=== PATIENT | male | born 1935 | race Caucasian/White ===

== ENCOUNTER → 2016-11-18 | Outpatient (CLI) | payer MEDICARE ==
--- NOTE | 2016-11-26 10:40 | P.ARTDOP ---
Arterial Doppler LOWER EXTREMITY ARTERIAL DOPPLER: DATE OF SERVICE: 11/18/2016 Reason for study: Left foot ulcer. Doppler waveforms: Multiphasic bilaterally throughout. Pulse volume recording: Normal configuration. Pressure gradients: Across the knee. Ankle-brachial indices: 0.8 on the right and 0.92 on the left. Toe pressures: 100 on the right, 75 on the left Impression: Mild bilateral fem-pop disease. Perfusion pressure should be adequate for healing. Clinical correlation recommended..
== END | disposition home or self-care (01) ==
LOC: RADUSWWP 08:46
PROVIDERS: ATTEND Family Medicine
DX: I87.2 Venous insufficiency (chronic) (peripheral) (principal); L97.509 Non-pressure chronic ulcer of other part of unspecified foot with unspecified severity
CPT/HCPCS: 93923

== ENCOUNTER 2018-05-07 19:58 | Inpatient (IN) | payer MEDICARE ==
[2018-05-07] MEDS ORDERED: IPRATROPIUM-ALBUTEROL 3 ML NEB INHALATION STA (20:05)
[2018-05-07 20:41] LABS: Basophils % (A) 0 %; Eosinophils # (A) 0.1 k/uL (0-0.7); Eosinophils % (A) 2 %; HCT 37.9 % (39.0-53.0); HGB 12.1 gm/dL (13.0-17.5); Lymphocytes # (A) 0.8 k/uL (1.0-4.8); Lymphocytes % (A) 13 %; MCH 28.5 pg (25.0-35.0); MCHC 31.9 g/dL (31.0-37.0); MCV 89.5 fL (80.0-100.0); Mean Platelet Volume 6.1; Monocytes # (A) 0.3 k/uL (0-1.0); Monocytes % (A) 5 %; Neutrophils # (A) 4.7 k/uL (1.3-7.7); Neutrophils % (A) 78 %; Platelet Count 128 k/uL (150-450); RBC 4.23 m/uL (4.30-5.90); RDW 15.5 % (11.5-15.5)
[2018-05-07 20:50] LABS: Albumin 3.9 g/dL (3.5-5.0); Calcium 8.9 mg/dL (8.4-10.2); Potassium 3.8 mmol/L (3.5-5.1); Total Bilirubin 0.4 mg/dL (0.2-1.3); Total Protein 6.4 g/dL (6.3-8.2)
--- NOTE | 2018-05-07 20:51 | ED ---
SOB HPI - General Chief Complaint: Shortness of Breath Stated Complaint: SOB Time Seen by Provider: 05/07/18 20:05 Source: patient, EMS, RN notes reviewed, old records reviewed Mode of arrival: EMS Limitations: no limitations - History of Present Illness Initial Comments: This is an 83-year-old male the ER for evaluation. Patient is having occasional is also shortness breath past few days. Significant shortness of breath were he can't catch his breath is in significant distress unable to talk. Breathing very rapidly. The symptoms to improve. No episodes of syncope. Mild chest pain mild diaphoresis. Patient was; hospital denies any appendectomy. Very scared and called EMS and is brought in by EMS. EMS states symptoms began to improve his ear trying to the ER MD Complaint: shortness of breath, anxiety -: hour(s) Severity: severe Severity scale (1-10): 7 Consistency: constant, now resolved Improves With: nothing Worsens With: nothing Known History Of: COPD, congestive heart failure Associated Symptoms: chest pain Treatments Prior to Arrival: oxygen - Related Data Home Medications Medication Instructions Recorded Confirmed DULoxetine HCL [Cymbalta] 60 mg PO HS 11/08/13 05/07/18 Aspirin EC [Ecotrin Low Dose] 81 mg PO HS 08/08/14 05/07/18 LORazepam [Lorazepam] 0.5 mg PO BID 08/08/14 05/07/18 Simvastatin [Zocor] 40 mg PO HS 08/08/14 05/07/18 Ferrous Sulfate [Feosol] 325 mg PO DAILY 03/05/16 05/07/18 Furosemide [Lasix] 80 mg PO QAM 03/05/16 05/07/18 Insulin Glargine [Lantus] 30 unit SQ QAM 03/05/16 05/07/18 Metoprolol Tartrate [Lopressor] 50 mg PO BID 03/05/16 05/07/18 Ascorbic Acid [Vitamin C] 500 mg PO DAILY 05/07/18 05/07/18 Furosemide [Lasix] 40 mg PO HS 05/07/18 05/07/18 Insulin Aspart [NovoLOG Flexpen] See Protocol SQ AC-TID 05/07/18 05/07/18 Insulin Glargine [Lantus] 90 unit SQ HS 05/07/18 05/07/18 Previous Rx's Medication Instructions Recorded Tamsulosin [Flomax] 0.4 mg PO DAILY #30 cap.er.24h 03/04/14 Allergies Allergy/AdvReac Type Severity Reaction Status Date / Time No Known Allergies Allergy Verified 05/07/18 20:29 Review of Systems ROS Statement: Those systems with pertinent positive or pertinent negative responses have been documented in the HPI. ROS Other: All systems not noted in ROS Statement are negative. Past Medical History Past Medical History: Coronary Artery Disease (CAD), Cancer, Chest Pain / Angina , COPD, Diabetes Mellitus, Eye Disorder, GI Bleed, Hyperlipidemia, Hypertension , Myocardial Infarction ([place]) Additional Past Medical History / Comment(s): DIABETIC RETINOPATHY-VISON POOR. CA OF RIGHT KIDNEY, RIGHT NECK, FACE. OLD HX OF ETOH, BPH, pleural effusions x2 since cabg, pulmonary edema, anemia Last Myocardial Infarction Date:: UNKNOWN History of Any Multi-Drug Resistant Organisms: None Reported Past Surgical History: Bladder Surgery, Cholecystectomy, Heart Catheterization With Stent, Orthopedic Surgery, Prostate Surgery, Tonsillectomy Additional Past Surgical History / Comment(s): CATARACTS. PARTIAL RIGHT NEPHRECTOMY (2010). RIGHT SHOULDER. TURP. Open heart surgery 02/23/14 Past Anesthesia/Blood Transfusion Reactions: No Reported Reaction Date of Last Stent Placement:: 2007 Past Psychological History: Anxiety, Depression Smoking Status: Former smoker Past Alcohol Use History: Rare Past Drug Use History: None Reported - Past Family History Father Additional Family Medical History / Comment(s): at age 77- cancer(colon) Mother Family Medical History: Cancer, Myocardial Infarction ([place]) Additional Family Medical History / Comment(s): mom at age 85 from old age , hx colon ca and open heart General Exam Limitations: no limitations General appearance: alert, in no apparent distress, anxious Head exam: Present: atraumatic, normocephalic, normal inspection Eye exam: Present: normal appearance, PERRL, EOMI. Absent: scleral icterus, conjunctival injection, periorbital swelling ENT exam: Present: normal exam, mucous membranes moist Neck exam: Present: normal inspection. Absent: tenderness, meningismus, lymphadenopathy Respiratory exam: Present: normal lung sounds bilaterally. Absent: respiratory distress, wheezes, rales, rhonchi, stridor Cardiovascular Exam: Present: regular rate, normal rhythm, normal heart sounds. Absent: systolic murmur, diastolic murmur, rubs, gallop, clicks GI/Abdominal exam: Present: soft, normal bowel sounds. Absent: distended, tenderness, guarding, rebound, rigid Extremities exam: Present: normal inspection, full ROM, normal capillary refill. Absent: tenderness, pedal edema, joint swelling, calf tenderness Back exam: Present: normal inspection Neurological exam: Present: alert, oriented X3, CN II-XII intact Psychiatric exam: Present: normal affect, normal mood Skin exam: Present: warm, dry, intact, normal color. Absent: rash Course Vital Signs 05/07/18 05/07/18 05/07/18 20:04 20:40 20:42 Temperature 98.3 F Pulse Rate 87 64 Respiratory 20 20 Rate Blood Pressure 117/62 O2 Sat by Pulse 93 L Oximetry 05/07/18 05/07/18 20:52 22:26 Temperature Pulse Rate 65 92 Respiratory 18 Rate Blood Pressure 128/58 O2 Sat by Pulse 97 Oximetry - Reevaluation(s) Reevaluation #1: 05/07/18 23:26 Patient's denies any acute recent shortness of breath Medical Decision Making - Medical Decision Making 80 female the ER for evaluation. Patient does say for evaluation of shortness of breath significant shortness of breath or relapses remit as well as chest pain. Patient will be admitted for monitoring of possible arrhythmia versus mild CHF exacerbation. - Lab Data Result diagrams: 05/07/18 20:17 05/07/18 20:17 Lab Results 05/07/18 05/07/18 05/07/18 Range/Units 20:17 20:17 20:17 WBC 6.0 (3.8-10.6) k/uL RBC 4.23 L (4.30-5.90) m/uL Hgb 12.1 L (13.0-17.5) gm/dL Hct 37.9 L (39.0-53.0) % MCV 89.5 (80.0-100.0) fL MCH 28.5 (25.0-35.0) pg MCHC 31.9 (31.0-37.0) g/dL RDW 15.5 (11.5-15.5) % Plt Count 128 L (150-450) k/uL Neutrophils % 78 % Lymphocytes % 13 % Monocytes % 5 % Eosinophils % 2 % Basophils % 0 % Neutrophils # 4.7 (1.3-7.7) k/uL Lymphocytes # 0.8 L (1.0-4.8) k/uL Monocytes # 0.3 (0-1.0) k/uL Eosinophils # 0.1 (0-0.7) k/uL Basophils # 0.0 (0-0.2) k/uL PT (9.0-12.0) sec INR (<1.2) APTT (22.0-30.0) sec Sodium 140 (137-145) mmol/L Potassium 3.8 (3.5-5.1) mmol/L Chloride 101 (98-107) mmol/L Carbon Dioxide 34 H (22-30) mmol/L Anion Gap 5 mmol/L BUN 27 H (9-20) mg/dL Creatinine 2.01 H (0.66-1.25) mg/dL Est GFR (CKD-EPI)AfAm 35 (>60 ml/min/1.73 sqM) Est GFR (CKD-EPI)NonAf 30 (>60 ml/min/1.73 sqM) Glucose 170 H (74-99) mg/dL Calcium 8.9 (8.4-10.2) mg/dL Magnesium 2.0 (1.6-2.3) mg/dL Total Bilirubin 0.4 (0.2-1.3) mg/dL AST 24 (17-59) U/L ALT 28 (21-72) U/L Alkaline Phosphatase 86 (38-126) U/L Total Creatine Kinase 225 H (55-170) U/L CK-MB (CK-2) 5.4 H (0.0-2.4) ng/mL CK-MB (CK-2) Rel Index 2.4 Troponin I 0.021 (0.000-0.034) ng/mL NT-Pro-B Natriuret Pep pg/mL Total Protein 6.4 (6.3-8.2) g/dL Albumin 3.9 (3.5-5.0) g/dL 05/07/18 05/07/18 Range/Units 20:17 20:17 WBC (3.8-10.6) k/uL RBC (4.30-5.90) m/uL Hgb (13.0-17.5) gm/dL Hct (39.0-53.0) % MCV (80.0-100.0) fL MCH (25.0-35.0) pg MCHC (31.0-37.0) g/dL RDW (11.5-15.5) % Plt Count (150-450) k/uL Neutrophils % % Lymphocytes % % Monocytes % % Eosinophils % % Basophils % % Neutrophils # (1.3-7.7) k/uL Lymphocytes # (1.0-4.8) k/uL Monocytes # (0-1.0) k/uL Eosinophils # (0-0.7) k/uL Basophils # (0-0.2) k/uL PT 9.5 (9.0-12.0) sec INR 0.9 (<1.2) APTT 24.6 (22.0-30.0) sec Sodium (137-145) mmol/L Potassium (3.5-5.1) mmol/L Chloride (98-107) mmol/L Carbon Dioxide (22-30) mmol/L Anion Gap mmol/L BUN (9-20) mg/dL Creatinine (0.66-1.25) mg/dL Est GFR (CKD-EPI)AfAm (>60 ml/min/1.73 sqM) Est GFR (CKD-EPI)NonAf (>60 ml/min/1.73 sqM) Glucose (74-99) mg/dL Calcium (8.4-10.2) mg/dL Magnesium (1.6-2.3) mg/dL Total Bilirubin (0.2-1.3) mg/dL AST (17-59) U/L ALT (21-72) U/L Alkaline Phosphatase (38-126) U/L Total Creatine Kinase (55-170) U/L CK-MB (CK-2) (0.0-2.4) ng/mL CK-MB (CK-2) Rel Index Troponin I (0.000-0.034) ng/mL NT-Pro-B Natriuret Pep 736 pg/mL Total Protein (6.3-8.2) g/dL Albumin (3.5-5.0) g/dL - EKG Data -: EKG Interpreted by Me (EKG shows A. fib rate of 65, QRS 166, QRS for 86) - Radiology Data Radiology results: report reviewed (Chest x-ray does not show any acute CHF exacerbation or acute disease), image reviewed Critical Care Time Critical Care Time: Yes Total Critical Care Time: 31 Disposition Clinical Impression: S/P CABG x 3, CHF exacerbation Disposition: ADMITTED IP TO THIS HOSP Condition: Fair Is patient prescribed a controlled substance at d/c from ED?: No Referrals: Yanet Lee MD [Primary Care Provider] - 1-2 days
[2018-05-07 20:56] LABS: INR 0.9 (<1.2); Partial Thromboplastin Time 24.6 sec (22.0-30.0); Prothrombin Time 9.5 sec (9.0-12.0)
[2018-05-07 21:05] LABS: Creatine Kinase MB 5.4 ng/mL (0.0-2.4); Troponin I 0.021 ng/mL (0.000-0.034)
--- NOTE | 2018-05-07 21:11 | XR ---
EXAMINATION TYPE: XR chest 1V portable DATE OF EXAM: 05/07/2018 COMPARISON: 08/11/2014 INDICATION: Short of breath TECHNIQUE: Frontal views of the chest are obtained. FINDINGS: The heart size is normal. The pulmonary vasculature is normal. The lungs are clear. Sternotomy wires are in the superior chest IMPRESSION: 1. No acute pulmonary process.
[2018-05-07] MEDS ORDERED: NITROGLYCERIN SL TABS 0.4 MG TAB SUBLINGUAL PRN (23:27)
[2018-05-07] MEDS ORDERED: HEPARIN SODIUM,PORCINE 5,000 UNIT/ML 1 ML VIAL IV PRN (23:27)
[2018-05-07] MEDS ORDERED: HEPARIN SODIUM,PORCINE 5,000 UNIT/ML 1 ML VIAL IV ONE (23:27)
[2018-05-08] MEDS: HEPARIN SOD,PORK IN 0.45% NACL 25,000 UNIT in 0.45% NACL 1 250ML.BAG IV SCH (00:14)
[2018-05-08 00:37] LABS: Glucose,Whole Blood 142 mg/dL (75-99)
[2018-05-08] MEDS: METOPROLOL TARTRATE 50 MG TAB PO SCH ×3 (01:58→20:49)
[2018-05-08] MEDS: ATORVASTATIN 20 MG TAB PO SCH ×2 (01:58→20:49)
[2018-05-08] MEDS: FUROSEMIDE 40 MG TAB PO SCH ×2 (01:59→20:49)
[2018-05-08 02:45] LABS: Creatine Kinase MB 6.3 ng/mL (0.0-2.4)
[2018-05-08 02:59] LABS: Troponin I 0.037 ng/mL (0.000-0.034)
[2018-05-08 05:48] LABS: Glucose,Whole Blood 168 mg/dL (75-99)
[2018-05-08 06:45] LABS: Glucose,Whole Blood 162 mg/dL (75-99)
[2018-05-08] MEDS: IPRATROPIUM-ALBUTEROL 3 ML NEB INHALATION SCH ×3 (07:13→19:35)
[2018-05-08 07:43] LABS: Mean Platelet Volume 6.9; Platelet Count 121 k/uL (150-450)
[2018-05-08 07:52] LABS: Cholesterol 134 mg/dL (<200); HDL Cholesterol 27 mg/dL (40-60); LDL Cholesterol,Calculated 34 mg/dL (0-99); Triglycerides 366 mg/dL (<150)
[2018-05-08 08:45] LABS: Calcium 8.7 mg/dL (8.4-10.2); Potassium 4.2 mmol/L (3.5-5.1)
[2018-05-08 08:47] LABS: Creatine Kinase MB 5.4 ng/mL (0.0-2.4)
[2018-05-08 08:52] LABS: Troponin I 0.042 ng/mL (0.000-0.034)
[2018-05-08] MEDS ORDERED: ASPIRIN 325 MG TAB PO SCH (09:00)
--- NOTE | 2018-05-08 09:52 | US ---
EXAMINATION TYPE: US kidneys/renal and bladder DATE OF EXAM: 05/08/2018 COMPARISON: NONE CLINICAL HISTORY: elev cr hx r renal ca. EXAM MEASUREMENTS: Right Kidney: 10.7 x 4.1 x 4.2 cm Left Kidney: 13.7 x 4.1 x 5.7 cm Post Void Residual Volume: mL Patient of large body habitus, technically difficult and limited views, unable to see kidneys in thei r entirety. Right Kidney: hypoechoic mass seen medial measuring 1.7 x 1.7 x 1.8cm, inferior pole shows echogeni c foci with shadowing measuring 0.7 x 0.4 x 0.5 Left Kidney: measures large, cyst note measuring 1.3 x 1.6 x 1.9cm, lobular surface contour Bladder: irregular borders, echogenic foci with shadowing measuring 0.4 x 0.4 x 0.5cm There is a 7 mm, nonobstructing cortical calcification in the mid polar region of the right kidney. A previously noted cyst in the lower pole of the right kidney has enlarged from 1.5 cm to 1.7 cm. There is a simple appearing exophytic cyst arising from the mid polar region of the left kidney measu ring 1.9 cm. There are trabeculations within the bladder. There is at least one calcification within the bladder w all measuring 4 mm. IMPRESSION: 1. BILATERAL RENAL CYSTS WHICH IS NOT SIMPLY CYSTIC. 2. NONOBSTRUCTING CORTICAL CALCIFICATION WITHIN THE MID POLAR REGION OF THE RIGHT KIDNEY. 3. TRABECULATION AND CALCIFICATION WITHIN THE BLADDER WALL.
--- NOTE | 2018-05-08 10:10 | P.NPCON ---
History of Present Illness - Reason for Consult acute renal failure, chronic renal failure - History of Present Illness Reason for consultation: Acute kidney injury on chronic kidney disease History of present illness: Patient is a 83-year-old male seen in renal consultation for acute kidney injury on chronic kidney disease. Patient has chronic kidney disease stage III with baseline creatinine in the range of 1.5-1.7 secondary to diabetic kidney disease. Creatinine was 2.01 on admission and is 1.98 today. Patient states he was having dinner last night and developed shortness of breath shortly after. Patient states is similar episode occurred about a week ago and resolved spontaneously. Currently sitting up in chair. He is maintained on IV heparin. Admits to good urine output. No hematuria or dysuria. Does admit to taking Motrin on a daily basis. Blood pressure controlled. Patient states he was diagnosed with diabetes over 40 years ago. Chest x-ray revealed no acute pulmonary process. No chest pain. Vital signs are stable. General: The patient appeared well nourished and normally developed. HEENT: Head exam is unremarkable. Neck is without jugular venous distension. LUNGS: Lungs are clear to auscultation and percussion. Breath sounds decreased. HEART: Rate and Rhythm are regular. First and second heart sounds normal. No murmurs, rubs or gallops. ABDOMEN: Abdominal exam reveals normal bowel sounds. Non-tender and non- distended. No evidence of peritonitis. EXTREMITITES: No clubbing, cyanosis, or edema. Past Medical History Past Medical History: Atrial Fibrillation, Coronary Artery Disease (CAD), Cancer , Chest Pain / Angina, COPD, Diabetes Mellitus, Eye Disorder, GI Bleed, Hyperlipidemia, Hypertension, Myocardial Infarction ([place]) Additional Past Medical History / Comment(s): DIABETIC RETINOPATHY-VISON POOR. CA OF RIGHT KIDNEY, RIGHT NECK, FACE. OLD HX OF ETOH, BPH, pleural effusions x2 since cabg with thoracentesis, pulmonary edema, anemia Last Myocardial Infarction Date:: UNKNOWN History of Any Multi-Drug Resistant Organisms: None Reported Past Surgical History: Bladder Surgery, Cholecystectomy, Heart Catheterization With Stent, Orthopedic Surgery, Prostate Surgery, Tonsillectomy Additional Past Surgical History / Comment(s): CATARACTS. PARTIAL RIGHT NEPHRECTOMY (2010). RIGHT SHOULDER. TURP. Open heart surgery 3 vessel 02/23/14 Past Anesthesia/Blood Transfusion Reactions: No Reported Reaction Date of Last Stent Placement:: 2007 Past Psychological History: Anxiety, Depression Additional Psychological History / Comment(s): PT LIVES WITH OF 60 YEARS, IS INDEPENDANT BUT VISON IS POOR. 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 Smoking Status: Former smoker Past Alcohol Use History: Rare Additional Past Alcohol Use History / Comment(s): Old hx of ETOH, started smoking at age 12 smoked 2 ppd quit in 2001 Past Drug Use History: None Reported - Past Family History Father Additional Family Medical History / Comment(s): at age 77- cancer(colon) Mother Family Medical History: Cancer, Myocardial Infarction ([place]) Additional Family Medical History / Comment(s): mom at age 85 from old age , hx colon ca and open heart Medications and Allergies Home Medications Medication Instructions Recorded Confirmed Type DULoxetine HCL [Cymbalta] 60 mg PO HS 11/08/13 05/07/18 History Tamsulosin [Flomax] 0.4 mg PO DAILY #30 cap.er.24h 03/04/14 05/07/18 Rx Aspirin EC [Ecotrin Low Dose] 81 mg PO HS 08/08/14 05/07/18 History LORazepam [Lorazepam] 0.5 mg PO BID 08/08/14 05/07/18 History Simvastatin [Zocor] 40 mg PO HS 08/08/14 05/07/18 History Ferrous Sulfate [Feosol] 325 mg PO DAILY 03/05/16 05/07/18 History Furosemide [Lasix] 80 mg PO QAM 03/05/16 05/07/18 History Insulin Glargine [Lantus] 30 unit SQ QAM 03/05/16 05/07/18 History Metoprolol Tartrate [Lopressor] 50 mg PO BID 03/05/16 05/07/18 History Ascorbic Acid [Vitamin C] 500 mg PO DAILY 05/07/18 05/07/18 History Furosemide [Lasix] 40 mg PO HS 05/07/18 05/07/18 History Insulin Aspart [NovoLOG Flexpen] See Protocol SQ AC-TID 05/07/18 05/07/18 History Insulin Glargine [Lantus] 90 unit SQ HS 05/07/18 05/07/18 History Allergies Allergy/AdvReac Type Severity Reaction Status Date / Time No Known Allergies Allergy Verified 05/07/18 20:29 Physical Exam Vitals: Vital Signs Temp Pulse Pulse Resp BP BP BP 05/08/18 07:30 97.7 F 57 L 18 130/62 05/08/18 07:29 60 05/08/18 07:14 58 L 05/08/18 05:17 98.1 F 66 15 121/57 05/08/18 04:00 18 05/08/18 00:22 98.7 F 81 18 144/68 05/08/18 00:00 98.2 F 89 18 143/56 05/07/18 22:26 92 18 128/58 05/07/18 20:52 65 05/07/18 20:42 20 05/07/18 20:40 64 05/07/18 20:04 98.3 F 87 20 117/62 Pulse Ox 05/08/18 07:30 93 L 05/08/18 07:29 05/08/18 07:14 92 L 05/08/18 05:17 96 05/08/18 04:00 05/08/18 00:22 98 05/08/18 00:00 96 05/07/18 22:26 97 05/07/18 20:52 05/07/18 20:42 05/07/18 20:40 05/07/18 20:04 93 L Intake and Output 05/07/18 05/08/18 05/08/18 22:59 06:59 14:59 Intake Total 80.667 Balance 80.667 Intake: Intake, IV Titration 80.667 Amount Heparin Sod,Pork in 0.45% 80.667 NaCl 25,000 unit In 0.45 % NaCl 1 250ml.bag @ 10 mls/hr IV .Q24H [facility] Rx#: [id number] Other: Voiding Method Toilet Toilet Urinal Urinal Weight 111.13 kg 112.6 kg Results - Lab Results Most recent lab results Calcium 8.7 mg/dL (8.4-10.2) 05/08/18 06:33 Magnesium 2.0 mg/dL (1.6-2.3) 05/07/18 20:17 05/08/18 06:33 05/08/18 06:33 Assessment and Plan Plan: Assessment: 1. Mild acute kidney injury secondary to nonsteroidals versus progression of underlying chronic kidney disease. Creatinine stable at 1.90 today. No evidence of hydronephrosis noted on renal ultrasound. 2. Chronic kidney disease stage III with baseline creatinine in the range of 1.5-1.7 from April 2015. 3. Chest pain. Concern for acute coronary syndrome. Cardiology following. Currently on IV heparin. 4. Insulin-dependent diabetes mellitus. 5. Hypertension with chronic kidney disease. Controlled. 6. BPH maintained on Flomax. Plan: Maintain Lasix 40 mg orally once daily. Potential cardiac catheterization on Thursday. I will hydrate the patient with normal saline at 75 mL an hour to be started 12 hours prior to catheterization and to be continued for 12 hours post cardiac catheterization. I discussed the risk of worsening renal failure post-IV contrast exposure. Patient understands. Avoid nephrotoxins. Continue to monitor renal function and urine output. Check UA. Thank you for the consultation. I will continue to follow the patient with you during his hospital stay.
[2018-05-08] MEDS: INSULIN ASPART 100 UNIT/ML 1 ML 10 ML VIAL SQ SCH ×4 (10:33→20:50)
[2018-05-08 11:48] LABS: Glucose,Whole Blood 251 mg/dL (75-99)
--- NOTE | 2018-05-08 12:13 | P.CRDCN ---
History of Present Illness History of present illness: This is a pleasant 83-year-old male past medical history significant for four-vessel bypass grafting performed 2014, ischemic cardiomyopathy, hypertension, dyslipidemia, diabetes mellitus and COPD. He follows in the office with Dr. Flower. We have been asked to see him in consultation secondary to shortness of breath. He states starting last night while eating dinner had a acute onset of shortness of breath, no chest pain. [place] very jittery and weak. By the time he got here symptoms had resolved. Same thing happened approximately 1 week ago similarly with acute onset and resolved on its own after about 20 minutes. He denies ever having had chest discomfort, dizziness or palpitations. EKG reveals right bundle branch block pattern heart rate 97 with a wide QRS. Chest x-ray negative for an acute cardiopulmonary process. Laboratory data reviewed, WBC 6, hemoglobin 12.1, platelets 121, d-dimer 0.49, sodium 140, potassium 4.2, creatinine 1.98, magnesium 2.0, troponin 0.021, 0.037 and 0.042, NT proBNP 736, LDL 34 and HDL 27. Current cardiac medications include aspirin 81 mg daily, Lasix 80 mg in the morning and 40 mg at bedtime, metoprolol 50 mg twice a day and simvastatin 40 mg daily. Most recent echocardiogram obtained in the office 2017 reveals diminished LV systolic function with ejection fraction approximately 35%. At the time of my exam: CONSTITUTIONAL: Denies fever. Denies chills. EYES: Denies blurred vision. Denies vision changes. Denies eye pain. EARS, NOSE, MOUTH & THROAT: Denies headache. Denies sore throat. Denies ear pain. CARDIOVASCULAR: Denies chest pain. Denies shortness of breath. Denies orthopnea. Denies PND. Denies palpitations. RESPIRATORY: Denies cough. GASTROINTESTINAL: Denies abdominal pain. Denies diarrhea. Denies constipation. Denies nausea. Denies vomiting. MUSCULOSKELETAL: Denies myalgias. INTEGUMENTARY: Denies pruitis. Denies rash. NEUROLOGIC: Denies numbness. Denies tingling. Denies weakness. PSYCHIATRIC: Denies anxiety. Denies depression. ENDOCRINE: Denies fatigue. Denies weight change. Denies polydipsia. Denies polyurina. GENITOURINARY: Denies burning, hematuria or urgency with micturation. HEMATOLOGIC: Denies history of anemia. Denies bleeding. Blood pressure 128/53 heart rate 58 afebrile maintaining oxygen saturation on room air GENERAL: This is a 83-year-old male in no apparent distress at the time of my examination. HEENT: Head is atraumatic, normocephalic. Pupils are equal, round. Sclerae anicteric. Conjunctivae are clear. Mucous membranes of the mouth are moist. Neck is supple. There is no jugular venous distention. No carotid bruit is heard. LUNGS: Clear to auscultation no wheezes, rales or rhonchi. No chest wall tenderness is noted on palpation or with deep breathing. Diminished bilaterally. HEART: Regular rate and rhythm with systolic ejection murmur at the base, no rubs or gallops. S1 and S2 heard. ABDOMEN: Soft, nontender. Bowel sounds are heard. No organomegaly noted. EXTREMITIES: Trace bilateral lower extremity edema and no calf tenderness noted. VASCULAR: Radial and dorsalis pedis pulses palpated, no evidence of clubbing. NEUROLOGIC: Patient is awake, alert and oriented x3. ASSESSMENT Unstable angina Non-ST elevated myocardial infarction, strong possibility with symptoms of unstable angina. However troponin may be related to acute kidney injury as well. History of coronary artery disease status post bypass grafting 2013 Ischemic cardiomyopathy Chronic systolic heart failure, currently euvolemic Hypertension Dyslipidemia Diabetes mellitus COPD Chronic kidney disease History of right renal cancer and chronic non-obstructing renal stone per the patient. PLAN Maintain on IV heparin infusion. Obtain 2-D echocardiogram and Doppler study to assess cardiac structure and function. He has also been seen in consultation by nephrology and they're recommending IV hydration. Repeat BMP in the morning. Probable cardiac catheterization on Thursday per his primary gasateria attendant. We will continue to follow and make recommendations accordingly. Thank you kindly for this consultation. The above impression and plan of care have been discussed and directed by the signing physician. Caro Hartley, nurse practitioner, acting as scribe for signing physician. Past Medical History Past Medical History: Atrial Fibrillation, Coronary Artery Disease (CAD), Cancer , Chest Pain / Angina, COPD, Diabetes Mellitus, Eye Disorder, GI Bleed, Hyperlipidemia, Hypertension, Myocardial Infarction ([place]) Additional Past Medical History / Comment(s): DIABETIC RETINOPATHY-VISON POOR. CA OF RIGHT KIDNEY, RIGHT NECK, FACE. OLD HX OF ETOH, BPH, pleural effusions x2 since cabg with thoracentesis, pulmonary edema, anemia Last Myocardial Infarction Date:: UNKNOWN History of Any Multi-Drug Resistant Organisms: None Reported Past Surgical History: Bladder Surgery, Cholecystectomy, Heart Catheterization With Stent, Orthopedic Surgery, Prostate Surgery, Tonsillectomy Additional Past Surgical History / Comment(s): CATARACTS. PARTIAL RIGHT NEPHRECTOMY (2010). RIGHT SHOULDER. TURP. Open heart surgery 3 vessel 02/23/14 Past Anesthesia/Blood Transfusion Reactions: No Reported Reaction Date of Last Stent Placement:: 2007 Past Psychological History: Anxiety, Depression Additional Psychological History / Comment(s): PT LIVES WITH OF 60 YEARS, IS INDEPENDANT BUT VISON IS POOR. 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 Smoking Status: Former smoker Past Alcohol Use History: Rare Additional Past Alcohol Use History / Comment(s): Old hx of ETOH, started smoking at age 12 smoked 2 ppd quit in 2001 Past Drug Use History: None Reported - Past Family History Father Additional Family Medical History / Comment(s): at age 77- cancer(colon) Mother Family Medical History: Cancer, Myocardial Infarction ([place]) Additional Family Medical History / Comment(s): mom at age 85 from old age , hx colon ca and open heart Medications and Allergies Home Medications Medication Instructions Recorded Confirmed Type DULoxetine HCL [Cymbalta] 60 mg PO HS 11/08/13 05/07/18 History Tamsulosin [Flomax] 0.4 mg PO DAILY #30 cap.er.24h 03/04/14 05/07/18 Rx Aspirin EC [Ecotrin Low Dose] 81 mg PO HS 08/08/14 05/07/18 History LORazepam [Lorazepam] 0.5 mg PO BID 08/08/14 05/07/18 History Simvastatin [Zocor] 40 mg PO HS 08/08/14 05/07/18 History Ferrous Sulfate [Feosol] 325 mg PO DAILY 03/05/16 05/07/18 History Furosemide [Lasix] 80 mg PO QAM 03/05/16 05/07/18 History Insulin Glargine [Lantus] 30 unit SQ QAM 03/05/16 05/07/18 History Metoprolol Tartrate [Lopressor] 50 mg PO BID 03/05/16 05/07/18 History Ascorbic Acid [Vitamin C] 500 mg PO DAILY 05/07/18 05/07/18 History Furosemide [Lasix] 40 mg PO HS 05/07/18 05/07/18 History Insulin Aspart [NovoLOG Flexpen] See Protocol SQ AC-TID 05/07/18 05/07/18 History Insulin Glargine [Lantus] 90 unit SQ HS 05/07/18 05/07/18 History Allergies Allergy/AdvReac Type Severity Reaction Status Date / Time No Known Allergies Allergy Verified 05/07/18 20:29 Physical Exam Vitals: Vital Signs Temp Pulse Pulse Resp BP BP BP 05/08/18 07:30 97.7 F 57 L 18 130/62 05/08/18 07:29 60 05/08/18 07:14 58 L 05/08/18 05:17 98.1 F 66 15 121/57 05/08/18 04:00 18 05/08/18 00:22 98.7 F 81 18 144/68 05/08/18 00:00 98.2 F 89 18 143/56 05/07/18 22:26 92 18 128/58 05/07/18 20:52 65 05/07/18 20:42 20 05/07/18 20:40 64 05/07/18 20:04 98.3 F 87 20 117/62 Pulse Ox 05/08/18 07:30 93 L 05/08/18 07:29 05/08/18 07:14 92 L 05/08/18 05:17 96 05/08/18 04:00 05/08/18 00:22 98 05/08/18 00:00 96 05/07/18 22:26 97 05/07/18 20:52 05/07/18 20:42 05/07/18 20:40 05/07/18 20:04 93 L Intake and Output 05/07/18 05/08/18 05/08/18 22:59 06:59 14:59 Intake Total 80.667 Balance 80.667 Intake: Intake, IV Titration 80.667 Amount Heparin Sod,Pork in 0.45% 80.667 NaCl 25,000 unit In 0.45 % NaCl 1 250ml.bag @ 10 mls/hr IV .Q24H [facility] Rx#: [id number] Other: Voiding Method Toilet Urinal Weight 111.13 kg 112.6 kg Results 05/08/18 06:33 05/08/18 06:33 Cardiac Enzymes 05/07/18 05/07/18 05/08/18 Range/Units 20:17 20:17 01:51 AST 24 (17-59) U/L CK-MB (CK-2) 5.4 H 6.3 H (0.0-2.4) ng/mL Troponin I 0.021 0.037 H* (0.000-0.034) ng/mL Coagulation 05/07/18 05/08/18 Range/Units 20:17 06:33 PT 9.5 (9.0-12.0) sec APTT 24.6 31.9 H (22.0-30.0) sec Lipids 05/08/18 Range/Units 06:33 Triglycerides 366 H (<150) mg/dL Cholesterol 134 (<200) mg/dL HDL Cholesterol 27 L (40-60) mg/dL CBC 05/07/18 05/08/18 Range/Units 20:17 06:33 WBC 6.0 (3.8-10.6) k/uL RBC 4.23 L (4.30-5.90) m/uL Hgb 12.1 L (13.0-17.5) gm/dL Hct 37.9 L (39.0-53.0) % Plt Count 128 L 121 L (150-450) k/uL Comprehensive Metabolic Panel 05/07/18 Range/Units 20:17 Sodium 140 (137-145) mmol/L Potassium 3.8 (3.5-5.1) mmol/L Chloride 101 (98-107) mmol/L Carbon Dioxide 34 H (22-30) mmol/L BUN 27 H (9-20) mg/dL Creatinine 2.01 H (0.66-1.25) mg/dL Glucose 170 H (74-99) mg/dL Calcium 8.9 (8.4-10.2) mg/dL AST 24 (17-59) U/L ALT 28 (21-72) U/L Alkaline Phosphatase 86 (38-126) U/L Total Protein 6.4 (6.3-8.2) g/dL Albumin 3.9 (3.5-5.0) g/dL Current Medications Generic Name Dose Route Start Last Admin Trade Name Freq PRN Reason Stop Dose Admin Acetaminophen 650 mg 05/08/18 00:56 Tylenol Tab PO Q4HR PRN Fever and/ or Pain Albuterol/Ipratropium 3 ml 05/08/18 08:00 05/08/18 07:13 Duoneb 0.5 Mg-3 Mg/3 Ml Soln INHALATION 3 ml RT-TID [facility] Administration Aspirin 325 mg 05/08/18 09:00 Aspirin PO DAILY [facility] Atorvastatin Calcium 20 mg 05/08/18 01:42 05/08/18 01:58 Lipitor PO 20 mg HS [facility] Administration Furosemide 40 mg 05/08/18 01:43 05/08/18 01:59 Lasix PO 40 mg HS [facility] Administration Heparin Sodium (Porcine) 0 unit 05/07/18 23:27 Heparin IV Q6HR PRN Low PTT Protocol Heparin Sodium/Sodium Chloride 250 mls @ 10 mls/hr 05/07/18 23:30 05/08/18 08 :18 25,000 unit/ Sodium Chloride IV 12 units/kg/hr .Q24H [facility] 13.33 mls/hr Titration Protocol Insulin Aspart 0 unit 05/08/18 07:30 Novolog SQ ACHS [facility] Protocol Metoprolol Tartrate 50 mg 05/08/18 01:45 05/08/18 01:58 Lopressor PO 50 mg BID [facility] Administration Nitroglycerin 0.4 mg 05/07/18 23:27 Nitrostat SUBLINGUAL Q5M PRN Chest Pain Ondansetron HCl 4 mg 05/08/18 00:56 Zofran IVP Q6HR PRN Nausea And Vomiting Intake and Output 05/07/18 05/08/18 05/08/18 22:59 06:59 14:59 Intake Total 80.667 Balance 80.667 Intake: Intake, IV Titration 80.667 Amount Heparin Sod,Pork in 0.45% 80.667 NaCl 25,000 unit In 0.45 % NaCl 1 250ml.bag @ 10 mls/hr IV .Q24H [facility] Rx#: [id number] Other: Voiding Method Toilet Urinal Weight 111.13 kg 112.6 kg 05/08/18 06:33 05/07/18 20:17
--- NOTE | 2018-05-08 13:00 | P.HPIM ---
History of Present Illness 83-year-old pleasant gentleman with known history of ischemic Cardiomyopathy ejection fraction of 30% and the history of coronary artery disease in the past came in with complaints of nausea vomiting epigastric abdominal discomfort and his chest pain is worse with eating patient started having this pain and he started eating today. Patient has mildly elevated troponins patient does have chronic kidney disease stage IV with a baseline creatinine around 1.7-1.9 patient's creatinine is 1.9 at this time patient denied the any orthopnea proximal nocturnal dyspnea although is complaining of some shortness of breath which is not clear chest x-ray did not show any ingested heart failure patient doesn't have any significant related edema or elevated JVD patient is morbidly obese. Patient denied any fever chills cough. Denied any dizziness or palpitations. Patient was evaluated by cardiology in the recommending cardiac catheterization on Thursday and the nephrology was consulted for clearance because of his chronic kidney disease. And nephrology is recommending to continue 40 mg of Lasix at this time. Patient's previous ejection fraction was 40%. EKG showed right bundle branch block with wide QRS complexes. Review of Systems REVIEW OF SYSTEMS: CONSTITUTIONAL: No fever, no malaise, no fatigue. HEENT: No recent visual problems or hearing problems. Denied any sore throat. CARDIOVASCULAR: No orthopnea, PND, no palpitations, no syncope. PULMONARY: No shortness of breath, no cough, no hemoptysis. GASTROINTESTINAL: No diarrhea, no nausea, no vomiting, no abdominal pain. NEUROLOGICAL: No headaches, no weakness, no numbness. HEMATOLOGICAL: Denies any bleeding or petechiae. GENITOURINARY: Denies any burning micturition, frequency, or urgency. MUSCULOSKELETAL/RHEUMATOLOGICAL: Denies any joint pain, swelling, or any muscle pain. ENDOCRINE: Denies any polyuria or polydipsia. The rest of the 14-point review of systems is negative. Past Medical History Past Medical History: Atrial Fibrillation, Coronary Artery Disease (CAD), Cancer , Chest Pain / Angina, COPD, Diabetes Mellitus, Eye Disorder, GI Bleed, Hyperlipidemia, Hypertension, Myocardial Infarction ([place]) Additional Past Medical History / Comment(s): DIABETIC RETINOPATHY-VISON POOR. CA OF RIGHT KIDNEY, RIGHT NECK, FACE. OLD HX OF ETOH, BPH, pleural effusions x2 since cabg with thoracentesis, pulmonary edema, anemia Last Myocardial Infarction Date:: UNKNOWN History of Any Multi-Drug Resistant Organisms: None Reported Past Surgical History: Bladder Surgery, Cholecystectomy, Heart Catheterization With Stent, Orthopedic Surgery, Prostate Surgery, Tonsillectomy Additional Past Surgical History / Comment(s): CATARACTS. PARTIAL RIGHT NEPHRECTOMY (2010). RIGHT SHOULDER. TURP. Open heart surgery 3 vessel 02/23/14 Past Anesthesia/Blood Transfusion Reactions: No Reported Reaction Date of Last Stent Placement:: 2007 Past Psychological History: Anxiety, Depression Additional Psychological History / Comment(s): PT LIVES WITH OF 60 YEARS, IS INDEPENDANT BUT VISON IS POOR. 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 Smoking Status: Former smoker Past Alcohol Use History: Rare Additional Past Alcohol Use History / Comment(s): Old hx of ETOH, started smoking at age 12 smoked 2 ppd quit in 2001 Past Drug Use History: None Reported - Past Family History Father Additional Family Medical History / Comment(s): at age 77- cancer(colon) Mother Family Medical History: Cancer, Myocardial Infarction ([place]) Additional Family Medical History / Comment(s): mom at age 85 from old age , hx colon ca and open heart Medications and Allergies Home Medications Medication Instructions Recorded Confirmed Type DULoxetine HCL [Cymbalta] 60 mg PO HS 11/08/13 05/07/18 History Tamsulosin [Flomax] 0.4 mg PO DAILY #30 cap.er.24h 03/04/14 05/07/18 Rx Aspirin EC [Ecotrin Low Dose] 81 mg PO HS 08/08/14 05/07/18 History LORazepam [Lorazepam] 0.5 mg PO BID 08/08/14 05/07/18 History Simvastatin [Zocor] 40 mg PO HS 08/08/14 05/07/18 History Ferrous Sulfate [Feosol] 325 mg PO DAILY 03/05/16 05/07/18 History Furosemide [Lasix] 80 mg PO QAM 03/05/16 05/07/18 History Insulin Glargine [Lantus] 30 unit SQ QAM 03/05/16 05/07/18 History Metoprolol Tartrate [Lopressor] 50 mg PO BID 03/05/16 05/07/18 History Ascorbic Acid [Vitamin C] 500 mg PO DAILY 05/07/18 05/07/18 History Furosemide [Lasix] 40 mg PO HS 05/07/18 05/07/18 History Insulin Aspart [NovoLOG Flexpen] See Protocol SQ AC-TID 05/07/18 05/07/18 History Insulin Glargine [Lantus] 90 unit SQ HS 05/07/18 05/07/18 History Allergies Allergy/AdvReac Type Severity Reaction Status Date / Time No Known Allergies Allergy Verified 05/07/18 20:29 Physical Exam Vitals: Vital Signs Temp Pulse Pulse Resp BP BP BP 05/08/18 11:35 98.3 F 58 L 18 128/53 05/08/18 07:30 97.7 F 57 L 18 130/62 05/08/18 07:29 60 05/08/18 07:14 58 L 05/08/18 05:17 98.1 F 66 15 121/57 05/08/18 04:00 18 05/08/18 00:22 98.7 F 81 18 144/68 05/08/18 00:00 98.2 F 89 18 143/56 05/07/18 22:26 92 18 128/58 05/07/18 20:52 65 05/07/18 20:42 20 05/07/18 20:40 64 05/07/18 20:04 98.3 F 87 20 117/62 Pulse Ox 05/08/18 11:35 96 05/08/18 07:30 93 L 05/08/18 07:29 05/08/18 07:14 92 L 05/08/18 05:17 96 05/08/18 04:00 05/08/18 00:22 98 05/08/18 00:00 96 05/07/18 22:26 97 05/07/18 20:52 05/07/18 20:42 05/07/18 20:40 05/07/18 20:04 93 L Intake and Output 05/07/18 05/08/18 05/08/18 22:59 06:59 14:59 Intake Total 80.667 Balance 80.667 Intake: Intake, IV Titration 80.667 Amount Heparin Sod,Pork in 0.45% 80.667 NaCl 25,000 unit In 0.45 % NaCl 1 250ml.bag @ 10 mls/hr IV .Q24H [facility] Rx#: [id number] Other: Voiding Method Toilet Toilet Urinal Urinal Weight 111.13 kg 112.6 kg PHYSICAL EXAMINATION: GENERAL: The patient is alert and oriented x3, not in any acute distress. Obese HEENT: Pupils are round and equally reacting to light. EOMI. No scleral icterus. No conjunctival pallor. Normocephalic, atraumatic. No pharyngeal erythema. No thyromegaly. CARDIOVASCULAR: S1 and S2 present. No murmurs, rubs, or gallops. PULMONARY: Chest is clear to auscultation, no wheezing or crackles. ABDOMEN: Soft, nontender, nondistended, normoactive bowel sounds. No palpable organomegaly. MUSCULOSKELETAL: No joint swelling or deformity. EXTREMITIES: No cyanosis, clubbing, or pedal edema. NEUROLOGICAL: Gross neurological examination did not reveal any focal deficits. SKIN: No rashes. Results CBC & Chem 7: 05/08/18 06:33 05/08/18 06:33 Labs: Abnormal Lab Results - Last 24 Hours (Table) 05/07/18 05/07/18 05/07/18 Range/Units 20:17 20:17 20:17 RBC 4.23 L (4.30-5.90) m/uL Hgb 12.1 L (13.0-17.5) gm/dL Hct 37.9 L (39.0-53.0) % Plt Count 128 L (150-450) k/uL Lymphocytes # 0.8 L (1.0-4.8) k/uL APTT (22.0-30.0) sec Carbon Dioxide 34 H (22-30) mmol/L BUN 27 H (9-20) mg/dL Creatinine 2.01 H (0.66-1.25) mg/dL Glucose 170 H (74-99) mg/dL POC Glucose (mg/dL) (75-99) mg/dL Total Creatine Kinase 225 H (55-170) U/L CK-MB (CK-2) 5.4 H (0.0-2.4) ng/mL Troponin I (0.000-0.034) ng/mL Triglycerides (<150) mg/dL HDL Cholesterol (40-60) mg/dL 05/08/18 05/08/18 05/08/18 Range/Units 00:35 01:51 05:46 RBC (4.30-5.90) m/uL Hgb (13.0-17.5) gm/dL Hct (39.0-53.0) % Plt Count (150-450) k/uL Lymphocytes # (1.0-4.8) k/uL APTT (22.0-30.0) sec Carbon Dioxide (22-30) mmol/L BUN (9-20) mg/dL Creatinine (0.66-1.25) mg/dL Glucose (74-99) mg/dL POC Glucose (mg/dL) 142 H 168 H (75-99) mg/dL Total Creatine Kinase 229 H (55-170) U/L CK-MB (CK-2) 6.3 H (0.0-2.4) ng/mL Troponin I 0.037 H* (0.000-0.034) ng/mL Triglycerides (<150) mg/dL HDL Cholesterol (40-60) mg/dL 05/08/18 05/08/18 05/08/18 Range/Units 06:33 06:33 06:33 RBC (4.30-5.90) m/uL Hgb (13.0-17.5) gm/dL Hct (39.0-53.0) % Plt Count 121 L (150-450) k/uL Lymphocytes # (1.0-4.8) k/uL APTT 31.9 H (22.0-30.0) sec Carbon Dioxide (22-30) mmol/L BUN (9-20) mg/dL Creatinine (0.66-1.25) mg/dL Glucose (74-99) mg/dL POC Glucose (mg/dL) (75-99) mg/dL Total Creatine Kinase (55-170) U/L CK-MB (CK-2) (0.0-2.4) ng/mL Troponin I (0.000-0.034) ng/mL Triglycerides 366 H (<150) mg/dL HDL Cholesterol 27 L (40-60) mg/dL 05/08/18 05/08/18 05/08/18 Range/Units 06:33 06:44 07:49 RBC (4.30-5.90) m/uL Hgb (13.0-17.5) gm/dL Hct (39.0-53.0) % Plt Count (150-450) k/uL Lymphocytes # (1.0-4.8) k/uL APTT (22.0-30.0) sec Carbon Dioxide (22-30) mmol/L BUN 28 H (9-20) mg/dL Creatinine 1.98 H (0.66-1.25) mg/dL Glucose 151 H (74-99) mg/dL POC Glucose (mg/dL) 162 H (75-99) mg/dL Total Creatine Kinase 239 H (55-170) U/L CK-MB (CK-2) 5.4 H (0.0-2.4) ng/mL Troponin I 0.042 H* (0.000-0.034) ng/mL Triglycerides (<150) mg/dL HDL Cholesterol (40-60) mg/dL 05/08/18 Range/Units 11:46 RBC (4.30-5.90) m/uL Hgb (13.0-17.5) gm/dL Hct (39.0-53.0) % Plt Count (150-450) k/uL Lymphocytes # (1.0-4.8) k/uL APTT (22.0-30.0) sec Carbon Dioxide (22-30) mmol/L BUN (9-20) mg/dL Creatinine (0.66-1.25) mg/dL Glucose (74-99) mg/dL POC Glucose (mg/dL) 251 H (75-99) mg/dL Total Creatine Kinase (55-170) U/L CK-MB (CK-2) (0.0-2.4) ng/mL Troponin I (0.000-0.034) ng/mL Triglycerides (<150) mg/dL HDL Cholesterol (40-60) mg/dL Thrombosis Risk Factor Assmnt - Choose All That Apply Each Factor Represents 1 point: Abnormal pulmonary function (COPD), Heart failure (<1month), Obesity (BMI >25) Each Risk Factor Represents 2 Points: Malignancy Each Risk Factor Represents 3 Points: Age 75 years or older Thrombosis Risk Factor Assessment Total Risk Factor Score: 8 Thrombosis Risk Factor Assessment Level: High Risk Assessment and Plan Plan: Chest pain: Mildly elevated troponins. And mild elevation of troponins and believed secondary to acute renal failure my suspicion is low for non-ST elevation microinfarction patient's symptomatology is consistent with gastritis considering his poor renal function I'll not start him on proton inhibitor instead he'll be started on Pepcid IV. was evaluated by cardiology they' re considering cardiac catheterization on Thursday -Chronic kidney disease stage IV creatinine at baseline continuing on 40 mg of the Lasix no IV fluids at this time Congestive heart failure chronic systolic dysfunction without any acute exacerbation shortness of breath is I believe is secondary to his obesity patient is not acutely short of breath his saturations are okay at this time. -Type 2 diabetes mellitus patient is on very high doses of insulin unsure about his compresses because of which I'll start him on a low-dose of 70 units of insulin that his Lantus at night with pre-meal insulin depending on his insulin requirements all all will titrate his regimen. -Hyperlipidemia -Hypertension -Coronary artery disease -COPD without any acute exacerbation -Obesity with possibly of sleep apnea -Atrial fibrillation presently rate controlled
[2018-05-08] MEDS: FAMOTIDINE 20 MG/2 ML VIAL IV SCH ×2 (14:04→22:37)
[2018-05-08] MEDS: ONDANSETRON 4 MG/2 ML VIAL IVP PRN ×2 (14:05→20:49)
--- NOTE | 2018-05-08 14:09 | ECHOF ---
Referral Reason:sob MEASUREMENTS -------- HEIGHT: 180.3 cm WEIGHT: 112.5 kg BP: 130/62 RVIDd: 3.9 cm (< 3.3) IVSd: 1.5 cm (0.6 - 1.1) LVIDd: 5.5 cm (3.9 - 5.3) LVPWd: 1.5 cm (0.6 - 1.1) IVSs: 1.7 cm LVIDs: 3.8 cm LVPWs: 2.1 cm LA Diam: 4.2 cm (2.7 - 3.8) Ao Diam: 4.0 cm (2.0 - 3.7) AV Cusp: 2.2 cm (1.5 - 2.6) MV EXCURSION: 16.312 mm (> 18.000) MV EF SLOPE: 46 mm/s (70 - 150) EPSS: 1.4 cm MV E Kameron: 0.98 m/s MV DecT: 306 ms MV A Kameron: 0.67 m/s MV E/A Ratio: 1.46 AV maxP.11 mmHg AV meanP.45 mmHg RAP: 5.00 mmHg RVSP: 40.44 mmHg FINDINGS -------- Sinus rhythm. This was a technically difficult study with suboptimal views. The left ventricular size is normal. There is moderate concentric left ventricular hypertrophy. O verall left ventricular systolic function is normal with, an EF between 55 - 60 %. The right ventricle is moderately enlarged. The left atrium is mildly dilated. The right atrium is normal in size. Lumason used There is mild aortic valve sclerosis. Trace to mild aortic regurgitation. The mitral valve leaflets are mildly thickened. Mild mitral annular calcification present. Mild-t o-moderate mitral regurgitation is present. Mild tricuspid regurgitation present. There is mild pulmonary hypertension. The right ventricular systolic pressure, as measured by Doppler, is 40.44mmHg. Trace/mild (physiologic) pulmonic regurgitation. The aortic root is dilated measuring 4.0cm. Normal inferior vena cava with normal inspiratory collapse consistent with estimated right atrial pre ssure of 5 mmHg. The inferior vena cava is mildly dilated. There is no pericardial effusion. CONCLUSIONS -------- 1. Sinus rhythm. 2. This was a technically difficult study with suboptimal views. 3. The left ventricular size is normal. 4. There is moderate concentric left ventricular hypertrophy. 5. Overall left ventricular systolic function is normal with, an EF between 55 - 60 %. 6. The right ventricle is moderately enlarged. 7. The left atrium is mildly dilated. 8. The right atrium is normal in size. 9. Lumason used 10. There is mild aortic valve sclerosis. 11. Trace to mild aortic regurgitation. 12. The mitral valve leaflets are mildly thickened. 13. Mild mitral annular calcification present. 14. [id number] mitral regurgitation is present. 15. Mild tricuspid regurgitation present. 16. There is mild pulmonary hypertension. 17. The right ventricular systolic pressure, as measured by Doppler, is 40.44mmHg. 18. Trace/mild (physiologic) pulmonic regurgitation. 19. The aortic root is dilated measuring 4.0cm. 20. Normal inferior vena cava with normal inspiratory collapse consistent with estimated right atrial pressure of 5 mmHg. 21. The inferior vena cava is mildly dilated. 22. There is no pericardial effusion. CHANNELER: Margaret Schilling RDCS
[2018-05-08 14:21] LABS: Appearance,Urine Clear (Clear); Bilirubin,Urine Negative (Negative); Blood,Urine Moderate (Negative); Color,Urine Yellow; Glucose,Urine (UA) 1+ (Negative); Hyaline Casts,Urine 7 /lpf (0-2); Ketones,Urine Negative (Negative); Leukocyte Esterase,Urine Negative (Negative); Mucus,Urine Rare /hpf; Nitrite,Urine Negative (Negative); Protein,Urine Trace (Negative); RBC,Urine 88 /hpf (0-5); Specific Gravity,Urine 1.011 (1.001-1.035); Urobilinogen,Urine <2.0 mg/dL (<2.0); WBC,Urine 1 /hpf (0-5)
[2018-05-08 16:38] LABS: Glucose,Whole Blood 236 mg/dL (75-99)
[2018-05-08 16:50] VITALS: BMI 34.6
[2018-05-08 20:27] LABS: Glucose,Whole Blood 243 mg/dL (75-99)
[2018-05-08] MEDS: DULoxetine HCL 60 MG CAPSULE.DR PO SCH (20:49)
[2018-05-08] MEDS: ACETAMINOPHEN TAB 325 MG TAB PO PRN (20:49)
[2018-05-08] MEDS: INSULIN DETEMIR 100 UNIT/ML 10 ML VIAL SQ SCH (20:50)
[2018-05-09] MEDS: MELATONIN 3 MG TABLET PO PRN ×2 (00:19→21:19)
[2018-05-09] MEDS: ONDANSETRON 4 MG/2 ML VIAL IVP PRN ×3 (04:29→21:57)
[2018-05-09] MEDS: HEPARIN SOD,PORK IN 0.45% NACL 25,000 UNIT in 0.45% NACL 1 250ML.BAG IV SCH (05:44)
[2018-05-09 06:31] LABS: Glucose,Whole Blood 147 mg/dL (75-99)
[2018-05-09] MEDS: INSULIN ASPART 100 UNIT/ML 1 ML 10 ML VIAL SQ SCH ×4 (06:36→21:10)
[2018-05-09 07:01] LABS: Mean Platelet Volume 6.9; Platelet Count 109 k/uL (150-450)
[2018-05-09 08:20] LABS: Potassium 4.6 mmol/L (3.5-5.1)
[2018-05-09] MEDS: FAMOTIDINE 20 MG/2 ML VIAL IV SCH ×2 (08:29→21:09)
[2018-05-09] MEDS: METOPROLOL TARTRATE 50 MG TAB PO SCH ×2 (08:29→21:10)
[2018-05-09] MEDS: ASPIRIN 81 MG PO SCH (08:29)
[2018-05-09] MEDS: TAMSULOSIN 0.4 MG CAP.ER.24H PO SCH (08:29)
[2018-05-09] MEDS: IPRATROPIUM-ALBUTEROL 3 ML NEB INHALATION SCH ×3 (08:49→20:03)
--- NOTE | 2018-05-09 11:17 | P.PN ---
Subjective Patient is seen in follow-up for acute kidney injury on chronic kidney disease. Patient has chronic kidney disease stage III with recent creatinine in the range of 1.5-1.7 secondary to diabetic kidney disease. Renal function is little worse with creatinine at 2.17 today. He is medial Lasix 40 mg once daily. Patient presented with dyspnea. He is maintained on IV heparin. Scheduled for cardiac catheterization tomorrow. Vital signs are stable. General: The patient appeared well nourished and normally developed. HEENT: Head exam is unremarkable. Neck is without jugular venous distension. LUNGS: Lungs are clear to auscultation and percussion. Breath sounds decreased. HEART: Rate and Rhythm are regular. First and second heart sounds normal. No murmurs, rubs or gallops. ABDOMEN: Abdominal exam reveals normal bowel sounds. Non-tender and non- distended. No evidence of peritonitis. EXTREMITITES: Trace edema. Objective - Vital Signs Vital signs: Vital Signs Temp 97.8 F 05/09/18 08:00 Pulse 62 05/09/18 09:00 Resp 16 05/09/18 08:00 BP 117/53 05/09/18 08:00 Pulse Ox 95 05/09/18 08:00 Intake & Output 05/08/18 05/09/18 05/09/18 18:59 06:59 18:59 Intake Total 184.419 Output Total 200 600 Balance -15.581 -600 Weight 112.6 kg 112.6 kg Intake: Intake, IV Titration 184.419 Amount Heparin Sod,Pork in 0.45% 184.419 NaCl 25,000 unit In 0.45 % NaCl 1 250ml.bag @ 10 mls/hr IV .Q24H [facility] Rx#: [id number] Output: Urine 200 600 Other: Voiding Method Toilet Toilet Urinal Urinal # Voids 2 1 - Labs CBC & Chem 7: 05/09/18 05:56 05/09/18 05:56 Labs: Abnormal Lab Results - Last 24 Hours (Table) 05/08/18 05/08/18 05/08/18 Range/Units 11:46 14:10 15:25 Plt Count (150-450) k/uL APTT 36.2 H (22.0-30.0) sec Carbon Dioxide (22-30) mmol/L BUN (9-20) mg/dL Creatinine (0.66-1.25) mg/dL Glucose (74-99) mg/dL POC Glucose (mg/dL) 251 H (75-99) mg/dL Urine Protein Trace H (Negative) Urine Glucose (UA) 1+ H (Negative) Urine Blood Moderate H (Negative) Urine RBC 88 H (0-5) /hpf Hyaline Casts 7 H (0-2) /lpf Urine Mucus Rare H (None) /hpf 05/08/18 05/08/18 05/08/18 Range/Units 16:36 20:25 21:30 Plt Count (150-450) k/uL APTT 47.5 H (22.0-30.0) sec Carbon Dioxide (22-30) mmol/L BUN (9-20) mg/dL Creatinine (0.66-1.25) mg/dL Glucose (74-99) mg/dL POC Glucose (mg/dL) 236 H 243 H (75-99) mg/dL Urine Protein (Negative) Urine Glucose (UA) (Negative) Urine Blood (Negative) Urine RBC (0-5) /hpf Hyaline Casts (0-2) /lpf Urine Mucus (None) /hpf 05/09/18 05/09/18 05/09/18 Range/Units 05:56 05:56 05:56 Plt Count 109 L (150-450) k/uL APTT 62.6 H (22.0-30.0) sec Carbon Dioxide 32 H (22-30) mmol/L BUN 28 H (9-20) mg/dL Creatinine 2.17 H (0.66-1.25) mg/dL Glucose 130 H (74-99) mg/dL POC Glucose (mg/dL) (75-99) mg/dL Urine Protein (Negative) Urine Glucose (UA) (Negative) Urine Blood (Negative) Urine RBC (0-5) /hpf Hyaline Casts (0-2) /lpf Urine Mucus (None) /hpf 05/09/18 Range/Units 06:29 Plt Count (150-450) k/uL APTT (22.0-30.0) sec Carbon Dioxide (22-30) mmol/L BUN (9-20) mg/dL Creatinine (0.66-1.25) mg/dL Glucose (74-99) mg/dL POC Glucose (mg/dL) 147 H (75-99) mg/dL Urine Protein (Negative) Urine Glucose (UA) (Negative) Urine Blood (Negative) Urine RBC (0-5) /hpf Hyaline Casts (0-2) /lpf Urine Mucus (None) /hpf Assessment and Plan Plan: Assessment: 1. Acute kidney injury mostly prerenal secondary to nonsteroidals which she was taking prior to admission as well as diuresis. Creatinine worsened to 0.17 today. No evidence of hydronephrosis noted on renal ultrasound. Trace proteinuria noted on UA. 2. Chronic kidney disease stage III with baseline creatinine in the range of 1.5-1.7 from April 2015. 3. Chest pain. Concern for acute coronary syndrome. Cardiology following. Currently on IV heparin. 4. Insulin-dependent diabetes mellitus. 5. Hypertension with chronic kidney disease. Controlled. 6. BPH maintained on Flomax. Plan: Hold Lasix tonight. Cardiac catheterization on Thursday. I will hydrate the patient with normal saline at 75 mL an hour to be started 12 hours prior to catheterization and to be continued for 12 hours post cardiac catheterization. I discussed the risk of worsening renal failure post-IV contrast exposure. Patient understands. Avoid nephrotoxins. Continue to monitor renal function and urine output.
[2018-05-09 12:03] LABS: Glucose,Whole Blood 203 mg/dL (75-99)
--- NOTE | 2018-05-09 12:33 | P.PN ---
Subjective This is a pleasant 83-year-old male past medical history significant for four-vessel bypass grafting performed 2013, ischemic cardiomyopathy, hypertension, dyslipidemia, diabetes mellitus and COPD. He follows in the office with Dr. Flower. He is seen and examined resting comfortable sitting up in the chair in no acute distress. He denies any further symptoms of shortness of breath since admission. Also denies any chest pain, dizziness or palpitations. He continues to be maintained on IV heparin infusion. Echocardiogram obtained reveals improved LV systolic function with ejection fraction 55-60%, mild to moderate MR, mild TR and mild pulmonary hypertension with an RVSP of 40 mmHg. He has been seen in consultation by nephrology and they're recommending holding his Lasix today continue with IV hydration. Blood pressure 142/66 heart rate 56 afebrile maintaining oxygen saturation on room air. Laboratory data reviewed, sodium 143, potassium 4.6, creatinine 2.17. GENERAL: This is a 83-year-old male in no apparent distress at the time of my examination. HEENT: Head is atraumatic, normocephalic. Pupils are equal, round. Sclerae anicteric. Conjunctivae are clear. Mucous membranes of the mouth are moist. Neck is supple. There is no jugular venous distention. No carotid bruit is heard. LUNGS: Clear to auscultation no wheezes, rales or rhonchi. No chest wall tenderness is noted on palpation or with deep breathing. Diminished bilaterally. HEART: Regular rate and rhythm with systolic ejection murmur at the base, no rubs or gallops. S1 and S2 heard. EXTREMITIES: Trace bilateral lower extremity edema and no calf tenderness noted. ASSESSMENT Unstable angina Non-ST elevated myocardial infarction, strong possibility with symptoms of unstable angina. However troponin may be related to acute kidney injury as well. History of coronary artery disease status post bypass grafting 2013 Ischemic cardiomyopathy Chronic systolic heart failure, currently euvolemic Hypertension Dyslipidemia Diabetes mellitus COPD Chronic kidney disease History of right renal cancer and chronic non-obstructing renal stone per the patient. PLAN Continue IV heparin infusion. He will be placed nothing by mouth after midnight tonight we'll discuss with his primary roller hand Dr. Flower regarding the possibility of cardiac catheterization tomorrow. Repeat BMP in the morning. Further recommendations to follow. The above impression and plan of care have been discussed and directed by the signing physician. Caro Hartley, nurse practitioner, acting as scribe for signing physician. Objective - Vital Signs Vital signs: Vital Signs Temp 97.8 F 05/09/18 08:00 Pulse 56 L 05/09/18 11:35 Resp 14 05/09/18 11:35 BP 142/66 05/09/18 11:34 Pulse Ox 94 L 05/09/18 11:34 Intake & Output 05/08/18 05/09/18 05/09/18 18:59 06:59 18:59 Intake Total 184.419 Output Total 200 600 Balance -15.581 -600 Weight 112.6 kg 112.6 kg Intake: Intake, IV Titration 184.419 Amount Heparin Sod,Pork in 0.45% 184.419 NaCl 25,000 unit In 0.45 % NaCl 1 250ml.bag @ 10 mls/hr IV .Q24H [facility] Rx#: [id number] Output: Urine 200 600 Other: Voiding Method Toilet Toilet Urinal Urinal # Voids 2 1 - Labs CBC & Chem 7: 05/09/18 05:56 05/09/18 05:56 Labs: Abnormal Lab Results - Last 24 Hours (Table) 05/08/18 05/08/18 05/08/18 Range/Units 14:10 15:25 16:36 Plt Count (150-450) k/uL APTT 36.2 H (22.0-30.0) sec Carbon Dioxide (22-30) mmol/L BUN (9-20) mg/dL Creatinine (0.66-1.25) mg/dL Glucose (74-99) mg/dL POC Glucose (mg/dL) 236 H (75-99) mg/dL Urine Protein Trace H (Negative) Urine Glucose (UA) 1+ H (Negative) Urine Blood Moderate H (Negative) Urine RBC 88 H (0-5) /hpf Hyaline Casts 7 H (0-2) /lpf Urine Mucus Rare H (None) /hpf 05/08/18 05/08/18 05/09/18 Range/Units 20:25 21:30 05:56 Plt Count 109 L (150-450) k/uL APTT 47.5 H (22.0-30.0) sec Carbon Dioxide (22-30) mmol/L BUN (9-20) mg/dL Creatinine (0.66-1.25) mg/dL Glucose (74-99) mg/dL POC Glucose (mg/dL) 243 H (75-99) mg/dL Urine Protein (Negative) Urine Glucose (UA) (Negative) Urine Blood (Negative) Urine RBC (0-5) /hpf Hyaline Casts (0-2) /lpf Urine Mucus (None) /hpf 05/09/18 05/09/18 05/09/18 Range/Units 05:56 05:56 06:29 Plt Count (150-450) k/uL APTT 62.6 H (22.0-30.0) sec Carbon Dioxide 32 H (22-30) mmol/L BUN 28 H (9-20) mg/dL Creatinine 2.17 H (0.66-1.25) mg/dL Glucose 130 H (74-99) mg/dL POC Glucose (mg/dL) 147 H (75-99) mg/dL Urine Protein (Negative) Urine Glucose (UA) (Negative) Urine Blood (Negative) Urine RBC (0-5) /hpf Hyaline Casts (0-2) /lpf Urine Mucus (None) /hpf 05/09/18 Range/Units 11:39 Plt Count (150-450) k/uL APTT (22.0-30.0) sec Carbon Dioxide (22-30) mmol/L BUN (9-20) mg/dL Creatinine (0.66-1.25) mg/dL Glucose (74-99) mg/dL POC Glucose (mg/dL) 203 H (75-99) mg/dL Urine Protein (Negative) Urine Glucose (UA) (Negative) Urine Blood (Negative) Urine RBC (0-5) /hpf Hyaline Casts (0-2) /lpf Urine Mucus (None) /hpf
--- NOTE | 2018-05-09 13:26 | P.PN ---
Subjective 83-year-old with significant history of coronary artery disease came in with chest pressure like sensation with mildly elevated troponins because of which patient will undergo cardiac catheterization patient had minimal worsening in serum creatinine nephrology is following the patient fluids versus Lasix as per nephrology. Patient had an episode of nausea beyond that no other significant overnight events. Constitutional: Denied any fatigue denied any fever. Cardio vascular: denied any chest pain, palpitations Gastrointestinal as mentioned above Pulmonary: Denied any shortness of breath cough Neurologic denied any new focal deficits All inpatient medications were reviewed and appropriate changes in these medications as dictated in the interval history and assessment and plan. Objective - Vital Signs Vital signs: Vital Signs Temp 97.8 F 05/09/18 08:00 Pulse 60 05/09/18 13:20 Resp 14 05/09/18 11:35 BP 142/66 05/09/18 11:34 Pulse Ox 94 L 05/09/18 11:34 Intake & Output 05/08/18 05/09/18 05/09/18 18:59 06:59 18:59 Intake Total 184.419 Output Total 200 600 Balance -15.581 -600 Weight 112.6 kg 112.6 kg Intake: Intake, IV Titration 184.419 Amount Heparin Sod,Pork in 0.45% 184.419 NaCl 25,000 unit In 0.45 % NaCl 1 250ml.bag @ 10 mls/hr IV .Q24H [facility] Rx#: [id number] Output: Urine 200 600 Other: Voiding Method Toilet Toilet Urinal Urinal # Voids 2 1 - Exam PHYSICAL EXAMINATION: GENERAL: The patient is alert and oriented x3, not in any acute distress. Obese HEENT: Pupils are round and equally reacting to light. EOMI. No scleral icterus. No conjunctival pallor. Normocephalic, atraumatic. No pharyngeal erythema. No thyromegaly. CARDIOVASCULAR: S1 and S2 present. No murmurs, rubs, or gallops. PULMONARY: Chest is clear to auscultation, no wheezing or crackles. ABDOMEN: Soft, nontender, nondistended, normoactive bowel sounds. No palpable organomegaly. MUSCULOSKELETAL: No joint swelling or deformity. EXTREMITIES: No cyanosis, clubbing, or pedal edema. NEUROLOGICAL: Gross neurological examination did not reveal any focal deficits. SKIN: No rashes. - Labs CBC & Chem 7: 05/09/18 05:56 05/09/18 05:56 Labs: Abnormal Lab Results - Last 24 Hours (Table) 05/08/18 05/08/18 05/08/18 Range/Units 14:10 15:25 16:36 Plt Count (150-450) k/uL APTT 36.2 H (22.0-30.0) sec Carbon Dioxide (22-30) mmol/L BUN (9-20) mg/dL Creatinine (0.66-1.25) mg/dL Glucose (74-99) mg/dL POC Glucose (mg/dL) 236 H (75-99) mg/dL Urine Protein Trace H (Negative) Urine Glucose (UA) 1+ H (Negative) Urine Blood Moderate H (Negative) Urine RBC 88 H (0-5) /hpf Hyaline Casts 7 H (0-2) /lpf Urine Mucus Rare H (None) /hpf 05/08/18 05/08/18 05/09/18 Range/Units 20:25 21:30 05:56 Plt Count 109 L (150-450) k/uL APTT 47.5 H (22.0-30.0) sec Carbon Dioxide (22-30) mmol/L BUN (9-20) mg/dL Creatinine (0.66-1.25) mg/dL Glucose (74-99) mg/dL POC Glucose (mg/dL) 243 H (75-99) mg/dL Urine Protein (Negative) Urine Glucose (UA) (Negative) Urine Blood (Negative) Urine RBC (0-5) /hpf Hyaline Casts (0-2) /lpf Urine Mucus (None) /hpf 05/09/18 05/09/18 05/09/18 Range/Units 05:56 05:56 06:29 Plt Count (150-450) k/uL APTT 62.6 H (22.0-30.0) sec Carbon Dioxide 32 H (22-30) mmol/L BUN 28 H (9-20) mg/dL Creatinine 2.17 H (0.66-1.25) mg/dL Glucose 130 H (74-99) mg/dL POC Glucose (mg/dL) 147 H (75-99) mg/dL Urine Protein (Negative) Urine Glucose (UA) (Negative) Urine Blood (Negative) Urine RBC (0-5) /hpf Hyaline Casts (0-2) /lpf Urine Mucus (None) /hpf 05/09/18 Range/Units 11:39 Plt Count (150-450) k/uL APTT (22.0-30.0) sec Carbon Dioxide (22-30) mmol/L BUN (9-20) mg/dL Creatinine (0.66-1.25) mg/dL Glucose (74-99) mg/dL POC Glucose (mg/dL) 203 H (75-99) mg/dL Urine Protein (Negative) Urine Glucose (UA) (Negative) Urine Blood (Negative) Urine RBC (0-5) /hpf Hyaline Casts (0-2) /lpf Urine Mucus (None) /hpf Assessment and Plan Plan: Chest pain: Mildly elevated troponins. And mild elevation of troponins and believed secondary to acute renal failure my suspicion is low for non-ST elevation myocardial infarction patient's symptomatology is consistent with gastritis considering his poor renal function I'll not start him on proton inhibitor instead he'll be started on Pepcid IV. She will undergo cardiac catheterization on Thursday -Chronic kidney disease stage IV creatinine at baseline worsening as mentioned above and nephrology is following the patient Congestive heart failure chronic systolic dysfunction without any acute exacerbation shortness of breath is I believe is secondary to his obesity patient is not acutely short of breath his saturations are okay at this time. -Type 2 diabetes mellitus patient is on very high doses of insulin unsure about his compresses because of which I'll start him on a low-dose of 70 units of insulin patient will be continued on present regimen for blood sugars are fairly controlled -Hyperlipidemia -Hypertension -Coronary artery disease -COPD without any acute exacerbation -Obesity with possibly of sleep apnea -Atrial fibrillation presently rate controlled
[2018-05-09 16:59] LABS: Glucose,Whole Blood 237 mg/dL (75-99)
[2018-05-09 20:53] LABS: Glucose,Whole Blood 194 mg/dL (75-99)
[2018-05-09] MEDS: ATORVASTATIN 20 MG TAB PO SCH (21:09)
[2018-05-09] MEDS: DULoxetine HCL 60 MG CAPSULE.DR PO SCH (21:09)
[2018-05-09] MEDS: SODIUM CHLORIDE 0.9% 1,000 ML IV SCH (21:09)
[2018-05-09] MEDS: INSULIN DETEMIR 100 UNIT/ML 10 ML VIAL SQ SCH (21:10)
[2018-05-10] MEDS: HEPARIN SOD,PORK IN 0.45% NACL 25,000 UNIT in 0.45% NACL 1 250ML.BAG IV SCH
[2018-05-10] MEDS: ACETAMINOPHEN TAB 325 MG TAB PO PRN ×3 (00:15→21:15)
[2018-05-10 05:41] LABS: Mean Platelet Volume 7.3
[2018-05-10 06:22] LABS: Glucose,Whole Blood 97 mg/dL (75-99)
[2018-05-10] MEDS: INSULIN ASPART 100 UNIT/ML 1 ML 10 ML VIAL SQ SCH ×4 (06:24→21:08)
[2018-05-10 06:41] LABS: Calcium 8.9 mg/dL (8.4-10.2); Magnesium 2.2 mg/dL (1.6-2.3); Potassium 4.4 mmol/L (3.5-5.1)
[2018-05-10 06:54] LABS: Platelet Count 94 k/uL (150-450)
[2018-05-10] MEDS: IPRATROPIUM-ALBUTEROL 3 ML NEB INHALATION SCH ×3 (07:40→20:46)
[2018-05-10] MEDS: FAMOTIDINE 20 MG/2 ML VIAL IV SCH (08:41)
[2018-05-10] MEDS: TAMSULOSIN 0.4 MG CAP.ER.24H PO SCH (08:42)
[2018-05-10] MEDS: METOPROLOL TARTRATE 50 MG TAB PO SCH ×2 (08:42→21:08)
[2018-05-10] MEDS: ASPIRIN 81 MG PO SCH (08:42)
[2018-05-10] MEDS: SODIUM CHLORIDE 0.9% 1,000 ML IV SCH ×2 (08:45→20:50)
[2018-05-10] MEDS ORDERED: NITROGLYCERIN SL TABS 0.4 MG TAB SUBLINGUAL PRN (08:51)
[2018-05-10] MEDS ORDERED: ALPRAZolam 0.25 MG TAB PO PRN (08:51)
[2018-05-10] MEDS ORDERED: SODIUM CHLORIDE 0.9% 1,000 ML in EMPTY BAG 1 BAG IV ONE (08:51)
[2018-05-10] MEDS ORDERED: ALPRAZolam 0.5 MG TAB PO PRN (08:51)
[2018-05-10] MEDS ORDERED: ASPIRIN 325 MG TAB PO STA (08:54)
[2018-05-10] MEDS ORDERED: ATORVASTATIN 80 MG TAB PO STA (08:55)
[2018-05-10] MEDS ORDERED: IV FLUID CONTINUATION 200 ML IV ONE (12:04)
[2018-05-10] MEDS ORDERED: MIDAZOLAM 2 MG/2 ML VIAL IVP ONE (12:04)
[2018-05-10] MEDS ORDERED: fentaNYL (PF) 50 MCG/ML 2 ML AMP IV ONE (12:04)
[2018-05-10] MEDS ORDERED: LIDOCAINE 1% INJ 10MG/ML (20 ML MDV) SQ ONE (12:07)
[2018-05-10] MEDS ORDERED: IOPAMIDOL-370 125ML BTL INJ ONE (12:30)
[2018-05-10] MEDS ORDERED: RX INFO: IV CONTRAST WAS GIVEN 1 EACH MISC MISCELLANE PRN (12:48)
[2018-05-10] MEDS ORDERED: SODIUM CHLORIDE 0.9% 1,000 ML IV SCH (13:00)
--- NOTE | 2018-05-10 13:11 | CC ---
CARDIAC CATHETERIZATION REPORT Mr. Grove is an 83-year-old male with known history of coronary artery disease, status post bypass grafting in 2014, history of hypertension, hyperlipidemia, diabetes mellitus, who presented with symptoms of chest discomfort and had mild elevation of troponin. He also has a history of chronic kidney disease. He was evaluated by Dr. Chen and because of his symptoms and presentation, after evaluation by the Nephrology Service, recommendations were made regarding cardiac catheterization. The procedures, risks and complication were discussed with the patient who is in full understanding and agreement. PROCEDURE: Patient was brought to electroplating laborer in a fasting semi-sedated state after receiving fentanyl and Benadryl and achieving moderate conscious sedated-state using Xylocaine anesthesia and the Seldinger, a 6-Malaysian sheath was introduced in the right femoral artery. Selective right and left angiography was performed using 6-Malaysian 4 bend right and left Brittanie catheter. Multiple views of the coronary artery including barbara-axial views were obtained. Following that, a 6-Malaysian right Brittanie catheter was used to cannulate the saphenous vein graft to the obtuse marginal branch, diagonal branch and to the right coronary artery as well as NOLAN to the LAD. Images of the grafts were obtained. Following that, a 6-Malaysian tight pigtail catheter was introduced into left ventricle and pressures were calculated. Following that, catheter and sheath were removed. Hemostasis was obtained with compression of the right groin. There was no immediate complication. Patient was returned to his room in stable condition. FINDINGS: LEFT MAIN: This is a large-sized vessel, bifurcating into left circumflex, left anterior descending artery. Left main coronary artery has no evidence of high-grade stenosis. LEFT ANTERIOR DESCENDING ARTERY: This vessel gives rise to 2 small diagonal branch, at the takeoff of the second diagonal branch it is totally occluded with no significant antegrade flow. LEFT CIRCUMFLEX: This is a large nondominant vessel giving rise to 4 obtuse marginal branch. The left circumflex, AV groove has diffuse disease with area of stenosis in the 90%. There was significant stenosis in the obtuse marginal branch as well. There was the appearance of competitive flow in the third obtuse marginal branch. RIGHT CORONARY ARTERY: This vessel is totally occluded in the distal segment with diffuse disease in the proximal and mid segment with area of stenosis up to 80%-90%. SAPHENOUS VEIN GRAFT TO THE RIGHT CORONARY ARTERY: The proximal and distal anastomotic sites are patent. The flow into the PDA is brisk. The PDA and PLV are small in caliber but have no evidence of high-grade stenosis. SAPHENOUS VEIN GRAFT TO THE DIAGONAL BRANCH: This graft is totally occluded proximally with no antegrade flow. SAPHENOUS VEIN GRAFT TO THE OBTUSE MARGINAL BRANCH: The proximal distal anastomotic site is patent. The flow into the obtuse marginal branch is brisk. There is no evidence of high-grade stenosis. NOLAN TO LAD: The distal anastomotic site is patent. There is retrograde flow into the diagonal branch. There is no evidence of high-grade stenosis. The vessel are diffusely diseased. LEFT VENTRICULOGRAM: Left ventriculogram was not performed. HEMODYNAMICS: There was no gradient across the aortic valve. The left ventricular end-diastolic pressure was 16-20 mmHg. CONCLUSION: 1. Severe triple-vessel disease. 2. Patent NOLAN to LAD. 3. Patent saphenous vein graft to the obtuse marginal branch and to the PDA. 4. Chronically occluded saphenous vein graft to the diagonal branch. RECOMMENDATION: In view of the finding anatomy, I recommend continue medical therapy with maximizing medical therapy. Those findings and recommendation were discussed with the patient who is in full understanding and agreement. Duration of procedure is 27 minutes. MMODL / IJN: [id number] /
--- NOTE | 2018-05-10 14:16 | PN ---
PROGRESS NOTE Patient is seen for followup for acute kidney injury. Renal function is fairly stable. Serum creatinine staying at about 1.9 to 2.0 mg/dL. Patient also has chronic kidney disease with previous creatinine at 1.5 to 2.0 in 2015. He is currently sitting up in a bedside chair. Patient denies any significant complaints. He is maintained on IV fluids. However, he states he has been eating well. Patient has been voiding. PHYSICAL EXAMINATION: Blood pressure was 132/60, heart rate 65 per minute. He is afebrile. Examination of the heart S1, S2. Examination of the lungs, bilateral breath sounds are heard. Abdomen is soft, nontender. Examination of the lower extremities shows edema, 2+ bilaterally. PARLIAMENTARY COUNSEL exam is grossly intact. LABS: Show sodium 140, potassium 4.4, BUN 28, serum creatinine 1.9. ASSESSMENT: 1. Chronic kidney disease with an element of acute kidney injury, the patient is going for cardiac catheterization. He is maintained on IV fluids. However, I will decrease the IV fluids post cath to adjust for 4 hours given his hyperkalemia. There are no nephrotoxic agents on board at this time. Patient is advised that he will need followup for CKD. 2. Hypertension, currently controlled. 3. 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 4. Type 2 diabetes, maintained on insulin. 5. Chest pain with concern for acute coronary syndrome. Going for cardiac catheterization today. 6. Benign prostatic hypertrophy, maintained on Flomax. PLAN: Decrease IV fluids to KVO about 4 hours post cardiac catheterization. Repeat labs in a.m. Avoid hypotension. Avoid any other nephrotoxic agents. MMODL / IJN: [id number] /
--- NOTE | 2018-05-10 14:28 | P.PN ---
Subjective 83-year-old with significant history of coronary artery disease came in with chest pressure like sensation with mildly elevated troponins because of which patient will undergo cardiac catheterization patient had minimal worsening in serum creatinine nephrology is following the patient fluids versus Lasix as per nephrology. Patient had an episode of nausea beyond that no other significant overnight events. 05/10/2018 Patient underwent the cardiac catheterization which showed triple vessel disease in the one of the block and a CABG vessels. No stenting was done medical therapy is being recommended. Constitutional: Denied any fatigue denied any fever. Cardio vascular: denied any chest pain, palpitations Gastrointestinal as mentioned above Pulmonary: Denied any shortness of breath cough Neurologic denied any new focal deficits All inpatient medications were reviewed and appropriate changes in these medications as dictated in the interval history and assessment and plan. Objective - Vital Signs Vital signs: Vital Signs Temp 98.1 F 05/10/18 08:46 Pulse 65 05/10/18 13:29 Resp 16 05/10/18 13:29 BP 132/60 05/10/18 13:29 Pulse Ox 93 L 05/10/18 13:29 Intake & Output 05/09/18 05/10/18 05/10/18 18:59 06:59 18:59 Intake Total 280 150 100 Output Total 1550 Balance -1270 150 100 Weight 113.2 kg Intake: IV 100 Intake, IV Titration 150 Amount Sodium Chloride 0.9% 1, 150 000 ml @ 75 mls/hr IV . [id number] [facility] Rx#:[id number] Oral 280 Output: Urine 1550 Other: Voiding Method Toilet Toilet # Voids 3 1 - Exam PHYSICAL EXAMINATION: GENERAL: The patient is alert and oriented x3, not in any acute distress. Obese HEENT: Pupils are round and equally reacting to light. EOMI. No scleral icterus. No conjunctival pallor. Normocephalic, atraumatic. No pharyngeal erythema. No thyromegaly. CARDIOVASCULAR: S1 and S2 present. No murmurs, rubs, or gallops. PULMONARY: Chest is clear to auscultation, no wheezing or crackles. ABDOMEN: Soft, nontender, nondistended, normoactive bowel sounds. No palpable organomegaly. MUSCULOSKELETAL: No joint swelling or deformity. EXTREMITIES: No cyanosis, clubbing, or pedal edema. NEUROLOGICAL: Gross neurological examination did not reveal any focal deficits. SKIN: No rashes. - Labs CBC & Chem 7: 05/10/18 05:23 05/10/18 05:23 Labs: Abnormal Lab Results - Last 24 Hours (Table) 05/09/18 05/09/18 05/10/18 Range/Units 16:57 20:51 05:23 Plt Count 94 L (150-450) k/uL BUN (9-20) mg/dL Creatinine (0.66-1.25) mg/dL Glucose (74-99) mg/dL POC Glucose (mg/dL) 237 H 194 H (75-99) mg/dL 05/10/18 Range/Units 05:23 Plt Count (150-450) k/uL BUN 28 H (9-20) mg/dL Creatinine 1.92 H (0.66-1.25) mg/dL Glucose 102 H (74-99) mg/dL POC Glucose (mg/dL) (75-99) mg/dL Assessment and Plan Plan: Chest pain: Mildly elevated troponins. Possible non-ST elevation microinfarction, for which patient underwent cardiac catheterization which showed triple vessel disease and chronically occluded saphenous venous graft to diagonal branch. No stenting was recommended done and the patient will be on medical therapy. Patient will be monitored daily possibility of discharge tomorrow -Chronic kidney disease stage IV creatinine at baseline nephrology is following the patient Lasix versus IV fluids as per nephrology Congestive heart failure chronic systolic dysfunction without any acute exacerbation -Type 2 diabetes mellitus well controlled blood sugars and present regimen -Hyperlipidemia -Hypertension -Coronary artery disease -COPD without any acute exacerbation -Obesity with possibly of sleep apnea -Atrial fibrillation presently rate controlled
[2018-05-10] MEDS: ISOSORBIDE MONONITRATE ER 30 MG TAB.ER.24H PO SCH (15:24)
[2018-05-10 16:57] LABS: Glucose,Whole Blood 239 mg/dL (75-99)
[2018-05-10 20:50] LABS: Glucose,Whole Blood 173 mg/dL (75-99)
[2018-05-10] MEDS ORDERED: ATORVASTATIN 40 MG TAB PO SCH (21:00)
[2018-05-10] MEDS: DULoxetine HCL 60 MG CAPSULE.DR PO SCH (21:08)
[2018-05-10] MEDS: ONDANSETRON 4 MG/2 ML VIAL IVP PRN (21:19)
[2018-05-10] MEDS: INSULIN DETEMIR 100 UNIT/ML 10 ML VIAL SQ SCH (21:49)
[2018-05-11] MEDS: MELATONIN 3 MG TABLET PO PRN (00:30)
[2018-05-11 06:04] LABS: Glucose,Whole Blood 217 mg/dL (75-99)
[2018-05-11] MEDS: ONDANSETRON 4 MG/2 ML VIAL IVP PRN (06:05)
[2018-05-11] MEDS: SODIUM CHLORIDE 0.9% 1,000 ML IV SCH (06:27)
[2018-05-11] MEDS: INSULIN ASPART 100 UNIT/ML 1 ML 10 ML VIAL SQ SCH ×2 (06:30→11:58)
[2018-05-11 07:05] LABS: Calcium 8.9 mg/dL (8.4-10.2); Potassium 4.7 mmol/L (3.5-5.1)
[2018-05-11] MEDS: ISOSORBIDE MONONITRATE ER 30 MG TAB.ER.24H PO SCH (08:07)
[2018-05-11] MEDS: METOPROLOL TARTRATE 50 MG TAB PO SCH (08:07)
[2018-05-11] MEDS: ASPIRIN 81 MG PO SCH (08:07)
[2018-05-11] MEDS: TAMSULOSIN 0.4 MG CAP.ER.24H PO SCH (08:07)
[2018-05-11] MEDS: IPRATROPIUM-ALBUTEROL 3 ML NEB INHALATION SCH ×2 (08:21→12:48)
[2018-05-11 08:23] VITALS: RESP 16
[2018-05-11] MEDS ORDERED: FAMOTIDINE 20 MG/2 ML VIAL IV SCH (09:00)
--- NOTE | 2018-05-11 11:13 | P.PN ---
Subjective Progress Note Date: 05/11/18 This is a pleasant 83-year-old male past medical history significant for four-vessel bypass grafting performed 2014, ischemic cardiomyopathy, hypertension, dyslipidemia, renal insufficiency, diabetes mellitus and COPD. he was primarily admitted to the hospital with symptoms of shortness of breath. Because of these symptoms and associated abnormality in troponin he was recommended to undergo cardiac catheterization which was performed yesterday by Dr. Flower and revealed severe triple-vessel coronary artery disease with a patent NOLAN to the LAD, patent saphenous vein graft to the obtuse marginal branch into the PDA, chronically occluded saphenous vein graft to the diagonal branch and medical therapy was advised. Patient was seen and examined this morning, denied any chest discomfort and is breathing is stable. We will add a small dose of Norvasc to his medication regime. Objective - Vital Signs Vital signs: Vital Signs Temp 99.8 F H 05/11/18 08:00 Pulse 84 05/11/18 08:35 Resp 16 05/11/18 08:00 BP 164/71 05/11/18 08:00 Pulse Ox 93 L 05/11/18 08:00 Intake & Output 05/10/18 05/11/18 05/11/18 18:59 06:59 18:59 Intake Total 100 1000 0 Output Total 150 Balance 100 850 0 Weight 114.3 kg Intake: IV 100 Intake, IV Titration 1000 Amount Sodium Chloride 0.9% 1, 1000 000 ml @ 20 mls/hr IV . Q24H [facility] Rx#:[id number] Oral 0 Output: Urine 150 Other: Voiding Method Toilet Toilet Toilet Urinal Urinal # Voids 1 # Bowel Movements 0 - Exam GENERAL: This is a 83-year-old male in no apparent distress at the time of my examination. HEENT: Head is atraumatic, normocephalic. Pupils are equal, round. Sclerae anicteric. Conjunctivae are clear. Mucous membranes of the mouth are moist. Neck is supple. There is no jugular venous distention. No carotid bruit is heard. LUNGS: Clear to auscultation no wheezes, rales or rhonchi. No chest wall tenderness is noted on palpation or with deep breathing. Diminished bilaterally. HEART: Regular rate and rhythm with systolic ejection murmur at the base, no rubs or gallops. S1 and S2 heard. ABDOMEN: Soft, obese, nontender. Bowel sounds are heard. No organomegaly noted. EXTREMITIES: Trace bilateral lower extremity edema and no calf tenderness noted. VASCULAR: Radial and dorsalis pedis pulses palpated, no evidence of clubbing. Right groin soft, no evidence of any hematoma. NEUROLOGIC: Patient is awake, alert and oriented x3. - Labs CBC & Chem 7: 05/10/18 05:23 05/11/18 06:09 Labs: Abnormal Lab Results - Last 24 Hours (Table) 05/10/18 05/10/18 05/11/18 Range/Units 16:47 20:49 06:02 BUN (9-20) mg/dL Creatinine (0.66-1.25) mg/dL Glucose (74-99) mg/dL POC Glucose (mg/dL) 239 H 173 H 217 H (75-99) mg/dL 05/11/18 Range/Units 06:09 BUN 24 H (9-20) mg/dL Creatinine 1.73 H (0.66-1.25) mg/dL Glucose 196 H (74-99) mg/dL POC Glucose (mg/dL) (75-99) mg/dL Assessment and Plan Plan: Assessment and plan #1 Non-ST elevated myocardial infarction, status post cardiac catheterization, medical therapy advised #2 History of coronary artery disease status post bypass grafting 2013 #3 Chronic systolic heart failure, currently euvolemic #4 Hypertension #5 Dyslipidemia #6 Diabetes mellitus #7 COPD #8 Chronic kidney disease #9 History of right renal cancer and chronic non-obstructing renal stone per the patient. Plan We will add a small dose of Norvasc to the patient's medication regime for more optimal blood pressure control. His echo revealed a normal left ventricular systolic function. He may be able to be discharged home today from cardiology' s perspective, we'll make him a follow-up appointment to see Dr. Flower in the office post discharge. DNP note has been reviewed, I agree with a documented findings and plan of care. Patient was seen and examined.
[2018-05-11] MEDS ORDERED: amLODIPine 5 MG TAB PO SCH (11:15)
[2018-05-11 11:28] LABS: Glucose,Whole Blood 217 mg/dL (75-99)
--- NOTE | 2018-05-11 12:20 | P.PN ---
Subjective Patient is seen in follow-up for acute kidney injury on chronic kidney disease. Patient has chronic kidney disease stage III with recent creatinine in the range of 1.5-1.7 secondary to diabetic kidney disease. Renal function is better today with creatinine at 1.73. Patient presented with dyspnea. He underwent cardiac catheterization this admission which showed triple-vessel disease. He is being managed medically. Currently denies any active chest pain or shortness of breath. Vital signs are stable. General: The patient appeared well nourished and normally developed. HEENT: Head exam is unremarkable. Neck is without jugular venous distension. LUNGS: Lungs are clear to auscultation and percussion. Breath sounds decreased. HEART: Rate and Rhythm are regular. First and second heart sounds normal. No murmurs, rubs or gallops. ABDOMEN: Abdominal exam reveals normal bowel sounds. Non-tender and non- distended. No evidence of peritonitis. EXTREMITITES: Trace edema. Objective - Vital Signs Vital signs: Vital Signs Temp 99.8 F H 05/11/18 08:00 Pulse 84 05/11/18 08:35 Resp 16 05/11/18 08:00 BP 164/71 05/11/18 08:00 Pulse Ox 93 L 05/11/18 08:00 Intake & Output 05/10/18 05/11/18 05/11/18 18:59 06:59 18:59 Intake Total 100 1000 0 Output Total 150 Balance 100 850 0 Weight 114.3 kg Intake: IV 100 Intake, IV Titration 1000 Amount Sodium Chloride 0.9% 1, 1000 000 ml @ 20 mls/hr IV . Q24H [facility] Rx#:[id number] Oral 0 Output: Urine 150 Other: Voiding Method Toilet Toilet Toilet Urinal Urinal # Voids 1 # Bowel Movements 0 - Labs CBC & Chem 7: 05/10/18 05:23 05/11/18 06:09 Labs: Abnormal Lab Results - Last 24 Hours (Table) 05/10/18 05/10/18 05/11/18 Range/Units 16:47 20:49 06:02 BUN (9-20) mg/dL Creatinine (0.66-1.25) mg/dL Glucose (74-99) mg/dL POC Glucose (mg/dL) 239 H 173 H 217 H (75-99) mg/dL 05/11/18 05/11/18 Range/Units 06:09 11:26 BUN 24 H (9-20) mg/dL Creatinine 1.73 H (0.66-1.25) mg/dL Glucose 196 H (74-99) mg/dL POC Glucose (mg/dL) 217 H (75-99) mg/dL Assessment and Plan Plan: Assessment: 1. Acute kidney injury mostly prerenal secondary to nonsteroidals which he was taking prior to admission as well as diuresis. Renal function better today. No evidence of hydronephrosis noted on renal ultrasound. Trace proteinuria noted on UA. 2. Chronic kidney disease stage III with baseline creatinine in the range of 1.5-1.7 from April 2015. 3. Chest pain. Concern for acute coronary syndrome. Cardiology following. Cardiac catheterization this admission revealed triple-vessel disease. 4. Insulin-dependent diabetes mellitus. 5. Hypertension with chronic kidney disease. Controlled. 6. BPH maintained on Flomax. Plan: Resume Lasix 40 mg daily. Stable to be discharged home from nephrology standpoint. Follow up outpatient in the next 1-2 weeks.
[2018-05-11 12:26] VITALS: BP 146/74; TEMP 98.6
[2018-05-11] MEDS ORDERED: FUROSEMIDE 40 MG TAB PO SCH (12:30)
[2018-05-11 13:01] VITALS: PULSE 84
[2018-05-11] MEDS: ACETAMINOPHEN TAB 325 MG TAB PO PRN (14:45)
--- NOTE | 2018-05-12 00:42 | DS ---
DISCHARGE SUMMARY FINAL DIAGNOSES: 1. Chest pain, possible acute [id number] elevation myocardial infarction status post cardiac catheterization, triple vessel disease, on medical treatment. 2. Chronic kidney stage IV. 3. Congestive heart failure with chronic systolic dysfunction without any acute exacerbation. 4. Diabetes mellitus type 2. 5. Hyperlipidemia. 6. Hypertension. 7. History of coronary artery disease. 8. History of chronic obstructive pulmonary disease. 9. Obesity. 10.Atrial fibrillation, chronic rate controlled. DISCHARGE CONDITION: The patient is being discharged in stable condition with guarded prognosis. TIME TAKEN: 35 minutes. HISTORY OF PRESENT ILLNESS: This 83-year-old gentleman with a past medical history as mentioned above, followed by Dr. Lee in the outpatient setting, was admitted with chest pain. Patient had features of acute [id number] myocardial infarction. Cardiology performed a cardiac cath, showed three-vessel disease. The patient was on medical treatment. Cardiology and Nephrology saw the patient. Patient is discharged in stable condition with extremely guarded prognosis because of the above-mentioned multiple complex medical issues. On examination, vital signs are stable. Cardiovascular, S1 and S2 present. Abdomen soft. Nervous system, no focal deficits. DISCHARGE INSTRUCTIONS: 1. Diet is cardiac. 2. Activity is limited. FOLLOWUP: 1. Follow up with Dr. Lee in 2 to 3 days. 2. Follow up with Cardiology as recommended. 3. Follow up with Dr. Vasques as recommended. MEDICATIONS ARE: 1. Vitamin C 500 mg p.o. daily. 2. Ecotrin 81 mg p.o. daily. 3. Cymbalta 60 mg p.o. at bedtime. 4. Iron 320 mg p.o. daily. 5. NovoLog with meals t.i.d. as before. 6. Ativan 0.5 mg p.o. b.i.d. 7. Lopressor 50 mg p.o. b.i.d. 8. Zocor 40 mg at bedtime. 9. Norvasc 5 mg p.o. daily. 10.Pepcid 20 mg p.o. daily. 11.Lasix 40 mg p.o. daily. 12.Lantus 70 units subcutaneously at bedtime. 13.Imdur 30 mg p.o. daily. 14.Nitrostat 0.4 sublingual p.r.n. 15.Flomax 0.4 daily. Once again, the patient is being discharged in stable condition with guarded prognosis. MMODL / IJN: [id number] /
[2018-05-12] MEDS ORDERED: FAMOTIDINE 20 MG TAB PO SCH (09:00)
== END 2018-05-11 15:52 | disposition home health service (06) | DRG 281 ==
LOC: EC 19:58 → 1SOBS 23:28 → OBSVTOIN 05-08 15:08 → 3SCARD 05-08 17:00
PROVIDERS: ADMIT Hospitalist; ATTEND Hospitalist
PROC: B2111ZZ Fluoroscopy of Multiple Coronary Arteries using Low Osmolar Contrast (ICD-10-PCS; 2018-05-10)
PROC: B2131ZZ Fluoroscopy of Multiple Coronary Artery Bypass Grafts using Low Osmolar Contrast (ICD-10-PCS; 2018-05-10)
PROC: 4A023N7 Measurement of Cardiac Sampling and Pressure, Left Heart, Percutaneous Approach (ICD-10-PCS; principal; 2018-05-10 11:14)
DX: I21.4 Non-ST elevation (NSTEMI) myocardial infarction (principal); I13.0 Hypertensive heart and chronic kidney disease with heart failure and stage 1 through stage 4 chronic kidney disease, or unspecified chronic kidney disease; I25.810 Atherosclerosis of coronary artery bypass graft(s) without angina pectoris; I50.22 Chronic systolic (congestive) heart failure; N17.9 Acute kidney failure, unspecified; N18.4 Chronic kidney disease, stage 4 (severe); I25.5 Ischemic cardiomyopathy; E11.22 Type 2 diabetes mellitus with diabetic chronic kidney disease; J44.9 Chronic obstructive pulmonary disease, unspecified; I27.20 Pulmonary hypertension, unspecified; E11.319 Type 2 diabetes mellitus with unspecified diabetic retinopathy without macular edema; I45.10 Unspecified right bundle-branch block; I48.2 Chronic atrial fibrillation; E66.9 Obesity, unspecified; E78.5 Hyperlipidemia, unspecified; F32.9 Major depressive disorder, single episode, unspecified; F41.9 Anxiety disorder, unspecified; I25.2 Old myocardial infarction; N40.0 Benign prostatic hyperplasia without lower urinary tract symptoms; R01.1 Cardiac murmur, unspecified; T39.395A Adverse effect of other nonsteroidal anti-inflammatory drugs [NSAID], initial encounter; T50.2X5A Adverse effect of carbonic-anhydrase inhibitors, benzothiadiazides and other diuretics, initial encounter; G47.30 Sleep apnea, unspecified; Z79.4 Long term (current) use of insulin; Z79.82 Long term (current) use of aspirin; Z79.899 Other long term (current) drug therapy; Z90.5 Acquired absence of kidney; Z87.891 Personal history of nicotine dependence; Z87.442 Personal history of urinary calculi; Z85.528 Personal history of other malignant neoplasm of kidney; Z85.828 Personal history of other malignant neoplasm of skin; Z68.35 Body mass index [BMI] 35.0-35.9, adult; Z90.49 Acquired absence of other specified parts of digestive tract; Z80.0 Family history of malignant neoplasm of digestive organs; Z82.49 Family history of ischemic heart disease and other diseases of the circulatory system
CPT/HCPCS: 36415; 71045; 76770; 80048; 80053; 80061; 81001; 82550; 82553; 83036; 83735; 83880; 84484; 85025; 85049; 85379; 85610; 85730; 87502; 93005; 93306; 93458; 94640; 94760; 96374; 99291

== ENCOUNTER 2019-06-03 10:25 | Inpatient (IN) | payer MEDICARE ==
[2019-06-03 10:36] LABS: Glucose,Whole Blood 278 mg/dL (75-99)
--- NOTE | 2019-06-03 10:38 | ED ---
General Adult HPI - General Stated complaint: poss stroke Time Seen by Provider: 06/03/19 10:27 Source: patient, family, RN notes reviewed Mode of arrival: wheelchair Limitations: no limitations - History of Present Illness Initial comments: Patient is a pleasant 84-year-old male presenting to the emergency department with family with concerns for speech problems and weakness. Onset of symptoms was when he awoke yesterday morning. Patient had difficulty with his strength of his left hand and was dropping step. Patient also had difficulty with left leg weakness and difficulty walking. Patient has had slurred speech. Patient feels his speech is normal at this time. Family states speech is improved however is not quite normal at this time. Patient denies any confusion. No history of similar symptoms previously. - Related Data Home Medications Medication Instructions Recorded Confirmed DULoxetine HCL [Cymbalta] 60 mg PO HS 11/08/13 05/07/18 Aspirin EC [Ecotrin Low Dose] 81 mg PO HS 08/08/14 05/07/18 LORazepam [Lorazepam] 0.5 mg PO BID 08/08/14 05/07/18 Simvastatin [Zocor] 40 mg PO HS 08/08/14 05/07/18 Ferrous Sulfate [Iron (65 MG 325 mg PO DAILY 03/05/16 05/07/18 Elemental)] Metoprolol Tartrate [Lopressor] 50 mg PO BID 03/05/16 05/07/18 Ascorbic Acid [Vitamin C] 500 mg PO DAILY 05/07/18 05/07/18 Insulin Aspart [NovoLOG Flexpen] See Protocol SQ AC-TID 05/07/18 05/07/18 Previous Rx's Medication Instructions Recorded Tamsulosin [Flomax] 0.4 mg PO DAILY #30 cap.er.24h 03/04/14 Famotidine [Pepcid] 20 mg PO DAILY tab 05/11/18 Furosemide [Lasix] 40 mg PO DAILY tab 05/11/18 Insulin Glargine [Lantus] 70 unit SQ HS #0 05/11/18 Isosorbide Mononitrate ER [Imdur] 30 mg PO DAILY #30 tab.er.24h 05/11/18 Nitroglycerin Sl Tabs [Nitrostat] 0.4 mg SUBLINGUAL Q5M PRN #100 tab 05/11/18 amLODIPine [Norvasc] 5 mg PO DAILY #30 tab 05/11/18 Allergies Allergy/AdvReac Type Severity Reaction Status Date / Time No Known Allergies Allergy Verified 05/07/18 20:29 Review of Systems ROS Statement: Those systems with pertinent positive or pertinent negative responses have been documented in the HPI. ROS Other: All systems not noted in ROS Statement are negative. Constitutional: Denies: fever Eyes: Denies: eye pain ENT: Denies: ear pain Respiratory: Denies: cough Cardiovascular: Denies: chest pain Endocrine: Denies: fatigue Gastrointestinal: Denies: abdominal pain Genitourinary: Denies: dysuria Musculoskeletal: Denies: back pain Skin: Denies: rash Neurological: Reports: weakness, abnormal gait. Denies: headache, paresthesias, confusion Past Medical History Past Medical History: Atrial Fibrillation, Coronary Artery Disease (CAD), Cancer, Chest Pain / Angina, COPD, Diabetes Mellitus, Eye Disorder, GI Bleed, Hyperlipidemia, Hypertension, Myocardial Infarction ([place]) Additional Past Medical History / Comment(s): DIABETIC RETINOPATHY-VISON POOR. CA OF RIGHT KIDNEY, RIGHT NECK, FACE. OLD HX OF ETOH, BPH, pleural effusions x2 since cabg with thoracentesis, pulmonary edema, anemia Last Myocardial Infarction Date:: UNKNOWN History of Any Multi-Drug Resistant Organisms: None Reported Past Surgical History: Bladder Surgery, Cholecystectomy, Heart Catheterization With Stent, Orthopedic Surgery, Prostate Surgery, Tonsillectomy Additional Past Surgical History / Comment(s): CATARACTS. PARTIAL RIGHT NEPHRECTOMY (2010). RIGHT SHOULDER. TURP. Open heart surgery 3 vessel 02/23/14 Past Anesthesia/Blood Transfusion Reactions: No Reported Reaction Date of Last Stent Placement:: 2007 Past Psychological History: Anxiety, Depression Additional Psychological History / Comment(s): PT LIVES WITH OF 60 YEARS,IS INDEPENDANT BUT VISON IS POOR. 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 Smoking Status: Former smoker Past Alcohol Use History: Rare Additional Past Alcohol Use History / Comment(s): Old hx of ETOH, started smoking at age 12 smoked 2 ppd quit in 2001 Past Drug Use History: None Reported - Past Family History Father Additional Family Medical History / Comment(s): at age 77- cancer(colon) Mother Family Medical History: Cancer, Myocardial Infarction ([place]) Additional Family Medical History / Comment(s): mom at age 85 from old age, hx colon ca and open heart General Exam Limitations: no limitations General appearance: alert, in no apparent distress Head exam: Present: normocephalic Eye exam: Present: normal appearance, PERRL, EOMI. Absent: nystagmus ENT exam: Present: normal oropharynx Neck exam: Present: normal inspection Respiratory exam: Present: normal lung sounds bilaterally Cardiovascular Exam: Present: regular rate, normal rhythm GI/Abdominal exam: Present: soft. Absent: tenderness Extremities exam: Present: normal inspection Neurological exam: Present: alert, oriented X3, CN II-XII intact. Absent: motor sensory deficit Expanded Neurological exam: Present: protecting the airway Patient oriented to: Present: person, place, time Speech: Present: anomia (Patient does have mild slurred speech) Cranial nerves: EOM's Intact: Normal, Facial Sensation: Normal Sensory exam: Upper Extremity Light Touch: Normal, Lower Extremity Light Touch: Normal Motor strength exam: RUE: 5, LUE: 5, RLE: 5, LLE: 5 Eye Response: (4) open spontaneously Motor Response: (6) obeys commands Verbal Response: (5) oriented Psychiatric exam: Present: normal affect, normal mood Skin exam: Present: normal color Course Vital Signs 06/03/19 06/03/19 10:36 11:20 Temperature 98.0 F Pulse Rate 63 58 L Respiratory 18 16 Rate Blood Pressure 169/74 141/63 O2 Sat by Pulse 97 97 Oximetry - Reevaluation(s) Reevaluation #1: 06/03/19 11:51 Patient is not a TPA candidate secondary to onset of symptoms greater than 24 hours. In addition patient does have improvement of symptoms. EKG Findings - EKG Comments: EKG Findings:: Regular rhythm with a rate of 65. QRS 174, white count QRS complex. QT 470. QTc 48. Left axis. Right bundle branch block. LVH. Rep olarization change. Medical Decision Making - Medical Decision Making Patient reevaluated and unchanged. Patient and family updated on results and plan. Dr. Mitchell has been paged for admission covering for Dr. Maldonado. - Lab Data Result diagrams: 06/03/19 10:36 06/03/19 10:36 Lab Results 06/03/19 06/03/19 06/03/19 Range/Units 10:35 10:36 10:36 WBC 8.0 (3.8-10.6) k/uL RBC 4.39 (4.30-5.90) m/uL Hgb 12.6 L (13.0-17.5) gm/dL Hct 39.7 (39.0-53.0) % MCV 90.5 (80.0-100.0) fL MCH 28.7 (25.0-35.0) pg MCHC 31.7 (31.0-37.0) g/dL RDW 14.3 (11.5-15.5) % Plt Count 128 L (150-450) k/uL Neutrophils % 75 % Lymphocytes % 17 % Monocytes % 5 % Eosinophils % 1 % Basophils % 0 % Neutrophils # 6.0 (1.3-7.7) k/uL Lymphocytes # 1.3 (1.0-4.8) k/uL Monocytes # 0.4 (0-1.0) k/uL Eosinophils # 0.1 (0-0.7) k/uL Basophils # 0.0 (0-0.2) k/uL PT (9.0-12.0) sec INR (<1.2) APTT (22.0-30.0) sec Sodium 137 (137-145) mmol/L Potassium 4.5 (3.5-5.1) mmol/L Chloride 102 (98-107) mmol/L Carbon Dioxide 27 (22-30) mmol/L Anion Gap 8 mmol/L BUN 31 H (9-20) mg/dL Creatinine 1.53 H (0.66-1.25) mg/dL Est GFR (CKD-EPI)AfAm 48 (>60 ml/min/1.73 sqM) Est GFR (CKD-EPI)NonAf 41 (>60 ml/min/1.73 sqM) Glucose 270 H (74-99) mg/dL POC Glucose (mg/dL) 278 H (75-99) mg/dL POC Glu Tong Carrier ID Roberto Medina Calcium 9.4 (8.4-10.2) mg/dL Total Bilirubin 0.4 (0.2-1.3) mg/dL AST 26 (17-59) U/L ALT 16 (4-49) U/L Alkaline Phosphatase 92 (38-126) U/L Troponin I (0.000-0.034) ng/mL Total Protein 6.6 (6.3-8.2) g/dL Albumin 4.2 (3.5-5.0) g/dL 06/03/19 06/03/19 Range/Units 10:36 10:36 WBC (3.8-10.6) k/uL RBC (4.30-5.90) m/uL Hgb (13.0-17.5) gm/dL Hct (39.0-53.0) % MCV (80.0-100.0) fL MCH (25.0-35.0) pg MCHC (31.0-37.0) g/dL RDW (11.5-15.5) % Plt Count (150-450) k/uL Neutrophils % % Lymphocytes % % Monocytes % % Eosinophils % % Basophils % % Neutrophils # (1.3-7.7) k/uL Lymphocytes # (1.0-4.8) k/uL Monocytes # (0-1.0) k/uL Eosinophils # (0-0.7) k/uL Basophils # (0-0.2) k/uL PT 9.5 (9.0-12.0) sec INR 0.9 (<1.2) APTT 25.1 (22.0-30.0) sec Sodium (137-145) mmol/L Potassium (3.5-5.1) mmol/L Chloride (98-107) mmol/L Carbon Dioxide (22-30) mmol/L Anion Gap mmol/L BUN (9-20) mg/dL Creatinine (0.66-1.25) mg/dL Est GFR (CKD-EPI)AfAm (>60 ml/min/1.73 sqM) Est GFR (CKD-EPI)NonAf (>60 ml/min/1.73 sqM) Glucose (74-99) mg/dL POC Glucose (mg/dL) (75-99) mg/dL POC Glu Tong Carrier ID Calcium (8.4-10.2) mg/dL Total Bilirubin (0.2-1.3) mg/dL AST (17-59) U/L ALT (4-49) U/L Alkaline Phosphatase (38-126) U/L Troponin I <0.012 (0.000-0.034) ng/mL Total Protein (6.3-8.2) g/dL Albumin (3.5-5.0) g/dL - Radiology Data Radiology results: report reviewed (Computed tomography scan of the brain reveals no acute intercranial hemorrhage, mass effect or shift. Degenerative and nonspecific white matter changes are present.), image reviewed (Chest x-ray shows no acute process) Disposition Clinical Impression: Cerebrovascular accident (CVA) Disposition: ADMITTED IP TO THIS HOSP Is patient prescribed a controlled substance at d/c from ED?: No Referrals: Yanet Lee MD [Primary Care Provider] - 1-2 days Decision Time: 11:51
[2019-06-03 11:15] LABS: Basophils % (A) 0 %; Eosinophils # (A) 0.1 k/uL (0-0.7); Eosinophils % (A) 1 %; HCT 39.7 % (39.0-53.0); HGB 12.6 gm/dL (13.0-17.5); Lymphocytes # (A) 1.3 k/uL (1.0-4.8); Lymphocytes % (A) 17 %; MCH 28.7 pg (25.0-35.0); MCHC 31.7 g/dL (31.0-37.0); MCV 90.5 fL (80.0-100.0); Mean Platelet Volume 7.2; Monocytes # (A) 0.4 k/uL (0-1.0); Monocytes % (A) 5 %; Neutrophils % (A) 75 %; Platelet Count 128 k/uL (150-450); RBC 4.39 m/uL (4.30-5.90); RDW 14.3 % (11.5-15.5)
--- NOTE | 2019-06-03 11:15 | CT ---
EXAMINATION TYPE: CT brain wo con for TPA DATE OF EXAM: 06/03/2019 COMPARISON: 06/26/2012 HISTORY: Neuro deficit, acute, stroke suspected CT DLP: 1099.4 mGycm Automated exposure control for dose reduction was used. FINDINGS: There is moderate generalized degenerative changes. Slightly greater frontal lobe component. No acute hemorrhage or mass effect. Low-attenuation white matter is nonspecific but most typical remote vascu lar ischemia. Calvarium intact. Changes of chronic sinusitis noted. There is abnormal appearance to the calvarium m ultiple lytic lesions seen which are stable from prior exam may be related to pacchionian granulation rather than aggressive process given their stability since 2013. Tiny focal area of abnormal density within the basal ganglia bilaterally most typical remote infarction IMPRESSION: No acute intracranial hemorrhage, mass effect, or midline shift is seen. Degenerative and nonspecific white matter changes most typical remote ischemia. Correlate with MRI as clinically warranted.
[2019-06-03 11:24] LABS: Albumin 4.2 g/dL (3.5-5.0); Calcium 9.4 mg/dL (8.4-10.2); Potassium 4.5 mmol/L (3.5-5.1); Total Bilirubin 0.4 mg/dL (0.2-1.3); Total Protein 6.6 g/dL (6.3-8.2)
[2019-06-03 11:26] LABS: INR 0.9 (<1.2); Prothrombin Time 9.5 sec (9.0-12.0)
[2019-06-03 11:27] LABS: Partial Thromboplastin Time 25.1 sec (22.0-30.0)
--- NOTE | 2019-06-03 11:28 | XR ---
EXAMINATION TYPE: XR chest 2V DATE OF EXAM: 06/03/2019 COMPARISON: Prior chest x-ray 05/07/2018 HISTORY: Altered mental status TECHNIQUE: Frontal and lateral views of the chest are obtained. FINDINGS: There are prominent lung volumes with flattening the hemidiaphragms. There is no focal air space opacity, pleural effusion, or pneumothorax seen. The cardiac silhouette size is stable. The osseous structures are intact anterior osteophytes flow over the thoracic vertebral bodies with relat nimco preservation of the disc spaces, consider diffuse idiopathic skeletal hyperostosis. Patient is po st median sternotomy and right shoulder arthroplasty. Aorta is dense. IMPRESSION: No acute cardiopulmonary process.
[2019-06-03] MEDS ORDERED: ASPIRIN 325 MG TAB PO STA (11:52)
[2019-06-03] MEDS: SODIUM CHLORIDE 0.9% 1,000 ML IV SCH ×2 (12:11→21:22)
--- NOTE | 2019-06-03 13:02 | US ---
EXAMINATION TYPE: US carotid duplex BILAT DATE OF EXAM: 06/03/2019 COMPARISON: NONE CLINICAL HISTORY: Stenosis. Possible stroke EXAM MEASUREMENTS: RIGHT: Peak Systolic Velocity (PSV) cm/sec ----- Right CCA: 28.5 ----- Right ICA: 35.9 ----- Right ECA: 122.1 ICA/CCA ratio: 1.3 RIGHT: End Diastole cm/sec ----- Right CCA: 0.0 ----- Right ICA: 7.5 ----- Right ECA: 0.0 LEFT: Peak Systolic Velocity (PSV) cm/sec ----- Left CCA: 47.1 ----- Left ICA: 161.2 ----- Left ECA: 135.1 ICA/CCA ratio: 3.4 LEFT: End Diastole cm/sec ----- Left CCA: 11.5 ----- Left ICA: 37.7 ----- Left ECA: 0.0 VERTEBRALS (direction of flow): Right Vertebral: Antegrade Left Vertebral: Antegrade Rhythm: Normal Difficult and limited study due to thick neck Bilateral intimal thickening, plaque bilateral bulb, elevated velocities: distal left ICA and proxima l left ECA, left ICA/CCA 3.4 Grayscale, color Doppler, spectral Doppler imaging performed of the carotid arteries. Waveform analys is shows elevated velocities within the internal carotid artery on the left, there is spectral broade kenenth and loss of the systolic window, elevated internal carotid to common carotid artery ratio IMPRESSION: Hemodynamic significant stenosis of the proximal internal carotid artery, left correspon ding to approximately 50-69% diameter reduction by Doppler criteria Criteria for Assigning % of Stenosis / Diameter reduction (Estimation based on the indirect measurements of the internal carotid artery velocities (ICA PSV). 1. Normal (no stenosis)=ICA PSV < 125 cm/s: ratio < 2.0: ICA EDV<40 cm/s. 2. Less than 50% stenosis=ICA PSV < 125 cm/s: ratio < 2.0: ICA EDV<40 cm/s. 3. 50 to 69% stenosis=ICA PSV of 125 to 230 cm/s: ration 2.0 ? 4.0: ICA EDV 40-100 cm/s. 4. Greater than 70% stenosis to near occlusion= ICA PSV > 230 cm/s: ratio > 4.0: ICA EDV > 100 cm/s. 5. Near occlusion= ICA PSV velocities may be low or undetectable: variable ratio and ICA EDV. 6. Total occlusion=unable to detect flow.
--- NOTE | 2019-06-03 13:56 | P.CNNES ---
History of Present Illness Consult date: 06/03/19 Reason for Consult: concern for stroke Chief complaint: slurred speech, L-sided weakness History of Present Illness: HISTORY OF PRESENT ILLNESS: Thank you for allowing me to evaluate Mr. Marcus Grove. Mr. Grove is an 84 year-old R-handed man with PMhx of a.fib, CAD, chest pain, DM, diabetic retinopathy (very poor vision), HLD, HTN, NH, hearing deficit, R kidney cancer, hx of EtOH abuse, presenting to [facility] for slurred speech and L-sided weakness. Patient states that he couldn't really use his L arm as well and also walking was a bit difficulty since yesterday afternoon. Musa baker lives alone, but his son lives right next door and stays with patient often. When son returned, patient was still having slurred speech and some L- sided weakness, but decided to bring patient to the hospital this morning. Patient denies any recent sickness, fever, headache, nausea, vomiting, numbness or tingling. He feels that his weakness has improved significantly. Denies any previous episodes of weakness, numbness or tingling. Patient recently had a stress test, and was told that it was abnormal but has not followed up with the bar turner since. Pt's daughter is at bedside. PAST MEDICAL HISTORY: a.fib, CAD, chest pain, DM, diabetic retinopathy (very poor vision), HLD, HTN, NH, hearing deficit, R kidney cancer, hx of EtOH abuse PAST SURGICAL HISTORY: Cholecystectomy, heart cath with stent, CABG (2013), tonsillectomy, cataract surgery, partial R nephrectomy, R shoulder surgery HOME MEDICATIONS: Simvastatin, MVT, ativan q24h, ASA q48 hrs, lisinopril, tamsulosin, Imdur, insulin, lasix, ferous sulfate, amlodipine, vitamin C ALLERGIES: Morphine SOCIAL HISTORY: Former smoker, 52 years, 2+ packs per day (quit in 2001 because it was getting too expensive). FAMILY HISTORY: Father had colon cancer, Mother had colon cancer and open heart surgery REVIEW OF SYSTEMS: The 14 systems are reviewed and no additional points are identified compared to the review of systems documented history and physical PHYSICAL EXAMINATION: VITAL SIGNS: T 98.0 HR 63 RR 18 BP 169/72 O2 sat 97% on RA GEN.: NAD, pleasant and cooperative HEENT: NCAT, sclera without icterus NECK: Supple SKIN AND EXTREMITIES: Warm to touch, no edema NEURO: MENTAL STATUS: Patient alert and oriented to self, place, time. Able to name the current president. Speech fluent but with moderately slurred speech, able to name and repeat, following all commands readily. No right and left disorientation, neglect. CRANIAL NERVES II THROUGH XII: II: Pupils are equal and reactive to light symmetrically. Visual boo are intact. III, IV, : No ptosis. Extraocular movements full. No nystagmus. V: Facial sensation intact from V1-3. VII. No clear facial asymmetry. VIII: Hearing intact to finger rub bilaterally. IX, X: Symmetric palate elevation. XI: Shoulder shrug intact. XII: Tongue midline without fasciculation or atrophy. MOTOR: Normal bulk/tone. No pronator drift or tremor. Strength is 5/5 througho ut all 4 extremities with exception of his R shoulder, which has been slightly weak and difficult to lift up higher than his shoulder due to shoulder pain/surgery. SENSORY: Intact to light touch pinprick in all 4 extremities. REFLEXES: brisk throughout. Toes are downgoing. Hoffmans' negative COORDINATION: Finger to nose and heel to olivier intact. No dysmetria. Rapid alternating movements with good speed and accuracy. GAIT: Narrow-based and stable. Able to toe/heel/tandem walk DIAGNOSTIC TESTING: LABORATORY: WBC 8.0 Hgb 12.6 Platelet 128 Na 137 K 4.5 Cl 102 CO2 27 BUN 31 Cr 1.53 glucose 270 AST 26 ALT 16 AlkPhos 92 Troponin <0.012 IMAGING: CT Head w/o contrast 06/03/2019: No acute intracranial hemorrhage, mass effect, or midline shift. Degenerative and nonspecific white matter changes most typical remote ischemia in R BG region. EKG 06/03/2019: Wide QRS. L axis deviation. RBBB ASSESSMENT: 84 year-old R-handed man with PMhx of a.fib, CAD, chest pain, DM, diabetic retinopathy (very poor vision), HLD, HTN, NH, hearing deficit, R kidney cancer, hx of EtOH abuse, presenting to [facility] for slurred speech and L- sided weakness. Patient at this time with slurred speech but significantly improved strength. Patient with multiple risk factors for stroke, including a.fib. CT Head showing old stroke in R BG region. If patient indeed has history of a.fib, patient needs to be started on anticoagulation. Will pursue stroke work-up and management. RECOMMENDATIONS: 1. MRI brain without contrast 2. Carotid Doppler 3. Transthoracic echocardiogram 4. Cardiac monitoring 5. Permissive HTN for 24-48 hours SBP >220. Give labetalol 10mg IV q1h PRN for SBP >220 DBP >110 6. ASA 81mg qday 7. Atorvastatin 80mg qhs 8. Labs: A1C, TSH, FLP 9. PT/OT/ST per protocol 10. Discussed with patient about stroke prevention guidelines. Medication compliance, hypertension/diabetes control, lifestyle changes including no smoking, drinking in moderation, losing weight, exercising, eating healthier 11. Neurology is not available over the weekend in-house. However, feel free to [employer] message me over the weekend if you have any questions or co ncerns 12. Patient needs to follow up with neurologist as outpatient with her 1-2 weeks of discharge 13. Discussed ED precautions: return to ED if having severe headache, nausea, vomiting, vision deficits, speech difficulty, facial asymmetry, weakness, numbness or tingling. Past Medical History Past Medical History: Atrial Fibrillation, Coronary Artery Disease (CAD), Cancer, Chest Pain / Angina, COPD, Diabetes Mellitus, Eye Disorder, GI Bleed, Hyperlipidemia, Hypertension, Myocardial Infarction (NH) Additional Past Medical History / Comment(s): DIABETIC RETINOPATHY-VISON POOR. CA OF RIGHT KIDNEY, RIGHT NECK, FACE. OLD HX OF ETOH, BPH, pleural effusions x2 since cabg with thoracentesis, pulmonary edema, anemia Last Myocardial Infarction Date:: UNKNOWN History of Any Multi-Drug Resistant Organisms: None Reported Past Surgical History: Bladder Surgery, Cholecystectomy, Heart Catheterization With Stent, Orthopedic Surgery, Prostate Surgery, Tonsillectomy Additional Past Surgical History / Comment(s): CATARACTS. PARTIAL RIGHT NEPHRECTOMY (2010). RIGHT SHOULDER. TURP. Open heart surgery 3 vessel 02/23/14 Past Anesthesia/Blood Transfusion Reactions: No Reported Reaction Date of Last Stent Placement:: 2007 Past Psychological History: Anxiety, Depression Additional Psychological History / Comment(s): PT LIVES WITH OF 60 YEARS,IS INDEPENDANT BUT VISON IS POOR. 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 Smoking Status: Former smoker Past Alcohol Use History: Rare Additional Past Alcohol Use History / Comment(s): Old hx of ETOH, started smoking at age 12 smoked 2 ppd quit in 2001 Past Drug Use History: None Reported - Past Family History Father Additional Family Medical History / Comment(s): at age 77- cancer(colon) Mother Family Medical History: Cancer, Myocardial Infarction (NH) Additional Family Medical History / Comment(s): mom at age 85 from old age, hx colon ca and open heart Medications and Allergies Home Medications Medication Instructions Recorded Confirmed Type DULoxetine HCL [Cymbalta] 60 mg PO HS 11/08/13 06/03/19 History Tamsulosin [Flomax] 0.4 mg PO DAILY #30 cap.er.24h 03/04/14 06/03/19 Rx Aspirin EC [Ecotrin Low Dose] 81 mg PO Q48H 08/08/14 06/03/19 History LORazepam [Lorazepam] 0.5 mg PO Q48H 08/08/14 06/03/19 History Ferrous Sulfate [Iron (65 MG 325 mg PO DAILY 03/05/16 06/03/19 History Elemental)] Ascorbic Acid [Vitamin C] 500 mg PO DAILY 05/07/18 06/03/19 History Furosemide [Lasix] 40 mg PO DAILY tab 05/11/18 06/03/19 Rx Insulin Glargine [Lantus] 70 unit SQ HS #0 05/11/18 06/03/19 Rx Isosorbide Mononitrate ER [Imdur] 30 mg PO DAILY #30 tab.er.24h 05/11/18 06/03/19 Rx Nitroglycerin Sl Tabs [Nitrostat] 0.4 mg SUBLINGUAL Q5M PRN #100 tab 05/11/18 06/03/19 Rx amLODIPine [Norvasc] 5 mg PO DAILY #30 tab 05/11/18 06/03/19 Rx INSULIN ASPART (NovoLOG) [NovoLOG 15 unit SQ AC-BID 06/03/19 06/03/19 History (formulary)] INSULIN ASPART (NovoLOG) [NovoLOG 30 unit SQ AC-BRKFST 06/03/19 06/03/19 History (formulary)] Lisinopril [Zestril] 2.5 mg PO DAILY 06/03/19 06/03/19 History Multivitamin with Iron 1 tab PO HS 06/03/19 06/03/19 History [Multivitamins with Iron] Simvastatin [Zocor] 40 mg PO HS 06/03/19 06/03/19 History Allergies Allergy/AdvReac Type Severity Reaction Status Date / Time morphine AdvReac Hallucinati Verified 06/03/19 12:35 ons Physical Examination - Vital Signs Vital Signs: Vital Signs Temp Pulse Resp BP Pulse Ox 06/03/19 13:04 66 16 133/67 99 06/03/19 12:14 60 16 126/61 98 06/03/19 11:20 58 L 16 141/63 97 06/03/19 10:36 98.0 F 63 18 169/74 97 Intake and Output 06/02/19 06/03/19 06/03/19 22:59 06:59 14:59 Other: Weight 98.566 kg Results - Laboratory Findings CBC and BMP: 06/03/19 10:36 06/03/19 10:36 Abnormal Lab Findings: Abnormal Labs 06/03/19 06/03/19 06/03/19 10:35 10:36 10:36 Hgb 12.6 L Plt Count 128 L BUN 31 H Creatinine 1.53 H Glucose 270 H POC Glucose (mg/dL) 278 H
[2019-06-03] MEDS: INSULIN ASPART (NovoLOG) 100 UNIT/ML VIAL SQ SCH ×4 (15:10→21:17)
--- NOTE | 2019-06-03 16:47 | MR ---
EXAMINATION TYPE: MR brain wo con DATE OF EXAM: 06/03/2019 COMPARISON: None HISTORY: Neuro deficit, concern for stroke Multiplanar multiecho imaging of the brain was performed without contrast There is diffuse cerebral cortical atrophy. There is no mass effect nor midline shift. There is no si gn of intracranial hemorrhage. There is 9 mm focus of increased signal in the mely on the right side on the diffusion images suggestive of an acute infarct. On the FLAIR images there are scattered white matter high signal foci at the pearson-white matter junction of both cerebral hemispheres that measure up to 6 mm. Total number is less than 10. Consistent with multiple lacunar infarcts. There is thinning of the corpus callosum. Sella turcica appears normal. There is mucus retention cyst in the right maxillary sinus that measures 2.5 cm. IMPRESSION: Moderate diffuse atrophy. Acute infarct of the mely on the right side. Multiple lacunar infarcts in t he periventricular white matter.
[2019-06-03] MEDS ORDERED: NITROGLYCERIN SL TABS 0.4 MG TAB SUBLINGUAL PRN (16:52)
[2019-06-03 16:57] LABS: Glucose,Whole Blood 185 mg/dL (75-99)
[2019-06-03] MEDS ORDERED: LORazepam 0.5 MG TAB PO SCH (17:00)
[2019-06-03] MEDS ORDERED: INSULIN ASPART (NovoLOG) 100 UNIT/ML VIAL SQ SCH (17:30)
[2019-06-03] MEDS: ACETAMINOPHEN TAB 500 MG TAB PO PRN (17:34)
[2019-06-03] MEDS: ONDANSETRON 4 MG/2 ML VIAL IVP PRN (19:10)
[2019-06-03 20:15] LABS: Glucose,Whole Blood 243 mg/dL (75-99)
[2019-06-03] MEDS ORDERED: INSULIN DETEMIR (LEVEMIR) 100 UNIT/ML SYR SQ SCH (21:00)
[2019-06-03] MEDS: ATORVASTATIN 80 MG TAB PO SCH (21:15)
[2019-06-03] MEDS: MULTIVITAMINS, THERA 1 EACH TAB PO SCH (21:15)
[2019-06-03] MEDS: DULoxetine HCL 60 MG CAPSULE.DR PO SCH (21:15)
--- NOTE | 2019-06-03 22:39 | P.HPIM ---
History of Present Illness H&P Date: 06/03/19 Chief Complaint: Slurred speech Patient is a 84-year-old male with a known history of coronary artery disease status post coronary artery bypass graft, history of cardiac catheterization April 2018 showing triple-vessel disease severe-medical therapy was recommended by cardiology, hypertension, diabetes type 2 insulin-dependent, diabetic retinopathy with poor vision, hyperlipidemia, hearing deficit and right renal cancer status post partial right nephrectomy and also history of alcohol abuse presented to ER with the complaints of slurred speech and left-sided weakness. 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 Patient's daughter did not notice until in the evening yesterday. Patient was seen by his son this morning and the patient is still having slurred speech and left-sided weakness. Patient was brought to ER for further evaluation. Left-sided weakness did improve compared to yesterday but patient still having slurred speech, dysarthria. Denied any complaints of headache. No chest pain no shortness of breath. No palpitations. No numbness or tingling sensation. Endocrine to his daughter patient had stress test recently and is supposed to follow with his global marketing specialist due to abnormal stress test. Patient was previously admitted to the hospital due to non-ST elevated MT status post cardiac cath patient showed severe triple-vessel disease, medical therapy was recommended in April 2018. According to cardiology note in April 2018, patient did not have any atrial fibrillation. She was not on any blood thinners except aspirin previously as per his daughter at bedside. Echocardiogram showed normal ejection fraction in April 2018. BUN 31, creatinine 1.53, hyperglycemia with blood sugar 278 on admission Other laboratory data reviewed. CT head showed degenerative and nonspecific white matter changes most typical remote ischemia. EKG showed wide QRS and left axis deviation. Review of Systems Constitutional: Patient denies any fever or chills . No generalized weakness or weight loss. Abdomen: Patient denied nausea vomiting and diarrhea and abdominal pain. Cardiovascular: Patient denies any chest pain or short of breath no palpitations. Respiratory: patient denied any cough is from production. No shortness of breath Neurologic: Patient denied any numbness or tingling headache. Slurred speech and left-sided weakness Musculoskeletal: Patient denies any complaints of joint swelling or deformity. Skin: Negative Psychiatric: Negative Endocrine: No heat or cold intolerance. No recent weight gain. Genitourinary: No dysuria or hematuria. All other 14 point ROS negative except the above Past Medical History Past Medical History: Atrial Fibrillation, Coronary Artery Disease (CAD), Canc er, Chest Pain / Angina, COPD, Diabetes Mellitus, Eye Disorder, GI Bleed, Hyperlipidemia, Hypertension, Myocardial Infarction (MT) Additional Past Medical History / Comment(s): DIABETIC RETINOPATHY-VISON POOR. CA OF RIGHT KIDNEY, RIGHT NECK, FACE. OLD HX OF ETOH, BPH, pleural effusions x2 since cabg with thoracentesis, pulmonary edema, anemia Last Myocardial Infarction Date:: UNKNOWN History of Any Multi-Drug Resistant Organisms: None Reported Past Surgical History: Bladder Surgery, Cholecystectomy, Heart Catheterization With Stent, Orthopedic Surgery, Prostate Surgery, Tonsillectomy Additional Past Surgical History / Comment(s): CATARACTS. PARTIAL RIGHT NEPHRECTOMY (2010). RIGHT SHOULDER. TURP. Open heart surgery 3 vessel 02/23/14 Past Anesthesia/Blood Transfusion Reactions: No Reported Reaction Date of Last Stent Placement:: 2007 Smoking Status: Former smoker - Past Family History Father Additional Family Medical History / Comment(s): at age 77- cancer(colon) Mother Family Medical History: Cancer, Myocardial Infarction (MT) Additional Family Medical History / Comment(s): mom at age 85 from old age, hx colon ca and open heart Medications and Allergies Home Medications Medication Instructions Recorded Confirmed Type DULoxetine HCL [Cymbalta] 60 mg PO HS 11/08/13 06/03/19 History Tamsulosin [Flomax] 0.4 mg PO DAILY #30 cap.er.24h 03/04/14 06/03/19 Rx Aspirin EC [Ecotrin Low Dose] 81 mg PO Q48H 08/08/14 06/03/19 History LORazepam [Lorazepam] 0.5 mg PO Q48H 08/08/14 06/03/19 History Ferrous Sulfate [Iron (65 MG 325 mg PO DAILY 03/05/16 06/03/19 History Elemental)] Ascorbic Acid [Vitamin C] 500 mg PO DAILY 05/07/18 06/03/19 History Furosemide [Lasix] 40 mg PO DAILY tab 05/11/18 06/03/19 Rx Insulin Glargine [Lantus] 70 unit SQ HS #0 05/11/18 06/03/19 Rx Isosorbide Mononitrate ER [Imdur] 30 mg PO DAILY #30 tab.er.24h 05/11/18 06/03/19 Rx Nitroglycerin Sl Tabs [Nitrostat] 0.4 mg SUBLINGUAL Q5M PRN #100 tab 05/11/18 06/03/19 Rx amLODIPine [Norvasc] 5 mg PO DAILY #30 tab 05/11/18 06/03/19 Rx INSULIN ASPART (NovoLOG) [NovoLOG 15 unit SQ AC-BID 06/03/19 06/03/19 History (formulary)] INSULIN ASPART (NovoLOG) [NovoLOG 30 unit SQ AC-BRKFST 06/03/19 06/03/19 History (formulary)] Lisinopril [Zestril] 2.5 mg PO DAILY 06/03/19 06/03/19 History Multivitamin with Iron 1 tab PO HS 06/03/19 06/03/19 History [Multivitamins with Iron] Simvastatin [Zocor] 40 mg PO HS 06/03/19 06/03/19 History Allergies Allergy/AdvReac Type Severity Reaction Status Date / Time morphine AdvReac Hallucinati Verified 06/03/19 12:35 ons Physical Exam Vitals: Vital Signs Temp Pulse Resp BP Pulse Ox 06/03/19 13:04 66 16 133/67 99 06/03/19 12:14 60 16 126/61 98 06/03/19 11:20 58 L 16 141/63 97 06/03/19 10:36 98.0 F 63 18 169/74 97 Intake and Output 06/03/19 06/03/19 06/03/19 06:59 14:59 22:59 Other: Weight 98.566 kg PHYSICAL EXAMINATION: Patient is lying in the bed comfortably, no acute distress, awake alert and oriented.. HEENT: Normocephalic. Neck is supple. Pupils reactive. Nostrils clear. Oral cavity is moist. Ears reveal no drainage. Neck reveals no JVD, carotid bruits, or thyromegaly. CHEST EXAMINATION: Trachea is central. Bibasilar diminished air entry. Symmetrical expansion. Lung boo clear to auscultation and percussion. CARDIAC: Normal S1, S2 with no gallops. No murmurs ABDOMEN: Soft. Bowel sounds normal. No organomegaly. No abdominal bruits. Extremities: reveal no edema. No clubbing or cyanosis Neurologically awake, alert, oriented x2-3 , does have dysarthria and left-sided weakness with muscle strength 4/ 5. Skin: No rash or skin lesions. Psychiatric: Coperative. Nonsuicidal Musculoskeletal: No joint swelling or deformity. Normal range of motion. Results CBC & Chem 7: 06/03/19 10:36 06/03/19 10:36 Labs: Abnormal Lab Results - Last 24 Hours (Table) 06/03/19 06/03/19 06/03/19 Range/Units 10:35 10:36 10:36 Hgb 12.6 L (13.0-17.5) gm/dL Plt Count 128 L (150-450) k/uL BUN 31 H (9-20) mg/dL Creatinine 1.53 H (0.66-1.25) mg/dL Glucose 270 H (74-99) mg/dL POC Glucose (mg/dL) 278 H (75-99) mg/dL Thrombosis Risk Factor Assmnt - DVT/VTE Prophylaxis DVT/VTE Prophylaxis: Pharmacologic Prophylaxis ordered - Choose All That Apply Any of the Below Risk Factors Present?: Yes Each Factor Represents 1 point: Abnormal pulmonary function (COPD), Obesity (BMI >25) Other Risk Factors: Yes Each Risk Factor Represents 2 Points: Malignancy Each Risk Factor Represents 3 Points: Age 75 years or older Other congenital or acquired thrombophilia - If yes, enter type in comment: No Each Risk Factor Represents 5 Points: Stroke (< 1 month) Thrombosis Risk Factor Assessment Total Risk Factor Score: 12 Thrombosis Risk Factor Assessment Level: High Risk Assessment and Plan Assessment: Left-sided weakness with slurred speech due to acute CVA. MRI brain and carotid duplex. Coronary artery disease history of CABG and recent non-ST elevated MT status post cardiac catheterization showing triple-vessel disease in April 2018. Chronic CHF with systolic dysfunction. Questionable history of atrial fibrillation. Current EKG showed sinus rhythm with wide QRS unchanged from previous study. No history of A. fib as per previous cardiology notes. Diabetes type 2 insulin-dependent with hyperglycemia uncontrolled Hypertension Hyperlipidemia COPD stable DS history of smoking Chronic kidney disease with baseline creatinine around 1.5, stage III Diabetic retinopathy History of right renal cancer status post partial nephrectomy History of alcohol abuse BPH DVT prophylaxis with heparin subcu Plan: Patient will be converted on telemetry monitoring. Continue with aspirin and statins. Completed stroke workup including MRI of the brain and carotid duplex and EEG was ordered. TSH, B12, lipid profile and A1c levels were ordered. Monitor renal function. Neurology has seen the patient. Continue with home blood pressure medications and insulin sliding scale. PTOT and swallow evaluation. Further recommendations based on the clinical course. Prognosis is guarded with multiple complex medical problems and comorbid conditions. Discussed with his daughter at bedside in detail. Time with Patient: Greater than 30
[2019-06-04] MEDS: HEPARIN SODIUM,PORCINE 5,000 UNIT/ML 1 ML VIAL SQ SCH ×3 (00:31→17:24)
[2019-06-04 06:13] LABS: Glucose,Whole Blood 173 mg/dL (75-99)
[2019-06-04] MEDS: INSULIN ASPART (NovoLOG) 100 UNIT/ML VIAL SQ SCH ×7 (06:45→21:02)
[2019-06-04 07:03] LABS: Calcium 9.1 mg/dL (8.4-10.2); Potassium 4.3 mmol/L (3.5-5.1)
[2019-06-04] MEDS: amLODIPine 5 MG TAB PO SCH (08:55)
[2019-06-04] MEDS: LISINOPRIL 2.5 MG TAB PO SCH (08:55)
[2019-06-04] MEDS: ASCORBIC ACID 500 MG TAB PO SCH (08:55)
[2019-06-04] MEDS: LORazepam 0.5 MG TAB PO SCH (08:55)
[2019-06-04] MEDS: ASPIRIN 81 MG PO SCH (08:55)
[2019-06-04] MEDS: ISOSORBIDE MONONITRATE ER 30 MG TAB.ER.24H PO SCH (08:55)
[2019-06-04] MEDS: TAMSULOSIN 0.4 MG CAP.ER.24H PO SCH (08:55)
[2019-06-04] MEDS: FUROSEMIDE 40 MG TAB PO SCH (08:56)
--- NOTE | 2019-06-04 09:44 | CONS ---
CONSULTATION This is 84-year-old gentleman who has been admitted to [facility] with history of slurred speech and left-sided weakness with complete recovery. This happened on . The patient was brought into the hospital, got admitted and had a stroke workup. The patient had a CT scan showed no infarct seen. The patient had an MRI which shows acute infarct of the mely on the right side and lacunar infarct involving the periventricular white matter. The patient had an ultrasound of both the carotids which showed left side of the internal carotid artery is 50% to 69% stenosis and on the right side no hemodynamic stenosis seen. The patient was seen by a neurologist and the patient on antiplatelet therapy. MEDICAL HISTORY: The patient has a history of atrial fibrillation, coronary artery disease, post bypass and history of hypertension, history of right kidney cancer. The patient was seen by surgical endoscopist and had a stress test scheduled. SURGICAL HISTORY: Patient had a cholecystectomy, CABG in 2013, partial right nephrectomy. PHYSICAL EXAMINATION: On examination, patient was seen in his room, lying comfortably in bed. NECK: Supple. Trachea central. CHEST: Clear. ABDOMEN: Soft. Femoral pulses present. 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 IMPRESSION: Left side 50 to 69, and patient has a lacunar infarct and acute infarct involving the right side of the mely. We will discuss with the family and the neurologist for further management. Will follow with you. MMBOBO / MAGGIEN: [id number] /
[2019-06-04] MEDS ORDERED: ASPIRIN 325 MG TAB PO SCH (11:52)
[2019-06-04 12:06] LABS: Glucose,Whole Blood 260 mg/dL (75-99)
--- NOTE | 2019-06-04 15:28 | P.PN ---
Subjective Progress Note Date: 06/04/19 Principal diagnosis: 1. Right pontine infarct 2. Multiple lacunar infarcts Subjective: The patient reports feeling better today. He says he was up walking. He did use a walker. He continues to notice left-sided weakness. He denies difficulty swallowing. Objective - Vital Signs Vital signs: Vital Signs Temp 98.2 F 06/04/19 08:00 Pulse 82 06/04/19 12:00 Resp 20 06/04/19 12:00 BP 127/65 06/04/19 12:00 Pulse Ox 95 06/04/19 12:00 Intake & Output 06/03/19 06/04/19 06/04/19 18:59 06:59 18:59 Intake Total 180 700 420 Output Total 500 Balance 180 200 420 Weight 98.566 kg 105.6 kg Intake: Intake, IV Titration 700 Amount Sodium Chloride 0.9% 1, 700 000 ml @ 100 mls/hr IV . Q10H [facility] Rx#:[id number] Oral 180 420 Output: Urine 500 Other: # Voids 1 - Exam Gen.: Patient is seated in the bedside chair. He is in no acute distress. Neurological examination Mental status: Patient is awake, alert and oriented 3. His speech is slightly slurred. He is extremely hard of hearing. Cranial nerves: Pupils are equal, round and reactive to light. Extraocular Muscles are intact. There is no obvious facial asymmetry. Smile is symmetric. Motor: Upper extremity strength is 5/5. Right lower extremity strength is 5/5. Left lower extremity strength 4/5. - Labs CBC & Chem 7: 06/03/19 10:36 06/04/19 05:55 Labs: Abnormal Lab Results - Last 24 Hours (Table) 06/03/19 06/03/19 06/04/19 Range/Units 16:56 20:13 05:55 BUN 29 H (9-20) mg/dL Creatinine 1.53 H (0.66-1.25) mg/dL Glucose 162 H (74-99) mg/dL POC Glucose (mg/dL) 185 H 243 H (75-99) mg/dL Triglycerides 362 H (<150) mg/dL HDL Cholesterol 23 L (40-60) mg/dL 06/04/19 06/04/19 Range/Units 06:02 12:04 BUN (9-20) mg/dL Creatinine (0.66-1.25) mg/dL Glucose (74-99) mg/dL POC Glucose (mg/dL) 173 H 260 H (75-99) mg/dL Triglycerides (<150) mg/dL HDL Cholesterol (40-60) mg/dL Assessment and Plan Assessment: Impressions: 1. right pontine infarct 2. Multiple lacunar infarcts 3. Hyperlipidemia Plan: Plan: 1. Increase statin dosing for continued hyperlipidemia 2. Plavix should be added to ASA 81mg 3.. Physical therapy as outpt 4. MRI findings and lab findings were discussed with the patient. Time with Patient: Less than 30 (spent 25 minutes with patient via teleneurology)
--- NOTE | 2019-06-04 17:00 | ECHOF ---
Referral Reason:Thrombus MEASUREMENTS -------- HEIGHT: 182.9 cm WEIGHT: 98.4 kg BP: RVIDd: 4.6 cm (< 3.3) IVSd: 1.8 cm (0.6 - 1.1) LVIDd: 5.0 cm (3.9 - 5.3) LVPWd: 1.5 cm (0.6 - 1.1) IVSs: 2.0 cm LVIDs: 3.7 cm LVPWs: 2.1 cm LAESV Index (A-L): 33.38 ml/m Ao Diam: 4.6 cm (2.0 - 3.7) AV Cusp: 1.8 cm (1.5 - 2.6) LA Diam: 4.1 cm (2.7 - 3.8) MV E Kameron: 0.57 m/s MV DecT: 178 ms MV A Kameron: 0.92 m/s MV E/A Ratio: 0.63 RAP: 5.00 mmHg RVSP: 16.53 mmHg FINDINGS -------- Sinus rhythm. This was a technically difficult study with suboptimal views. The left ventricular size is normal. There is moderate concentric left ventricular hypertrophy. O verall left ventricular systolic function is mildly impaired with, an EF between 45 - 50 %. Mitral Doppler inflow pattern suggests diastolic filling abnormality 13.44. Septal wall motion is delayed and consistent with prior cardiac surgery. The right ventricle is moderately enlarged. LA is midly dilated 29-33ml/m2. The right atrium is mildly enlarged. 5.0mg of Lumason was utilized for enhancement of images Interatrial and interventricular septum intact. There is moderate aortic valve sclerosis. There is no evidence of aortic regurgitation. There is no evidence of aortic stenosis. The mitral valve was not well visualized. Mild mitral regurgitation is present. Mild tricuspid regurgitation present. There is no evidence of pulmonary hypertension. The right v entricular systolic pressure, as measured by Doppler, is 16.53mmHg. Trace/mild (physiologic) pulmonic regurgitation. The aortic root is mildy dilated. IVC Not well visulized. There is no pericardial effusion. CONCLUSIONS -------- 1. Sinus rhythm. 2. This was a technically difficult study with suboptimal views. 3. The left ventricular size is normal. 4. There is moderate concentric left ventricular hypertrophy. 5. Overall left ventricular systolic function is mildly impaired with, an EF between 45 - 50 %. 6. Mitral Doppler inflow pattern suggest diastolic filling abnormality 13.44. 7. Septal wall motion is delayed and consistent with prior cardiac surgery. 8. The right ventricle is moderately enlarged. 9. LA is midly dilated 29-33ml/m2. 10. The right atrium is mildly enlarged. 11. 5.0mg of Lumason was utilized for enhancement of images 12. Interatrial and interventricular septum intact. 13. There is moderate aortic valve sclerosis. 14. There is no evidence of aortic regurgitation. 15. There is no evidence of aortic stenosis. 16. The mitral valve was not well visualized. 17. Mild mitral regurgitation is present. 18. Mild tricuspid regurgitation present. 19. There is no evidence of pulmonary hypertension. 20. The right ventricular systolic pressure, as measured by Doppler, is 16.53mmHg. 21. Trace/mild (physiologic) pulmonic regurgitation. 22. The aortic root is mildy dilated. 23. IVC Not well visulized. 24. There is no pericardial effusion. [employer]ODUCTION MACHINE OPERATOR: Mary Cervantes RDCS
[2019-06-04 17:03] LABS: Glucose,Whole Blood 227 mg/dL (75-99)
[2019-06-04] MEDS: SODIUM CHLORIDE 0.9% 1,000 ML IV SCH ×4 (18:25→22:28)
[2019-06-04 20:48] LABS: Glucose,Whole Blood 275 mg/dL (75-99)
[2019-06-04] MEDS: MULTIVITAMINS, THERA 1 EACH TAB PO SCH (20:58)
[2019-06-04] MEDS: ATORVASTATIN 80 MG TAB PO SCH (20:58)
[2019-06-04] MEDS: DULoxetine HCL 60 MG CAPSULE.DR PO SCH (20:58)
[2019-06-04] MEDS: INSULIN DETEMIR (LEVEMIR) 100 UNIT/ML SYR SQ SCH (21:01)
[2019-06-04] MEDS: ACETAMINOPHEN TAB 500 MG TAB PO PRN (22:26)
--- NOTE | 2019-06-04 23:30 | P.PN ---
Subjective Progress Note Date: 06/04/19 Principal diagnosis: Stroke Mr. Grove is an 84-year-old male with a past medical history of coronary artery bypass grafting, cardiac cath done in April 2018 showing triple-vessel disease, recommended medical therapy by cardiology, hypertension, type 2 diabetes mellitus, diabetic nephropathy, hyperlipidemia, hearing deficit, right renal cancer status post partial right nephrectomy coming in with slurred speech and left-sided weakness. Patient had CAT scan and an MRI of the brain showing acute infarct of the mely on the right side and multiple lacunar infarcts in the periventricular white matter. Neurology on board, vascular surgery on board. On 06/04/2019 patient is comfortably sitting up in a chair by the bedside and eating his dinner. His son is at the bedside. Patient denies having any active complaints and asked me when he can go home. He still has some weakness in the left upper and lower extremities. Patient denied having any chest pain or difficulty breathing. No abdominal pain nausea vomiting or diarrhea. He denies having any lower extremity swelling. He denies having dysuria or hematuria. Objective - Vital Signs Vital signs: Vital Signs Temp 98.2 F 06/04/19 08:00 Pulse 90 06/04/19 16:00 Resp 19 06/04/19 16:00 BP 129/58 06/04/19 16:00 Pulse Ox 95 06/04/19 16:00 Intake & Output 06/03/19 06/04/19 06/04/19 18:59 06:59 18:59 Intake Total 180 700 840 Output Total 500 Balance 180 200 840 Weight 98.566 kg 105.6 kg Intake: Intake, IV Titration 700 Amount Sodium Chloride 0.9% 1, 700 000 ml @ 100 mls/hr IV . Q10H [facility] Rx#:[id number] Oral 180 840 Output: Urine 500 Other: # Voids 1 - Exam PHYSICAL EXAMINATION: Patient is lying in the bed comfortably, no acute distress, awake alert and oriented.. HEENT: Normocephalic. Neck is supple. Pupils reactive. Nostrils clear. Oral cavity is moist. Ears reveal no drainage. Neck reveals no JVD, carotid bruits, or thyromegaly. CHEST EXAMINATION: Trachea is central. Bibasilar diminished air entry. No wheezes or crackles CARDIAC: Normal S1, S2 with no gallops. No murmurs ABDOMEN: Soft. Bowel sounds normal. No organomegaly. No abdominal bruits. Extremities: reveal no edema. No clubbing or cyanosis Neurologically awake, alert, oriented x2-3 , does have dysarthria and left-sided weakness with muscle strength 4/ 5. . - Labs CBC & Chem 7: 06/03/19 10:36 06/04/19 05:55 Labs: Abnormal Lab Results - Last 24 Hours (Table) 06/03/19 06/04/19 06/04/19 Range/Units 20:13 05:55 06:02 BUN 29 H (9-20) mg/dL Creatinine 1.53 H (0.66-1.25) mg/dL Glucose 162 H (74-99) mg/dL POC Glucose (mg/dL) 243 H 173 H (75-99) mg/dL Triglycerides 362 H (<150) mg/dL HDL Cholesterol 23 L (40-60) mg/dL 06/04/19 06/04/19 Range/Units 12:04 16:59 BUN (9-20) mg/dL Creatinine (0.66-1.25) mg/dL Glucose (74-99) mg/dL POC Glucose (mg/dL) 260 H 227 H (75-99) mg/dL Triglycerides (<150) mg/dL HDL Cholesterol (40-60) mg/dL Assessment and Plan Assessment: Assessment: Acute Pontine stroke Coronary artery disease history of CABG and recent non-ST elevated [place] status post cardiac catheterization showing triple-vessel disease in April 2018. Chronic CHF with systolic dysfunction. Questionable history of atrial fibrillation. Current EKG showed sinus rhythm with wide QRS unchanged from previous study. No history of A. fib as per previous cardiology notes. Diabetes type 2 insulin-dependent with hyperglycemia uncontrolled Hypertension Hyperlipidemia COPD stable DS history of smoking Chronic kidney disease with baseline creatinine around 1.5, stage III Diabetic retinopathy History of right renal cancer status post partial nephrectomy History of alcohol abuse BPH DVT prophylaxis with heparin subcu Plan: Continue with aspirin, Plavix and high dose statin. MRI of the brain showing moderate diffuse atrophy and acute infarction of the mely on the right side with multiple lacunar infarcts in the periventricular white matter. Carotid artery Doppler showing significant stenosis of the proximal internal carotid artery, left corresponding to approximately 50 to 70% in diameter reduction by Doppler criteria. Dr. Gallardo evaluated the patient and suggested medical management. PT/OT consulted. Prognosis is guarded with multiple complex medical problems and comorbid conditions. Discussed with his son at bedside in detail.
[2019-06-05] MEDS: HEPARIN SODIUM,PORCINE 5,000 UNIT/ML 1 ML VIAL SQ SCH ×4 (00:02→22:37)
[2019-06-05 05:36] LABS: Glucose,Whole Blood 159 mg/dL (75-99)
[2019-06-05] MEDS: INSULIN ASPART (NovoLOG) 100 UNIT/ML VIAL SQ SCH ×7 (06:19→22:37)
[2019-06-05] MEDS: amLODIPine 5 MG TAB PO SCH (09:59)
[2019-06-05] MEDS: LISINOPRIL 2.5 MG TAB PO SCH (09:59)
[2019-06-05] MEDS: ASCORBIC ACID 500 MG TAB PO SCH (09:59)
[2019-06-05] MEDS: ISOSORBIDE MONONITRATE ER 30 MG TAB.ER.24H PO SCH (09:59)
[2019-06-05] MEDS: FUROSEMIDE 40 MG TAB PO SCH (09:59)
[2019-06-05] MEDS: TAMSULOSIN 0.4 MG CAP.ER.24H PO SCH (09:59)
[2019-06-05] MEDS: ASPIRIN 81 MG PO SCH (10:00)
[2019-06-05] MEDS: CLOPIDOGREL 75 MG TAB PO SCH (10:00)
[2019-06-05 12:05] LABS: Glucose,Whole Blood 152 mg/dL (75-99)
[2019-06-05] MEDS: ACETAMINOPHEN TAB 500 MG TAB PO PRN (12:35)
[2019-06-05] MEDS: ONDANSETRON 4 MG/2 ML VIAL IVP PRN (15:16)
[2019-06-05 16:50] LABS: Glucose,Whole Blood 201 mg/dL (75-99)
--- NOTE | 2019-06-05 19:28 | PN ---
PROGRESS NOTE This gentleman is an 84 -year-old gentleman who came in with history of left arm numbness and weakness with compared to recovery. The patient has history of coronary artery disease with triple bypass. The patient also has a history of hypertension and type 2 diabetes. The patient had a CT scan and MRI of the brain which showed infarct in the mely and right side of the carotid is found to be patent, left side 50 to 69. Patient is stable and motor function normal and tolerating activities well. Patient on antiplatelet therapy which should be continued. The patient was seen by Cardiology for cardiac issues. At this point, patient is stable from a vascular point of view and has the right-sided carotid is normal and the patient has an infarct of the mely which will be treated medically. Discussed with the family and Internal Medicine. Follow up in my office in 2 weeks. MMODL / MAGGIEN: [id number] /
[2019-06-05 20:30] LABS: Glucose,Whole Blood 131 mg/dL (75-99)
[2019-06-05] MEDS: DULoxetine HCL 60 MG CAPSULE.DR PO SCH (22:36)
[2019-06-05] MEDS: MULTIVITAMINS, THERA 1 EACH TAB PO SCH (22:36)
[2019-06-05] MEDS: ATORVASTATIN 80 MG TAB PO SCH (22:36)
[2019-06-05] MEDS: INSULIN DETEMIR (LEVEMIR) 100 UNIT/ML SYR SQ SCH (22:37)
--- NOTE | 2019-06-05 22:46 | CONS ---
CONSULTATION CHIEF COMPLAINT: TIA. HISTORY OF PRESENT ILLNESS: Marcus Grove is an 83-year-old gentleman with history of coronary artery disease status post CABG, ischemic cardiomyopathy, hypertension, diabetes, dyslipidemia, who presented to the hospital with numbness and weakness involving left upper and lower extremities and Cardiology had been consulted for the same. The patient had an echocardiogram yesterday that showed a mild LV dysfunction with an ejection fraction of 45-50 percent. He had a carotid duplex study that showed proximal left internal carotid artery stenosis of about 50-69 percent. He was evaluated by Dr. Gallardo, the vascular surgeon and advised medical therapy to patient. Patient had a cardiac catheterization 3 weeks ago and was advised medical therapy at that time. PAST MEDICAL HISTORY: Significant for CAD, status post CABG, hypertension, dyslipidemia, diabetes. MEDICATIONS: Medications at home include: Norvasc, iron, insulin, Imdur, Flomax, aspirin, Zestril, Cymbalta, lorazepam, Zocor. ALLERGIES: TO MORPHINE. FAMILY HISTORY: Is negative for premature coronary artery disease. SOCIAL HISTORY: Is negative for smoking, EtOH abuse, or drug abuse. REVIEW OF SYSTEMS: HEENT is unremarkable. CARDIAC as described above. RESPIRATORY as described above. GI negative. GENITOURINARY: Negative. ENDOCRINE negative. ALLERGY/IMMUNOLOGY: Negative. SKIN negative. MUSCULOSKELETAL significant for arthritis. PSYCHOSOCIAL negative. ENDOCRINE: Negative. CONSTITUTIONAL: Negative. ONCOLOGICAL negative. CENTRAL NERVOUS SYSTEM: Significant for focal weakness involving left upper and lower extremities which have now resolved. Rest of the system review is not relevant. PHYSICAL EXAMINATION: On exam comfortable at rest. Vital signs are stable. Blood pressure is elevated at times. There is no jugular venous distention. There is a left-sided carotid bruit. There is no jugular venous distention. Chest is clear to auscultation and percussion. Heart exam reveals first and second heart sounds. Systolic murmur at the left lower sternal border. Abdomen is soft. Exam of extremities did not reveal any edema. Peripheral pulses are felt. LABORATORY DATA: Labs have been reviewed. LDL cholesterol is 48, creatinine is 1.5. ASSESSMENT: 1. 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 2. Coronary artery disease, status post coronary artery bypass grafting. 3. Hypertension. 4. Dyslipidemia. 5. Diabetes. PLAN: We will treat the patient with aspirin, Plavix, Lipitor. From my standpoint, he is stable for discharge. No other cardiac workup at this time. MMODL / IJN: [id number] /
[2019-06-06 06:00] LABS: Glucose,Whole Blood 152 mg/dL (75-99)
[2019-06-06] MEDS: INSULIN ASPART (NovoLOG) 100 UNIT/ML VIAL SQ SCH ×7 (07:47→20:50)
[2019-06-06] MEDS: HEPARIN SODIUM,PORCINE 5,000 UNIT/ML 1 ML VIAL SQ SCH ×3 (09:38→23:47)
[2019-06-06] MEDS: FUROSEMIDE 40 MG TAB PO SCH (09:39)
[2019-06-06] MEDS: CLOPIDOGREL 75 MG TAB PO SCH (09:39)
[2019-06-06] MEDS: amLODIPine 5 MG TAB PO SCH (09:39)
[2019-06-06] MEDS: ASPIRIN 81 MG PO SCH (09:39)
[2019-06-06] MEDS: TAMSULOSIN 0.4 MG CAP.ER.24H PO SCH (09:39)
[2019-06-06] MEDS: ISOSORBIDE MONONITRATE ER 30 MG TAB.ER.24H PO SCH (09:39)
[2019-06-06] MEDS: LISINOPRIL 2.5 MG TAB PO SCH (09:39)
[2019-06-06] MEDS: LORazepam 0.5 MG TAB PO SCH (09:39)
[2019-06-06] MEDS: ASCORBIC ACID 500 MG TAB PO SCH (09:39)
[2019-06-06 11:56] LABS: Glucose,Whole Blood 202 mg/dL (75-99)
[2019-06-06] MEDS: SODIUM CHLORIDE 0.9% 1,000 ML IV SCH ×3 (12:31→21:44)
[2019-06-06 16:48] LABS: Glucose,Whole Blood 201 mg/dL (75-99)
[2019-06-06 20:44] LABS: Glucose,Whole Blood 195 mg/dL (75-99)
[2019-06-06] MEDS: ATORVASTATIN 80 MG TAB PO SCH (20:50)
[2019-06-06] MEDS: MULTIVITAMINS, THERA 1 EACH TAB PO SCH (20:50)
[2019-06-06] MEDS: DULoxetine HCL 60 MG CAPSULE.DR PO SCH (20:50)
[2019-06-06] MEDS: INSULIN DETEMIR (LEVEMIR) 100 UNIT/ML SYR SQ SCH (22:19)
--- NOTE | 2019-06-06 22:45 | P.PN ---
Subjective Progress Note Date: 06/05/19 Principal diagnosis: Stroke Mr. Grove is an 84-year-old male with a past medical history of coronary artery bypass grafting, cardiac cath done in April 2018 showing triple-vessel disease, recommended medical therapy by cardiology, hypertension, type 2 diabetes mellitus, diabetic nephropathy, hyperlipidemia, hearing deficit, right renal cancer status post partial right nephrectomy coming in with slurred speech and left-sided weakness. Patient had CAT scan and an MRI of the brain showing acute infarct of the mely on the right side and multiple lacunar infarcts in the periventricular white matter. Neurology on board, vascular surgery on board. On 06/05 patient is comfortably sitting up in a chair by the bedside and asking me when he can go home. He still complains of weakness in the left upper and lower extremities. I made him take couple of steps and his gait was very properly. Patient denied having any chest pain or difficulty in breathing. Patient's labs and medications have been reviewed. His daughter is at the bedside. Objective - Vital Signs Vital signs: Vital Signs Temp 97.7 F 06/05/19 08:00 Pulse 91 06/05/19 15:22 Resp 19 06/05/19 15:22 BP 132/63 06/05/19 15:22 Pulse Ox 95 06/05/19 15:22 Intake & Output 06/04/19 06/05/19 06/05/19 18:59 06:59 18:59 Intake Total 1077 2100 360 Output Total 900 Balance 1077 1200 360 Weight 107.7 kg Intake: Intake, IV Titration 2100 Amount Sodium Chloride 0.9% 1, 2100 000 ml @ 100 mls/hr IV . Q10H [facility] Rx#:[id number] Oral 1077 360 Output: Urine 900 - Exam PHYSICAL EXAMINATION: Patient is lying in the bed comfortably, no acute distress, awake alert and oriented.. HEENT: Normocephalic. Neck is supple. Pupils reactive. Nostrils clear. Oral cavity is moist. Ears reveal no drainage. Neck reveals no JVD, carotid bruits, or thyromegaly. CHEST EXAMINATION: Trachea is central. Bibasilar diminished air entry. No wheezes or crackles CARDIAC: Normal S1, S2 with no gallops. No murmurs ABDOMEN: Soft. Bowel sounds normal. No organomegaly. No abdominal bruits. Extremities: reveal no edema. No clubbing or cyanosis Neurologically awake, alert, oriented x2-3 , does have dysarthria and left-sided weakness with muscle strength 4/ 5. Gait is unstaedy. - Labs CBC & Chem 7: 06/03/19 10:36 06/04/19 05:55 Labs: Abnormal Lab Results - Last 24 Hours (Table) 06/04/19 06/04/19 06/05/19 Range/Units 16:59 20:46 05:34 POC Glucose (mg/dL) 227 H 275 H 159 H (75-99) mg/dL 06/05/19 Range/Units 12:01 POC Glucose (mg/dL) 152 H (75-99) mg/dL Assessment and Plan Assessment: Assessment: Acute Pontine stroke Coronary artery disease history of CABG and recent non-ST elevated [place] status post cardiac catheterization showing triple-vessel disease in April 2018. Chronic CHF with systolic dysfunction. Questionable history of atrial fibrillation. Current EKG showed sinus rhythm with wide QRS unchanged from previous study. No history of A. fib as per previous cardiology notes. Diabetes type 2 insulin-dependent with hyperglycemia uncontrolled Hypertension Hyperlipidemia COPD stable DS history of smoking Chronic kidney disease with baseline creatinine around 1.5, stage III Diabetic retinopathy History of right renal cancer status post partial nephrectomy History of alcohol abuse BPH DVT prophylaxis with heparin subcu Plan: Continue with aspirin, Plavix and high dose statin. MRI of the brain showing moderate diffuse atrophy and acute infarction of the mely on the right side with multiple lacunar infarcts in the periventricular white matter. Carotid artery Doppler showing significant stenosis of the proximal internal carotid artery, left corresponding to approximately 50 to 70% in diameter reduction by Doppler criteria. Dr. Gallardo evaluated the patient and suggested medical management. Prognosis is guarded with multiple complex medical problems and comorbid conditi ons. Patient has been refusing rehab, had detailed discussion with his daughter to assistant counsel him for possible rehab placement. PT/OT consulted. Also discussed CODE STATUS and he wishes to be DNR.
--- NOTE | 2019-06-06 23:36 | P.PN ---
Subjective Progress Note Date: 06/06/19 Principal diagnosis: Stroke Mr. Grove is an 84-year-old male with a past medical history of coronary artery bypass grafting, cardiac cath done in April 2018 showing triple-vessel disease, recommended medical therapy by cardiology, hypertension, type 2 diabetes mellitus, diabetic nephropathy, hyperlipidemia, hearing deficit, right renal cancer status post partial right nephrectomy coming in with slurred speech and left-sided weakness. Patient had CAT scan and an MRI of the brain showing acute infarct of the mely on the right side and multiple lacunar infarcts in the periventricular white matter. Neurology on board, vascular surgery on board. On 06/05 patient is comfortably sitting up in a chair by the bedside and asking me when he can go home. He still complains of weakness in the left upper and lower extremities. I made him take couple of steps and his gait was very properly. Patient denied having any chest pain or difficulty in breathing. Patient's labs and medications have been reviewed. His daughter is at the bedside. On 06/06/2019 -patient is comfortably sitting up in a chair by the bedside. His daughter is also beside same. The patient has agreed for rehab placement, social worker psychiatric on board and looking for a place. Currently waiting on paralyzation from the insurance company. Patient does not have any new complaints. He still has weakness of his left upper and lower extremity. Objective - Vital Signs Vital signs: Vital Signs Temp 98.5 F 06/06/19 20:00 Pulse 96 06/06/19 20:00 Resp 18 06/06/19 20:00 BP 178/77 06/06/19 20:00 Pulse Ox 95 06/06/19 20:00 Intake & Output 06/06/19 06/06/19 06/07/19 06:59 18:59 06:59 Intake Total 720 360 Output Total 450 250 Balance -450 720 110 Weight 108.6 kg Intake: Oral 720 360 Output: Urine 450 250 Other: Voiding Method Toilet Urinal # Voids 1 # Bowel Movements 0 - Exam PHYSICAL EXAMINATION: Patient is lying in the bed comfortably, no acute distress HEENT: Normocephalic. Neck is supple, no JVD, carotid bruits, or thyromegaly. CHEST EXAMINATION: Trachea is central. Bibasilar diminished air entry. No wheezes or crackles CARDIAC: Normal S1, S2 with no gallops. No murmurs ABDOMEN: Soft. Bowel sounds normal. No organomegaly. No abdominal bruits. Extremities: reveal no edema. No clubbing or cyanosis Neurologically awake, alert, oriented x2-3 , does have dysarthria and left-sided weakness with muscle strength 4/ 5. Gait is unstaedy. - Labs CBC & Chem 7: 06/03/19 10:36 06/04/19 05:55 Labs: Abnormal Lab Results - Last 24 Hours (Table) 06/06/19 06/06/19 06/06/19 Range/Units 05:52 11:39 16:39 POC Glucose (mg/dL) 152 H 202 H 201 H (75-99) mg/dL 06/06/19 Range/Units 20:43 POC Glucose (mg/dL) 195 H (75-99) mg/dL Assessment and Plan Assessment: Assessment: Acute Pontine stroke Coronary artery disease history of CABG and recent non-ST elevated [place] status post cardiac catheterization showing triple-vessel disease in April 2018. Chronic CHF with systolic dysfunction. Questionable history of atrial fibrillation. Current EKG showed sinus rhythm with wide QRS unchanged from previous study. No history of A. fib as per previous cardiology notes. Diabetes type 2 insulin-dependent with hyperglycemia uncontrolled Hypertension Hyperlipidemia COPD stable DS history of smoking Chronic kidney disease with baseline creatinine around 1.5, stage III Diabetic retinopathy History of right renal cancer status post partial nephrectomy History of alcohol abuse BPH DVT prophylaxis with heparin subcu Plan: Continue with aspirin, Plavix and high dose statin. . Prognosis is guarded with multiple complex medical problems and comorbid conditions. PT/OT consulted - Rehab recommended and he is waiting for insurance to approve. CODE STATUS and he wishes to be DNR. 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
[2019-06-07] MEDS: ONDANSETRON 4 MG/2 ML VIAL IVP PRN (00:56)
[2019-06-07] MEDS: ACETAMINOPHEN TAB 500 MG TAB PO PRN (02:47)
[2019-06-07 07:18] LABS: Glucose,Whole Blood 103 mg/dL (75-99)
[2019-06-07 08:03] VITALS: BP 156/69; PULSE 88; RESP 18; TEMP 97.6
[2019-06-07] MEDS ORDERED: BISACODYL 10 MG SUPP RECTAL PRN (08:21)
[2019-06-07] MEDS ORDERED: BISACODYL 5 MG TABLET.DR PO PRN (08:21)
[2019-06-07] MEDS: INSULIN ASPART (NovoLOG) 100 UNIT/ML VIAL SQ SCH ×2 (09:22→09:23)
--- NOTE | 2019-06-07 09:29 | P.DS ---
Providers Date of admission: 06/03/19 11:52 Expected date of discharge: 06/07/19 Attending physician: Cynthia Mitchell Consults: 06/03/19 11:52 Consult Physician Urgent Consulting Provider: Chanelle Lopes Consult Reason/Comments: cva Do you want consulting provider notified?: Yes 06/03/19 22:39 Consult Physician Routine Consulting Provider: Isaiah Gallardo Consult Reason/Comments: Carotid stenosis Do you want consulting provider notified?: Yes, Notify in am 06/04/19 17:29 Consult Physician Routine Consulting Provider: Dakota Flower Consult Reason/Comments: acute stroke Do you want consulting provider notified?: Yes Primary care physician: [facility] Course: Final diagnosis Acute [place] stroke Coronary artery disease history of CABG and recent non-ST elevated [place] status post cardiac catheterization showing triple-vessel disease in April 2018. Chronic CHF with systolic dysfunction. Questionable history of atrial fibrillation. Current EKG showed sinus rhythm with wide QRS unchanged from previous study. No history of A. fib as per previous cardiology notes. Diabetes type 2 insulin-dependent with hyperglycemia uncontrolled Hypertension Hyperlipidemia COPD stable history of smoking Chronic kidney disease with baseline creatinine around 1.5, stage III Diabetic retinopathy History of right renal cancer status post partial nephrectomy History of alcohol abuse BPH DVT prophylaxis Discharge disposition Patient is being discharged in a stable condition with guarded prognosis to [facility] for continued PT/OT therapy. Patient will follow- up with Dr. Gallardo neurology in 2 weeks as discussed and scheduled. Patient will also continue on statin, baby aspirin, and Plavix. Total time taken is 35 minutes. History of present illness Mr. Grove is an 84-year-old male with a past medical history of coronary artery bypass grafting, cardiac cath done in April 2018 showing triple-vessel disease, recommended medical therapy by cardiology, hypertension, type 2 diabetes mellitus, diabetic nephropathy, hyperlipidemia, hearing deficit, right renal cancer status post partial right nephrectomy coming in with slurred speech and left-sided weakness. Patient had CAT scan and an MRI of the brain showing acute infarct of the mely on the right side and multiple lacunar infarcts in the periventricular white matter. Neurology on board, vascular surgery on board. On 06/05 patient is comfortably sitting up in a chair by the bedside and asking me when he can go home. He still complains of weakness in the left upper and lower extremities. I made him take couple of steps and his gait was very properly. Patient denied having any chest pain or difficulty in breathing. Patient's labs and medications have been reviewed. His daughter is at the bedside. On 06/06/2019 -patient is comfortably sitting up in a chair by the bedside. His daughter is also beside same. The patient has agreed for rehab placement, social services specialist on board and looking for a place. Currently waiting on prior authorization from the insurance company. Patient does not have any new complaints. He still has weakness of his left upper and lower extremity. 06/07/2019 Authorization from the insurance company has been obtained for patient to go to [facility] and will be going there today. Family present to transport the patient. Patient will follow up with neurology in the outpatient setting in 2 weeks as scheduled. Patient will continue on high-dose statin, 81 mg of aspirin, and 75 mg of Plavix. Patient will need continued blood glucose monitoring before meals at bedtime and treat accordingly with sliding scale along with long-acting insulin. Recommend repeat labs in 2-3 days to monitor creatinine. Patient will continue working with PT/OT therapy for strength and mobility. No reports of chest pain, shortness of breath, or palpitations. Patient is afebrile. No reports of nausea or vomiting and patient is tolerating diet. On exam vital signs are stable. Temp is 97.6F, pulse is 88, respirations are 18, blood pressure is 156/69, oxygen saturation is 99% on room air. Cardio s1, s2, present. Respiratory system shows clear to auscultation. Abdomen is soft and nontender. Nervous system shows left-sided weakness with some dysarthria and mild diffuse weakness. Please refer to medication reconciliation sheet for a list of medications. Patient Condition at Discharge: Stable Plan - Discharge Summary Discharge Rx Participant: No New Discharge Prescriptions: New Aspirin 81 mg PO DAILY chew LORazepam [Ativan] 0.5 mg PO Q48H #1 tab Bisacodyl [Dulcolax] 10 mg PO DAILY PRN tablet.dr [email or web address] Reason: Constipation Bisacodyl [Dulcolax] 10 mg RECTAL ONCE PRN supp PRN Reason: Constipation Atorvastatin [Lipitor] 80 mg PO HS tab INSULIN ASPART (NovoLOG) [NovoLOG (formulary)] 0 unit SQ ACHS vial Clopidogrel [Plavix] 75 mg PO DAILY tab Acetaminophen Tab [Tylenol] 1,000 mg PO Q6HR PRN tab PRN Reason: Fever and/ or MILD Pain Continue DULoxetine HCL [Cymbalta] 60 mg PO HS Tamsulosin [Flomax] 0.4 mg PO DAILY #30 cap.er.24h Ascorbic Acid [Vitamin C] 500 mg PO DAILY amLODIPine [Norvasc] 5 mg PO DAILY #30 tab Furosemide [Lasix] 40 mg PO DAILY tab Isosorbide Mononitrate ER [Imdur] 30 mg PO DAILY #30 tab.er.24h Nitroglycerin Sl Tabs [Nitrostat] 0.4 mg SUBLINGUAL Q5M PRN #100 tab PRN Reason: Chest Pain Insulin Glargine [Lantus] 70 unit SQ HS #0 Lisinopril [Zestril] 2.5 mg PO DAILY Multivitamin with Iron [Multivitamins with Iron] 1 tab PO HS INSULIN ASPART (NovoLOG) [NovoLOG (formulary)] 15 unit SQ AC-BID INSULIN ASPART (NovoLOG) [NovoLOG (formulary)] 30 unit SQ AC-BRKFST Discontinued LORazepam [Lorazepam] 0.5 mg PO Q48H Aspirin EC [Ecotrin Low Dose] 81 mg PO Q48H Ferrous Sulfate [Iron (65 MG Elemental)] 325 mg PO DAILY Simvastatin [Zocor] 40 mg PO HS Discharge Medication List DULoxetine HCL [Cymbalta] 60 mg PO HS 11/08/13 [History] Tamsulosin [Flomax] 0.4 mg PO DAILY #30 cap.er.24h 03/04/14 [Rx] Ascorbic Acid [Vitamin C] 500 mg PO DAILY 05/07/18 [History] Furosemide [Lasix] 40 mg PO DAILY tab 05/11/18 [Rx] Insulin Glargine [Lantus] 70 unit SQ HS #0 05/11/18 [Rx] Isosorbide Mononitrate ER [Imdur] 30 mg PO DAILY #30 tab.er.24h 05/11/18 [Rx] Nitroglycerin Sl Tabs [Nitrostat] 0.4 mg SUBLINGUAL Q5M PRN #100 tab 05/11/18 [Rx] amLODIPine [Norvasc] 5 mg PO DAILY #30 tab 05/11/18 [Rx] INSULIN ASPART (NovoLOG) [NovoLOG (formulary)] 15 unit SQ AC-BID 06/03/19 [History] INSULIN ASPART (NovoLOG) [NovoLOG (formulary)] 30 unit SQ AC-BRKFST 06/03/19 [History] Lisinopril [Zestril] 2.5 mg PO DAILY 06/03/19 [History] Multivitamin with Iron [Multivitamins with Iron] 1 tab PO HS 06/03/19 [History] Acetaminophen Tab [Tylenol] 1,000 mg PO Q6HR PRN tab 06/07/19 [Rx] Aspirin 81 mg PO DAILY chew 06/07/19 [Rx] Atorvastatin [Lipitor] 80 mg PO HS tab 06/07/19 [Rx] Bisacodyl [Dulcolax] 10 mg PO DAILY PRN tablet. 06/07/19 [Rx] Bisacodyl [Dulcolax] 10 mg RECTAL ONCE PRN supp 06/07/19 [Rx] Clopidogrel [Plavix] 75 mg PO DAILY tab 06/07/19 [Rx] INSULIN ASPART (NovoLOG) [NovoLOG (formulary)] 0 unit SQ ACHS vial 06/07/19 [Rx] LORazepam [Ativan] 0.5 mg PO Q48H #1 tab 06/07/19 [Rx] Follow up Appointment(s)/Referral(s): Dakota Flower MD [STAFF PHYSICIAN] - 06/14/19 9:00 am (Thursday -previously scheduled appointment) Yanet Lee MD [Primary Care Provider] - 06/08/19 3:15 pm (Thursday) Isaiah Gallardo MD [STAFF PHYSICIAN] - 06/22/19 11:30 am (Thursday) Ambulatory/Diagnostic Orders: Basic Metabolic Panel [LAB.AMB] Time Frame: 2 Days, Location: None Selected Patient Instructions/Handouts: Carotid Artery Disease (GEN), Stroke (DC) Activity/Diet/Wound Care/Special Instructions: Patient is going to [facility] Follow-up with primary care provider upon discharge Follow-up with Dr. Gallardo neurology Continue monitoring blood sugars before meals at bedtime and treat accordingly with sliding scale Continue current diet Continue working with PT/OT Discharge Disposition: TRANSFER TO SNF/ECF
[2019-06-07] MEDS: HEPARIN SODIUM,PORCINE 5,000 UNIT/ML 1 ML VIAL SQ SCH (09:54)
[2019-06-07] MEDS: CLOPIDOGREL 75 MG TAB PO SCH (10:01)
[2019-06-07] MEDS: ASCORBIC ACID 500 MG TAB PO SCH (10:01)
[2019-06-07] MEDS: ISOSORBIDE MONONITRATE ER 30 MG TAB.ER.24H PO SCH ×2 (10:01→10:03)
[2019-06-07] MEDS: ASPIRIN 81 MG PO SCH (10:02)
[2019-06-07] MEDS: LISINOPRIL 2.5 MG TAB PO SCH (10:03)
[2019-06-07] MEDS: TAMSULOSIN 0.4 MG CAP.ER.24H PO SCH (10:03)
[2019-06-07] MEDS: FUROSEMIDE 40 MG TAB PO SCH (10:03)
[2019-06-07] MEDS: amLODIPine 5 MG TAB PO SCH (10:03)
[2019-06-07 11:38] LABS: Glucose,Whole Blood 225 mg/dL (75-99)
== END 2019-06-07 11:50 | DRG 65 ==
LOC: EC 10:25 → 3SCARD 11:52 → 5NMEDONC 06-06 19:06
PROVIDERS: ADMIT Hospitalist; ATTEND Hospitalist
DX: I63.89 Other cerebral infarction (principal); G81.94 Hemiplegia, unspecified affecting left nondominant side; I13.0 Hypertensive heart and chronic kidney disease with heart failure and stage 1 through stage 4 chronic kidney disease, or unspecified chronic kidney disease; I50.22 Chronic systolic (congestive) heart failure; I63.81 Other cerebral infarction due to occlusion or stenosis of small artery; E11.319 Type 2 diabetes mellitus with unspecified diabetic retinopathy without macular edema; E11.22 Type 2 diabetes mellitus with diabetic chronic kidney disease; N18.3 Chronic kidney disease, stage 3 (moderate); R47.1 Dysarthria and anarthria; R47.81 Slurred speech; E11.65 Type 2 diabetes mellitus with hyperglycemia; E78.5 Hyperlipidemia, unspecified; H54.7 Unspecified visual loss; H91.90 Unspecified hearing loss, unspecified ear; I25.10 Atherosclerotic heart disease of native coronary artery without angina pectoris; I25.2 Old myocardial infarction; I25.5 Ischemic cardiomyopathy; F10.21 Alcohol dependence, in remission; I48.91 Unspecified atrial fibrillation; I65.22 Occlusion and stenosis of left carotid artery; J44.9 Chronic obstructive pulmonary disease, unspecified; N40.0 Benign prostatic hyperplasia without lower urinary tract symptoms; F32.9 Major depressive disorder, single episode, unspecified; F41.9 Anxiety disorder, unspecified; Z79.4 Long term (current) use of insulin; Z79.899 Other long term (current) drug therapy; Z79.82 Long term (current) use of aspirin; Z95.1 Presence of aortocoronary bypass graft; Z90.5 Acquired absence of kidney; Z87.891 Personal history of nicotine dependence; Z86.73 Personal history of transient ischemic attack (TIA), and cerebral infarction without residual deficits; Z85.528 Personal history of other malignant neoplasm of kidney; Z90.49 Acquired absence of other specified parts of digestive tract; Z98.42 Cataract extraction status, left eye; Z98.41 Cataract extraction status, right eye; Z96.1 Presence of intraocular lens; Z90.79 Acquired absence of other genital organ(s); Z80.0 Family history of malignant neoplasm of digestive organs; Z82.49 Family history of ischemic heart disease and other diseases of the circulatory system
CPT/HCPCS: 36415; 70450; 70551; 71046; 80048; 80053; 80061; 82607; 83036; 84443; 84484; 85025; 85610; 85730; 93005; 93306; 93880; 99285

== ENCOUNTER 2019-07-01 05:02 | Emergency (ER) | payer MEDICARE ==
--- NOTE | 2019-07-01 05:10 | ED ---
General Adult HPI - General Stated complaint: Blood in Urine, kidney stone Time Seen by Provider: 07/01/19 05:07 - History of Present Illness Initial comments: Marcus is an 84-year-old gentleman with a very extensive past medical history who presents the emergency department today for evaluation of gross hematuria, urinary frequency, urgency and right-sided flank pain with concern for kidney stone. Patient reports he has a history of kidney stones in the past he follows with Dr. Patricio. He also has a history of BPPV and has some urinary difficulty baseline. Patient reports that he's been up all night feeling the urge to urinate. Patient states he has very poor vision but that his urine looked dark and asked us - Related Data Home Medications Medication Instructions Recorded Confirmed DULoxetine HCL [Cymbalta] 60 mg PO HS 11/08/13 06/03/19 Ascorbic Acid [Vitamin C] 500 mg PO DAILY 05/07/18 06/03/19 INSULIN ASPART (NovoLOG) [NovoLOG 15 unit SQ AC-BID 06/03/19 06/03/19 (formulary)] INSULIN ASPART (NovoLOG) [NovoLOG 30 unit SQ AC-BRKFST 06/03/19 06/03/19 (formulary)] Lisinopril [Zestril] 2.5 mg PO DAILY 06/03/19 06/03/19 Multivitamin with Iron 1 tab PO HS 06/03/19 06/03/19 [Multivitamins with Iron] Previous Rx's Medication Instructions Recorded Tamsulosin [Flomax] 0.4 mg PO DAILY #30 cap.er.24h 03/04/14 Furosemide [Lasix] 40 mg PO DAILY tab 05/11/18 Insulin Glargine [Lantus] 70 unit SQ HS #0 05/11/18 Isosorbide Mononitrate ER [Imdur] 30 mg PO DAILY #30 tab.er.24h 05/11/18 Nitroglycerin Sl Tabs [Nitrostat] 0.4 mg SUBLINGUAL Q5M PRN #100 tab 05/11/18 amLODIPine [Norvasc] 5 mg PO DAILY #30 tab 05/11/18 Acetaminophen Tab [Tylenol] 1,000 mg PO Q6HR PRN tab 06/07/19 Aspirin 81 mg PO DAILY chew 06/07/19 Atorvastatin [Lipitor] 80 mg PO HS tab 06/07/19 Bisacodyl [Dulcolax] 10 mg PO DAILY PRN tablet. 06/07/19 Bisacodyl [Dulcolax] 10 mg RECTAL ONCE PRN supp 06/07/19 Clopidogrel [Plavix] 75 mg PO DAILY tab 06/07/19 INSULIN ASPART (NovoLOG) [NovoLOG 0 unit SQ ACHS vial 06/07/19 (formulary)] LORazepam [Ativan] 0.5 mg PO Q48H #1 tab 06/07/19 Cephalexin [Keflex] 500 mg PO Q6HR 3 Days #12 cap 07/01/19 Phenazopyridine [Pyridium] 100 mg PO TID #21 tablet 07/01/19 Allergies Allergy/AdvReac Type Severity Reaction Status Date / Time morphine AdvReac Hallucinati Verified 07/01/19 05:11 ons Review of Systems ROS Statement: Those systems with pertinent positive or pertinent negative responses have been documented in the HPI. ROS Other: All systems not noted in ROS Statement are negative. Past Medical History Past Medical History: Atrial Fibrillation, Coronary Artery Disease (CAD), Cancer, Chest Pain / Angina, COPD, Diabetes Mellitus, Eye Disorder, GI Bleed, Hyperlipidemia, Hypertension, Myocardial Infarction ([place]) Additional Past Medical History / Comment(s): DIABETIC RETINOPATHY-VISON POOR. CA OF RIGHT KIDNEY, RIGHT NECK, FACE. OLD HX OF ETOH, BPH, pleural effusions x2 since cabg with thoracentesis, pulmonary edema, anemia Last Myocardial Infarction Date:: UNKNOWN History of Any Multi-Drug Resistant Organisms: None Reported Past Surgical History: Bladder Surgery, Cholecystectomy, Heart Catheterization With Stent, Orthopedic Surgery, Prostate Surgery, Tonsillectomy Additional Past Surgical History / Comment(s): CATARACTS. PARTIAL RIGHT NEPHRECTOMY (2010). RIGHT SHOULDER. TURP. Open heart surgery 3 vessel 02/23/14 Past Anesthesia/Blood Transfusion Reactions: No Reported Reaction Date of Last Stent Placement:: 2007 Smoking Status: Former smoker - Past Family History Father Additional Family Medical History / Comment(s): at age 77- cancer(colon) Mother Family Medical History: Cancer, Myocardial Infarction ([place]) Additional Family Medical History / Comment(s): mom at age 85 from old age, hx colon ca and open heart General Exam - General Exam Comments Initial Comments: Physical Exam GENERAL: Patient is well-developed and well-nourished. Patient is nontoxic and well-hydrated and is in no distress. HENT: Normocephalic, Atraumatic. EYES: PERRL, EOMI PULMONARY: Unlabored respirations. CARDIOVASCULAR: RRR Warm and well perfused extremities ABDOMEN: Obese Mild suprapubic tenderness, tenderness to percussion of right flank No RLQ tenderness No pulsatile masses SKIN: No rashes or bruising : Deferred NEUROLOGIC: Alert and oriented Normal speech Normal gait Very hard of hearing MUSCULOSKELETAL: Moving all extremities with no apparent injury PSYCHIATRIC: No SI/HI Course Vital Signs 07/01/19 07/01/19 05:09 06:39 Temperature 98.7 F 97.5 F L Pulse Rate 65 70 Respiratory 20 20 Rate Blood Pressure 167/63 166/74 O2 Sat by Pulse 98 99 Oximetry Medical Decision Making - Medical Decision Making Patient seen and evalauted, history obtained from patient and review of medical record Elderly gentleman on Plavix with hematuria and flank pain, hx of known kidney stones Patient reports resolution of pain upon arrival, continues to have urinary frequency Labs and imaging consistent with hematuria secondary to kidney stone Patient care discussed with Dr Javed who recommends discharge home, Oral antibi otics, pain management and follow up in Urology office next week Patient and daughter agreeable to plan - Lab Data Result diagrams: 07/01/19 05:15 07/01/19 05:15 Lab Results 07/01/19 07/01/19 07/01/19 Range/Units 05:15 05:15 05:15 WBC 5.3 (3.8-10.6) k/uL RBC 4.07 L (4.30-5.90) m/uL Hgb 11.9 L (13.0-17.5) gm/dL Hct 36.2 L (39.0-53.0) % MCV 88.9 (80.0-100.0) fL MCH 29.2 (25.0-35.0) pg MCHC 32.8 (31.0-37.0) g/dL RDW 15.1 (11.5-15.5) % Plt Count 117 L (150-450) k/uL Neutrophils % 71 % Lymphocytes % 19 % Monocytes % 6 % Eosinophils % 1 % Basophils % 0 % Neutrophils # 3.7 (1.3-7.7) k/uL Lymphocytes # 1.0 (1.0-4.8) k/uL Monocytes # 0.3 (0-1.0) k/uL Eosinophils # 0.1 (0-0.7) k/uL Basophils # 0.0 (0-0.2) k/uL PT 9.5 (9.0-12.0) sec INR 0.9 (<1.2) APTT 24.2 (22.0-30.0) sec Sodium 136 L (137-145) mmol/L Potassium 4.3 (3.5-5.1) mmol/L Chloride 101 (98-107) mmol/L Carbon Dioxide 27 (22-30) mmol/L Anion Gap 8 mmol/L BUN 32 H (9-20) mg/dL Creatinine 1.71 H (0.66-1.25) mg/dL Est GFR (CKD-EPI)AfAm 42 (>60 ml/min/1.73 sqM) Est GFR (CKD-EPI)NonAf 36 (>60 ml/min/1.73 sqM) Glucose 200 H (74-99) mg/dL Calcium 9.3 (8.4-10.2) mg/dL Total Bilirubin 0.4 (0.2-1.3) mg/dL AST 24 (17-59) U/L ALT 16 (4-49) U/L Alkaline Phosphatase 102 (38-126) U/L Total Protein 6.4 (6.3-8.2) g/dL Albumin 3.9 (3.5-5.0) g/dL Urine Color Urine Appearance (Clear) Urine pH (5.0-8.0) Ur Specific [place] (1.001-1.035) Urine Protein (Negative) Urine Glucose (UA) (Negative) Urine Ketones (Negative) Urine Blood (Negative) Urine Nitrite (Negative) Urine Bilirubin (Negative) Urine Urobilinogen (<2.0) mg/dL Ur Leukocyte Esterase (Negative) Urine RBC (0-5) /hpf Urine WBC (0-5) /hpf Urine Mucus (None) /hpf 07/01/19 Range/Units 05:15 WBC (3.8-10.6) k/uL RBC (4.30-5.90) m/uL Hgb (13.0-17.5) gm/dL Hct (39.0-53.0) % MCV (80.0-100.0) fL MCH (25.0-35.0) pg MCHC (31.0-37.0) g/dL RDW (11.5-15.5) % Plt Count (150-450) k/uL Neutrophils % % Lymphocytes % % Monocytes % % Eosinophils % % Basophils % % Neutrophils # (1.3-7.7) k/uL Lymphocytes # (1.0-4.8) k/uL Monocytes # (0-1.0) k/uL Eosinophils # (0-0.7) k/uL Basophils # (0-0.2) k/uL PT (9.0-12.0) sec INR (<1.2) APTT (22.0-30.0) sec Sodium (137-145) mmol/L Potassium (3.5-5.1) mmol/L Chloride (98-107) mmol/L Carbon Dioxide (22-30) mmol/L Anion Gap mmol/L BUN (9-20) mg/dL Creatinine (0.66-1.25) mg/dL Est GFR (CKD-EPI)AfAm (>60 ml/min/1.73 sqM) Est GFR (CKD-EPI)NonAf (>60 ml/min/1.73 sqM) Glucose (74-99) mg/dL Calcium (8.4-10.2) mg/dL Total Bilirubin (0.2-1.3) mg/dL AST (17-59) U/L ALT (4-49) U/L Alkaline Phosphatase (38-126) U/L Total Protein (6.3-8.2) g/dL Albumin (3.5-5.0) g/dL Urine Color Light Red Urine Appearance Clear (Clear) Urine pH 5.5 (5.0-8.0) Ur Specific [place] 1.014 (1.001-1.035) Urine Protein 1+ H (Negative) Urine Glucose (UA) 4+ H (Negative) Urine Ketones Negative (Negative) Urine Blood Large H (Negative) Urine Nitrite Negative (Negative) Urine Bilirubin Negative (Negative) Urine Urobilinogen <2.0 (<2.0) mg/dL Ur Leukocyte Esterase Small H (Negative) Urine RBC >182 H (0-5) /hpf Urine WBC 32 H (0-5) /hpf Urine Mucus Rare H (None) /hpf Disposition Clinical Impression: Hematuria, Kidney stone, CKD (chronic kidney disease) Disposition: HOME SELF-CARE Condition: Stable Additional Instructions: Call Dr España' office today for follow up next week Drink plenty of fluids Return to the ER for any worsening pain or new or symptoms Prescriptions: Cephalexin [Keflex] 500 mg PO Q6HR 3 Days #12 cap Phenazopyridine [Pyridium] 100 mg PO TID #21 tablet Is patient prescribed a controlled substance at d/c from ED?: No Referrals: Yanet Lee MD [Primary Care Provider] - 1-2 days
[2019-07-01 05:11] VITALS: RESP 20
[2019-07-01 05:47] LABS: Basophils % (A) 0 %; Eosinophils # (A) 0.1 k/uL (0-0.7); Eosinophils % (A) 1 %; HCT 36.2 % (39.0-53.0); HGB 11.9 gm/dL (13.0-17.5); Lymphocytes % (A) 19 %; MCH 29.2 pg (25.0-35.0); MCHC 32.8 g/dL (31.0-37.0); MCV 88.9 fL (80.0-100.0); Mean Platelet Volume 7.6; Monocytes # (A) 0.3 k/uL (0-1.0); Monocytes % (A) 6 %; Neutrophils # (A) 3.7 k/uL (1.3-7.7); Neutrophils % (A) 71 %; Platelet Count 117 k/uL (150-450); RBC 4.07 m/uL (4.30-5.90); RDW 15.1 % (11.5-15.5); WBC 5.3 k/uL (3.8-10.6)
[2019-07-01 05:56] LABS: Albumin 3.9 g/dL (3.5-5.0); Calcium 9.3 mg/dL (8.4-10.2); Potassium 4.3 mmol/L (3.5-5.1); Total Bilirubin 0.4 mg/dL (0.2-1.3); Total Protein 6.4 g/dL (6.3-8.2)
[2019-07-01 05:57] LABS: INR 0.9 (<1.2); Partial Thromboplastin Time 24.2 sec (22.0-30.0); Prothrombin Time 9.5 sec (9.0-12.0)
[2019-07-01 06:03] LABS: Appearance,Urine Clear (Clear); Bilirubin,Urine Negative (Negative); Blood,Urine Large (Negative); Color,Urine Light Red; Glucose,Urine (UA) 4+ (Negative); Ketones,Urine Negative (Negative); Leukocyte Esterase,Urine Small (Negative); Mucus,Urine Rare /hpf; Nitrite,Urine Negative (Negative); PH, Urine 5.5 (5.0-8.0); Protein,Urine 1+ (Negative); RBC,Urine >182 /hpf (0-5); Specific Gravity,Urine 1.014 (1.001-1.035); Urobilinogen,Urine <2.0 mg/dL (<2.0); WBC,Urine 32 /hpf (0-5)
--- NOTE | 2019-07-01 07:01 | CT ---
EXAMINATION TYPE: CT renal stones wo con DATE OF EXAM: 07/01/2019 COMPARISON: 05/18/2015 HISTORY: Hematuria, Renal stone CT DLP: 1162.4 mGycm Automated exposure control for dose reduction was used. Multiple axial sections were obtained from the diaphragm to the floor the pelvis without contrast. FINDINGS: Lung bases are clear. There is no pleural effusion. There is no pericardial effusion. Liver shows no focal defect. There are clips from cholecystectomy. Bile ducts are not dilated. Spleen is intact. There is no pancreatic mass. Stomach appears intact. There is no adrenal mass. There is mild right-sided hydronephrosis. There is 2 x 1.4 cm calculus at t he right renal pelvis. There is 2.5 cm cyst posterior right kidney with calcification in the wall. Th e right ureter however is not dilated. Large calculus in the right renal pelvis does not appear to be obstructing the ureter. There is no retroperitoneal adenopathy. There is 2.2 cm cortical cyst medial left kidney. There is 1 cm hypodensity cortical cyst lower pole left kidney. There is evidence of a complex calcified cyst lower pole right kidney unchanged. This measures 1.5 cm. No sign of acute abdomen and pelvis. Bladder distends smoothly. There is enlarged prostate with calcification. Prostate measures 6.2 cm. T here is no inguinal hernia. There is no free fluid in the pelvis. There is no mesenteric edema. There is no ascites or free air. There is no evidence of a bowel obstruction. Lumbar vertebra have normal alignment. There is no compression fracture. Abdominal aorta is atheromatous. The bony pelvis appears intact. IMPRESSION: Large calculus in the right renal pelvis without evidence of obstruction. Unchanged. Complex calcifie d right renal cysts unchanged.
[2019-07-01 07:53] VITALS: BP 164/84; PULSE 69; TEMP 98
== END 2019-07-01 07:53 | disposition home or self-care (01) ==
LOC: EC 05:02
DX: N20.0 Calculus of kidney (principal); E11.319 Type 2 diabetes mellitus with unspecified diabetic retinopathy without macular edema; E11.22 Type 2 diabetes mellitus with diabetic chronic kidney disease; I12.9 Hypertensive chronic kidney disease with stage 1 through stage 4 chronic kidney disease, or unspecified chronic kidney disease; N18.9 Chronic kidney disease, unspecified; I25.119 Atherosclerotic heart disease of native coronary artery with unspecified angina pectoris; I25.2 Old myocardial infarction; F41.9 Anxiety disorder, unspecified; F32.9 Major depressive disorder, single episode, unspecified; N40.1 Benign prostatic hyperplasia with lower urinary tract symptoms; Z79.4 Long term (current) use of insulin; Z79.899 Other long term (current) drug therapy; Z88.5 Allergy status to narcotic agent; Z85.528 Personal history of other malignant neoplasm of kidney; Z87.891 Personal history of nicotine dependence; Z90.5 Acquired absence of kidney; Z95.1 Presence of aortocoronary bypass graft; Z90.49 Acquired absence of other specified parts of digestive tract; Z98.890 Other specified postprocedural states
CPT/HCPCS: 36415; 74150; 80053; 81001; 85025; 85610; 85730; 87086; 99284

== ENCOUNTER 2019-10-28 16:45 | Emergency (ER) | payer MEDICARE ==
[2019-10-28] MEDS ORDERED: IBUPROFEN 600 MG TAB PO STA (17:16)
[2019-10-28] MEDS ORDERED: ACETAMINOPHEN TAB 500 MG TAB PO STA (17:16)
[2019-10-28] MEDS ORDERED: ONDANSETRON 4 MG/2 ML VIAL IVP STA (17:18)
[2019-10-28] MEDS ORDERED: SODIUM CHLORIDE 0.9% 1,000 ML IV SCH (17:30)
--- NOTE | 2019-10-28 17:43 | ED ---
Fever HPI - General Source: patient, RN notes reviewed, old records reviewed Mode of arrival: ambulatory Limitations: no limitations <Concepcion Garcia - Last Filed: 10/28/19 19:12> <Adiel Graff - Last Filed: 10/28/19 19:29> - General Chief Complaint: Fever Stated Complaint: abdominal pain Time Seen by Provider: 10/28/19 16:58 - History of Present Illness Initial Comments: 84-year-old male presents emergency department today for evaluation for worsening abdominal pain nausea and discomfort for the past 2 days. He is seen yesterday at [facility]. A computed tomography scan with contrast and showed "some type of infection". Patient was not placed on antibiotics. Patient reports that he has had no fevers up until this time. He denies any chest pain but does report chronic shortness of breath and CAD. Patient reports that he has surgical history incl uding cholecystectomy and previous open heart surgery. He reports that he has had a history of constipation. (Concepcion Garcia) - Related Data Home Medications Medication Instructions Recorded Confirmed DULoxetine HCL [Cymbalta] 60 mg PO HS 11/08/13 10/28/19 Ascorbic Acid [Vitamin C] 500 mg PO DAILY 05/07/18 10/28/19 INSULIN ASPART (NovoLOG) [NovoLOG 15 unit SQ AC-BID@1200,1800 06/03/19 10/28/19 (formulary)] INSULIN ASPART (NovoLOG) [NovoLOG 30 unit SQ AC-BRKFST 06/03/19 10/28/19 (formulary)] Lisinopril [Zestril] 2.5 mg PO DAILY 06/03/19 10/28/19 Multivitamin with Iron 1 tab PO HS 06/03/19 10/28/19 [Multivitamins with Iron] Aspirin 81 mg PO Q48H 10/28/19 10/28/19 Ferrous Sulfate [Feosol] 325 mg PO DAILY 10/28/19 10/28/19 Metoprolol Tartrate [Lopressor] 50 mg PO BID 10/28/19 10/28/19 Previous Rx's Medication Instructions Recorded Tamsulosin [Flomax] 0.4 mg PO DAILY #30 cap.er.24h 03/04/14 Furosemide [Lasix] 40 mg PO DAILY tab 05/11/18 Insulin Glargine [Lantus] 70 unit SQ HS #0 05/11/18 Isosorbide Mononitrate ER [Imdur] 30 mg PO DAILY #30 tab.er.24h 05/11/18 Nitroglycerin Sl Tabs [Nitrostat] 0.4 mg SUBLINGUAL Q5M PRN #100 tab 05/11/18 amLODIPine [Norvasc] 5 mg PO DAILY #30 tab 05/11/18 Atorvastatin [Lipitor] 80 mg PO HS tab 06/07/19 Clopidogrel [Plavix] 75 mg PO DAILY tab 06/07/19 LORazepam [Ativan] 0.5 mg PO Q48H #1 tab 06/07/19 Allergies Allergy/AdvReac Type Severity Reaction Status Date / Time morphine AdvReac Hallucinati Verified 10/28/19 18:20 ons Review of Systems ROS Other: All systems not noted in ROS Statement are negative. <Concepcion Garcia - Last Filed: 10/28/19 19:12> ROS Other: All systems not noted in ROS Statement are negative. <Adiel Graff - Last Filed: 10/28/19 19:29> ROS Statement: Those systems with pertinent positive or pertinent negative responses have been documented in the HPI. Past Medical History Past Medical History: Atrial Fibrillation, Coronary Artery Disease (CAD), Cancer, Chest Pain / Angina, COPD, Diabetes Mellitus, Eye Disorder, GI Bleed, Hyperlipidemia, Hypertension, Myocardial Infarction ([place]) Additional Past Medical History / Comment(s): DIABETIC RETINOPATHY-VISON POOR. CA OF RIGHT KIDNEY, RIGHT NECK, FACE. OLD HX OF ETOH, BPH, pleural effusions x2 since cabg with thoracentesis, pulmonary edema, anemia Last Myocardial Infarction Date:: UNKNOWN History of Any Multi-Drug Resistant Organisms: None Reported Past Surgical History: Bladder Surgery, Cholecystectomy, Coronary Bypass/CABG, Heart Catheterization With Stent, Orthopedic Surgery, Prostate Surgery, Tonsillectomy Additional Past Surgical History / Comment(s): CATARACTS. PARTIAL RIGHT NEPHRECTOMY (2010). RIGHT SHOULDER. TURP. Open heart surgery 3 vessel 02/23/14 Past Anesthesia/Blood Transfusion Reactions: No Reported Reaction Date of Last Stent Placement:: 2007 Past Psychological History: Anxiety, Depression Smoking Status: Former smoker Past Alcohol Use History: None Reported Past Drug Use History: None Reported - Past Family History Father Additional Family Medical History / Comment(s): at age 77- cancer(colon) Mother Family Medical History: Cancer, Myocardial Infarction ([place]) Additional Family Medical History / Comment(s): mom at age 85 from old age, hx colon ca and open heart <Concepcion Garcia - Last Filed: 10/28/19 19:12> General Exam Limitations: no limitations General appearance: alert, in no apparent distress Head exam: Present: atraumatic, normocephalic, normal inspection Eye exam: Present: normal appearance, PERRL, EOMI. Absent: scleral icterus, conjunctival injection, periorbital swelling ENT exam: Present: normal exam, mucous membranes moist Neck exam: Present: normal inspection. Absent: tenderness, meningismus, lymphadenopathy Respiratory exam: Present: normal lung sounds bilaterally. Absent: respiratory distress, wheezes, rales, rhonchi, stridor Cardiovascular Exam: Present: regular rate, normal rhythm, normal heart sounds. Absent: systolic murmur, diastolic murmur, rubs, gallop, clicks GI/Abdominal exam: Present: soft, tenderness (Left lower quadrant right lower quadrant tenderness to palpation.), normal bowel sounds. Absent: distended, guarding, rebound, rigid Extremities exam: Present: normal inspection, full ROM, normal capillary refill. Absent: tenderness, pedal edema, joint swelling, calf tenderness Back exam: Present: normal inspection Neurological exam: Present: alert, oriented X3, CN II-XII intact Psychiatric exam: Present: normal affect, normal mood Skin exam: Present: warm, dry, intact, normal color. Absent: rash <Concepcion Garcia - Last Filed: 10/28/19 19:12> General appearance: alert, in no apparent distress Head exam: Present: atraumatic, normocephalic, normal inspection Eye exam: Present: normal appearance, PERRL, EOMI. Absent: scleral icterus, conjunctival injection, periorbital swelling ENT exam: Present: normal exam, mucous membranes moist Neck exam: Present: normal inspection. Absent: tenderness, meningismus, ly mphadenopathy Respiratory exam: Present: normal lung sounds bilaterally. Absent: respiratory distress, wheezes, rales, rhonchi, stridor Cardiovascular Exam: Present: regular rate, normal rhythm, normal heart sounds. Absent: systolic murmur, diastolic murmur, rubs, gallop, clicks GI/Abdominal exam: Present: soft, normal bowel sounds. Absent: distended, tenderness, guarding, rebound, rigid Extremities exam: Present: normal inspection, full ROM, normal capillary refill. Absent: tenderness, pedal edema, joint swelling, calf tenderness Back exam: Present: normal inspection Neurological exam: Present: alert, oriented X3, CN II-XII intact Psychiatric exam: Present: normal affect, normal mood Skin exam: Present: warm, dry, intact, normal color. Absent: rash <Adiel Graff - Last Filed: 10/28/19 19:29> - General Exam Comments Initial Comments: 84-year-old male. Alert and oriented 3. (Concepcion Garcia) Course <Concepcion Garcia - Last Filed: 10/28/19 19:12> <Adiel Graff - Last Filed: 10/28/19 19:29> Vital Signs 10/28/19 10/28/19 10/28/19 16:51 17:55 18:43 Temperature 101.2 F H 98.3 F Pulse Rate 76 77 75 Respiratory 18 16 20 Rate Blood Pressure 143/57 165/78 134/58 O2 Sat by Pulse 95 95 98 Oximetry - Reevaluation(s) Reevaluation #1: 10/28/19 18:58 Patient was reevaluated this time states is feeling better after Tylenol fluids and Zofran. (Concepcion Garcia) Reevaluation #2: 10/28/19 19:29 patient reevaluated with family at bedside, patient can be discharged home feels improved (Adiel Graff) Medical Decision Making - Lab Data Result diagrams: 10/28/19 17:58 10/28/19 17:58 - Radiology Data Radiology results: report reviewed <Concepcion Garcia - Last Filed: 10/28/19 19:12> - Lab Data Result diagrams: 10/28/19 17:58 10/28/19 17:58 <Adiel Graff - Last Filed: 10/28/19 19:29> - Medical Decision Making 84-year-old male presents emergency department history of complaint of nausea and abdominal pain and was found have a fever upon arrival. Patient was seen and straight significant hospital was discharged home and advised follow-up. Computed tomography scan yesterday shows evidence of some thickening of the cecum and fat stranding with lymph nodes could relate to inflammatory process. Follow-up was recommended. Nose is a large calculus of the right renal pelvis with no evidence of obstruction. Patient was given IV fluids labwork obtained. He does report he feels better after Zofran Motrin Tylenol. CBC shows no significant change from yesterday labs was stable at blood cell count of 10.7 compared to 10.3 yesterday. He will then yesterday was 10.4. At this time patient's case transferred to Dr. Escobar At 7:15 PM. (Concepcion Garcia) 84 male presenting today with fever abdominal pain and aches, some nausea no significant findings here, patient can continue to be discharged home (Keven rosario,Adiel Jovel) - Lab Data Lab Results 10/28/19 10/28/19 10/28/19 Range/Units 17:58 17:58 17:58 WBC 10.7 H (3.8-10.6) k/uL RBC 3.31 L (4.30-5.90) m/uL Hgb 9.3 L (13.0-17.5) gm/dL Hct 29.6 L (39.0-53.0) % MCV 89.4 (80.0-100.0) fL MCH 28.0 (25.0-35.0) pg MCHC 31.3 (31.0-37.0) g/dL RDW 15.1 (11.5-15.5) % Plt Count 137 L (150-450) k/uL Neutrophils % 83 % Lymphocytes % 8 % Monocytes % 8 % Eosinophils % 0 % Basophils % 0 % Neutrophils # 8.9 H (1.3-7.7) k/uL Lymphocytes # 0.8 L (1.0-4.8) k/uL Monocytes # 0.8 (0-1.0) k/uL Eosinophils # 0.0 (0-0.7) k/uL Basophils # 0.0 (0-0.2) k/uL Hypochromasia Slight PT 9.5 (9.0-12.0) sec INR 0.9 (<1.2) APTT 26.2 (22.0-30.0) sec Sodium 131 L (137-145) mmol/L Potassium 5.0 (3.5-5.1) mmol/L Chloride 95 L (98-107) mmol/L Carbon Dioxide 26 (22-30) mmol/L Anion Gap 10 mmol/L BUN 39 H (9-20) mg/dL Creatinine 1.77 H (0.66-1.25) mg/dL Est GFR (CKD-EPI)AfAm 40 (>60 ml/min/1.73 sqM) Est GFR (CKD-EPI)NonAf 35 (>60 ml/min/1.73 sqM) Glucose 271 H (74-99) mg/dL Plasma Lactic Acid Epifanio (0.7-2.0) mmol/L Calcium 8.7 (8.4-10.2) mg/dL Total Bilirubin 0.5 (0.2-1.3) mg/dL AST 16 L (17-59) U/L ALT 14 (4-49) U/L Alkaline Phosphatase 94 (38-126) U/L Troponin I (0.000-0.034) ng/mL Total Protein 5.8 L (6.3-8.2) g/dL Albumin 3.5 (3.5-5.0) g/dL Urine Color Urine Appearance (Clear) Urine pH (5.0-8.0) Ur Specific [place] (1.001-1.035) Urine Protein (Negative) Urine Glucose (UA) (Negative) Urine Ketones (Negative) Urine Blood (Negative) Urine Nitrite (Negative) Urine Bilirubin (Negative) Urine Urobilinogen (<2.0) mg/dL Ur Leukocyte Esterase (Negative) Urine RBC (0-5) /hpf Urine WBC (0-5) /hpf Ur Squamous Epith Cells (0-4) /hpf Amorphous Sediment (None) /hpf Hyaline Casts (0-2) /lpf Urine Mucus (None) /hpf 10/28/19 10/28/19 10/28/19 Range/Units 17:58 17:58 18:51 WBC (3.8-10.6) k/uL RBC (4.30-5.90) m/uL Hgb (13.0-17.5) gm/dL Hct (39.0-53.0) % MCV (80.0-100.0) fL MCH (25.0-35.0) pg MCHC (31.0-37.0) g/dL RDW (11.5-15.5) % Plt Count (150-450) k/uL Neutrophils % % Lymphocytes % % Monocytes % % Eosinophils % % Basophils % % Neutrophils # (1.3-7.7) k/uL Lymphocytes # (1.0-4.8) k/uL Monocytes # (0-1.0) k/uL Eosinophils # (0-0.7) k/uL Basophils # (0-0.2) k/uL Hypochromasia PT (9.0-12.0) sec INR (<1.2) APTT (22.0-30.0) sec Sodium (137-145) mmol/L Potassium (3.5-5.1) mmol/L Chloride (98-107) mmol/L Carbon Dioxide (22-30) mmol/L Anion Gap mmol/L BUN (9-20) mg/dL Creatinine (0.66-1.25) mg/dL Est GFR (CKD-EPI)AfAm (>60 ml/min/1.73 sqM) Est GFR (CKD-EPI)NonAf (>60 ml/min/1.73 sqM) Glucose (74-99) mg/dL Plasma Lactic Acid Epifanio 1.2 (0.7-2.0) mmol/L Calcium (8.4-10.2) mg/dL Total Bilirubin (0.2-1.3) mg/dL AST (17-59) U/L ALT (4-49) U/L Alkaline Phosphatase (38-126) U/L Troponin I 0.012 (0.000-0.034) ng/mL Total Protein (6.3-8.2) g/dL Albumin (3.5-5.0) g/dL Urine Color Yellow Urine Appearance Clear (Clear) Urine pH 5.0 (5.0-8.0) Ur Specific [place] 1.013 (1.001-1.035) Urine Protein Trace H (Negative) Urine Glucose (UA) 3+ H (Negative) Urine Ketones Negative (Negative) Urine Blood Small H (Negative) Urine Nitrite Negative (Negative) Urine Bilirubin Negative (Negative) Urine Urobilinogen <2.0 (<2.0) mg/dL Ur Leukocyte Esterase Negative (Negative) Urine RBC 12 H (0-5) /hpf Urine WBC 1 (0-5) /hpf Ur Squamous Epith Cells <1 (0-4) /hpf Amorphous Sediment Rare H (None) /hpf Hyaline Casts 16 H (0-2) /lpf Urine Mucus Rare H (None) /hpf 10/28/19 18:26 EKG shows sinus rhythm with premature ventricular complexes. Left axis deviati on. Right bundle branch block. Abnormal EKG. Ventricular rate of 81 bpm. Intervals 194 ms. She congregation is 160 ms. QT QTc is 46/471 ms. (Concepcion Garcia) - Radiology Data Review the computed tomography scan from yesterday showing extensive art hrosclerotic disease and large calculus of the right renal pelvis without evidence of obstruction. There is possible wall thickening of the cecum and mild fat stranding in lymph nodes which could relate to inflammatory process. Tumor not excluded. Follow-up recommended. Repeat exam in bowel prep and oral contrast is recommended. There is possible thickening of the terminal ileum also. Chest x-rays negative for any acute cardio pulmonary process. Atheromatous aorta. (Concepcion Garcia) Disposition <Concepcion Garcia - Last Filed: 10/28/19 19:12> Is patient prescribed a controlled substance at d/c from ED?: No <Adiel Graff - Last Filed: 10/28/19 19:29> Clinical Impression: Fever, Abdominal pain Disposition: HOME SELF-CARE Condition: Good Instructions (If sedation given, give patient instructions): Fever in Adults (ED) Referrals: Yanet Lee MD [Primary Care Provider] - 1-2 days
[2019-10-28] MEDS ORDERED: PIPERACILLIN-TAZOBACTAM 3.375 GM in SODIUM CHLORIDE 0.9% 100 ML IVPB STA (18:16)
[2019-10-28 18:18] LABS: Basophils % (A) 0 %; Eosinophils % (A) 0 %; HCT 29.6 % (39.0-53.0); HGB 9.3 gm/dL (13.0-17.5); Hypochromasia Slight; Lymphocytes # (A) 0.8 k/uL (1.0-4.8); Lymphocytes % (A) 8 %; MCHC 31.3 g/dL (31.0-37.0); MCV 89.4 fL (80.0-100.0); Mean Platelet Volume 7.3; Monocytes # (A) 0.8 k/uL (0-1.0); Monocytes % (A) 8 %; Neutrophils # (A) 8.9 k/uL (1.3-7.7); Neutrophils % (A) 83 %; Platelet Count 137 k/uL (150-450); RBC 3.31 m/uL (4.30-5.90); RDW 15.1 % (11.5-15.5); WBC 10.7 k/uL (3.8-10.6)
[2019-10-28 18:22] LABS: Albumin 3.5 g/dL (3.5-5.0); Calcium 8.7 mg/dL (8.4-10.2); Total Bilirubin 0.5 mg/dL (0.2-1.3); Total Protein 5.8 g/dL (6.3-8.2)
[2019-10-28] MEDS ORDERED: SODIUM CHLORIDE 0.9% 1,000 ML IV ONE (18:34)
[2019-10-28] MEDS: SODIUM CHLORIDE 0.9% 500 ML 500 ML IV SCH ×2 (18:35→18:37)
--- NOTE | 2019-10-28 18:35 | XR ---
EXAMINATION TYPE: XR chest 2V DATE OF EXAM: 10/28/2019 COMPARISON: June 03, 2019 HISTORY: Fever TECHNIQUE: FINDINGS: Heart size is normal. There is no heart failure. There is no definite pulmonary consolidati on. Costophrenic angles are clear. There is right shoulder surgery. There are sternal wires. IMPRESSION: No active cardiopulmonary disease. Atheromatous aorta. No change.
--- NOTE | 2019-10-28 18:37 | XR ---
EXAMINATION TYPE: XR KUB DATE OF EXAM: 10/28/2019 COMPARISON: NONE HISTORY: Fever abdominal pain TECHNIQUE: 3 views FINDINGS: There is no sign of intestinal obstruction or pneumoperitoneum. Fecal pattern is normal. Th ere is a 2 cm rounded calcification over the right upper quadrant that is calcified renal cyst. There are clips apparently from cholecystectomy. Lung bases are clear. There is no evidence of a mass. IMPRESSION: Nonacute abdomen.
[2019-10-28 18:39] LABS: INR 0.9 (<1.2); Partial Thromboplastin Time 26.2 sec (22.0-30.0); Prothrombin Time 9.5 sec (9.0-12.0)
[2019-10-28 19:19] LABS: Amorphous Sediment,Urine Rare /hpf; Appearance,Urine Clear (Clear); Bilirubin,Urine Negative (Negative); Blood,Urine Small (Negative); Color,Urine Yellow; Glucose,Urine (UA) 3+ (Negative); Hyaline Casts,Urine 16 /lpf (0-2); Ketones,Urine Negative (Negative); Leukocyte Esterase,Urine Negative (Negative); Mucus,Urine Rare /hpf; Nitrite,Urine Negative (Negative); Protein,Urine Trace (Negative); RBC,Urine 12 /hpf (0-5); Specific Gravity,Urine 1.013 (1.001-1.035); Squamous Epithelial Cell,Urine <1 /hpf (0-4); Urobilinogen,Urine <2.0 mg/dL (<2.0); WBC,Urine 1 /hpf (0-5)
[2019-10-28 20:10] VITALS: BP 131/61; PULSE 78; RESP 18; TEMP 98.2
== END 2019-10-28 19:58 | disposition home or self-care (01) ==
LOC: EC 16:45
DX: N20.0 Calculus of kidney (principal); R93.3 Abnormal findings on diagnostic imaging of other parts of digestive tract; F41.9 Anxiety disorder, unspecified; F32.9 Major depressive disorder, single episode, unspecified; I48.91 Unspecified atrial fibrillation; I25.119 Atherosclerotic heart disease of native coronary artery with unspecified angina pectoris; I10 Essential (primary) hypertension; I25.2 Old myocardial infarction; E11.319 Type 2 diabetes mellitus with unspecified diabetic retinopathy without macular edema; N40.0 Benign prostatic hyperplasia without lower urinary tract symptoms; Z79.4 Long term (current) use of insulin; Z79.82 Long term (current) use of aspirin; Z79.899 Other long term (current) drug therapy; Z85.528 Personal history of other malignant neoplasm of kidney; Z90.49 Acquired absence of other specified parts of digestive tract; Z87.891 Personal history of nicotine dependence; Z87.19 Personal history of other diseases of the digestive system; Z88.5 Allergy status to narcotic agent; Z98.890 Other specified postprocedural states; Z90.5 Acquired absence of kidney; Z95.1 Presence of aortocoronary bypass graft
CPT/HCPCS: 99284; 96374; 96361; 36415; 93005; 80053; 83605; 84484; 85025; 85610; 85730; 81001; 87040; 71046; 74018; J2405

== ENCOUNTER 2019-10-30 21:02 | Inpatient (IN) | payer MEDICARE ==
[2019-10-30 21:13] LABS: Glucose,Whole Blood 322 mg/dL (75-99)
--- NOTE | 2019-10-30 21:29 | ED ---
SOB HPI - General Chief Complaint: Shortness of Breath Stated Complaint: SOB,Kidney Stone,Fever Time Seen by Provider: 10/30/19 21:05 Source: patient, family Mode of arrival: wheelchair Limitations: no limitations - History of Present Illness Initial Comments: Patient is an 84-year-old male with past medical history of A. fib, coronary artery disease, COPD who presents emergency room with reported shortness of breath. Daughter is at bedside and helps provide history. The patient has had multiple hospital visits for hematuria which is secondary to a renal stone. Patient was most recently seen here 2 days ago and sent home. He states he continues to have blood in his urine. Also reports that he began having shortness of breath yesterday which has got progressive. Patient does not smoke. Has a history of COPD however does not use any inhalers at home. Denies history of congestive heart failure. Has mild lower extremity edema however st ates it hasn't been worse for him. Does take Lasix daily and hasn't missed any doses. He denies any chest pain. Mild cough with white sputum production. Denies any sick contacts or recent travel. Admits fevers and chills. No history of DVT or PE. Takes Plavix but no other anticoagulation. There are no other alleviating, precipitating or modifying factors - Related Data Home Medications Medication Instructions Recorded Confirmed DULoxetine HCL [Cymbalta] 60 mg PO HS 11/08/13 10/30/19 Ascorbic Acid [Vitamin C] 500 mg PO DAILY 05/07/18 10/30/19 INSULIN ASPART (NovoLOG) [NovoLOG 15 unit SQ AC-BID@1200,1800 06/03/19 10/30/19 (formulary)] INSULIN ASPART (NovoLOG) [NovoLOG 30 unit SQ AC-BRKFST 06/03/19 10/30/19 (formulary)] Lisinopril [Zestril] 2.5 mg PO DAILY 06/03/19 10/30/19 Multivitamin with Iron 1 tab PO HS 06/03/19 10/30/19 [Multivitamins with Iron] Ferrous Sulfate [Iron (65 MG 325 mg PO DAILY 10/28/19 10/30/19 Elemental)] Metoprolol Tartrate [Lopressor] 50 mg PO BID 10/28/19 10/30/19 Previous Rx's Medication Instructions Recorded Tamsulosin [Flomax] 0.4 mg PO DAILY #30 cap.er.24h 03/04/14 Isosorbide Mononitrate ER [Imdur] 30 mg PO DAILY #30 tab.er.24h 05/11/18 Nitroglycerin Sl Tabs [Nitrostat] 0.4 mg SUBLINGUAL Q5M PRN #100 tab 05/11/18 amLODIPine [Norvasc] 5 mg PO DAILY #30 tab 05/11/18 Atorvastatin [Lipitor] 80 mg PO HS tab 06/07/19 LORazepam [Ativan] 0.5 mg PO Q48H #1 tab 06/07/19 Albuterol Inhaler [Ventolin Hfa 2 puff INHALATION RT-QID 30 Days 11/04/19 Inhaler] #1 puff Amoxic-Pot Clav 875-125Mg 1 each PO Q12HR 5 Days #5 tab 11/04/19 [Augmentin 875-125] Aspirin 81 mg PO DAILY chew 11/04/19 Budesonide-Formot 160-4.5 Mcg 2 puff INHALATION BID 30 Days #1 11/04/19 [Symbicort 160-4.5 Mcg Inhaler] inhaler Insulin Glargine [Lantus] 50 unit SQ HS #0 11/04/19 predniSONE 10 mg PO DIRECTED 4 Days #6 tab 11/04/19 Allergies Allergy/AdvReac Type Severity Reaction Status Date / Time morphine AdvReac Hallucinati Verified 10/28/19 18:20 ons Review of Systems ROS Statement: Those systems with pertinent positive or pertinent negative responses have been documented in the HPI. ROS Other: All systems not noted in ROS Statement are negative. Past Medical History Past Medical History: Atrial Fibrillation, Coronary Artery Disease (CAD), Cancer, Chest Pain / Angina, COPD, Diabetes Mellitus, Eye Disorder, GI Bleed, Hyperlipidemia, Hypertension, Myocardial Infarction (DC) Additional Past Medical History / Comment(s): DIABETIC RETINOPATHY-VISON POOR. CA OF RIGHT KIDNEY, RIGHT NECK, FACE. OLD HX OF ETOH, BPH, pleural effusions x2 since cabg with thoracentesis, pulmonary edema, anemia Last Myocardial Infarction Date:: UNKNOWN History of Any Multi-Drug Resistant Organisms: None Reported Past Surgical History: Bladder Surgery, Cholecystectomy, Coronary Bypass/CABG, Heart Catheterization With Stent, Orthopedic Surgery, Prostate Surgery, Tonsillectomy Additional Past Surgical History / Comment(s): CATARACTS. PARTIAL RIGHT NEPHRECTOMY (2010). RIGHT SHOULDER. TURP. Open heart surgery 3 vessel 02/23/14 Past Anesthesia/Blood Transfusion Reactions: No Reported Reaction Date of Last Stent Placement:: 2007 Past Psychological History: Anxiety, Depression Smoking Status: Former smoker Past Alcohol Use History: None Reported Past Drug Use History: None Reported - Past Family History Father Additional Family Medical History / Comment(s): at age 77- cancer(colon) Mother Family Medical History: Cancer, Myocardial Infarction (DC) Additional Family Medical History / Comment(s): mom at age 85 from old age, hx colon ca and open heart General Exam Limitations: no limitations General appearance: alert, in distress Head exam: Present: atraumatic, normocephalic, normal inspection Eye exam: Present: normal appearance, PERRL, EOMI. Absent: scleral icterus, conjunctival injection, periorbital swelling ENT exam: Present: normal exam, mucous membranes moist Neck exam: Present: normal inspection. Absent: tenderness, meningismus, lymphadenopathy Respiratory exam: Present: respiratory distress, wheezes, accessory muscle use, decreased breath sounds, other (tachypnea). Absent: rales, rhonchi, stridor Cardiovascular Exam: Present: tachycardia, irregular rhythm, normal heart sounds. Absent: systolic murmur, diastolic murmur, rubs, gallop, clicks GI/Abdominal exam: Present: soft, normal bowel sounds. Absent: distended, tenderness, guarding, rebound, rigid Extremities exam: Present: full ROM, normal capillary refill, pedal edema. Absent: tenderness, joint swelling, calf tenderness Back exam: Present: normal inspection Neurological exam: Present: alert, oriented X3, CN II-XII intact Psychiatric exam: Present: normal affect, normal mood Skin exam: Present: warm, dry, intact, normal color. Absent: rash Course Vital Signs 10/30/19 10/30/19 10/30/19 21:04 21:22 21:48 Temperature 99.5 F Pulse Rate 101 H 112 H Pulse Rate [ Pulse Oximetery ] Respiratory 30 H 34 H Rate Blood Pressure 165/64 Blood Pressure [Left Arm Sitting] O2 Sat by Pulse 93 L Oximetry 10/30/19 10/30/19 10/30/19 22:03 22:25 23:14 Temperature 98.9 F Pulse Rate 109 H 104 H Pulse Rate [ 100 Pulse Oximetery ] Respiratory 33 H 32 H 24 Rate Blood Pressure 152/70 Blood Pressure 131/78 [Left Arm Sitting] O2 Sat by Pulse 100 95 Oximetry 10/30/19 10/30/19 10/30/19 23:25 23:27 23:47 Temperature Pulse Rate 98 93 Pulse Rate [ Pulse Oximetery ] Respiratory 30 H 28 H Rate Blood Pressure 137/61 137/53 Blood Pressure [Left Arm Sitting] O2 Sat by Pulse 99 98 96 Oximetry 10/31/19 00:00 Temperature Pulse Rate Pulse Rate [ 100 Pulse Oximetery ] Respiratory 28 H Rate Blood Pressure Blood Pressure [Left Arm Sitting] O2 Sat by Pulse Oximetry Medical Decision Making - Medical Decision Making Upon arrival the patient was placed into room 1. A thorough history of physical exam was performed. Patient does have tachypnea with accessory muscle use therefore he is placed on BiPAP. Patient has significantly decreased lung sounds bilaterally. He was given 2 DuoNeb breathing treatment followed by 1 g of magnesium and 60 of prednisone. Laboratory studies were conducted. Lactic acid 2.3. Troponin 0.046 BNP is 8840. Chest x-ray demonstrates a left lower lobe infiltrate. Blood culture was obtained. Patient is initiated on Rocephin and azithromycin. He is trialed off BiPAP as well. I did recommend hospital admission for which the patient did agree to. Patient was admitted to [facility]. I discussed the case with Sarah. I will consult pulmonology. Patient remained in stable condition and was transported to the floor - Lab Data Result diagrams: 11/04/19 06:53 11/04/19 06:53 Lab Results 10/30/19 10/30/19 10/30/19 Range/Units 21:11 21:42 21:42 WBC 14.5 H (3.8-10.6) k/uL RBC 3.27 L (4.30-5.90) m/uL Hgb 9.5 L (13.0-17.5) gm/dL Hct 29.6 L (39.0-53.0) % MCV 90.4 (80.0-100.0) fL MCH 29.1 (25.0-35.0) pg MCHC 32.2 (31.0-37.0) g/dL RDW 14.8 (11.5-15.5) % Plt Count 186 (150-450) k/uL Neutrophils % 87 % Lymphocytes % 4 % Monocytes % 8 % Eosinophils % 0 % Basophils % 0 % Neutrophils # 12.7 H (1.3-7.7) k/uL Lymphocytes # 0.5 L (1.0-4.8) k/uL Monocytes # 1.1 H (0-1.0) k/uL Eosinophils # 0.0 (0-0.7) k/uL Basophils # 0.0 (0-0.2) k/uL Hypochromasia Moderate PT 10.0 (9.0-12.0) sec INR 1.0 (<1.2) APTT 25.6 (22.0-30.0) sec VBG pH (7.31-7.41) VBG pCO2 (37-51) mmHg VBG HCO3 (24-28) mmol/L Sodium (137-145) mmol/L Potassium (3.5-5.1) mmol/L Chloride (98-107) mmol/L Carbon Dioxide (22-30) mmol/L Anion Gap mmol/L BUN (9-20) mg/dL Creatinine (0.66-1.25) mg/dL Est GFR (CKD-EPI)AfAm (>60 ml/min/1.73 sqM) Est GFR (CKD-EPI)NonAf (>60 ml/min/1.73 sqM) Glucose (74-99) mg/dL POC Glucose (mg/dL) 322 H (75-99) mg/dL POC Glu Ophthalmologist ID Marylin Ortiz Lactic Ac Sepsis Rflx Plasma Lactic Acid Epifanio (0.7-2.0) mmol/L Calcium (8.4-10.2) mg/dL Magnesium (1.6-2.3) mg/dL Total Bilirubin (0.2-1.3) mg/dL AST (17-59) U/L ALT (4-49) U/L Alkaline Phosphatase (38-126) U/L Troponin I (0.000-0.034) ng/mL NT-Pro-B Natriuret Pep pg/mL Total Protein (6.3-8.2) g/dL Albumin (3.5-5.0) g/dL 10/30/19 10/30/19 10/30/19 Range/Units 21:42 21:42 21:42 WBC (3.8-10.6) k/uL RBC (4.30-5.90) m/uL Hgb (13.0-17.5) gm/dL Hct (39.0-53.0) % MCV (80.0-100.0) fL MCH (25.0-35.0) pg MCHC (31.0-37.0) g/dL RDW (11.5-15.5) % Plt Count (150-450) k/uL Neutrophils % % Lymphocytes % % Monocytes % % Eosinophils % % Basophils % % Neutrophils # (1.3-7.7) k/uL Lymphocytes # (1.0-4.8) k/uL Monocytes # (0-1.0) k/uL Eosinophils # (0-0.7) k/uL Basophils # (0-0.2) k/uL Hypochromasia PT (9.0-12.0) sec INR (<1.2) APTT (22.0-30.0) sec VBG pH (7.31-7.41) VBG pCO2 (37-51) mmHg VBG HCO3 (24-28) mmol/L Sodium 129 L (137-145) mmol/L Potassium 4.7 (3.5-5.1) mmol/L Chloride 94 L (98-107) mmol/L Carbon Dioxide 23 (22-30) mmol/L Anion Gap 12 mmol/L BUN 44 H (9-20) mg/dL Creatinine 1.88 H (0.66-1.25) mg/dL Est GFR (CKD-EPI)AfAm 37 (>60 ml/min/1.73 sqM) Est GFR (CKD-EPI)NonAf 32 (>60 ml/min/1.73 sqM) Glucose 309 H (74-99) mg/dL POC Glucose (mg/dL) (75-99) mg/dL POC Glu Ophthalmologist ID Lactic Ac Sepsis Rflx Plasma Lactic Acid Epifanio 2.3 H* (0.7-2.0) mmol/L Calcium 9.3 (8.4-10.2) mg/dL Magnesium 2.2 (1.6-2.3) mg/dL Total Bilirubin 0.5 (0.2-1.3) mg/dL AST 19 (17-59) U/L ALT 16 (4-49) U/L Alkaline Phosphatase 108 (38-126) U/L Troponin I 0.046 H* (0.000-0.034) ng/mL NT-Pro-B Natriuret Pep pg/mL Total Protein 5.5 L (6.3-8.2) g/dL Albumin 3.1 L (3.5-5.0) g/dL 10/30/19 10/30/19 10/30/19 Range/Units 21:42 22:02 22:14 WBC (3.8-10.6) k/uL RBC (4.30-5.90) m/uL Hgb (13.0-17.5) gm/dL Hct (39.0-53.0) % MCV (80.0-100.0) fL MCH (25.0-35.0) pg MCHC (31.0-37.0) g/dL RDW (11.5-15.5) % Plt Count (150-450) k/uL Neutrophils % % Lymphocytes % % Monocytes % % Eosinophils % % Basophils % % Neutrophils # (1.3-7.7) k/uL Lymphocytes # (1.0-4.8) k/uL Monocytes # (0-1.0) k/uL Eosinophils # (0-0.7) k/uL Basophils # (0-0.2) k/uL Hypochromasia PT (9.0-12.0) sec INR (<1.2) APTT (22.0-30.0) sec VBG pH 7.41 (7.31-7.41) VBG pCO2 37 (37-51) mmHg VBG HCO3 23 L (24-28) mmol/L Sodium (137-145) mmol/L Potassium (3.5-5.1) mmol/L Chloride (98-107) mmol/L Carbon Dioxide (22-30) mmol/L Anion Gap mmol/L BUN (9-20) mg/dL Creatinine (0.66-1.25) mg/dL Est GFR (CKD-EPI)AfAm (>60 ml/min/1.73 sqM) Est GFR (CKD-EPI)NonAf (>60 ml/min/1.73 sqM) Glucose (74-99) mg/dL POC Glucose (mg/dL) (75-99) mg/dL POC Glu Ophthalmologist ID Lactic Ac Sepsis Rflx Y Plasma Lactic Acid Epifanio (0.7-2.0) mmol/L Calcium (8.4-10.2) mg/dL Magnesium (1.6-2.3) mg/dL Total Bilirubin (0.2-1.3) mg/dL AST (17-59) U/L ALT (4-49) U/L Alkaline Phosphatase (38-126) U/L Troponin I (0.000-0.034) ng/mL NT-Pro-B Natriuret Pep 8840 pg/mL Total Protein (6.3-8.2) g/dL Albumin (3.5-5.0) g/dL - EKG Data EKG Comments: EKG demonstrates A. fib with a rate of 108. QRS 156. QTC of 493. There is a right bundle-branch block present. No acute ST segment elevations Critical Care Time Critical Care Time: Yes Critical Care Time: 32 minute Disposition Clinical Impression: BiPAP (biphasic positive airway pressure) dependence, COPD (chronic obstructive pulmonary disease), CAP (community acquired pneumonia), Hematuria Disposition: ADMITTED IP TO THIS HOSP Condition: Stable Is patient prescribed a controlled substance at d/c from ED?: No Decision to Admit Reason: Admit from EC Decision Date: 10/30/19 Decision Time: 22:54
[2019-10-30] MEDS ORDERED: IPRATROPIUM-ALBUTEROL 3 ML NEB INHALATION STA (21:32)
[2019-10-30] MEDS ORDERED: predniSONE 20 MG TAB PO STA (21:32)
[2019-10-30] MEDS ORDERED: MAGNESIUM SULFATE-D5W PMX 1 GM in DEXTROSE/WATER 1 100ML.BAG IVPB STA (21:32)
[2019-10-30 21:49] LABS: Basophils % (A) 0 %; Eosinophils % (A) 0 %; HCT 29.6 % (39.0-53.0); HGB 9.5 gm/dL (13.0-17.5); Hypochromasia Moderate; Lymphocytes # (A) 0.5 k/uL (1.0-4.8); Lymphocytes % (A) 4 %; MCH 29.1 pg (25.0-35.0); MCHC 32.2 g/dL (31.0-37.0); MCV 90.4 fL (80.0-100.0); Mean Platelet Volume 7.3; Monocytes # (A) 1.1 k/uL (0-1.0); Monocytes % (A) 8 %; Neutrophils # (A) 12.7 k/uL (1.3-7.7); Neutrophils % (A) 87 %; Platelet Count 186 k/uL (150-450); RBC 3.27 m/uL (4.30-5.90); RDW 14.8 % (11.5-15.5); WBC 14.5 k/uL (3.8-10.6)
[2019-10-30 21:59] LABS: Partial Thromboplastin Time 25.6 sec (22.0-30.0)
[2019-10-30 22:01] LABS: Albumin 3.1 g/dL (3.5-5.0); Calcium 9.3 mg/dL (8.4-10.2); Magnesium 2.2 mg/dL (1.6-2.3); Potassium 4.7 mmol/L (3.5-5.1); Total Bilirubin 0.5 mg/dL (0.2-1.3); Total Protein 5.5 g/dL (6.3-8.2)
[2019-10-30 22:12] LABS: VBG PH 7.41 (7.31-7.41)
--- NOTE | 2019-10-30 22:38 | XR ---
EXAMINATION TYPE: XR chest 1V portable DATE OF EXAM: 10/30/2019 COMPARISON: 10/28/2019 HISTORY: Short of breath TECHNIQUE: FINDINGS: There is some patchy infiltrate and atelectasis left lower lobe. Right lung is clear. There is no heart failure. There are sternal wires. There is right shoulder prosthesis. IMPRESSION: Mild infiltrate and atelectasis left lower lobe increased slightly compared to last exam. Normal heart.
[2019-10-30] MEDS ORDERED: cefTRIAXone IN SWFI 1,000 MG/10 ML SYRINGE IVP STA (22:50)
[2019-10-30] MEDS ORDERED: AZITHROMYCIN 500 MG in SODIUM CHLORIDE 0.9% 250 ML IVPB STA (22:51)
[2019-10-30] MEDS ORDERED: NALOXONE 0.4 MG/ML 1 ML VIAL IV PRN (22:54)
[2019-10-31] MEDS: IPRATROPIUM-ALBUTEROL 3 ML NEB INHALATION SCH ×3 (03:39→11:29)
[2019-10-31 04:23] LABS: Basophils % (A) 0 %; Eosinophils % (A) 0 %; HCT 27.6 % (39.0-53.0); HGB 8.8 gm/dL (13.0-17.5); Hypochromasia Moderate; Lymphocytes # (A) 0.6 k/uL (1.0-4.8); Lymphocytes % (A) 5 %; MCH 29.2 pg (25.0-35.0); MCHC 31.8 g/dL (31.0-37.0); MCV 91.8 fL (80.0-100.0); Mean Platelet Volume 7.3; Monocytes # (A) 0.5 k/uL (0-1.0); Monocytes % (A) 4 %; Neutrophils # (A) 10.6 k/uL (1.3-7.7); Neutrophils % (A) 89 %; Platelet Count 159 k/uL (150-450); RDW 14.8 % (11.5-15.5); WBC 11.9 k/uL (3.8-10.6)
[2019-10-31 04:32] LABS: Calcium 8.7 mg/dL (8.4-10.2)
[2019-10-31 05:58] LABS: Glucose,Whole Blood 467 mg/dL (75-99)
[2019-10-31] MEDS: INSULIN ASPART (NovoLOG) 100 UNIT/ML VIAL SQ SCH ×6 (06:38→21:27)
[2019-10-31] MEDS ORDERED: INSULIN ASPART (NovoLOG) 100 UNIT/ML VIAL SQ SCH (07:30)
[2019-10-31] MEDS ORDERED: methylPREDNISolone SOD SUCCI 40 MG/ML 1 ML VIAL IV SCH (08:00)
--- NOTE | 2019-10-31 08:34 | P.GSCN ---
History of Present Illness Consult date: 10/31/19 History of present illness: The patient is an 84-year-old gentleman who was admitted to the hospital for a probable community acquired pneumonia. The patient has multiple medical illnesses including COPD and atrial fibrillation. was asked to see the patient because of flank pain and hematuria. The patient has a known history of a kidney stone on the right. It is 2 cm in the right renal pelvis.The patient is interviewed at the bedside. He is still short of breath. He has a Ventimask on. He can give minimal history. He is barely audible. Best I can tell from the patient that he ended Dr. España spoke about the stone.The plan was since he was asymptomatic for no treatment. Apparently he had some gross hematuria and back pain however he declines this this morning. In speaking with his nurse he was having some flank pain. I reviewed his CAT scan from June identifying a 2 cm right renal pelvic stone. Patient apparently had a partial nephrectomy years past. There is no evidence recurrent tumor. He also has had a TURP. He has a left renal cyst.His urine shows 12 red cells without evidence of infection Review of Systems ROS unobtainable: due to mental status Past Medical History Past Medical History: Atrial Fibrillation, Coronary Artery Disease (CAD), Cancer, Chest Pain / Angina, COPD, Diabetes Mellitus, Eye Disorder, GI Bleed, Hyperlipidemia, Hypertension, Myocardial Infarction (MS) Additional Past Medical History / Comment(s): DIABETIC RETINOPATHY-VISON POOR. CA OF RIGHT KIDNEY, RIGHT NECK, FACE. OLD HX OF ETOH, BPH, pleural effusions x2 since cabg with thoracentesis, pulmonary edema, anemia Last Myocardial Infarction Date:: UNKNOWN History of Any Multi-Drug Resistant Organisms: None Reported Past Surgical History: Bladder Surgery, Cholecystectomy, Coronary Bypass/CABG, Heart Catheterization With Stent, Orthopedic Surgery, Prostate Surgery, Tonsillectomy Additional Past Surgical History / Comment(s): CATARACTS. PARTIAL RIGHT NEPHRECTOMY (2010). RIGHT SHOULDER. TURP. Open heart surgery 3 vessel 02/23/14 Past Anesthesia/Blood Transfusion Reactions: No Reported Reaction Date of Last Stent Placement:: 2007 Past Psychological History: Anxiety, Depression Smoking Status: Former smoker Past Alcohol Use History: None Reported Past Drug Use History: None Reported - Past Family History Father Additional Family Medical History / Comment(s): at age 77- cancer(colon) Mother Family Medical History: Cancer, Myocardial Infarction (MS) Additional Family Medical History / Comment(s): mom at age 85 from old age, hx colon ca and open heart Medications and Allergies Home Medications Medication Instructions Recorded Confirmed Type DULoxetine HCL [Cymbalta] 60 mg PO HS 11/08/13 10/30/19 History Tamsulosin [Flomax] 0.4 mg PO DAILY #30 cap.er.24h 03/04/14 10/30/19 Rx Ascorbic Acid [Vitamin C] 500 mg PO DAILY 05/07/18 10/30/19 History Furosemide [Lasix] 40 mg PO DAILY tab 05/11/18 10/30/19 Rx Insulin Glargine [Lantus] 70 unit SQ HS #0 05/11/18 10/30/19 Rx Isosorbide Mononitrate ER [Imdur] 30 mg PO DAILY #30 tab.er.24h 05/11/18 10/30/19 Rx Nitroglycerin Sl Tabs [Nitrostat] 0.4 mg SUBLINGUAL Q5M PRN #100 tab 05/11/18 10/30/19 Rx amLODIPine [Norvasc] 5 mg PO DAILY #30 tab 05/11/18 10/30/19 Rx INSULIN ASPART (NovoLOG) [NovoLOG 15 unit SQ AC-BID@1200,1800 06/03/19 10/30/19 History (formulary)] INSULIN ASPART (NovoLOG) [NovoLOG 30 unit SQ AC-BRKFST 06/03/19 10/30/19 History (formulary)] Lisinopril [Zestril] 2.5 mg PO DAILY 06/03/19 10/30/19 History Multivitamin with Iron 1 tab PO HS 06/03/19 10/30/19 History [Multivitamins with Iron] Atorvastatin [Lipitor] 80 mg PO HS tab 06/07/19 10/30/19 Rx Clopidogrel [Plavix] 75 mg PO DAILY tab 06/07/19 10/30/19 Rx LORazepam [Ativan] 0.5 mg PO Q48H #1 tab 06/07/19 10/30/19 Rx Aspirin 81 mg PO Q48H /07/1410/30/19 History Ferrous Sulfate [Feosol] 325 mg PO DAILY 10/28/19 10/30/19 History Metoprolol Tartrate [Lopressor] 50 mg PO BID 10/28/19 10/30/19 History Allergies Allergy/AdvReac Type Severity Reaction Status Date / Time morphine AdvReac Hallucinati Verified 10/28/19 18:20 ons Surgical - Exam Vital Signs Temp Pulse Resp BP Pulse Ox 99.5 F 101 H 30 H 165/64 93 L 10/30/19 21:04 10/30/19 21:04 10/30/19 21:04 10/30/19 21:04 10/30/19 21:04 - General well developed, obese - Eyes PERRL - ENT Ventimask decreased hearing - Neck trachea midline - Respiratory Labored respirations - Cardiovascular Rhythm: irregularly irregular - Abdomen Abdomen: soft, non tender Results - Labs 10/31/19 04:05 10/31/19 04:05 Abnormal Lab Results - Last 24 Hours (Table) 10/30/19 10/30/19 10/30/19 Range/Units 21:11 21:42 21:42 WBC 14.5 H (3.8-10.6) k/uL RBC 3.27 L (4.30-5.90) m/uL Hgb 9.5 L (13.0-17.5) gm/dL Hct 29.6 L (39.0-53.0) % Neutrophils # 12.7 H (1.3-7.7) k/uL Lymphocytes # 0.5 L (1.0-4.8) k/uL Monocytes # 1.1 H (0-1.0) k/uL VBG HCO3 (24-28) mmol/L Sodium 129 L (137-145) mmol/L Chloride 94 L (98-107) mmol/L Carbon Dioxide (22-30) mmol/L BUN 44 H (9-20) mg/dL Creatinine 1.88 H (0.66-1.25) mg/dL Glucose 309 H (74-99) mg/dL POC Glucose (mg/dL) 322 H (75-99) mg/dL Plasma Lactic Acid Epifanio (0.7-2.0) mmol/L Troponin I (0.000-0.034) ng/mL Total Protein 5.5 L (6.3-8.2) g/dL Albumin 3.1 L (3.5-5.0) g/dL 10/30/19 10/30/19 10/30/19 Range/Units 21:42 21:42 22:02 WBC (3.8-10.6) k/uL RBC (4.30-5.90) m/uL Hgb (13.0-17.5) gm/dL Hct (39.0-53.0) % Neutrophils # (1.3-7.7) k/uL Lymphocytes # (1.0-4.8) k/uL Monocytes # (0-1.0) k/uL VBG HCO3 23 L (24-28) mmol/L Sodium (137-145) mmol/L Chloride (98-107) mmol/L Carbon Dioxide (22-30) mmol/L BUN (9-20) mg/dL Creatinine (0.66-1.25) mg/dL Glucose (74-99) mg/dL POC Glucose (mg/dL) (75-99) mg/dL Plasma Lactic Acid Epifanio 2.3 H* (0.7-2.0) mmol/L Troponin I 0.046 H* (0.000-0.034) ng/mL Total Protein (6.3-8.2) g/dL Albumin (3.5-5.0) g/dL 10/30/19 10/31/19 10/31/19 Range/Units 23:50 04:05 04:05 WBC 11.9 H (3.8-10.6) k/uL RBC 3.00 L (4.30-5.90) m/uL Hgb 8.8 L (13.0-17.5) gm/dL Hct 27.6 L (39.0-53.0) % Neutrophils # 10.6 H (1.3-7.7) k/uL Lymphocytes # 0.6 L (1.0-4.8) k/uL Monocytes # (0-1.0) k/uL VBG HCO3 (24-28) mmol/L Sodium (137-145) mmol/L Chloride (98-107) mmol/L Carbon Dioxide (22-30) mmol/L BUN (9-20) mg/dL Creatinine (0.66-1.25) mg/dL Glucose (74-99) mg/dL POC Glucose (mg/dL) (75-99) mg/dL Plasma Lactic Acid Epifanio (0.7-2.0) mmol/L Troponin I 0.111 H* 0.250 H* (0.000-0.034) ng/mL Total Protein (6.3-8.2) g/dL Albumin (3.5-5.0) g/dL 10/31/19 10/31/19 Range/Units 04:05 05:56 WBC (3.8-10.6) k/uL RBC (4.30-5.90) m/uL Hgb (13.0-17.5) gm/dL Hct (39.0-53.0) % Neutrophils # (1.3-7.7) k/uL Lymphocytes # (1.0-4.8) k/uL Monocytes # (0-1.0) k/uL VBG HCO3 (24-28) mmol/L Sodium 127 L (137-145) mmol/L Chloride 95 L (98-107) mmol/L Carbon Dioxide 18 L (22-30) mmol/L BUN 47 H (9-20) mg/dL Creatinine 1.76 H (0.66-1.25) mg/dL Glucose 379 H (74-99) mg/dL POC Glucose (mg/dL) 467 H (75-99) mg/dL Plasma Lactic Acid Epifanio (0.7-2.0) mmol/L Troponin I (0.000-0.034) ng/mL Total Protein (6.3-8.2) g/dL Albumin (3.5-5.0) g/dL Diabetes panel 10/30/19 10/31/19 Range/Units 21:42 04:05 Sodium 129 L 127 L (137-145) mmol/L Potassium 4.7 5.0 (3.5-5.1) mmol/L Chloride 94 L 95 L (98-107) mmol/L Carbon Dioxide 23 18 L (22-30) mmol/L BUN 44 H 47 H (9-20) mg/dL Creatinine 1.88 H 1.76 H (0.66-1.25) mg/dL Glucose 309 H 379 H (74-99) mg/dL Calcium 9.3 8.7 (8.4-10.2) mg/dL AST 19 (17-59) U/L ALT 16 (4-49) U/L Alkaline Phosphatase 108 (38-126) U/L Total Protein 5.5 L (6.3-8.2) g/dL Albumin 3.1 L (3.5-5.0) g/dL Calcium panel 10/30/19 10/31/19 Range/Units 21:42 04:05 Calcium 9.3 8.7 (8.4-10.2) mg/dL Albumin 3.1 L (3.5-5.0) g/dL Pituitary panel 10/30/19 10/31/19 Range/Units 21:42 04:05 Sodium 129 L 127 L (137-145) mmol/L Potassium 4.7 5.0 (3.5-5.1) mmol/L Chloride 94 L 95 L (98-107) mmol/L Carbon Dioxide 23 18 L (22-30) mmol/L BUN 44 H 47 H (9-20) mg/dL Creatinine 1.88 H 1.76 H (0.66-1.25) mg/dL Glucose 309 H 379 H (74-99) mg/dL Calcium 9.3 8.7 (8.4-10.2) mg/dL Adrenal panel 10/30/19 10/31/19 Range/Units 21:42 04:05 Sodium 129 L 127 L (137-145) mmol/L Potassium 4.7 5.0 (3.5-5.1) mmol/L Chloride 94 L 95 L (98-107) mmol/L Carbon Dioxide 23 18 L (22-30) mmol/L BUN 44 H 47 H (9-20) mg/dL Creatinine 1.88 H 1.76 H (0.66-1.25) mg/dL Glucose 309 H 379 H (74-99) mg/dL Calcium 9.3 8.7 (8.4-10.2) mg/dL Total Bilirubin 0.5 (0.2-1.3) mg/dL AST 19 (17-59) U/L ALT 16 (4-49) U/L Alkaline Phosphatase 108 (38-126) U/L Total Protein 5.5 L (6.3-8.2) g/dL Albumin 3.1 L (3.5-5.0) g/dL - Imaging CT scan - abdomen: report reviewed, image reviewed CT scan - chest: image reviewed CT scan - pelvis: report reviewed, image reviewed Assessment and Plan Assessment: Impression: Hematuria and flank pain due to large right renal calculus. Multiple severe medical morbidities. Recently identified community acquired pneumonia. Recommendations: I will review his chart in the office. At this point in time the patient claims he is asymptomatic so there is no emergency to doing anything urologically.
[2019-10-31] MEDS: CLOPIDOGREL 75 MG TAB PO SCH ×2 (08:36→10:27)
[2019-10-31] MEDS: TAMSULOSIN 0.4 MG CAP.ER.24H PO SCH (08:36)
[2019-10-31] MEDS: LISINOPRIL 2.5 MG TAB PO SCH (08:36)
[2019-10-31] MEDS: METOPROLOL TARTRATE 50 MG TAB PO SCH ×2 (08:36→21:40)
[2019-10-31] MEDS: ISOSORBIDE MONONITRATE ER 30 MG TAB.ER.24H PO SCH (08:36)
[2019-10-31] MEDS ORDERED: FUROSEMIDE 40 MG TAB PO SCH (09:00)
--- NOTE | 2019-10-31 11:13 | P.HPIM ---
History of Present Illness 84-year-old pleasant gentleman came to ER with compensative hematuria patient is on both aspirin and Plavix. Patient was seen in ER subsequently discharged home does have a right-sided large renal calculi which is radiated leading to hematuria. Patient had history of CABG in 2019. Patient denied any fever chills patient was complaining of shortness of breath unsure whether patient was wheezing on admission patient was given systemic steroids and was subsequently admitted and the neurology was consulted patient was complaining of cough with clear sputum production patient is extremely poor historian because of his hearing problems and age. Patient doesn't have any fever does have leukocytosis no clinical evidence of pneumonia chest x-ray was read as possible atelectasis on the right side because of which patient was given antibiotics for pneumonia although my suspicion is low. Patient is not wheezing doesn't have any JVD because of which I'm holding off on systemic steroids. Patient does have history of COPD as per the patient he doesn't use any oxygen at home presently on 4 L of Cardizem saturating at 95% unsure patient has sleep apnea history, patient is obese. Patient does have mildly elevated troponin denied any chest pain, cardiology is consulted being consulted for this reason his initial troponin was 0.046 the second one is 0.111 , 0.250 patient does have chronic kidney disease with creatinine of 1.76. Patient does have history of heart failure with EF of around 45-50% of aspirin dysfunction and mitral regurgitation patient was on Lasix but I'm holding this as well as patient doesn't have JVD in spite of elevated BNP his sodium is low and is going down from 129-127 because of this reason I'm holding off on Lasix although cardiology will be consulted. Review of Systems Rest of the review of systems are negative or unable to obtain due to his clinical condition. Past Medical History Past Medical History: Atrial Fibrillation, Coronary Artery Disease (CAD), Cancer, Chest Pain / Angina, COPD, Diabetes Mellitus, Eye Disorder, GI Bleed, Hyperlipidemia, Hypertension, Myocardial Infarction ([place]) Additional Past Medical History / Comment(s): DIABETIC RETINOPATHY-VISON POOR. CA OF RIGHT KIDNEY, RIGHT NECK, FACE. OLD HX OF ETOH, BPH, pleural effusions x2 since cabg with thoracentesis, pulmonary edema, anemia Last Myocardial Infarction Date:: UNKNOWN History of Any Multi-Drug Resistant Organisms: None Reported Past Surgical History: Bladder Surgery, Cholecystectomy, Coronary Bypass/CABG, Heart Catheterization With Stent, Orthopedic Surgery, Prostate Surgery, Tonsillectomy Additional Past Surgical History / Comment(s): CATARACTS. PARTIAL RIGHT NEPHRECTOMY (2010). RIGHT SHOULDER. TURP. Open heart surgery 3 vessel 02/23/14 Past Anesthesia/Blood Transfusion Reactions: No Reported Reaction Date of Last Stent Placement:: 2007 Past Psychological History: Anxiety, Depression Smoking Status: Former smoker Past Alcohol Use History: None Reported Past Drug Use History: None Reported - Past Family History Father Additional Family Medical History / Comment(s): at age 77- cancer(colon) Mother Family Medical History: Cancer, Myocardial Infarction ([place]) Additional Family Medical History / Comment(s): mom at age 85 from old age, hx colon ca and open heart Medications and Allergies Home Medications Medication Instructions Recorded Confirmed Type DULoxetine HCL [Cymbalta] 60 mg PO HS 11/08/13 10/30/19 History Tamsulosin [Flomax] 0.4 mg PO DAILY #30 cap.er.24h 03/04/14 10/30/19 Rx Ascorbic Acid [Vitamin C] 500 mg PO DAILY 05/07/18 10/30/19 History Furosemide [Lasix] 40 mg PO DAILY tab 05/11/18 10/30/19 Rx Insulin Glargine [Lantus] 70 unit SQ HS #0 05/11/18 10/30/19 Rx Isosorbide Mononitrate ER [Imdur] 30 mg PO DAILY #30 tab.er.24h 05/11/18 10/30/19 Rx Nitroglycerin Sl Tabs [Nitrostat] 0.4 mg SUBLINGUAL Q5M PRN #100 tab 05/11/18 10/30/19 Rx amLODIPine [Norvasc] 5 mg PO DAILY #30 tab 05/11/18 10/30/19 Rx INSULIN ASPART (NovoLOG) [NovoLOG 15 unit SQ AC-BID@1200,1800 06/03/19 10/30/19 History (formulary)] INSULIN ASPART (NovoLOG) [NovoLOG 30 unit SQ AC-BRKFST 06/03/19 10/30/19 History (formulary)] Lisinopril [Zestril] 2.5 mg PO DAILY 06/03/19 10/30/19 History Multivitamin with Iron 1 tab PO HS 06/03/19 10/30/19 History [Multivitamins with Iron] Atorvastatin [Lipitor] 80 mg PO HS tab 06/07/19 10/30/19 Rx Clopidogrel [Plavix] 75 mg PO DAILY tab 06/07/19 10/30/19 Rx LORazepam [Ativan] 0.5 mg PO Q48H #1 tab 06/07/19 10/30/19 Rx Aspirin 81 mg PO Q48H 10/28/19 10/30/19 History Ferrous Sulfate [Feosol] 325 mg PO DAILY 10/28/19 10/30/19 History Metoprolol Tartrate [Lopressor] 50 mg PO BID 10/28/19 10/30/19 History Allergies Allergy/AdvReac Type Severity Reaction Status Date / Time morphine AdvReac Hallucinati Verified 10/28/19 18:20 ons Physical Exam Vitals: Vital Signs Temp Pulse Pulse Resp BP BP Pulse Ox 10/31/19 07:38 100 20 10/31/19 07:23 100 19 10/31/19 04:00 98.5 F 101 H 22 124/71 95 10/31/19 03:52 108 H 10/31/19 03:39 108 H 10/31/19 00:00 100 28 H 10/30/19 23:47 93 28 H 137/53 96 10/30/19 23:27 98 10/30/19 23:25 98 30 H 137/61 99 10/30/19 23:14 98.9 F 100 24 131/78 95 10/30/19 22:25 104 H 32 H 152/70 100 10/30/19 22:03 109 H 33 H 10/30/19 21:48 112 H 10/30/19 21:22 34 H 10/30/19 21:04 99.5 F 101 H 30 H 165/64 93 L Intake and Output 10/30/19 10/31/19 10/31/19 22:59 06:59 14:59 Intake Total 120 Balance 120 Intake: Oral 120 Other: Weight 108.862 kg 109.5 kg PHYSICAL EXAMINATION: GENERAL: The patient is alert and oriented x3, not in any acute distress. Obese HEENT: Pupils are round and equally reacting to light. EOMI. No scleral icterus. No conjunctival pallor. Normocephalic, atraumatic. No pharyngeal erythema. No thyromegaly. CARDIOVASCULAR: S1 and S2 present. No murmurs, rubs, or gallops. PULMONARY: Chest is clear to auscultation, no wheezing or crackles. ABDOMEN: Soft, nontender, nondistended, normoactive bowel sounds. No palpable organomegaly. MUSCULOSKELETAL: No joint swelling or deformity. EXTREMITIES: No cyanosis, clubbing, or pedal edema. NEUROLOGICAL: Gross neurological examination did not reveal any focal deficits. SKIN: No rashes. Results CBC & Chem 7: 10/31/19 04:05 10/31/19 04:05 Labs: Abnormal Lab Results - Last 24 Hours (Table) 10/30/19 10/30/19 10/30/19 Range/Units 21:11 21:42 21:42 WBC 14.5 H (3.8-10.6) k/uL RBC 3.27 L (4.30-5.90) m/uL Hgb 9.5 L (13.0-17.5) gm/dL Hct 29.6 L (39.0-53.0) % Neutrophils # 12.7 H (1.3-7.7) k/uL Lymphocytes # 0.5 L (1.0-4.8) k/uL Monocytes # 1.1 H (0-1.0) k/uL VBG HCO3 (24-28) mmol/L Sodium 129 L (137-145) mmol/L Chloride 94 L (98-107) mmol/L Carbon Dioxide (22-30) mmol/L BUN 44 H (9-20) mg/dL Creatinine 1.88 H (0.66-1.25) mg/dL Glucose 309 H (74-99) mg/dL POC Glucose (mg/dL) 322 H (75-99) mg/dL Plasma Lactic Acid Epifanio (0.7-2.0) mmol/L Troponin I (0.000-0.034) ng/mL Total Protein 5.5 L (6.3-8.2) g/dL Albumin 3.1 L (3.5-5.0) g/dL 10/30/19 10/30/19 10/30/19 Range/Units 21:42 21:42 22:02 WBC (3.8-10.6) k/uL RBC (4.30-5.90) m/uL Hgb (13.0-17.5) gm/dL Hct (39.0-53.0) % Neutrophils # (1.3-7.7) k/uL Lymphocytes # (1.0-4.8) k/uL Monocytes # (0-1.0) k/uL VBG HCO3 23 L (24-28) mmol/L Sodium (137-145) mmol/L Chloride (98-107) mmol/L Carbon Dioxide (22-30) mmol/L BUN (9-20) mg/dL Creatinine (0.66-1.25) mg/dL Glucose (74-99) mg/dL POC Glucose (mg/dL) (75-99) mg/dL Plasma Lactic Acid Epifanio 2.3 H* (0.7-2.0) mmol/L Troponin I 0.046 H* (0.000-0.034) ng/mL Total Protein (6.3-8.2) g/dL Albumin (3.5-5.0) g/dL 10/30/19 10/31/19 10/31/19 Range/Units 23:50 04:05 04:05 WBC 11.9 H (3.8-10.6) k/uL RBC 3.00 L (4.30-5.90) m/uL Hgb 8.8 L (13.0-17.5) gm/dL Hct 27.6 L (39.0-53.0) % Neutrophils # 10.6 H (1.3-7.7) k/uL Lymphocytes # 0.6 L (1.0-4.8) k/uL Monocytes # (0-1.0) k/uL VBG HCO3 (24-28) mmol/L Sodium (137-145) mmol/L Chloride (98-107) mmol/L Carbon Dioxide (22-30) mmol/L BUN (9-20) mg/dL Creatinine (0.66-1.25) mg/dL Glucose (74-99) mg/dL POC Glucose (mg/dL) (75-99) mg/dL Plasma Lactic Acid Epifanio (0.7-2.0) mmol/L Troponin I 0.111 H* 0.250 H* (0.000-0.034) ng/mL Total Protein (6.3-8.2) g/dL Albumin (3.5-5.0) g/dL 10/31/19 10/31/19 Range/Units 04:05 05:56 WBC (3.8-10.6) k/uL RBC (4.30-5.90) m/uL Hgb (13.0-17.5) gm/dL Hct (39.0-53.0) % Neutrophils # (1.3-7.7) k/uL Lymphocytes # (1.0-4.8) k/uL Monocytes # (0-1.0) k/uL VBG HCO3 (24-28) mmol/L Sodium 127 L (137-145) mmol/L Chloride 95 L (98-107) mmol/L Carbon Dioxide 18 L (22-30) mmol/L BUN 47 H (9-20) mg/dL Creatinine 1.76 H (0.66-1.25) mg/dL Glucose 379 H (74-99) mg/dL POC Glucose (mg/dL) 467 H (75-99) mg/dL Plasma Lactic Acid Epifanio (0.7-2.0) mmol/L Troponin I (0.000-0.034) ng/mL Total Protein (6.3-8.2) g/dL Albumin (3.5-5.0) g/dL Thrombosis Risk Factor Assmnt - Choose All That Apply Any of the Below Risk Factors Present?: Yes Each Factor Represents 1 point: Abnormal pulmonary function (COPD) Other Risk Factors: Yes Each Risk Factor Represents 3 Points: Age 75 years or older Other congenital or acquired thrombophilia - If yes, enter type in comment: No Thrombosis Risk Factor Assessment Total Risk Factor Score: 4 Thrombosis Risk Factor Assessment Level: Moderate Risk Assessment and Plan Plan: -Hematuria: Secondary to renal calculi since he is still having mild hematuria which is actually getting better we'll hold off on antiplatelet therapy for today probably this can be resumed tomorrow. I'll also obtain a UA with urine cultures which is not available at this time patient doesn't have any fevers chills depending on the UA will decide on antibiotics. -Shortness of breath and acute hypoxic respiratory failure: Etiology is not clear probably multifactorial may have had COPD exacerbation which is better patient is not wheezing because of his diabetes mellitus elevated uncontrolled blood pressures and no much benefit from systemic steroids because of this reason I'll discontinue the systemic steroids. Suspicion is low for pneumonia and would not continue antibiotics either. Obesity and possibility of sleep apnea may be contributing to his shortness of breath as well. Possibility of heart failure exacerbation is low -Congestive heart failure chronic systolic as well as diastolic dysfunction without any acute exacerbation because of hyponatremia holding of Lasix today. Less of will be continued unless kidney function -Acute renal failure: Probably secondary to excessive diuresis and prerenal azotemia. Holding of Lasix as mentioned above if her creatinine continued to worse. His lisinopril to be held as well at the time -Chronic kidney disease stage III secondary to diabetic nephropathy -Type 2 diabetes mellitus uncontrolled elevated blood sugars his blood sugars are expected to go up again because of the steroids he received. We'll continue with his home regimen along with sliding scale insulin titration of insulin depending on his blood sugars and insulin requirements -Hyponatremia hypovolemic hyponatremia holding of Lasix as mentioned above -Atrial fibrillation presently not on any anticoagulation history of recent CVA is antiplatelet therapy will be resumed as soon as possible once his hematuria improves -Elevated troponin I cannot completely rule out non-ST elevation myocardial infarction cardio gel be consulted patient will not be on heparin because of hematuria. -Leukocytosis most probably reactive secondary to nephrolithiasis rather than UTI or pneumonia -Coronary disease and CABG in the past -COPD with possibly of exacerbation of admission presently fairly good air entry into bilateral lung boo will not require any stroke stars -Hyperlipidemia -Hypertension
[2019-10-31 11:25] LABS: Glucose,Whole Blood 467 mg/dL (75-99)
[2019-10-31] MEDS: amLODIPine 5 MG TAB PO SCH (11:27)
[2019-10-31 16:39] LABS: Glucose,Whole Blood 576 mg/dL (75-99)
[2019-10-31 16:39] LABS: Glucose,Whole Blood 544 mg/dL (75-99)
[2019-10-31] MEDS: methylPREDNISolone SOD SUCCI 125 MG/2 ML VIAL IV SCH ×2 (19:34→23:49)
[2019-10-31] MEDS ORDERED: BUDESONIDE 0.5 MG/2 ML NEBU INHALATION SCH ×2 (20:00)
[2019-10-31] MEDS: FORMOTEROL FUMARATE 20 MCG/2 ML NEBU INHALATION SCH (20:06)
[2019-10-31] MEDS: BUDESONIDE 1 MG/2 ML NEBU INHALATION SCH (20:06)
[2019-10-31 20:42] LABS: Glucose,Whole Blood 577 mg/dL (75-99)
[2019-10-31] MEDS ORDERED: INSULIN DETEMIR (LEVEMIR) 100 UNIT/ML SYR SQ SCH (21:00)
[2019-10-31] MEDS: ATORVASTATIN 80 MG TAB PO SCH (21:40)
[2019-10-31] MEDS: DULoxetine HCL 60 MG CAPSULE.DR PO SCH (21:40)
[2019-10-31] MEDS: AMOXIC-POT CLAV 875-125MG 1 EACH TAB PO SCH (21:40)
[2019-10-31 21:44] LABS: Glucose,Whole Blood 550 mg/dL (75-99)
[2019-10-31] MEDS: INSULIN REGULAR 100 UNIT in SODIUM CHLORIDE 0.9% 100 ML IV SCH (22:01)
--- NOTE | 2019-10-31 22:32 | CONS ---
CONSULTATION PULMONARY/CRITICAL CARE CONSULTATION: DATE OF SERVICE: 10/31/2019 REASON FOR CONSULTATION: Shortness of breath. This is a very pleasant 84-year-old male who has a history of atrial fibrillation, CAD and COPD. The patient presented to the emergency room on October 29 with complaints of shortness of breath. His daughter was apparently at the bedside and helps provide the history. He apparently has had multiple hospital visits recently for hematuria and a kidney stone. He was seen 2 days ago at an outside hospital, discharged home and then seen apparently a day ago at this hospital and was also discharged home. He apparently continues to have blood in his urine. In addition, he complains of shortness of breath. The shortness of breath was progressive in nature. The patient denies smoking at this time. The patient does have a history of underlying COPD. He denies any CHF. He does have some lower extremity edema. He apparently has been taking his medications as prescribed. He denies any chest pain or pressure. Denies any palpitations. Denies any fever or chills. Denies any nausea, vomiting, diarrhea or abdominal pain. MEDICATIONS: Current home medications are reviewed. They include Cymbalta, vitamin C, NovoLog insulin, lisinopril, multiple vitamins, aspirin, iron, metoprolol, Flomax, Lasix, insulin, Imdur, nitroglycerin, amlodipine, atorvastatin, Plavix and Ativan. ALLERGIES: MORPHINE. MEDICAL HISTORY: Reviewed. He apparently has a history of atrial fibrillation, CAD, chest pain/angina, COPD, diabetes, GI bleed, hyperlipidemia, hypertension, myocardial infarction, diabetic retinopathy, right kidney cancer, status post nephrectomy, BPH, pleural effusion and pulmonary edema. The patient has undergone thoracentesis in the past for his pleural effusions. SURGICAL HISTORY: Surgical history includes bladder surgery, cholecystectomy, bypass grafting, heart catheterization with stent, orthopedic procedures, prostate surgery and tonsillectomy. The patient has also had partial right nephrectomy as well as a three-vessel bypass grafting. SOCIAL HISTORY: Positive for previous tobacco use. Denies any alcohol or illicit drug use. FAMILY HISTORY: Positive for father with history of colon cancer and mother with history of myocardial infarction and colon cancer. REVIEW OF SYSTEMS: CONSTITUTIONAL: Negative. NEUROLOGIC: Negative. HEENT: Negative. CARDIOVASCULAR: Negative. PULMONARY: Shortness of breath, cough. GI: Negative. : Negative. RHEUMATOLOGIC: Negative. IMMUNOLOGIC: Negative. ENDOCRINOLOGIC: Negative. DERMATOLOGIC: Negative. PHYSICAL EXAMINATION: VITAL SIGNS: Current vital signs are reviewed. Temperature is 97.3, heart rate 97, respiratory rate 18, blood pressure 149/77, mean 101. Four-liter saturation 99%. GENERAL APPEARANCE: Appears in no acute distress. HEENT: Examination is grossly unremarkable. NECK: Supple. Full range of motion. No adenopathy. Neck veins are flat. CARDIOVASCULAR: Examination reveals regular rhythm and rate. Heart rate 82 beats per minute. S1, S2 normal. Heart sounds are distant. LUNGS: Lungs reveal a few scattered rhonchi. No wheezes. A few scattered crackles noted. Breath sounds equal. ABDOMEN: Obese. Bowel sounds are heard. EXTREMITIES: Intact. There is some slight edema. SKIN: Without rash. NEUROLOGIC: Neurologic examination is brief but nonfocal. LABS: Reviewed. White count 11.9, hemoglobin 8.8, hematocrit 27.6, platelet count 159,000. Sodium 127, potassium 5, chloride 95, CO2 18. Anion gap is 14. BUN and creatinine were 47 and 1.76. Glucose is 379. Troponins were 0.111 and 0.250. Microbiologic studies are negative. Chest x-ray shows some infiltrate or atelectasis in the left lower lobe. Heart size is normal. Current medications are reviewed. He is on amlodipine, Lipitor, Pulmicort, Cymbalta, insulin, DuoNeb, Imdur, lisinopril, magnesium sulfate, metoprolol and Narcan. The patient was also on prednisone, but that has been discontinued. ASSESSMENT: 1. Chronic obstructive pulmonary disease exacerbation complicated by purulent tracheobronchitis and possible bronchopneumonia, left lower lobe. 2. History of diabetes mellitus. 3. History of hypertension. 4. Benign prostatic hypertrophy. 5. Hyperlipidemia. 6. History of atrial fibrillation. 7. Previous history of coronary artery disease with bypass grafting. 8. History of gastrointestinal bleed. 9. Previous history of myocardial infarction. 10.Diabetic retinopathy with poor vision. 11.Right kidney cancer, status post partial right nephrectomy. 12.Pleural effusion, status post thoracentesis x2. PLAN: The patient's medications were reviewed. Please see my recommendations. We will get him on proper COPD medications. He was a heavy smoker in the past. Additional recommendations and suggestions are forthcoming. He will also need some antibiotics. Overall prognosis is guarded. MMODL / IJN: [id number] /
[2019-10-31 22:35] LABS: Glucose,Whole Blood 528 mg/dL (75-99)
[2019-10-31 23:06] LABS: Glucose,Whole Blood 551 mg/dL (75-99)
[2019-10-31 23:33] LABS: Glucose,Whole Blood 490 mg/dL (75-99)
[2019-11-01 00:08] LABS: Glucose,Whole Blood 359 mg/dL (75-99)
[2019-11-01] MEDS: INSULIN REGULAR 100 UNIT in SODIUM CHLORIDE 0.9% 100 ML IV SCH ×3 (00:14→23:07)
[2019-11-01 00:35] LABS: Glucose,Whole Blood 355 mg/dL (75-99)
[2019-11-01 01:04] LABS: Glucose,Whole Blood 232 mg/dL (75-99)
[2019-11-01 03:03] LABS: Glucose,Whole Blood 136 mg/dL (75-99)
[2019-11-01 05:03] LABS: Glucose,Whole Blood 153 mg/dL (75-99)
[2019-11-01] MEDS: methylPREDNISolone SOD SUCCI 125 MG/2 ML VIAL IV SCH (06:16)
[2019-11-01 06:59] LABS: Glucose,Whole Blood 216 mg/dL (75-99)
[2019-11-01 08:39] LABS: HCT 30.2 % (39.0-53.0); HGB 9.4 gm/dL (13.0-17.5); Hypochromasia Slight; MCV 90.4 fL (80.0-100.0); Mean Platelet Volume 7.6; Platelet Count 208 k/uL (150-450); RBC 3.34 m/uL (4.30-5.90); RDW 15.2 % (11.5-15.5); WBC 12.4 k/uL (3.8-10.6)
[2019-11-01] MEDS: BUDESONIDE 1 MG/2 ML NEBU INHALATION SCH ×2 (08:40→19:28)
[2019-11-01] MEDS: FORMOTEROL FUMARATE 20 MCG/2 ML NEBU INHALATION SCH ×2 (08:40→19:28)
[2019-11-01] MEDS: ISOSORBIDE MONONITRATE ER 30 MG TAB.ER.24H PO SCH (08:45)
[2019-11-01] MEDS: METOPROLOL TARTRATE 50 MG TAB PO SCH ×2 (08:45→20:27)
[2019-11-01] MEDS: amLODIPine 5 MG TAB PO SCH (08:45)
[2019-11-01] MEDS: AMOXIC-POT CLAV 875-125MG 1 EACH TAB PO SCH ×2 (08:45→20:27)
[2019-11-01] MEDS: TAMSULOSIN 0.4 MG CAP.ER.24H PO SCH (08:45)
[2019-11-01] MEDS: LISINOPRIL 2.5 MG TAB PO SCH (08:45)
[2019-11-01 08:49] LABS: Calcium 8.7 mg/dL (8.4-10.2); Potassium 4.7 mmol/L (3.5-5.1)
[2019-11-01 08:54] LABS: Glucose,Whole Blood 286 mg/dL (75-99)
[2019-11-01] MEDS ORDERED: IPRATROPIUM-ALBUTEROL 3 ML NEB INHALATION PRN (09:02)
[2019-11-01 11:02] LABS: Glucose,Whole Blood 231 mg/dL (75-99)
--- NOTE | 2019-11-01 11:05 | P.PN ---
Progress Note - Text Progress Note Date: 11/01/19 Reviewed office chart. He last saw Dr España in 2017 THe patient had a 20mm upj stone then on the right. The patient didnt want treatment at that time. The stone appears to be the same. There is no significant hydro. Given his other health issues I dont recommend any treatment right now.. He can be reassessed as an outpatient.
--- NOTE | 2019-11-01 11:09 | P.PN ---
Subjective 84-year-old is being treated for hematuria which resolved at this time. Patient is off antiplatelet therapy all start him back on aspirin 81 mg patient had a CABG in 2019. Patient also has acute hypoxic respiratory failure although close association of pneumonia pneumonia cannot be completely ruled out because of which are patient was started on Augmentin by pulmonary. Patient is a not wheezing significantly because of which I'll cut down the systemic steroids to 40 twice a day patient is on IV insulin because of uncontrolled blood sugars most probably can switch him back to oral steroids with a quick taper. His hyponatremia improved at all the renal function did not improve much. Patient had anemia for 45-50% along with diastolic dysfunction. Constitutional: Denied any fatigue denied any fever. Cardio vascular: denied any chest pain, palpitations Gastrointestinal denied any nausea vomiting Pulmonary: Denied any shortness of breath cough Neurologic denied any new focal deficits All inpatient medications were reviewed and appropriate changes in these medications as dictated in the interval history and assessment and plan. Objective - Vital Signs Vital signs: Vital Signs Temp 97.8 F 11/01/19 04:00 Pulse 84 11/01/19 09:05 Resp 18 11/01/19 08:10 BP 134/61 11/01/19 08:10 Pulse Ox 96 11/01/19 08:10 Intake & Output 10/31/19 11/01/19 11/01/19 18:59 06:59 18:59 Intake Total 120 100.327 134.308 Output Total 525 450 375 Balance -405 -349.673 -240.692 Weight 108 kg Intake: Intake, IV Titration 100.327 14.308 Amount Insulin Regular 100 unit 100.327 14.308 In Sodium Chloride 0.9% 100 ml @ Titrate IV .Q0M [facility] Rx#:[id number] Oral 120 120 Output: Urine 525 450 375 Other: Voiding Method Urinal Urinal # Voids 1 1 - Exam PHYSICAL EXAMINATION: GENERAL: The patient is alert and oriented x3, not in any acute distress. Obese HEENT: Pupils are round and equally reacting to light. EOMI. No scleral icterus. No conjunctival pallor. Normocephalic, atraumatic. No pharyngeal erythema. No thyromegaly. CARDIOVASCULAR: S1 and S2 present. No murmurs, rubs, or gallops. PULMONARY: Chest is clear to auscultation, no wheezing or crackles. ABDOMEN: Soft, nontender, nondistended, normoactive bowel sounds. No palpable organomegaly. MUSCULOSKELETAL: No joint swelling or deformity. EXTREMITIES: No cyanosis, clubbing, or pedal edema. NEUROLOGICAL: Gross neurological examination did not reveal any focal deficits. SKIN: No rashes. - Labs CBC & Chem 7: 11/01/19 05:41 11/01/19 05:41 Labs: Abnormal Lab Results - Last 24 Hours (Table) 10/31/19 10/31/19 10/31/19 Range/Units 11:23 16:36 16:37 WBC (3.8-10.6) k/uL RBC (4.30-5.90) m/uL Hgb (13.0-17.5) gm/dL Hct (39.0-53.0) % Sodium (137-145) mmol/L Chloride (98-107) mmol/L BUN (9-20) mg/dL Creatinine (0.66-1.25) mg/dL Glucose (74-99) mg/dL POC Glucose (mg/dL) 467 H 544 H 576 H (75-99) mg/dL 10/31/19 10/31/19 10/31/19 Range/Units 20:41 21:42 22:33 WBC (3.8-10.6) k/uL RBC (4.30-5.90) m/uL Hgb (13.0-17.5) gm/dL Hct (39.0-53.0) % Sodium (137-145) mmol/L Chloride (98-107) mmol/L BUN (9-20) mg/dL Creatinine (0.66-1.25) mg/dL Glucose (74-99) mg/dL POC Glucose (mg/dL) 577 H 550 H 528 H (75-99) mg/dL 10/31/19 10/31/19 11/01/19 Range/Units 23:04 23:32 00:07 WBC (3.8-10.6) k/uL RBC (4.30-5.90) m/uL Hgb (13.0-17.5) gm/dL Hct (39.0-53.0) % Sodium (137-145) mmol/L Chloride (98-107) mmol/L BUN (9-20) mg/dL Creatinine (0.66-1.25) mg/dL Glucose (74-99) mg/dL POC Glucose (mg/dL) 551 H 490 H 359 H (75-99) mg/dL 11/01/19 11/01/19 11/01/19 Range/Units 00:33 01:02 03:01 WBC (3.8-10.6) k/uL RBC (4.30-5.90) m/uL Hgb (13.0-17.5) gm/dL Hct (39.0-53.0) % Sodium (137-145) mmol/L Chloride (98-107) mmol/L BUN (9-20) mg/dL Creatinine (0.66-1.25) mg/dL Glucose (74-99) mg/dL POC Glucose (mg/dL) 355 H 232 H 136 H (75-99) mg/dL 11/01/19 11/01/19 11/01/19 Range/Units 05:00 05:41 05:41 WBC 12.4 H (3.8-10.6) k/uL RBC 3.34 L (4.30-5.90) m/uL Hgb 9.4 L (13.0-17.5) gm/dL Hct 30.2 L (39.0-53.0) % Sodium 132 L (137-145) mmol/L Chloride 96 L (98-107) mmol/L BUN 66 H (9-20) mg/dL Creatinine 2.00 H (0.66-1.25) mg/dL Glucose 145 H (74-99) mg/dL POC Glucose (mg/dL) 153 H (75-99) mg/dL 11/01/19 11/01/19 11/01/19 Range/Units 06:57 08:52 11:00 WBC (3.8-10.6) k/uL RBC (4.30-5.90) m/uL Hgb (13.0-17.5) gm/dL Hct (39.0-53.0) % Sodium (137-145) mmol/L Chloride (98-107) mmol/L BUN (9-20) mg/dL Creatinine (0.66-1.25) mg/dL Glucose (74-99) mg/dL POC Glucose (mg/dL) 216 H 286 H 231 H (75-99) mg/dL Microbiology - Last 24 Hours (Table) 10/30/19 21:24 Blood Culture - Final Blood Assessment and Plan Plan: -Hematuria: Secondary to renal calculi since he is still having mild hematuria which are improved patient will be started on statin. Unfortunately do not have any CVA available -Shortness of breath and acute hypoxic respiratory failure: Seconded to possible pneumonia and mild COPD exacerbation, we'll cut down the steroids patient blood sugars are uncontrolled and patient is on insulin drip at this time -Congestive heart failure chronic systolic as well as diastolic dysfunction without any acute exacerbation because of hyponatremia holding of Lasix today. Less of will be continued unless kidney function -Acute renal failure: Probably secondary to excessive diuresis and prerenal azotemia. Holding of Lasix as mentioned above if her creatinine continued to worse. -Chronic kidney disease stage III secondary to diabetic nephropathy -Type 2 diabetes mellitus uncontrolled elevated blood sugars continue with IV insulin drip cut down the systemic steroids -Hyponatremia hypovolemic hyponatremia holding of Lasix as mentioned above, improved serum sodium after holding off on Lasix -Atrial fibrillation presently not on any anticoagulation history of recent CVA, patient will be started on aspirin as mentioned above -Elevated troponin I cannot completely rule out non-ST elevation myocardial infarction, cardiology will evaluate the patient -Leukocytosis most probably reactive secondary to nephrolithiasis rather than UTI or pneumonia -Coronary disease and CABG in the past -COPD with possibly of exacerbation of admission presently fairly good air entry into bilateral lung boo will not require any stroke stars -Hyperlipidemia -Hypertension
--- NOTE | 2019-11-01 11:13 | PN ---
PROGRESS NOTE PULMONARY/CRITICAL CARE PROGRESS NOTE: DATE OF SERVICE: 11/01/2019 This is a patient who we saw yesterday in consultation for shortness of breath. The patient is doing much better today. He feels much better. He states his breathing is much improved. We thought his breathing issues related primarily to COPD exacerbation complicated by purulent tracheobronchitis, possible bronchopneumonia left lower lobe and possible mild fluid overload. Anyway, as mentioned, the patient feels much improved. Denies any coughing or wheezing. He is not producing any phlegm. There is no fever or chills. Currently, his vital signs are reviewed. His temperature is 97.8, heart rate 72, respiratory rate 18, blood pressure 134/61 mean 85 and 4 L saturation is 96%. Appears in no acute distress. No respiratory distress. There is no conversational dyspnea or use of accessory muscles. HEENT: Examination is grossly unremarkable. NECK: Supple, full range of motion. No adenopathy. Neck veins are flat. CARDIOVASCULAR: Examination reveals regular rhythm and rate. Heart rate in the mid 70s. S1, S2 normal. No S3, S4, or murmur. Heart sounds are distant. LUNGS: Reveal a few scattered rhonchi. There are a few scattered bibasilar crackles. No wheezes. Breath sounds equal bilaterally. ABDOMEN: Obese, bowel sounds are heard. EXTREMITIES: Intact. No cyanosis, clubbing, or significant edema. SKIN: Without rash. NEUROLOGIC: Examination is brief but nonfocal. LABS: Reviewed. White count 12.4, hemoglobin 9.4, hematocrit 30.2, platelet count 208,000. Sodium 132, potassium 4.7, chloride 96, CO2 is 25, anion gap is 11. BUN and creatinine were 66 and 2.0. Microbiology is negative. Chest x-ray from 10/29 is evaluated again. It shows some atelectasis or infiltrate in the left lower lobe. Medications are reviewed. He is currently on Augmentin, Pulmicort, formoterol, and DuoNeb. He is also receiving Solu-Medrol. ASSESSMENT: 1. Chronic obstructive pulmonary disease exacerbation complicated by purulent tracheobronchitis and/or bronchopneumonia left lower lobe. 2. History of diabetes mellitus. 3. Hypertension. 4. Benign prostatic hypertrophy. 5. Hyperlipidemia. 6. History of atrial fibrillation. 7. History of previous bypass grafting for coronary artery disease. 8. History of gastrointestinal bleed. 9. Prior history of myocardial infarction. 10.Diabetic retinopathy. 11.Hypernephroma, right kidney, status post partial right nephrectomy. 12.History of pleural effusion, status post thoracentesis x2. PLAN: Currently, the patient is doing well. Will continue to follow. He is on oral antibiotics. He is on formoterol and Pulmicort as well as DuoNeb. He is on Solu- Medrol. Prognosis is good. He is much improved today from the pulmonary standpoint. MMODL / IJN: [id number] /
[2019-11-01] MEDS: IPRATROPIUM-ALBUTEROL 3 ML NEB INHALATION SCH ×3 (11:50→19:28)
[2019-11-01] MEDS: ASPIRIN 81 MG PO SCH (11:57)
[2019-11-01] MEDS: POLYETHYLENE GLYCOL 3350 17 GM POWD.PACK PO PRN (12:33)
[2019-11-01 13:05] LABS: Glucose,Whole Blood 188 mg/dL (75-99)
[2019-11-01 15:03] LABS: Glucose,Whole Blood 290 mg/dL (75-99)
[2019-11-01 17:03] LABS: Glucose,Whole Blood 335 mg/dL (75-99)
[2019-11-01 19:06] LABS: Glucose,Whole Blood 323 mg/dL (75-99)
[2019-11-01] MEDS: DULoxetine HCL 60 MG CAPSULE.DR PO SCH (20:27)
[2019-11-01] MEDS: methylPREDNISolone SOD SUCCI 40 MG/ML 1 ML VIAL IV SCH (20:27)
[2019-11-01] MEDS: ATORVASTATIN 80 MG TAB PO SCH (20:27)
[2019-11-01 20:52] LABS: Glucose,Whole Blood 328 mg/dL (75-99)
[2019-11-01 22:56] LABS: Glucose,Whole Blood 280 mg/dL (75-99)
[2019-11-02 00:56] LABS: Glucose,Whole Blood 268 mg/dL (75-99)
[2019-11-02 03:31] LABS: Glucose,Whole Blood 196 mg/dL (75-99)
[2019-11-02 04:59] LABS: Glucose,Whole Blood 222 mg/dL (75-99)
[2019-11-02 06:51] LABS: HCT 29.7 % (39.0-53.0); HGB 9.1 gm/dL (13.0-17.5); Hypochromasia Slight; MCH 27.6 pg (25.0-35.0); MCHC 30.6 g/dL (31.0-37.0); MCV 90.2 fL (80.0-100.0); Mean Platelet Volume 7.2; Platelet Count 235 k/uL (150-450); RDW 15.2 % (11.5-15.5)
[2019-11-02 06:59] LABS: Calcium 8.4 mg/dL (8.4-10.2); Potassium 4.9 mmol/L (3.5-5.1)
[2019-11-02 07:05] LABS: Glucose,Whole Blood 251 mg/dL (75-99)
[2019-11-02] MEDS: FORMOTEROL FUMARATE 20 MCG/2 ML NEBU INHALATION SCH ×2 (07:55→20:41)
[2019-11-02] MEDS: IPRATROPIUM-ALBUTEROL 3 ML NEB INHALATION SCH ×4 (07:55→20:41)
[2019-11-02] MEDS: BUDESONIDE 1 MG/2 ML NEBU INHALATION SCH ×2 (07:55→20:40)
[2019-11-02] MEDS: LISINOPRIL 2.5 MG TAB PO SCH (09:32)
[2019-11-02] MEDS: METOPROLOL TARTRATE 50 MG TAB PO SCH ×2 (09:32→21:26)
[2019-11-02] MEDS: TAMSULOSIN 0.4 MG CAP.ER.24H PO SCH (09:32)
[2019-11-02] MEDS: ASPIRIN 81 MG PO SCH (09:32)
[2019-11-02] MEDS: amLODIPine 5 MG TAB PO SCH (09:32)
[2019-11-02] MEDS: AMOXIC-POT CLAV 875-125MG 1 EACH TAB PO SCH ×2 (09:32→21:26)
[2019-11-02] MEDS: ISOSORBIDE MONONITRATE ER 30 MG TAB.ER.24H PO SCH (09:32)
[2019-11-02] MEDS: methylPREDNISolone SOD SUCCI 40 MG/ML 1 ML VIAL IV SCH (09:33)
[2019-11-02 09:37] LABS: Glucose,Whole Blood 356 mg/dL (75-99)
[2019-11-02 11:19] LABS: Glucose,Whole Blood 377 mg/dL (75-99)
--- NOTE | 2019-11-02 11:36 | PN ---
PROGRESS NOTE Mr. Grove was seen 2 days ago for a kidney stone in his right renal pelvis. He saw Dr. España in 2016. He came in the hospital with respiratory issues. Apparently, he had been having some flank pain. A CAT scan done in June identified a 2 cm renal pelvic stone. This is unchanged from 3 years ago. When I saw the patient 2 days ago, he was quite obtunded and therefore could not give me much history. He is much more awake and alert today. He has been having intermittent pain in his right flank for the last couple of months. He denies gross hematuria. He has had microscopic hematuria. Upon reviewing the x-ray, he does have a 2 cm right renal pelvic stone. The patient is having pain and would something done. This can be done electively in the future. The patient should have an office appointment to see Dr. España or myself to discuss ureteroscopy or percutaneous nephrostolithotomy for this stone at a later date. MMODL / IJN: [id number] /
[2019-11-02 13:12] LABS: Glucose,Whole Blood 446 mg/dL (75-99)
--- NOTE | 2019-11-02 13:50 | P.PN ---
Subjective 84-year-old is being treated for hematuria which resolved at this time. Patient is off antiplatelet therapy all start him back on aspirin 81 mg patient had a CABG in 2019. Patient also has acute hypoxic respiratory failure although close association of pneumonia pneumonia cannot be completely ruled out because of which are patient was started on Augmentin by pulmonary. Patient is a not wheezing significantly because of which I'll cut down the systemic steroids to 40 twice a day patient is on IV insulin because of uncontrolled blood sugars most probably can switch him back to oral steroids with a quick taper. His hyponatremia improved at all the renal function did not improve much. Patient had anemia for 45-50% along with diastolic dysfunction. 11/02/2019 Patient was started back on aspirin as today no more hematuria. Patient was pretty status improved patient is on 2 L of oxygen at this time. Patient is quite weak will benefit from subacute rehabilitation will discuss that with the patient. Patient still has a renal stone for which patient will need lithotripsy down the line. Patient is feeling better no wheezing today. Discussed with the cardiothoracic surgery since patient is having hematuria, the regular with with just using aspirin Constitutional: Denied any fatigue denied any fever. Cardio vascular: denied any chest pain, palpitations Gastrointestinal denied any nausea vomiting Pulmonary: Denied any shortness of breath cough Neurologic denied any new focal deficits All inpatient medications were reviewed and appropriate changes in these medications as dictated in the interval history and assessment and plan. Objective - Vital Signs Vital signs: Vital Signs Temp 98 F 11/02/19 08:00 Pulse 64 11/02/19 11:35 Resp 17 11/02/19 08:00 BP 131/60 11/02/19 08:00 Pulse Ox 100 11/02/19 08:00 Intake & Output 11/01/19 11/02/19 11/02/19 18:59 06:59 18:59 Intake Total 975.262 116.892 10.184 Output Total 375 900 Balance 600.262 -783.108 10.184 Weight 108 kg 104.5 kg Intake: IV 290 0.9ns 240 insulin regular 50 Intake, IV Titration 85.262 116.892 10.184 Amount Insulin Regular 100 unit 85.262 116.892 10.184 In Sodium Chloride 0.9% 100 ml @ Titrate IV .Q0M [facility] Rx#:[id number] Oral 600 Output: Urine 375 900 Other: Voiding Method Urinal Toilet Toilet Urinal Urinal # Voids 2 - Exam PHYSICAL EXAMINATION: GENERAL: The patient is alert and oriented x3, not in any acute distress. Obese HEENT: Pupils are round and equally reacting to light. EOMI. No scleral icterus. No conjunctival pallor. Normocephalic, atraumatic. No pharyngeal erythema. No thyromegaly. CARDIOVASCULAR: S1 and S2 present. No murmurs, rubs, or gallops. PULMONARY: Chest is clear to auscultation, no wheezing or crackles. ABDOMEN: Soft, nontender, nondistended, normoactive bowel sounds. No palpable organomegaly. MUSCULOSKELETAL: No joint swelling or deformity. EXTREMITIES: No cyanosis, clubbing, or pedal edema. NEUROLOGICAL: Gross neurological examination did not reveal any focal deficits. SKIN: No rashes. - Labs CBC & Chem 7: 11/02/19 06:10 11/02/19 06:10 Labs: Abnormal Lab Results - Last 24 Hours (Table) 11/01/19 11/01/19 11/01/19 Range/Units 15:01 17:02 19:05 WBC (3.8-10.6) k/uL RBC (4.30-5.90) m/uL Hgb (13.0-17.5) gm/dL Hct (39.0-53.0) % MCHC (31.0-37.0) g/dL Sodium (137-145) mmol/L Chloride (98-107) mmol/L BUN (9-20) mg/dL Creatinine (0.66-1.25) mg/dL Glucose (74-99) mg/dL POC Glucose (mg/dL) 290 H 335 H 323 H (75-99) mg/dL 11/01/19 11/01/19 11/02/19 Range/Units 20:51 22:54 00:55 WBC (3.8-10.6) k/uL RBC (4.30-5.90) m/uL Hgb (13.0-17.5) gm/dL Hct (39.0-53.0) % MCHC (31.0-37.0) g/dL Sodium (137-145) mmol/L Chloride (98-107) mmol/L BUN (9-20) mg/dL Creatinine (0.66-1.25) mg/dL Glucose (74-99) mg/dL POC Glucose (mg/dL) 328 H 280 H 268 H (75-99) mg/dL 11/02/19 11/02/19 11/02/19 Range/Units 03:29 04:57 06:10 WBC 13.0 H (3.8-10.6) k/uL RBC 3.30 L (4.30-5.90) m/uL Hgb 9.1 L (13.0-17.5) gm/dL Hct 29.7 L (39.0-53.0) % MCHC 30.6 L (31.0-37.0) g/dL Sodium (137-145) mmol/L Chloride (98-107) mmol/L BUN (9-20) mg/dL Creatinine (0.66-1.25) mg/dL Glucose (74-99) mg/dL POC Glucose (mg/dL) 196 H 222 H (75-99) mg/dL 11/02/19 11/02/19 11/02/19 Range/Units 06:10 07:04 09:36 WBC (3.8-10.6) k/uL RBC (4.30-5.90) m/uL Hgb (13.0-17.5) gm/dL Hct (39.0-53.0) % MCHC (31.0-37.0) g/dL Sodium 131 L (137-145) mmol/L Chloride 97 L (98-107) mmol/L BUN 76 H (9-20) mg/dL Creatinine 1.77 H (0.66-1.25) mg/dL Glucose 207 H (74-99) mg/dL POC Glucose (mg/dL) 251 H 356 H (75-99) mg/dL 11/02/19 11/02/19 Range/Units 11:18 13:11 WBC (3.8-10.6) k/uL RBC (4.30-5.90) m/uL Hgb (13.0-17.5) gm/dL Hct (39.0-53.0) % MCHC (31.0-37.0) g/dL Sodium (137-145) mmol/L Chloride (98-107) mmol/L BUN (9-20) mg/dL Creatinine (0.66-1.25) mg/dL Glucose (74-99) mg/dL POC Glucose (mg/dL) 377 H 446 H (75-99) mg/dL Microbiology - Last 24 Hours (Table) 10/30/19 21:24 Blood Culture Gram Stain - Preliminary Blood Blood Culture - Preliminary Anaerobic Gm Positive Bacill Assessment and Plan Plan: -Hematuria: Secondary to renal calculi, patient was started back on aspirin, which really resolved -Shortness of breath and acute hypoxic respiratory failure: Seconded to possible pneumonia and mild COPD exacerbation, we'll cut down the steroids patient blood sugars are uncontrolled and patient is on insulin drip at this time -Congestive heart failure chronic systolic as well as diastolic dysfunction without any acute exacerbation because of hyponatremia holding of Lasix today. Less of will be continued unless kidney function -Acute renal failure: Probably secondary to excessive diuresis and prerenal azotemia. Improved with Lasix is getting worse again will obtain a chest x-ray -Chronic kidney disease stage III secondary to diabetic nephropathy -Type 2 diabetes mellitus uncontrolled elevated blood sugars continue with IV insulin drip cut down the systemic steroids -Hyponatremia hypovolemic hyponatremia holding of Lasix as mentioned above, improved serum sodium after holding off on Lasix -Atrial fibrillation presently not on any anticoagulation history of recent CVA, patient will be started on aspirin as mentioned above -Elevated troponin I cannot completely rule out non-ST elevation myocardial infarction, cardiology will evaluate the patient -Leukocytosis most probably reactive secondary to nephrolithiasis rather than UTI or pneumonia -Coronary disease and CABG in the past -COPD with possibly of exacerbation of admission presently fairly good air entry into bilateral lung boo will not require any stroke stars -Hyperlipidemia -Hypertension
[2019-11-02 15:00] LABS: Glucose,Whole Blood 528 mg/dL (75-99)
[2019-11-02 15:00] LABS: Glucose,Whole Blood 510 mg/dL (75-99)
[2019-11-02] MEDS ORDERED: NA PHOS,M-B/NA PHOS,DI-BA 133 ML ENEMA RECTAL ONE ×2 (15:01→15:45)
--- NOTE | 2019-11-02 15:21 | PN ---
PROGRESS NOTE PULMONARY/CRITICAL CARE PROGRESS NOTE: DATE OF SERVICE: 11/02/2019 This is a very pleasant 84-year-old gentleman who was admitted with a diagnosis of acute exacerbation of COPD and possible bronchopneumonia involving the left lower lobe. He remains on oxygen at 2 L. He was treated in standard fashion with DuoNeb, Pulmicort, formoterol and corticosteroids. I am happy to report that he is feeling much better. Currently he denies any shortness of breath, cough, wheezing, chest congestion or phlegm production. PHYSICAL EXAMINATION: VITAL SIGNS: Vital signs are stable. This includes heart rate, respiratory rate, temperature, saturation and blood pressure. GENERAL APPEARANCE: He appears in no acute distress. He is oriented x3. There is no conversational dyspnea, use of accessory muscles or audible wheezing. HEENT: Examination is grossly unremarkable. NECK: Supple. Full range of motion. No adenopathy. Neck veins are flat. CARDIOVASCULAR: Examination reveals regular rhythm and rate. Heart sounds are distant. No murmur. LUNGS: Lungs reveal mostly clear breath sounds. A few scattered mild rhonchi. No wheezes. Breath sounds are equal bilaterally. ABDOMEN: Obese. Bowel sounds are heard. EXTREMITIES: Extremities reveal some mild edema. SKIN: Without rash. NEUROLOGIC: Neurologic examination is brief but nonfocal. ASSESSMENT: 1. Chronic obstructive pulmonary disease exacerbation complicated by purulent tracheobronchitis and possible bronchopneumonia, left lower lobe. 2. Obesity. 3. History of multiple medical problems and comorbidities. PLAN: Currently the patient is doing well. The patient is on appropriate medications. Will start de-escalating steroids and so forth. Additional recommendations and suggestions are forthcoming. Discharge planning underway. MMODL / IJN: [id number] /
[2019-11-02 16:54] LABS: Glucose,Whole Blood 403 mg/dL (75-99)
[2019-11-02] MEDS: POLYETHYLENE GLYCOL 3350 17 GM POWD.PACK PO PRN (16:56)
--- NOTE | 2019-11-02 17:31 | XR ---
EXAMINATION TYPE: XR chest 1V DATE OF EXAM: 11/02/2019 COMPARISON: 10/28/2019 HISTORY: Short of breath TECHNIQUE: FINDINGS: There is slight coarsening of interstitial markings. There is no gross heart failure. There is slight blunting of the costophrenic angles. Thoracic aorta is atheromatous. There are sternal wir es. There is right shoulder prosthesis. IMPRESSION: There is probably new small pleural effusions compared to old exam. No obvious heart fail ure seen.
[2019-11-02 18:19] LABS: Basophils % (A) 0 %; Eosinophils % (A) 0 %; HCT 30.8 % (39.0-53.0); HGB 9.5 gm/dL (13.0-17.5); Hypochromasia Moderate; Lymphocytes # (A) 0.8 k/uL (1.0-4.8); Lymphocytes % (A) 6 %; MCH 27.9 pg (25.0-35.0); MCHC 30.9 g/dL (31.0-37.0); MCV 90.3 fL (80.0-100.0); Mean Platelet Volume 7.2; Monocytes # (A) 0.6 k/uL (0-1.0); Monocytes % (A) 4 %; Neutrophils # (A) 11.9 k/uL (1.3-7.7); Neutrophils % (A) 89 %; Platelet Count 280 k/uL (150-450); RBC 3.41 m/uL (4.30-5.90); RDW 15.3 % (11.5-15.5); WBC 13.4 k/uL (3.8-10.6)
[2019-11-02 18:37] LABS: Calcium 8.5 mg/dL (8.4-10.2); Potassium 4.3 mmol/L (3.5-5.1)
[2019-11-02 19:06] LABS: Glucose,Whole Blood 302 mg/dL (75-99)
[2019-11-02 20:55] LABS: Glucose,Whole Blood 375 mg/dL (75-99)
[2019-11-02] MEDS: INSULIN REGULAR 100 UNIT in SODIUM CHLORIDE 0.9% 100 ML IV SCH (21:23)
[2019-11-02] MEDS: DULoxetine HCL 60 MG CAPSULE.DR PO SCH (21:26)
[2019-11-02] MEDS: ATORVASTATIN 80 MG TAB PO SCH (21:26)
[2019-11-02 23:02] LABS: Glucose,Whole Blood 343 mg/dL (75-99)
[2019-11-03 01:37] LABS: Glucose,Whole Blood 215 mg/dL (75-99)
[2019-11-03 03:31] LABS: Glucose,Whole Blood 179 mg/dL (75-99)
[2019-11-03 05:04] LABS: Glucose,Whole Blood 194 mg/dL (75-99)
[2019-11-03 07:09] LABS: Glucose,Whole Blood 208 mg/dL (75-99)
[2019-11-03 07:13] LABS: HGB 9.9 gm/dL (13.0-17.5); Hypochromasia Moderate; MCH 28.8 pg (25.0-35.0); Mean Platelet Volume 6.6; Platelet Count 308 k/uL (150-450); RBC 3.44 m/uL (4.30-5.90); RDW 14.8 % (11.5-15.5); WBC 15.2 k/uL (3.8-10.6)
[2019-11-03] MEDS: FORMOTEROL FUMARATE 20 MCG/2 ML NEBU INHALATION SCH ×2 (07:37→18:56)
[2019-11-03] MEDS: IPRATROPIUM-ALBUTEROL 3 ML NEB INHALATION SCH ×4 (07:37→18:56)
[2019-11-03] MEDS: BUDESONIDE 1 MG/2 ML NEBU INHALATION SCH ×2 (07:38→18:56)
[2019-11-03 07:50] LABS: Calcium 8.3 mg/dL (8.4-10.2); Potassium 4.8 mmol/L (3.5-5.1)
[2019-11-03] MEDS: AMOXIC-POT CLAV 875-125MG 1 EACH TAB PO SCH ×2 (08:31→19:47)
[2019-11-03] MEDS: METOPROLOL TARTRATE 50 MG TAB PO SCH ×2 (08:32→19:47)
[2019-11-03] MEDS: ISOSORBIDE MONONITRATE ER 30 MG TAB.ER.24H PO SCH (08:32)
[2019-11-03] MEDS: TAMSULOSIN 0.4 MG CAP.ER.24H PO SCH (08:32)
[2019-11-03] MEDS: amLODIPine 5 MG TAB PO SCH (08:32)
[2019-11-03] MEDS: LISINOPRIL 2.5 MG TAB PO SCH (08:32)
[2019-11-03] MEDS: ASPIRIN 81 MG PO SCH (08:32)
[2019-11-03] MEDS ORDERED: predniSONE 20 MG TAB PO SCH ×2 (09:00)
[2019-11-03 09:07] LABS: Glucose,Whole Blood 273 mg/dL (75-99)
[2019-11-03] MEDS: INSULIN REGULAR 100 UNIT in SODIUM CHLORIDE 0.9% 100 ML IV SCH (10:04)
[2019-11-03] MEDS ORDERED: LACTULOSE 20 GM/30 ML CUP PO SCH (10:45)
--- NOTE | 2019-11-03 10:51 | P.PN ---
Subjective Progress Note Date: 11/03/19 Principal diagnosis: Acute exacerbation of chronic obstructive pulmonary disease The patient is seen today 11/03/2019 in follow-up on the selective care unit. He is currently sitting up in a chair at the bedside. Awake and alert in no acute distress. He is doing quite a bit better from the pulmonary standpoint. No worsening shortness of breath cough congestion. No chest tightness or wheezing. Chest x-ray reveals slight blunting of the costophrenic angles with small pleural effusions consolidation is for infiltrates. He is maintaining good O2 saturations in the mid 90s on 2 L/m per nasal cannula. He is afebrile. Hemodynamically stable. White count 15.2. Hemoglobin 9.9. Sodium 133. Potassium 4.8. Creatinine 1.67. He remains on DuoNeb inhalations, Pulmicort and Perforomist inhalations, prednisone and antibiotics in the form of Augmentin. Objective - Vital Signs Vital signs: Vital Signs Temp 98 F 11/03/19 08:00 Pulse 76 11/03/19 08:00 Resp 16 11/03/19 08:00 BP 143/74 11/03/19 08:00 Pulse Ox 96 11/03/19 08:00 Intake & Output 11/02/19 11/03/19 11/03/19 18:59 06:59 18:59 Intake Total 516.826 522.868 263.819 Output Total 650 Balance 516.826 -127.132 263.819 Weight 104 kg Intake: Intake, IV Titration 54.826 72.868 23.819 Amount Insulin Regular 100 unit 54.826 72.868 23.819 In Sodium Chloride 0.9% 100 ml @ Titrate IV .Q0M [facility] Rx#:[id number] Oral 462 450 240 Output: Urine 650 Other: Voiding Method Toilet Toilet Toilet Urinal Urinal Urinal # Voids 2 1 - Exam GENERAL EXAM: Alert, pleasant 84-year-old gentleman, on 2 L nasal cannula, comfortable in no apparent distress. HEAD: Normocephalic. EYES: Normal reaction of pupils, equal size. NOSE: Clear with pink turbinates. THROAT: No erythema or exudates. NECK: No masses, no JVD. CHEST: No chest wall deformity. LUNGS: Equal air entry with end expiratory wheeze, faint crackles in the posterior bases, diminished. CVS: S1 and S2 normal with no audible murmur, regular rhythm. ABDOMEN: No hepatosplenomegaly, normal bowel sounds, no guarding or rigidity. SPINE: No scoliosis or deformity SKIN: No rashes CENTRAL NERVOUS SYSTEM: No focal deficits, tone is normal in all 4 extremities. EXTREMITIES: There is no peripheral edema. No clubbing, no cyanosis. Peripheral pulses are intact. - Labs CBC & Chem 7: 11/03/19 06:43 11/03/19 06:43 Labs: Abnormal Lab Results - Last 24 Hours (Table) 11/02/19 11/02/19 11/02/19 Range/Units 11:18 13:11 14:56 WBC (3.8-10.6) k/uL RBC (4.30-5.90) m/uL Hgb (13.0-17.5) gm/dL Hct (39.0-53.0) % MCHC (31.0-37.0) g/dL Neutrophils # (1.3-7.7) k/uL Lymphocytes # (1.0-4.8) k/uL Sodium (137-145) mmol/L Chloride (98-107) mmol/L BUN (9-20) mg/dL Creatinine (0.66-1.25) mg/dL Glucose (74-99) mg/dL POC Glucose (mg/dL) 377 H 446 H 528 H (75-99) mg/dL Calcium (8.4-10.2) mg/dL 11/02/19 11/02/19 11/02/19 Range/Units 14:58 16:52 17:45 WBC 13.4 H (3.8-10.6) k/uL RBC 3.41 L (4.30-5.90) m/uL Hgb 9.5 L (13.0-17.5) gm/dL Hct 30.8 L (39.0-53.0) % MCHC 30.9 L (31.0-37.0) g/dL Neutrophils # 11.9 H (1.3-7.7) k/uL Lymphocytes # 0.8 L (1.0-4.8) k/uL Sodium (137-145) mmol/L Chloride (98-107) mmol/L BUN (9-20) mg/dL Creatinine (0.66-1.25) mg/dL Glucose (74-99) mg/dL POC Glucose (mg/dL) 510 H 403 H (75-99) mg/dL Calcium (8.4-10.2) mg/dL 11/02/19 11/02/19 11/02/19 Range/Units 17:45 19:04 20:54 WBC (3.8-10.6) k/uL RBC (4.30-5.90) m/uL Hgb (13.0-17.5) gm/dL Hct (39.0-53.0) % MCHC (31.0-37.0) g/dL Neutrophils # (1.3-7.7) k/uL Lymphocytes # (1.0-4.8) k/uL Sodium 131 L (137-145) mmol/L Chloride 96 L (98-107) mmol/L BUN 75 H (9-20) mg/dL Creatinine 1.72 H (0.66-1.25) mg/dL Glucose 222 H (74-99) mg/dL POC Glucose (mg/dL) 302 H 375 H (75-99) mg/dL Calcium (8.4-10.2) mg/dL 11/02/19 11/03/19 11/03/19 Range/Units 23:00 01:35 03:30 WBC (3.8-10.6) k/uL RBC (4.30-5.90) m/uL Hgb (13.0-17.5) gm/dL Hct (39.0-53.0) % MCHC (31.0-37.0) g/dL Neutrophils # (1.3-7.7) k/uL Lymphocytes # (1.0-4.8) k/uL Sodium (137-145) mmol/L Chloride (98-107) mmol/L BUN (9-20) mg/dL Creatinine (0.66-1.25) mg/dL Glucose (74-99) mg/dL POC Glucose (mg/dL) 343 H 215 H 179 H (75-99) mg/dL Calcium (8.4-10.2) mg/dL 11/03/19 11/03/19 11/03/19 Range/Units 05:02 06:43 06:43 WBC 15.2 H (3.8-10.6) k/uL RBC 3.44 L (4.30-5.90) m/uL Hgb 9.9 L (13.0-17.5) gm/dL Hct 31.0 L (39.0-53.0) % MCHC (31.0-37.0) g/dL Neutrophils # (1.3-7.7) k/uL Lymphocytes # (1.0-4.8) k/uL Sodium 133 L (137-145) mmol/L Chloride (98-107) mmol/L BUN 73 H (9-20) mg/dL Creatinine 1.67 H (0.66-1.25) mg/dL Glucose 164 H (74-99) mg/dL POC Glucose (mg/dL) 194 H (75-99) mg/dL Calcium 8.3 L (8.4-10.2) mg/dL 11/03/19 11/03/19 Range/Units 07:07 09:06 WBC (3.8-10.6) k/uL RBC (4.30-5.90) m/uL Hgb (13.0-17.5) gm/dL Hct (39.0-53.0) % MCHC (31.0-37.0) g/dL Neutrophils # (1.3-7.7) k/uL Lymphocytes # (1.0-4.8) k/uL Sodium (137-145) mmol/L Chloride (98-107) mmol/L BUN (9-20) mg/dL Creatinine (0.66-1.25) mg/dL Glucose (74-99) mg/dL POC Glucose (mg/dL) 208 H 273 H (75-99) mg/dL Calcium (8.4-10.2) mg/dL Microbiology - Last 24 Hours (Table) 10/30/19 21:24 Blood Culture Gram Stain - Final Blood Blood Culture - Final Clostridium tertium Assessment and Plan Assessment: 1 Acute exacerbation of chronic obstructive pulmonary disease, complicated by purulent tracheobronchitis since has a left lower lobe pneumonia. 2 Morbid obesity 3 History of atrial fibrillation 4 Coronary artery disease 5 Diabetes mellitus 6 Hyperlipidemia 7 Hypertension 8 Diabetic retinopathy 9 Right kidney cancer status post nephrectomy 10 Benign prostatic hyperplasia 11 History of pleural effusion with previous thoracentesis Plan: The patient was seen and evaluated by Dr. Sutton He is improved from the pulmonary standpoint He is cleared for discharge Complete a prednisone taper Complete a course of antibiotics Follow-up in the office in 1-2 weeks' time I, the cosigning physician, performed a history & physical examination of the patient. Lungs sounds with faint end expiratory wheeze, crackles in the bases. Maintaining good O2 saturations in the 90s on 2 L/m per nasal cannula. I discussed the assessment and plan of care with my nurse practitioner, Keely Aguiar. I attest to the above note as dictated by her.
[2019-11-03 11:06] LABS: Glucose,Whole Blood 332 mg/dL (75-99)
[2019-11-03 11:44] LABS: Glucose,Whole Blood 373 mg/dL (75-99)
[2019-11-03] MEDS: INSULIN ASPART (NovoLOG) 100 UNIT/ML VIAL SQ SCH ×5 (12:34→20:45)
--- NOTE | 2019-11-03 12:54 | US ---
EXAMINATION TYPE: US venous doppler duplex LE LT DATE OF EXAM: 11/03/2019 11:59 AM COMPARISON: NONE CLINICAL HISTORY: R/O DVT. COPD exacerbation, atrial fibrillation, abnormal chest x-ray, shortness of breath, renal failure, congestive heart failure SIDE PERFORMED: Left TECHNIQUE: The lower extremity deep venous system is examined utilizing real time linear array sonog ambreen with graded compression, doppler sonography and color-flow sonography. VESSELS IMAGED: External Iliac Vein (EIV) Common Femoral Vein Deep Femoral Vein Greater Saphenous Vein * Femoral Vein Popliteal Vein Small Saphenous Vein * Proximal Calf Veins (* superficial vessels) There is normal flow, compressibility, vascular waveforms. Left Leg: Negative for DVT IMPRESSION: No evident deep venous thrombosis at or above the left knee
[2019-11-03] MEDS ORDERED: LACTULOSE 20 GM/30 ML CUP PO PRN (14:33)
[2019-11-03 16:46] LABS: Glucose,Whole Blood 517 mg/dL (75-99)
[2019-11-03 16:48] LABS: Glucose,Whole Blood 513 mg/dL (75-99)
--- NOTE | 2019-11-03 16:57 | P.PN ---
Subjective 84-year-old is being treated for hematuria which resolved at this time. Patient is off antiplatelet therapy all start him back on aspirin 81 mg patient had a CABG in 2019. Patient also has acute hypoxic respiratory failure although close association of pneumonia pneumonia cannot be completely ruled out because of which are patient was started on Augmentin by pulmonary. Patient is a not wheezing significantly because of which I'll cut down the systemic steroids to 40 twice a day patient is on IV insulin because of uncontrolled blood sugars most probably can switch him back to oral steroids with a quick taper. His hyponatremia improved at all the renal function did not improve much. Patient had anemia for 45-50% along with diastolic dysfunction. 11/02/2019 Patient was started back on aspirin as today no more hematuria. Patient was pretty status improved patient is on 2 L of oxygen at this time. Patient is quite weak will benefit from subacute rehabilitation will discuss that with the patient. Patient still has a renal stone for which patient will need lithotripsy down the line. Patient is feeling better no wheezing today. Discussed with the cardiothoracic surgery since patient is having hematuria, the regular with with just using aspirin 11/03/2019 Ringdown the oral Lasix patient also requirements have gone down patient is quite unstable in spite of for lengthy discussion and extensive counseling patient still doesn't want to go to subacute rehabilitation. Patient is presently on 2 L of oxygen. Patient doesn't have any hematuria. Patient Pedal edema is bit worse patient had a normal ejection fraction the past patient's serum creatinine continued to improve. Hyponatremia continued to improve. Although patient has differential swelling in the left and right leg because of which I'm obtaining a Doppler of the left lower extremity. She and is being resumed on long-acting and pre-meal insulin but increasing the long-acting from 30 units to 50 units pre-meal insulin from 15 units to 8 units along with sliding scale for systemic steroids Constitutional: Denied any fatigue denied any fever. Cardio vascular: denied any chest pain, palpitations Gastrointestinal denied any nausea vomiting Pulmonary: Denied any shortness of breath cough Neurologic denied any new focal deficits All inpatient medications were reviewed and appropriate changes in these medications as dictated in the interval history and assessment and plan. Objective - Vital Signs Vital signs: Vital Signs Temp 98 F 11/03/19 16:00 Pulse 66 11/03/19 16:00 Resp 16 11/03/19 16:00 BP 150/65 11/03/19 16:00 Pulse Ox 98 11/03/19 16:00 Intake & Output 11/02/19 11/03/19 11/03/19 18:59 06:59 18:59 Intake Total 516.826 522.868 503.819 Output Total 650 Balance 516.826 -127.132 503.819 Weight 104 kg Intake: Intake, IV Titration 54.826 72.868 23.819 Amount Insulin Regular 100 unit 54.826 72.868 23.819 In Sodium Chloride 0.9% 100 ml @ Titrate IV .Q0M [facility] Rx#:[id number] Oral 462 450 480 Output: Urine 650 Other: Voiding Method Toilet Toilet Toilet Urinal Urinal Urinal # Voids 2 1 1 # Bowel Movements 1 - Exam PHYSICAL EXAMINATION: GENERAL: The patient is alert and oriented x3, not in any acute distress. Obese HEENT: Pupils are round and equally reacting to light. EOMI. No scleral icterus. No conjunctival pallor. Normocephalic, atraumatic. No pharyngeal erythema. No thyromegaly. CARDIOVASCULAR: S1 and S2 present. No murmurs, rubs, or gallops. PULMONARY: Chest is clear to auscultation, no wheezing or crackles. ABDOMEN: Soft, nontender, nondistended, normoactive bowel sounds. No palpable organomegaly. MUSCULOSKELETAL: No joint swelling or deformity. EXTREMITIES: No cyanosis, clubbing, or pedal edema. NEUROLOGICAL: Gross neurological examination did not reveal any focal deficits. SKIN: No rashes. - Labs CBC & Chem 7: 11/03/19 06:43 11/03/19 06:43 Labs: Abnormal Lab Results - Last 24 Hours (Table) 11/02/19 11/02/19 11/02/19 Range/Units 16:52 17:45 17:45 WBC 13.4 H (3.8-10.6) k/uL RBC 3.41 L (4.30-5.90) m/uL Hgb 9.5 L (13.0-17.5) gm/dL Hct 30.8 L (39.0-53.0) % MCHC 30.9 L (31.0-37.0) g/dL Neutrophils # 11.9 H (1.3-7.7) k/uL Lymphocytes # 0.8 L (1.0-4.8) k/uL Sodium 131 L (137-145) mmol/L Chloride 96 L (98-107) mmol/L BUN 75 H (9-20) mg/dL Creatinine 1.72 H (0.66-1.25) mg/dL Glucose 222 H (74-99) mg/dL POC Glucose (mg/dL) 403 H (75-99) mg/dL Calcium (8.4-10.2) mg/dL 11/02/19 11/02/19 11/02/19 Range/Units 19:04 20:54 23:00 WBC (3.8-10.6) k/uL RBC (4.30-5.90) m/uL Hgb (13.0-17.5) gm/dL Hct (39.0-53.0) % MCHC (31.0-37.0) g/dL Neutrophils # (1.3-7.7) k/uL Lymphocytes # (1.0-4.8) k/uL Sodium (137-145) mmol/L Chloride (98-107) mmol/L BUN (9-20) mg/dL Creatinine (0.66-1.25) mg/dL Glucose (74-99) mg/dL POC Glucose (mg/dL) 302 H 375 H 343 H (75-99) mg/dL Calcium (8.4-10.2) mg/dL 11/03/19 11/03/19 11/03/19 Range/Units 01:35 03:30 05:02 WBC (3.8-10.6) k/uL RBC (4.30-5.90) m/uL Hgb (13.0-17.5) gm/dL Hct (39.0-53.0) % MCHC (31.0-37.0) g/dL Neutrophils # (1.3-7.7) k/uL Lymphocytes # (1.0-4.8) k/uL Sodium (137-145) mmol/L Chloride (98-107) mmol/L BUN (9-20) mg/dL Creatinine (0.66-1.25) mg/dL Glucose (74-99) mg/dL POC Glucose (mg/dL) 215 H 179 H 194 H (75-99) mg/dL Calcium (8.4-10.2) mg/dL 11/03/19 11/03/19 11/03/19 Range/Units 06:43 06:43 07:07 WBC 15.2 H (3.8-10.6) k/uL RBC 3.44 L (4.30-5.90) m/uL Hgb 9.9 L (13.0-17.5) gm/dL Hct 31.0 L (39.0-53.0) % MCHC (31.0-37.0) g/dL Neutrophils # (1.3-7.7) k/uL Lymphocytes # (1.0-4.8) k/uL Sodium 133 L (137-145) mmol/L Chloride (98-107) mmol/L BUN 73 H (9-20) mg/dL Creatinine 1.67 H (0.66-1.25) mg/dL Glucose 164 H (74-99) mg/dL POC Glucose (mg/dL) 208 H (75-99) mg/dL Calcium 8.3 L (8.4-10.2) mg/dL 11/03/19 11/03/19 11/03/19 Range/Units 09:06 11:05 11:43 WBC (3.8-10.6) k/uL RBC (4.30-5.90) m/uL Hgb (13.0-17.5) gm/dL Hct (39.0-53.0) % MCHC (31.0-37.0) g/dL Neutrophils # (1.3-7.7) k/uL Lymphocytes # (1.0-4.8) k/uL Sodium (137-145) mmol/L Chloride (98-107) mmol/L BUN (9-20) mg/dL Creatinine (0.66-1.25) mg/dL Glucose (74-99) mg/dL POC Glucose (mg/dL) 273 H 332 H 373 H (75-99) mg/dL Calcium (8.4-10.2) mg/dL 11/03/19 11/03/19 Range/Units 16:45 16:47 WBC (3.8-10.6) k/uL RBC (4.30-5.90) m/uL Hgb (13.0-17.5) gm/dL Hct (39.0-53.0) % MCHC (31.0-37.0) g/dL Neutrophils # (1.3-7.7) k/uL Lymphocytes # (1.0-4.8) k/uL Sodium (137-145) mmol/L Chloride (98-107) mmol/L BUN (9-20) mg/dL Creatinine (0.66-1.25) mg/dL Glucose (74-99) mg/dL POC Glucose (mg/dL) 517 H 513 H (75-99) mg/dL Calcium (8.4-10.2) mg/dL Microbiology - Last 24 Hours (Table) 10/30/19 21:24 Blood Culture Gram Stain - Final Blood Blood Culture - Final Clostridium tertium Assessment and Plan Plan: -Hematuria: Secondary to renal calculi, patient was started back on aspirin, which really resolved -Shortness of breath and acute hypoxic respiratory failure: Seconded to possible pneumonia and mild COPD exacerbation, improved now changing insulin drip to subcutaneous insulin -Congestive heart failure chronic systolic as well as diastolic dysfunction without any acute exacerbation because of hyponatremia holding of Lasix today. Due to hold Lasix patient started having pedal edema will use compression socks for that -Acute renal failure: Probably secondary to excessive diuresis and prerenal azotemia. Improved with Lasix is getting worse again repeat chest x-ray did not show any pulmonary edema -Chronic kidney disease stage III secondary to diabetic nephropathy -Type 2 diabetes mellitus uncontrolled elevated blood sugars continue with IV insulin drip cut down the systemic steroids -Hyponatremia hypovolemic hyponatremia holding of Lasix as mentioned above, improving now -Atrial fibrillation presently not on any anticoagulation history of recent CVA, patient will be started on aspirin as mentioned above -Elevated troponin I cannot completely rule out non-ST elevation myocardial infarction, cardiology will evaluate the patient -Leukocytosis most probably reactive secondary to nephrolithiasis rather than UTI or pneumonia -Coronary disease and CABG in the past -COPD with possibly of exacerbation of admission presently fairly good air entry into bilateral lung boo. -Hyperlipidemia -Hypertension I's and rule out DVT
[2019-11-03] MEDS: DULoxetine HCL 60 MG CAPSULE.DR PO SCH (19:47)
[2019-11-03] MEDS: ATORVASTATIN 80 MG TAB PO SCH (19:47)
[2019-11-03 20:33] LABS: Glucose,Whole Blood 531 mg/dL (75-99)
[2019-11-03] MEDS ORDERED: INSULIN DETEMIR (LEVEMIR) 100 UNIT/ML SYR SQ SCH (21:00)
[2019-11-03] MEDS: ACETAMINOPHEN TAB 325 MG TAB PO PRN ×2 (21:33)
[2019-11-03 22:11] LABS: Glucose,Whole Blood 505 mg/dL (75-99)
[2019-11-03] MEDS ORDERED: INSULIN ASPART (NovoLOG) 100 UNIT/ML VIAL SQ ONE (22:31)
[2019-11-03 23:34] LABS: Glucose,Whole Blood 412 mg/dL (75-99)
[2019-11-04 00:38] LABS: Glucose,Whole Blood 352 mg/dL (75-99)
[2019-11-04 07:01] LABS: Glucose,Whole Blood 159 mg/dL (75-99)
[2019-11-04] MEDS: INSULIN ASPART (NovoLOG) 100 UNIT/ML VIAL SQ SCH ×4 (07:05→12:52)
[2019-11-04 07:25] LABS: HCT 31.9 % (39.0-53.0); HGB 10.4 gm/dL (13.0-17.5); Hypochromasia Slight; MCH 29.2 pg (25.0-35.0); MCHC 32.7 g/dL (31.0-37.0); MCV 89.3 fL (80.0-100.0); Mean Platelet Volume 6.7; Platelet Count 290 k/uL (150-450); RBC 3.57 m/uL (4.30-5.90); WBC 15.8 k/uL (3.8-10.6)
[2019-11-04 07:40] LABS: Calcium 8.3 mg/dL (8.4-10.2); Potassium 4.9 mmol/L (3.5-5.1)
[2019-11-04] MEDS: FORMOTEROL FUMARATE 20 MCG/2 ML NEBU INHALATION SCH (07:47)
[2019-11-04] MEDS: BUDESONIDE 1 MG/2 ML NEBU INHALATION SCH (07:47)
[2019-11-04] MEDS: IPRATROPIUM-ALBUTEROL 3 ML NEB INHALATION SCH ×2 (07:47→11:08)
[2019-11-04] MEDS: METOPROLOL TARTRATE 50 MG TAB PO SCH (08:15)
[2019-11-04] MEDS: AMOXIC-POT CLAV 875-125MG 1 EACH TAB PO SCH (08:15)
[2019-11-04] MEDS: LISINOPRIL 2.5 MG TAB PO SCH (08:15)
[2019-11-04] MEDS: ISOSORBIDE MONONITRATE ER 30 MG TAB.ER.24H PO SCH (08:15)
[2019-11-04] MEDS: amLODIPine 5 MG TAB PO SCH (08:16)
[2019-11-04] MEDS: ASPIRIN 81 MG PO SCH (08:16)
[2019-11-04] MEDS: TAMSULOSIN 0.4 MG CAP.ER.24H PO SCH (08:16)
[2019-11-04 08:20] LABS: Glucose,Whole Blood 173 mg/dL (75-99)
[2019-11-04 08:24] VITALS: TEMP 97.6
[2019-11-04] MEDS ORDERED: predniSONE 20 MG TAB PO SCH (09:00)
[2019-11-04] MEDS: ACETAMINOPHEN TAB 325 MG TAB PO PRN (10:13)
[2019-11-04 11:34] VITALS: BMI 32.5
--- NOTE | 2019-11-04 11:46 | XR ---
EXAMINATION TYPE: XR chest 1V DATE OF EXAM: 11/04/2019 COMPARISON: Prior x-ray 11/02/2019 HISTORY: Congestive heart failure TECHNIQUE: Single frontal view of the chest is obtained. FINDINGS: There is no pleural effusion or pneumothorax seen. Difficult to exclude some minimal subse gmental basilar atelectatic change in the retrocardiac region. There is improved aeration at the lung bases. Aorta is dense. Patient is post median sternotomy. Postop change the right shoulder is stable . There are overlying cardiac leads. The cardiac silhouette size is stable, borderline enlarged. T he osseous structures are intact. IMPRESSION: Improvement in aeration.
[2019-11-04 12:36] VITALS: BP 153/80; PULSE 94; RESP 20
[2019-11-04 12:40] LABS: Glucose,Whole Blood 237 mg/dL (75-99)
--- NOTE | 2019-11-04 13:04 | PN ---
PROGRESS NOTE PULMONARY/CRITICAL CARE PROGRESS NOTE: DATE OF SERVICE: 11/04/2019 This is an 84-year-old gentleman who we saw for shortness of breath. The patient's shortness of breath was likely related to underlying COPD exacerbation, complicated by purulent tracheobronchitis and possible left lower lobe pneumonia. His most recent chest x-ray shows significant improvement in aeration. In addition to the above, the patient suffers from atrial fibrillation, obesity, CAD, diabetes, hyperlipidemia, hypertension, diabetic retinopathy, right kidney cancer, status post nephrectomy, BPH, and pleural effusion from previous thoracentesis. Currently, the patient has no particular lung complaints. He is not coughing up any phlegm or blood. There is no fever or chills. There is no chest pain or chest discomfort. Current vital signs include a temperature of 97.6, heart rate 60, respiratory rate 18, blood pressure 155/70, mean 98, 2 L saturation 97%. Appears in no acute distress. There is no audible wheezing, use of accessory muscles, or conversational dyspnea. HEENT: Examination is grossly unremarkable. Nasal O2 in place. NECK: Supple, full range of motion. No adenopathy. Neck veins are flat. CARDIOVASCULAR: Examination reveals regular rhythm and rate. Heart sounds are distant. Heart rate 60. It is regular. S1, S2 normal. There may be a soft systolic murmur. LUNGS: Reveal mostly clear breath sounds. No wheezes, rhonchi, or crackles. Breath sounds equal bilaterally. ABDOMEN: Soft, but obese. Bowel sounds are noted. EXTREMITIES: Intact. No edema noted. No cyanosis or clubbing. SKIN: Without rash. NEUROLOGIC: Examination is brief but nonfocal. LABORATORY DATA: Includes a white count 15.8, hemoglobin 10.4, hematocrit 31.9, platelet count 290,000, sodium 133, potassium 4.9, chloride 101, CO2 is 27, anion gap is 5. BUN and creatinine were 66 and 1.54. The rest of the labs are reviewed. Microbiologic studies show the blood cultures to be positive for Clostridium species. Current medications are reviewed. ASSESSMENT: 1. Acute exacerbation of chronic obstructive pulmonary disease, complicated by purulent tracheobronchitis and possible left lower lobe pneumonia, much improved clinically and radiographically. 2. Morbid obesity. 3. History of atrial fibrillation, currently stable. 4. Coronary artery disease. 5. Diabetes mellitus. 6. Hyperlipidemia. 7. Hypertension. 8. Diabetic retinopathy. 9. Right kidney cancer, status post nephrectomy. 10.Benign prostatic hypertrophy. 11.History of pleural effusion with previous thoracentesis. PLAN: The patient is doing well. His chest x-ray is much improved. Clinically, he is much improved. The patient is currently on Augmentin. Will continue to follow. The patient is cleared for discharge from a pulmonary standpoint, although there may be other reasons keeping him here in the hospital. No additional recommendations are made. Please complete course of antibiotics. Follow up in our office in 1-2 week's time. MMODL / IJN: [id number] /
--- NOTE | 2019-11-04 15:07 | P.DS ---
Providers Date of admission: 10/30/19 23:04 Expected date of discharge: 11/04/19 Attending physician: Cynthia Mitchell Consults: 10/30/19 22:54 Consult Physician Urgent Consulting Provider: Alicia Dee Consult Reason/Comments: NIVDRF Do you want consulting provider notified?: Yes 10/30/19 23:04 Consult Physician Urgent Consulting Provider: Antonio España Consult Reason/Comments: gross hematuria Do you want consulting provider notified?: Yes, Notify in am Primary care physician: Yanet Lee [place] [facility] Course: Final diagnosis -Hematuria: Secondary to renal calculi, patient was started back on aspirin, which really resolved -Shortness of breath and acute hypoxic respiratory failure: Secondary to possible pneumonia and mild COPD exacerbation, improved now changing insulin drip to subcutaneous insulin -Congestive heart failure chronic systolic as well as diastolic dysfunction without any acute exacerbation -Acute renal failure: Probably secondary to excessive diuresis and prerenal azotemia. -Chronic kidney disease stage III secondary to diabetic nephropathy -Type 2 diabetes mellitus uncontrolled elevated blood sugars -Hyponatremia hypovolemic hyponatremia -Atrial fibrillation presently not on any anticoagulation history of recent CVA -Elevated troponin I cannot completely rule out non-ST elevation myocardial infarction -Leukocytosis most probably reactive secondary to nephrolithiasis rather than UTI or pneumonia -Coronary disease and CABG in the past -COPD with possibly of exacerbation, present on admission -Hyperlipidemia -Hypertension -DVT of the left lower extremity ruled out Discharge disposition Patient is being discharged in a stable condition with guarded prognosis to home. Patient will continue with home care in the outpatient setting. Patient will follow-up with Dr. Dr. Yanet Lee as well as pulmonary in the outpatient setting upon discharge. Patient will continue with Augmentin to complete the course and also a short prednisone taper. Total time taken is greater than 35 minutes. History of present illness This is a 84-year-old male who was recently admitted with hematuria and also acute hypoxic respiratory failure with the possibility of pneumonia and was being closely monitored. Patient was also found to have significantly uncontrolled blood sugars requiring insulin drip. Medication adjustments have been made to insulins and patient instructed to continue monitoring blood sugar before meals at bedtime and keep a diary for primary care follow-up. Patient will continue with 45 units of long-acting along with 15 units with meals 3 times daily and monitor closely. Patient may titrate long-acting down to 40 units daily after steroids have been completed. Patient will be continued on a short prednisone taper along with inhalers for the outpatient setting. Patient instructed to follow-up with primary care provider along with pulmonary as discussed and scheduled. Patient was seen and evaluated by physical therapy recommending subacute rehab although family and patient refusing at this time but are agrees to home care and arrangements have been made for this. Patient also instructed to continue with compression stockings and no diuretic therapy at this time. Patient will also continue on a short course of oral Augmentin twice daily for the next 5 days to complete the course. Patient should follow- up with primary care provider also for repeat labs to monitor kidney functions and electrolytes. Patient also needs to discuss with primary care provider about continuing lisinopril and increasing the dose and eventually discontinuing amlodipine. Patient is a high risk for readmission and will be discharged with a guarded prognosis. Currently no reports of chest pain, worsening shortness of breath, or palpitations. Patient is afebrile. No reports of nausea or vomiting and patient is tolerating diet. On exam vital signs are stable. Temp is 97.6F, pulse is 94, respirations are 20, blood pressure is 153/80, oxygen saturation is 94% on room air. Cardio S1, S2 are muffled. Respiratory system shows diminished breath sounds at the bases no wheezing or rhonchi noted. Abdomen is soft and nontender. Nervous system shows no focal deficits. Please refer to medication reconciliation sheet for a list of medications. Patient Condition at Discharge: Stable Plan - Discharge Summary Discharge Rx Participant: No New Discharge Prescriptions: New Aspirin 81 mg PO DAILY chew Amoxic-Pot Clav 875-125Mg [Augmentin 875-125] 1 each PO Q12HR 5 Days #5 tab predniSONE 10 mg PO DIRECTED 4 Days #6 tab Budesonide-Formot 160-4.5 Mcg [Symbicort 160-4.5 Mcg Inhaler] 2 puff INHALATION BID 30 Days #1 inhaler Albuterol Inhaler [Ventolin Hfa Inhaler] 2 puff INHALATION RT-QID 30 Days #1 puff Continue DULoxetine HCL [Cymbalta] 60 mg PO HS Tamsulosin [Flomax] 0.4 mg PO DAILY #30 cap.er.24h Ascorbic Acid [Vitamin C] 500 mg PO DAILY amLODIPine [Norvasc] 5 mg PO DAILY #30 tab Isosorbide Mononitrate ER [Imdur] 30 mg PO DAILY #30 tab.er.24h Nitroglycerin Sl Tabs [Nitrostat] 0.4 mg SUBLINGUAL Q5M PRN #100 tab PRN Reason: Chest Pain Lisinopril [Zestril] 2.5 mg PO DAILY Multivitamin with Iron [Multivitamins with Iron] 1 tab PO HS INSULIN ASPART (NovoLOG) [NovoLOG (formulary)] 15 unit SQ AC-BID@1200,1800 INSULIN ASPART (NovoLOG) [NovoLOG (formulary)] 30 unit SQ AC-BRKFST LORazepam [Ativan] 0.5 mg PO Q48H #1 tab Atorvastatin [Lipitor] 80 mg PO HS tab Ferrous Sulfate [Iron (65 MG Elemental)] 325 mg PO DAILY Metoprolol Tartrate [Lopressor] 50 mg PO BID Changed Insulin Glargine [Lantus] 50 unit SQ HS #0 Discontinued Furosemide [Lasix] 40 mg PO DAILY tab Clopidogrel [Plavix] 75 mg PO DAILY tab Aspirin 81 mg PO Q48H Discharge Medication List DULoxetine HCL [Cymbalta] 60 mg PO HS 11/08/13 [History] Tamsulosin [Flomax] 0.4 mg PO DAILY #30 cap.er.24h 03/04/14 [Rx] Ascorbic Acid [Vitamin C] 500 mg PO DAILY 05/07/18 [History] Isosorbide Mononitrate ER [Imdur] 30 mg PO DAILY #30 tab.er.24h 05/11/18 [Rx] Nitroglycerin Sl Tabs [Nitrostat] 0.4 mg SUBLINGUAL Q5M PRN #100 tab 05/11/18 [Rx] amLODIPine [Norvasc] 5 mg PO DAILY #30 tab 05/11/18 [Rx] INSULIN ASPART (NovoLOG) [NovoLOG (formulary)] 15 unit SQ AC-BID@1200,1800 06/03/19 [History] INSULIN ASPART (NovoLOG) [NovoLOG (formulary)] 30 unit SQ AC-BRKFST 06/03/19 [History] Lisinopril [Zestril] 2.5 mg PO DAILY 06/03/19 [History] Multivitamin with Iron [Multivitamins with Iron] 1 tab PO HS 06/03/19 [History] Atorvastatin [Lipitor] 80 mg PO HS tab 06/07/19 [Rx] LORazepam [Ativan] 0.5 mg PO Q48H #1 tab 06/07/19 [Rx] Ferrous Sulfate [Iron (65 MG Elemental)] 325 mg PO DAILY 10/28/19 [History] Metoprolol Tartrate [Lopressor] 50 mg PO BID 10/28/19 [History] Albuterol Inhaler [Ventolin Hfa Inhaler] 2 puff INHALATION RT-QID 30 Days #1 puff 11/04/19 [Rx] Amoxic-Pot Clav 875-125Mg [Augmentin 875-125] 1 each PO Q12HR 5 Days #5 tab 11/04/19 [Rx] Aspirin 81 mg PO DAILY chew 11/04/19 [Rx] Budesonide-Formot 160-4.5 Mcg [Symbicort 160-4.5 Mcg Inhaler] 2 puff INHALATION BID 30 Days #1 inhaler 11/04/19 [Rx] Insulin Glargine [Lantus] 50 unit SQ HS #0 11/04/19 [Rx] predniSONE 10 mg PO DIRECTED 4 Days #6 tab 11/04/19 [Rx] Follow up Appointment(s)/Referral(s): Yanet Lee MD [Primary Care Provider] - 11/09/19 8:00 am Keely Aguiar NPC [Nurse Practitioner] - 11/11/19 2:30 pm [facility], [NON-STAFF] - Patient Instructions/Handouts: Acute Kidney Injury (GEN), COPD (Chronic Obstructive Pulmonary Disease) (GEN) Activity/Diet/Wound Care/Special Instructions: [facility] [phone] Ext [id number] Activity Limited until follow-up Follow-up with primary care provider upon discharge Continue with antibiotics for 5 days then may discontinue Continue with a short prednisone taper Continue with inhalers Discussed with primary care provider about increasing lisinopril and discontinuing Norvasc Continue to use compression stockings and elevate lower extremities while at rest Continue monitoring blood sugars before meals at bedtime and keep a diary for primary care follow-up Watch and monitor for elevated blood sugars while taking steroids Continue with home care Discharge Disposition: HOME WITH HOME HEALTH SERVICES
== END 2019-11-04 14:40 | disposition home health service (06) | DRG 190 ==
LOC: EC 21:02 → 3SCARD 23:04
PROVIDERS: ADMIT Hospitalist; ATTEND Hospitalist
PROC: 5A09357 Assistance with Respiratory Ventilation, Less than 24 Consecutive Hours, Continuous Positive Airway Pressure (ICD-10-PCS; principal; 2019-10-30)
DX: J44.1 Chronic obstructive pulmonary disease with (acute) exacerbation (principal); J18.9 Pneumonia, unspecified organism; J96.01 Acute respiratory failure with hypoxia; I21.4 Non-ST elevation (NSTEMI) myocardial infarction; E87.1 Hypo-osmolality and hyponatremia; I13.0 Hypertensive heart and chronic kidney disease with heart failure and stage 1 through stage 4 chronic kidney disease, or unspecified chronic kidney disease; I50.42 Chronic combined systolic (congestive) and diastolic (congestive) heart failure; N17.9 Acute kidney failure, unspecified; J98.11 Atelectasis; J44.0 Chronic obstructive pulmonary disease with (acute) lower respiratory infection; D63.1 Anemia in chronic kidney disease; E11.319 Type 2 diabetes mellitus with unspecified diabetic retinopathy without macular edema; E11.22 Type 2 diabetes mellitus with diabetic chronic kidney disease; Z20.828 Contact with and (suspected) exposure to other viral communicable diseases; I48.91 Unspecified atrial fibrillation; N20.0 Calculus of kidney; E11.65 Type 2 diabetes mellitus with hyperglycemia; E66.01 Morbid (severe) obesity due to excess calories; N18.3 Chronic kidney disease, stage 3 (moderate); E78.5 Hyperlipidemia, unspecified; E86.1 Hypovolemia; F32.9 Major depressive disorder, single episode, unspecified; F41.9 Anxiety disorder, unspecified; H54.7 Unspecified visual loss; I25.10 Atherosclerotic heart disease of native coronary artery without angina pectoris; I25.2 Old myocardial infarction; I34.0 Nonrheumatic mitral (valve) insufficiency; N28.1 Cyst of kidney, acquired; N40.0 Benign prostatic hyperplasia without lower urinary tract symptoms; R31.0 Gross hematuria; T50.2X5A Adverse effect of carbonic-anhydrase inhibitors, benzothiadiazides and other diuretics, initial encounter; G47.30 Sleep apnea, unspecified; D72.829 Elevated white blood cell count, unspecified; Z79.02 Long term (current) use of antithrombotics/antiplatelets; Z79.4 Long term (current) use of insulin; Z79.899 Other long term (current) drug therapy; Z95.1 Presence of aortocoronary bypass graft; Z90.5 Acquired absence of kidney; Z90.49 Acquired absence of other specified parts of digestive tract; Z87.891 Personal history of nicotine dependence; Z85.528 Personal history of other malignant neoplasm of kidney; Z87.442 Personal history of urinary calculi; Z95.5 Presence of coronary angioplasty implant and graft; Z90.79 Acquired absence of other genital organ(s); Z98.42 Cataract extraction status, left eye; Z98.41 Cataract extraction status, right eye; Z68.32 Body mass index [BMI] 32.0-32.9, adult; Z99.81 Dependence on supplemental oxygen; Z88.5 Allergy status to narcotic agent; Z80.0 Family history of malignant neoplasm of digestive organs; Z82.49 Family history of ischemic heart disease and other diseases of the circulatory system
CPT/HCPCS: 36415; 71045; 80048; 80053; 82803; 83605; 83735; 83880; 84484; 85025; 85027; 85610; 85730; 87040; 93005; 94640; 94660; 94760; 96365; 96367; 96375; 99285

== ENCOUNTER 2019-11-11 12:09 | Inpatient (IN) | payer MEDICARE ==
[2019-11-11] MEDS ORDERED: SODIUM CHLORIDE 0.9% 1,000 ML IV STA (12:59)
--- NOTE | 2019-11-11 13:03 | ED ---
General Adult HPI - General Chief complaint: Neuro Symptoms/Deficit Stated complaint: weakness Time Seen by Provider: 11/11/19 12:13 Source: patient, family, EMS, RN notes reviewed Mode of arrival: EMS Limitations: no limitations - History of Present Illness Initial comments: Patient is a pleasant 84-year-old male presenting to the emergency Department with complaints of generalized weakness. Onset of symptoms was a day or 2 ago. Symptoms worsened today. Patient was able to use the restroom without difficulty this morning however not prior to arrival. Patient feels generally weak all over. No isolated area of weakness. Patient feels slightly confused, described as taking longer to processes thoughts. Patient states he is able to answer things appropriately however does take some lower longer. No cough. Patient did have recent pneumonia diagnosed and discharged from the hospital just one week ago. No abdominal pain or urinary symptoms. - Related Data Home Medications Medication Instructions Recorded Confirmed DULoxetine HCL [Cymbalta] 60 mg PO HS 11/08/13 11/11/19 Ascorbic Acid [Vitamin C] 500 mg PO DAILY 05/07/18 11/11/19 INSULIN ASPART (NovoLOG) [NovoLOG 15 unit SQ AC-BID@1200,1800 06/03/19 11/11/19 (formulary)] INSULIN ASPART (NovoLOG) [NovoLOG 30 unit SQ AC-BRKFST 06/03/19 11/11/19 (formulary)] Lisinopril [Zestril] 2.5 mg PO DAILY 06/03/19 11/11/19 Multivitamin with Iron 1 tab PO HS 06/03/19 11/11/19 [Multivitamins with Iron] Ferrous Sulfate [Iron (65 MG 325 mg PO DAILY 10/28/19 11/11/19 Elemental)] Metoprolol Tartrate [Lopressor] 50 mg PO BID 10/28/19 11/11/19 Acetaminophen [Tylenol] 325 mg PO Q6H PRN 11/11/19 11/11/19 Budesonide-Formot 160-4.5 Mcg 2 puff INHALATION RT-BID 11/11/19 11/11/19 [Symbicort 160-4.5 Mcg Inhaler] Furosemide [Lasix] 40 mg PO DAILY 11/11/19 11/11/19 HYDROcodone/APAP 5-325MG [[place] 1 - 2 tab PO Q4H PRN MDD 6 TABS 11/11/19 11/11/19 5-325] LORazepam [Ativan] 0.5 mg PO DAILY 11/11/19 11/11/19 Previous Rx's Medication Instructions Recorded Tamsulosin [Flomax] 0.4 mg PO DAILY #30 cap.er.24h 03/04/14 Isosorbide Mononitrate ER [Imdur] 30 mg PO DAILY #30 tab.er.24h 05/11/18 Nitroglycerin Sl Tabs [Nitrostat] 0.4 mg SUBLINGUAL Q5M PRN #100 tab 05/11/18 amLODIPine [Norvasc] 5 mg PO DAILY #30 tab 05/11/18 Atorvastatin [Lipitor] 80 mg PO HS tab 06/07/19 Albuterol Inhaler [Ventolin Hfa 2 puff INHALATION RT-QID 30 Days 11/04/19 Inhaler] #1 puff Insulin Glargine [Lantus] 50 unit SQ HS #0 11/04/19 Allergies Allergy/AdvReac Type Severity Reaction Status Date / Time morphine AdvReac Hallucinati Verified 11/11/19 12:52 ons Review of Systems ROS Statement: Those systems with pertinent positive or pertinent negative responses have been documented in the HPI. ROS Other: All systems not noted in ROS Statement are negative. Constitutional: Denies: fever Eyes: Denies: eye pain ENT: Denies: ear pain Respiratory: Denies: cough, dyspnea Cardiovascular: Denies: chest pain Endocrine: Reports: fatigue Gastrointestinal: Denies: abdominal pain Genitourinary: Denies: dysuria Musculoskeletal: Denies: back pain Skin: Denies: rash Neurological: Reports: as per HPI, weakness. Denies: headache Past Medical History Past Medical History: Atrial Fibrillation, Coronary Artery Disease (CAD), Cancer, Chest Pain / Angina, COPD, Diabetes Mellitus, Eye Disorder, GI Bleed, Hyperlipidemia, Hypertension, Myocardial Infarction ([place]) Additional Past Medical History / Comment(s): DIABETIC RETINOPATHY-VISON POOR. CA OF RIGHT KIDNEY, RIGHT NECK, FACE. OLD HX OF ETOH, BPH, pleural effusions x2 since cabg with thoracentesis, pulmonary edema, anemia Last Myocardial Infarction Date:: UNKNOWN History of Any Multi-Drug Resistant Organisms: None Reported Past Surgical History: Bladder Surgery, Cholecystectomy, Coronary Bypass/CABG, Heart Catheterization With Stent, Orthopedic Surgery, Prostate Surgery, Tonsillectomy Additional Past Surgical History / Comment(s): CATARACTS. PARTIAL RIGHT NEPHRECTOMY (2010). RIGHT SHOULDER. TURP. Open heart surgery 3 vessel 02/23/14 Past Anesthesia/Blood Transfusion Reactions: No Reported Reaction Date of Last Stent Placement:: 2007 Past Psychological History: Anxiety, Depression Past Alcohol Use History: None Reported Past Drug Use History: None Reported - Past Family History Father Additional Family Medical History / Comment(s): at age 77- cancer(colon) Mother Family Medical History: Cancer, Myocardial Infarction ([place]) Additional Family Medical History / Comment(s): mom at age 85 from old age, hx colon ca and open heart General Exam Limitations: no limitations General appearance: alert, in no apparent distress Head exam: Present: normocephalic Eye exam: Present: normal appearance, PERRL, EOMI ENT exam: Present: normal oropharynx Neck exam: Present: normal inspection Respiratory exam: Present: decreased breath sounds Cardiovascular Exam: Present: regular rate, normal rhythm GI/Abdominal exam: Present: soft. Absent: tenderness Extremities exam: Present: normal inspection. Absent: pedal edema, calf tenderness Neurological exam: Present: alert, oriented X3, CN II-XII intact. Absent: motor sensory deficit Expanded Neurological exam: Present: protecting the airway Patient oriented to: Present: person, place, time Speech: Present: fluid speech Cranial nerves: EOM's Intact: Normal Motor strength exam: RUE: 5, LUE: 5, RLE: 5, LLE: 5 Eye Response: (4) open spontaneously Motor Response: (6) obeys commands Verbal Response: (5) oriented Psychiatric exam: Present: normal affect, normal mood Skin exam: Present: normal color Course Vital Signs 11/11/19 11/11/19 11/11/19 12:16 12:33 13:39 Temperature 99.3 F 99.1 F Pulse Rate 78 67 66 Respiratory 18 17 18 Rate Blood Pressure 82/41 92/39 113/53 O2 Sat by Pulse 99 100 98 Oximetry EKG Findings - EKG Comments: EKG Findings:: Sinus rhythm with a rate of 69. For screening AV block AL of 288. QRS 164. QT 464. QTC 497. Left axis. Right bundle branch block. Left anterior fascicular block. No acute ST change. Medical Decision Making - Medical Decision Making Patient reevaluated. Blood pressures improving. Patient and family updated. Case was discussed in detail with Dr. Us who is familiar with this patient and will admit. - Lab Data Result diagrams: 11/11/19 12:20 11/11/19 13:02 Lab Results 11/11/19 11/11/19 11/11/19 Range/Units 12:20 13:02 13:02 WBC 16.5 H (3.8-10.6) k/uL RBC 3.04 L (4.30-5.90) m/uL Hgb 8.7 L D (13.0-17.5) gm/dL Hct 27.1 L (39.0-53.0) % MCV 89.1 (80.0-100.0) fL MCH 28.6 (25.0-35.0) pg MCHC 32.1 (31.0-37.0) g/dL RDW 15.1 (11.5-15.5) % Plt Count 227 (150-450) k/uL Neutrophils % 87 % Lymphocytes % 7 % Monocytes % 5 % Eosinophils % 0 % Basophils % 0 % Neutrophils # 14.3 H (1.3-7.7) k/uL Lymphocytes # 1.1 (1.0-4.8) k/uL Monocytes # 0.9 (0-1.0) k/uL Eosinophils # 0.0 (0-0.7) k/uL Basophils # 0.0 (0-0.2) k/uL Hypochromasia Moderate PT 10.2 (9.0-12.0) sec INR 1.0 (<1.2) APTT 25.8 (22.0-30.0) sec Sodium 131 L (137-145) mmol/L Potassium 4.6 (3.5-5.1) mmol/L Chloride 95 L (98-107) mmol/L Carbon Dioxide 31 H (22-30) mmol/L Anion Gap 5 mmol/L BUN 38 H (9-20) mg/dL Creatinine 1.82 H (0.66-1.25) mg/dL Est GFR (CKD-EPI)AfAm 39 (>60 ml/min/1.73 sqM) Est GFR (CKD-EPI)NonAf 33 (>60 ml/min/1.73 sqM) Glucose 152 H (74-99) mg/dL POC Glucose (mg/dL) (75-99) mg/dL POC Glu Data Warehouse Analyst ID Plasma Lactic Acid Epifanio (0.7-2.0) mmol/L Calcium 8.1 L (8.4-10.2) mg/dL Phosphorus 4.4 (2.5-4.5) mg/dL Magnesium 2.2 (1.6-2.3) mg/dL Total Bilirubin 0.5 (0.2-1.3) mg/dL AST 25 (17-59) U/L ALT 12 (4-49) U/L Alkaline Phosphatase 73 (38-126) U/L Troponin I (0.000-0.034) ng/mL Total Protein 4.8 L (6.3-8.2) g/dL Albumin 2.5 L (3.5-5.0) g/dL TSH 3.330 (0.465-4.680) mIU/L Urine Color Urine Appearance (Clear) Urine pH (5.0-8.0) Ur Specific [place] (1.001-1.035) Urine Protein (Negative) Urine Glucose (UA) (Negative) Urine Ketones (Negative) Urine Blood (Negative) Urine Nitrite (Negative) Urine Bilirubin (Negative) Urine Urobilinogen (<2.0) mg/dL Ur Leukocyte Esterase (Negative) Urine RBC (0-5) /hpf Urine WBC (0-5) /hpf Ur Squamous Epith Cells (0-4) /hpf Amorphous Sediment (None) /hpf Hyaline Casts (0-2) /lpf Urine Mucus (None) /hpf 11/11/19 11/11/19 11/11/19 Range/Units 13:02 13:02 13:09 WBC (3.8-10.6) k/uL RBC (4.30-5.90) m/uL Hgb (13.0-17.5) gm/dL Hct (39.0-53.0) % MCV (80.0-100.0) fL MCH (25.0-35.0) pg MCHC (31.0-37.0) g/dL RDW (11.5-15.5) % Plt Count (150-450) k/uL Neutrophils % % Lymphocytes % % Monocytes % % Eosinophils % % Basophils % % Neutrophils # (1.3-7.7) k/uL Lymphocytes # (1.0-4.8) k/uL Monocytes # (0-1.0) k/uL Eosinophils # (0-0.7) k/uL Basophils # (0-0.2) k/uL Hypochromasia PT (9.0-12.0) sec INR (<1.2) APTT (22.0-30.0) sec Sodium (137-145) mmol/L Potassium (3.5-5.1) mmol/L Chloride (98-107) mmol/L Carbon Dioxide (22-30) mmol/L Anion Gap mmol/L BUN (9-20) mg/dL Creatinine (0.66-1.25) mg/dL Est GFR (CKD-EPI)AfAm (>60 ml/min/1.73 sqM) Est GFR (CKD-EPI)NonAf (>60 ml/min/1.73 sqM) Glucose (74-99) mg/dL POC Glucose (mg/dL) 199 H (75-99) mg/dL POC Glu Data Warehouse Analyst ID Sv[place], II, Cam Plasma Lactic Acid Epifanio 1.4 (0.7-2.0) mmol/L Calcium (8.4-10.2) mg/dL Phosphorus (2.5-4.5) mg/dL Magnesium (1.6-2.3) mg/dL Total Bilirubin (0.2-1.3) mg/dL AST (17-59) U/L ALT (4-49) U/L Alkaline Phosphatase (38-126) U/L Troponin I 0.020 (0.000-0.034) ng/mL Total Protein (6.3-8.2) g/dL Albumin (3.5-5.0) g/dL TSH (0.465-4.680) mIU/L Urine Color Urine Appearance (Clear) Urine pH (5.0-8.0) Ur Specific [place] (1.001-1.035) Urine Protein (Negative) Urine Glucose (UA) (Negative) Urine Ketones (Negative) Urine Blood (Negative) Urine Nitrite (Negative) Urine Bilirubin (Negative) Urine Urobilinogen (<2.0) mg/dL Ur Leukocyte Esterase (Negative) Urine RBC (0-5) /hpf Urine WBC (0-5) /hpf Ur Squamous Epith Cells (0-4) /hpf Amorphous Sediment (None) /hpf Hyaline Casts (0-2) /lpf Urine Mucus (None) /hpf 11/11/19 Range/Units 14:39 WBC (3.8-10.6) k/uL RBC (4.30-5.90) m/uL Hgb (13.0-17.5) gm/dL Hct (39.0-53.0) % MCV (80.0-100.0) fL MCH (25.0-35.0) pg MCHC (31.0-37.0) g/dL RDW (11.5-15.5) % Plt Count (150-450) k/uL Neutrophils % % Lymphocytes % % Monocytes % % Eosinophils % % Basophils % % Neutrophils # (1.3-7.7) k/uL Lymphocytes # (1.0-4.8) k/uL Monocytes # (0-1.0) k/uL Eosinophils # (0-0.7) k/uL Basophils # (0-0.2) k/uL Hypochromasia PT (9.0-12.0) sec INR (<1.2) APTT (22.0-30.0) sec Sodium (137-145) mmol/L Potassium (3.5-5.1) mmol/L Chloride (98-107) mmol/L Carbon Dioxide (22-30) mmol/L Anion Gap mmol/L BUN (9-20) mg/dL Creatinine (0.66-1.25) mg/dL Est GFR (CKD-EPI)AfAm (>60 ml/min/1.73 sqM) Est GFR (CKD-EPI)NonAf (>60 ml/min/1.73 sqM) Glucose (74-99) mg/dL POC Glucose (mg/dL) (75-99) mg/dL POC Glu Data Warehouse Analyst ID Plasma Lactic Acid Epifanio (0.7-2.0) mmol/L Calcium (8.4-10.2) mg/dL Phosphorus (2.5-4.5) mg/dL Magnesium (1.6-2.3) mg/dL Total Bilirubin (0.2-1.3) mg/dL AST (17-59) U/L ALT (4-49) U/L Alkaline Phosphatase (38-126) U/L Troponin I (0.000-0.034) ng/mL Total Protein (6.3-8.2) g/dL Albumin (3.5-5.0) g/dL TSH (0.465-4.680) mIU/L Urine Color Yellow Urine Appearance Clear (Clear) Urine pH 6.0 (5.0-8.0) Ur Specific [place] 1.019 (1.001-1.035) Urine Protein Trace H (Negative) Urine Glucose (UA) Negative (Negative) Urine Ketones Negative (Negative) Urine Blood Moderate H (Negative) Urine Nitrite Negative (Negative) Urine Bilirubin Negative (Negative) Urine Urobilinogen <2.0 (<2.0) mg/dL Ur Leukocyte Esterase Negative (Negative) Urine RBC 108 H (0-5) /hpf Urine WBC 3 (0-5) /hpf Ur Squamous Epith Cells <1 (0-4) /hpf Amorphous Sediment Rare H (None) /hpf Hyaline Casts 48 H (0-2) /lpf Urine Mucus Rare H (None) /hpf - Radiology Data Radiology results: image reviewed (Chest x-ray shows cardiomegaly. Small effusions with mild pulmonary venous engorgement. No evidence for overt heart failure.) Disposition Clinical Impression: Dehydration, Hypotension Disposition: ADMITTED IP TO THIS HOSP Is patient prescribed a controlled substance at d/c from ED?: No Referrals: Yanet Lee MD [Primary Care Provider] - 1-2 days Decision Time: 15:30
[2019-11-11 13:11] LABS: Glucose,Whole Blood 199 mg/dL (75-99)
--- NOTE | 2019-11-11 13:27 | XR ---
EXAMINATION TYPE: XR chest 2V DATE OF EXAM: 11/11/2019 HISTORY: Shortness of breath. COMPARISON: 11/04/2019 TECHNIQUE: Single view of the chest is submitted. FINDINGS: Demonstrated are scattered senescent parenchymal change. Continued cardiomegaly. Small pleural effusions with mild pulmonary venous engorgement. No evidence f or overt failure at this time. Hilar and mediastinal structures are within normal limits. Degenerative changes are seen of the dorsal spine. IMPRESSION: 1. Continued cardiomegaly. Small pleural effusions with mild pulmonary venous engorgement. No eviden ce for overt failure at this time.
[2019-11-11 13:39] LABS: Basophils % (A) 0 %; Eosinophils % (A) 0 %; HCT 27.1 % (39.0-53.0); Hypochromasia Moderate; Lymphocytes # (A) 1.1 k/uL (1.0-4.8); Lymphocytes % (A) 7 %; MCH 28.6 pg (25.0-35.0); MCHC 32.1 g/dL (31.0-37.0); MCV 89.1 fL (80.0-100.0); Mean Platelet Volume 6.7; Monocytes # (A) 0.9 k/uL (0-1.0); Monocytes % (A) 5 %; Neutrophils # (A) 14.3 k/uL (1.3-7.7); Neutrophils % (A) 87 %; Platelet Count 227 k/uL (150-450); RBC 3.04 m/uL (4.30-5.90); RDW 15.1 % (11.5-15.5); WBC 16.5 k/uL (3.8-10.6)
[2019-11-11 13:42] LABS: Albumin 2.5 g/dL (3.5-5.0); Calcium 8.1 mg/dL (8.4-10.2); Magnesium 2.2 mg/dL (1.6-2.3); Phosphorus 4.4 mg/dL (2.5-4.5); Potassium 4.6 mmol/L (3.5-5.1); Total Bilirubin 0.5 mg/dL (0.2-1.3); Total Protein 4.8 g/dL (6.3-8.2)
[2019-11-11 13:43] LABS: Partial Thromboplastin Time 25.8 sec (22.0-30.0); Prothrombin Time 10.2 sec (9.0-12.0)
[2019-11-11 13:54] LABS: HGB 8.7 gm/dL (13.0-17.5)
[2019-11-11 15:08] LABS: Amorphous Sediment,Urine Rare /hpf; Appearance,Urine Clear (Clear); Bilirubin,Urine Negative (Negative); Blood,Urine Moderate (Negative); Color,Urine Yellow; Glucose,Urine (UA) Negative (Negative); Hyaline Casts,Urine 48 /lpf (0-2); Ketones,Urine Negative (Negative); Leukocyte Esterase,Urine Negative (Negative); Mucus,Urine Rare /hpf; Nitrite,Urine Negative (Negative); Protein,Urine Trace (Negative); RBC,Urine 108 /hpf (0-5); Specific Gravity,Urine 1.019 (1.001-1.035); Squamous Epithelial Cell,Urine <1 /hpf (0-4); Urobilinogen,Urine <2.0 mg/dL (<2.0); WBC,Urine 3 /hpf (0-5)
[2019-11-11] MEDS ORDERED: NALOXONE 0.4 MG/ML 1 ML VIAL IV PRN (15:30)
[2019-11-11] MEDS: SODIUM CHLORIDE 0.9% 1,000 ML IV SCH ×2 (15:45→22:49)
--- NOTE | 2019-11-11 16:16 | P.HPIM ---
History of Present Illness Patient is a pleasant 84-year-old the male well-known to me from his previous auscultation came in with generalized weakness. During his last hospitalization patient was strongly advised to go to subacute rehabilitation although he declined came back again as family is not able to take care of him. All his daughter thought he may have some shortness of breath although patient denied any shortness of breath orthopnea proximal nocturnal dyspnea and he see any significant JVD doesn't have any CVA and pedal edema patient does have some chronic Mild pedal edema. Patient does have extensive history had a CABG recently patient is supposed to be on aspirin. Was recently hospitalized for hematuria Plavix was a is can you during that time and aspirin was continued. Patient also has heart failure with EF of around 45% patient is supposed to have this renal calculi removed. Patient is quite weak at that time was strongly advised to go to subacute rehabilitation but patient completed declined to go to subacute rehab patient was not on Lasix at that time patient was not in heart failure patient during this admission patient has some leukocytosis without any clearcut definite evidence of infection no fever appears to have worsening creatinine from 1.5 during his last admission to 1.7 now patient is hypotensive hyponatremic. BNP will be obtained patient had previous ejection fraction of 45-50% Review of Systems REVIEW OF SYSTEMS: CONSTITUTIONAL: Significant generalized weakness HEENT: No recent visual problems or hearing problems. Denied any sore throat. CARDIOVASCULAR: No chest pain, orthopnea, PND, no palpitations, no syncope. PULMONARY: No shortness of breath, no cough, no hemoptysis. GASTROINTESTINAL: No diarrhea, no nausea, no vomiting, no abdominal pain. NEUROLOGICAL: No headaches, no weakness, no numbness. HEMATOLOGICAL: Denies any bleeding or petechiae. GENITOURINARY: Denies any burning micturition, frequency, or urgency. MUSCULOSKELETAL/RHEUMATOLOGICAL: Denies any joint pain, swelling, or any muscle pain. ENDOCRINE: Denies any polyuria or polydipsia. The rest of the 14-point review of systems is negative. Past Medical History Past Medical History: Atrial Fibrillation, Coronary Artery Disease (CAD), Cancer, Chest Pain / Angina, COPD, Diabetes Mellitus, Eye Disorder, GI Bleed, Hyperlipidemia, Hypertension, Myocardial Infarction ([place]) Additional Past Medical History / Comment(s): DIABETIC RETINOPATHY-VISON POOR. CA OF RIGHT KIDNEY, RIGHT NECK, FACE. OLD HX OF ETOH, BPH, pleural effusions x2 since cabg with thoracentesis, pulmonary edema, anemia Last Myocardial Infarction Date:: UNKNOWN History of Any Multi-Drug Resistant Organisms: None Reported Past Surgical History: Bladder Surgery, Cholecystectomy, Coronary Bypass/CABG, Heart Catheterization With Stent, Orthopedic Surgery, Prostate Surgery, Tonsillectomy Additional Past Surgical History / Comment(s): CATARACTS. PARTIAL RIGHT NEPHRECTOMY (2010). RIGHT SHOULDER. TURP. Open heart surgery 3 vessel 02/23/14 Past Anesthesia/Blood Transfusion Reactions: No Reported Reaction Date of Last Stent Placement:: 2007 Past Psychological History: Anxiety, Depression Past Alcohol Use History: None Reported Past Drug Use History: None Reported - Past Family History Father Additional Family Medical History / Comment(s): at age 77- cancer(colon) Mother Family Medical History: Cancer, Myocardial Infarction ([place]) Additional Family Medical History / Comment(s): mom at age 85 from old age, hx colon ca and open heart Medications and Allergies Home Medications Medication Instructions Recorded Confirmed Type DULoxetine HCL [Cymbalta] 60 mg PO HS 11/08/13 11/11/19 History Tamsulosin [Flomax] 0.4 mg PO DAILY #30 cap.er.24h 03/04/14 11/11/19 Rx Ascorbic Acid [Vitamin C] 500 mg PO DAILY 05/07/18 11/11/19 History Isosorbide Mononitrate ER [Imdur] 30 mg PO DAILY #30 tab.er.24h 05/11/18 11/11/19 Rx Nitroglycerin Sl Tabs [Nitrostat] 0.4 mg SUBLINGUAL Q5M PRN #100 tab 05/11/18 11/11/19 Rx amLODIPine [Norvasc] 5 mg PO DAILY #30 tab 05/11/18 11/11/19 Rx INSULIN ASPART (NovoLOG) [NovoLOG 15 unit SQ AC-BID@1200,1800 06/03/19 11/11/19 History (formulary)] INSULIN ASPART (NovoLOG) [NovoLOG 30 unit SQ AC-BRKFST 06/03/19 11/11/19 History (formulary)] Lisinopril [Zestril] 2.5 mg PO DAILY 06/03/19 11/11/19 History Multivitamin with Iron 1 tab PO HS 06/03/19 11/11/19 History [Multivitamins with Iron] Atorvastatin [Lipitor] 80 mg PO HS tab 06/07/19 11/11/19 Rx Ferrous Sulfate [Iron (65 MG 325 mg PO DAILY 10/28/19 11/11/19 History Elemental)] Metoprolol Tartrate [Lopressor] 50 mg PO BID 10/28/19 11/11/19 History Albuterol Inhaler [Ventolin Hfa 2 puff INHALATION RT-QID 30 Days 11/04/19 11/11/19 Rx Inhaler] #1 puff Insulin Glargine [Lantus] 50 unit SQ HS #0 11/04/19 11/11/19 Rx Acetaminophen [Tylenol] 325 mg PO Q6H PRN 11/11/19 11/11/19 History Budesonide-Formot 160-4.5 Mcg 2 puff INHALATION RT-BID 11/11/19 11/11/19 History [Symbicort 160-4.5 Mcg Inhaler] Furosemide [Lasix] 40 mg PO DAILY 11/11/19 11/11/19 History HYDROcodone/APAP 5-325MG [[place] 1 - 2 tab PO Q4H PRN MDD 6 TABS 11/11/19 11/11/19 History 5-325] LORazepam [Ativan] 0.5 mg PO DAILY 11/11/19 11/11/19 History Allergies Allergy/AdvReac Type Severity Reaction Status Date / Time morphine AdvReac Hallucinati Verified 11/11/19 12:52 ons Physical Exam Vitals: Vital Signs Temp Pulse Resp BP Pulse Ox 11/11/19 13:39 66 18 113/53 98 11/11/19 12:33 99.1 F 67 17 92/39 100 11/11/19 12:16 99.3 F 78 18 82/41 99 Intake and Output 11/11/19 11/11/19 11/11/19 06:59 14:59 22:59 Output Total 150 Balance -150 Output: Urine 150 Uretheral ([place]) 150 Other: Weight 107.048 kg PHYSICAL EXAMINATION: GENERAL: The patient is alert and oriented x3, not in any acute distress. Obese HEENT: Pupils are round and equally reacting to light. EOMI. No scleral icterus. No conjunctival pallor. Normocephalic, atraumatic. No pharyngeal erythema. No thyromegaly. CARDIOVASCULAR: S1 and S2 present. No murmurs, rubs, or gallops. PULMONARY: Chest is clear to auscultation, no wheezing or crackles. ABDOMEN: Soft, nontender, nondistended, normoactive bowel sounds. No palpable organomegaly. MUSCULOSKELETAL: No joint swelling or deformity. EXTREMITIES: No cyanosis, clubbing, or pedal edema. NEUROLOGICAL: Gross neurological examination did not reveal any focal deficits. Have significant generalized weakness SKIN: No rashes. Results CBC & Chem 7: 11/11/19 12:20 11/11/19 13:02 Labs: Abnormal Lab Results - Last 24 Hours (Table) 11/11/19 11/11/19 11/11/19 Range/Units 12:20 13:02 13:09 WBC 16.5 H (3.8-10.6) k/uL RBC 3.04 L (4.30-5.90) m/uL Hgb 8.7 L D (13.0-17.5) gm/dL Hct 27.1 L (39.0-53.0) % Neutrophils # 14.3 H (1.3-7.7) k/uL Sodium 131 L (137-145) mmol/L Chloride 95 L (98-107) mmol/L Carbon Dioxide 31 H (22-30) mmol/L BUN 38 H (9-20) mg/dL Creatinine 1.82 H (0.66-1.25) mg/dL Glucose 152 H (74-99) mg/dL POC Glucose (mg/dL) 199 H (75-99) mg/dL Calcium 8.1 L (8.4-10.2) mg/dL Total Protein 4.8 L (6.3-8.2) g/dL Albumin 2.5 L (3.5-5.0) g/dL Urine Protein (Negative) Urine Blood (Negative) Urine RBC (0-5) /hpf Amorphous Sediment (None) /hpf Hyaline Casts (0-2) /lpf Urine Mucus (None) /hpf 11/11/19 Range/Units 14:39 WBC (3.8-10.6) k/uL RBC (4.30-5.90) m/uL Hgb (13.0-17.5) gm/dL Hct (39.0-53.0) % Neutrophils # (1.3-7.7) k/uL Sodium (137-145) mmol/L Chloride (98-107) mmol/L Carbon Dioxide (22-30) mmol/L BUN (9-20) mg/dL Creatinine (0.66-1.25) mg/dL Glucose (74-99) mg/dL POC Glucose (mg/dL) (75-99) mg/dL Calcium (8.4-10.2) mg/dL Total Protein (6.3-8.2) g/dL Albumin (3.5-5.0) g/dL Urine Protein Trace H (Negative) Urine Blood Moderate H (Negative) Urine RBC 108 H (0-5) /hpf Amorphous Sediment Rare H (None) /hpf Hyaline Casts 48 H (0-2) /lpf Urine Mucus Rare H (None) /hpf Assessment and Plan Plan: -Generalized weakness mostly scattered to deconditioning and there may be a competent of dehydration that contributed to his generalized weakness patient was started on IV fluids PT and OT will evaluate the patient patient the will definitely benefit from placement to subacute rehabitation. -Acute renal failure on chronic kidney disease stage III acute renal failure secondary to diuretics which had actually was discontinued during his last admission patient will be started on gentle hydration will monitor him closely f or heart failure exacerbation -Congestive heart failure chronic systolic dysfunction without any acute exacerbation patient is intact hypovolemic. Is on IV fluids holding of diuretics -Possible hypovolemic hyponatremia: IV fluids as mentioned above -Coronary artery disease with the CABG in the past -atrial fibrillation: Not on anti-correlation at this time -Hypertension patient is presently hypotensive hold Avandia all antidepressant medications next and have depression -COPD without any acute exacerbation -Hyperlipidemia -Due to prophylaxis with subcu tenderness upon
[2019-11-11] MEDS: ASPIRIN 81 MG PO SCH (17:54)
[2019-11-11 17:59] LABS: Glucose,Whole Blood 222 mg/dL (75-99)
[2019-11-11] MEDS: INSULIN ASPART (NovoLOG) 100 UNIT/ML VIAL SQ SCH (18:17)
[2019-11-11] MEDS: ALBUTEROL NEBULIZED 2.5 MG/3 ML INHALATION SCH (20:10)
[2019-11-11] MEDS: SYMBICORT 160-4.5 MCG INHALER INHALATION SCH (20:10)
[2019-11-11 20:14] LABS: Glucose,Whole Blood 258 mg/dL (75-99)
[2019-11-11] MEDS: INSULIN DETEMIR (LEVEMIR) 100 UNIT/ML SYR SQ SCH (20:34)
[2019-11-11] MEDS: HEPARIN SODIUM,PORCINE 5,000 UNIT/ML 1 ML VIAL SQ SCH (20:37)
[2019-11-11] MEDS: METOPROLOL TARTRATE 50 MG TAB PO SCH (20:37)
[2019-11-11] MEDS: ATORVASTATIN 80 MG TAB PO SCH (20:37)
[2019-11-11] MEDS: DULoxetine HCL 60 MG CAPSULE.DR PO SCH (20:37)
[2019-11-11] MEDS: HYDROcodone/APAP 5-325MG 1 EACH TAB PO PRN (21:16)
[2019-11-11] MEDS: ACETAMINOPHEN TAB 325 MG TAB PO PRN (22:44)
[2019-11-12] MEDS: ASPIRIN 81 MG PO SCH (06:57)
[2019-11-12 07:13] LABS: Glucose,Whole Blood 131 mg/dL (75-99)
[2019-11-12 07:22] LABS: Basophils % (A) 0 %; Eosinophils # (A) 0.1 k/uL (0-0.7); Eosinophils % (A) 1 %; HCT 24.5 % (39.0-53.0); HGB 7.5 gm/dL (13.0-17.5); Hypochromasia Moderate; Lymphocytes % (A) 8 %; MCH 27.8 pg (25.0-35.0); MCHC 30.7 g/dL (31.0-37.0); MCV 90.4 fL (80.0-100.0); Mean Platelet Volume 6.7; Monocytes # (A) 0.8 k/uL (0-1.0); Monocytes % (A) 6 %; Neutrophils # (A) 10.4 k/uL (1.3-7.7); Neutrophils % (A) 84 %; Platelet Count 207 k/uL (150-450); RBC 2.71 m/uL (4.30-5.90); RDW 15.6 % (11.5-15.5); WBC 12.3 k/uL (3.8-10.6)
[2019-11-12] MEDS: ISOSORBIDE MONONITRATE ER 30 MG TAB.ER.24H PO SCH (07:31)
[2019-11-12] MEDS: HEPARIN SODIUM,PORCINE 5,000 UNIT/ML 1 ML VIAL SQ SCH ×2 (07:31→21:33)
[2019-11-12] MEDS: METOPROLOL TARTRATE 50 MG TAB PO SCH ×2 (07:31→21:32)
[2019-11-12] MEDS: TAMSULOSIN 0.4 MG CAP.ER.24H PO SCH (07:31)
[2019-11-12] MEDS: INSULIN ASPART (NovoLOG) 100 UNIT/ML VIAL SQ SCH ×3 (07:32→17:43)
[2019-11-12 07:51] LABS: Calcium 7.7 mg/dL (8.4-10.2); Magnesium 2.2 mg/dL (1.6-2.3); Potassium 4.8 mmol/L (3.5-5.1)
[2019-11-12] MEDS: HYDROcodone/APAP 5-325MG 1 EACH TAB PO PRN ×2 (08:58→19:20)
[2019-11-12] MEDS: SYMBICORT 160-4.5 MCG INHALER INHALATION SCH ×2 (09:06→20:12)
[2019-11-12] MEDS: ALBUTEROL NEBULIZED 2.5 MG/3 ML INHALATION SCH ×4 (09:06→20:11)
[2019-11-12] MEDS ORDERED: FUROSEMIDE 10 MG/ML 4 ML VIAL IV STA (09:45)
--- NOTE | 2019-11-12 10:24 | XR ---
EXAMINATION TYPE: XR chest 1V DATE OF EXAM: 11/12/2019 HISTORY: CHF. REFERENCE: Previous study dated 11/11/2019. FINDINGS: There is a prosthetic right shoulder place. There has been a midline sternotomy. Heart size upper limits of normal. Pulmonary vasculature is within normal limits. There is bibasilar airspace disease. There are small, bilateral effusions. IMPRESSION: 1. NO EVIDENCE OF CONGESTIVE HEART FAILURE AT THIS TIME. 2. BIBASILAR AIRSPACE DISEASE WITH SMALL, CONCOMITANT EFFUSIONS.
[2019-11-12 11:31] LABS: Glucose,Whole Blood 198 mg/dL (75-99)
[2019-11-12] MEDS: ACETAMINOPHEN TAB 325 MG TAB PO PRN (14:41)
--- NOTE | 2019-11-12 17:02 | P.PN ---
Subjective 84-year-old the male well-known to me from his previous auscultation came in with generalized weakness. During his last hospitalization patient was strongly advised to go to subacute rehabilitation although he declined came back again as family is not able to take care of him. All his daughter thought he may have some shortness of breath although patient denied any shortness of breath orthopnea proximal nocturnal dyspnea and he see any significant JVD doesn't have any CVA and pedal edema patient does have some chronic Mild pedal edema. Musa baker does have extensive history had a CABG recently patient is supposed to be on aspirin. Was recently hospitalized for hematuria Plavix was a is can you during that time and aspirin was continued. Patient also has heart failure with EF of around 45% patient is supposed to have this renal calculi removed. Patient is quite weak at that time was strongly advised to go to subacute rehabilitation but patient completed declined to go to subacute rehab patient was not on Lasix at that time patient was not in heart failure patient during this admission patient has some leukocytosis without any clearcut definite evidence of infection no fever appears to have worsening creatinine from 1.5 during his last admission to 1.7 now patient is hypotensive hyponatremic. BNP will be obtained patient had previous ejection fraction of 45-50%. 11/12/2019 Patient respiratory status is bit worse because of which I gave him Lasix empirically although patient doesn't have any clear to evidence of CHF no crackles on exam no significant JVD, chest x-ray did not show any significant pulmonary edema but they'll patient does have bilateral pleural effusions. Patient's creatinine has worsened from his baseline now consult nephrology. Patient's IV fluids will be discontinued will repeat basic metabolic profile tomorrow. Constitutional: Denied any fatigue denied any fever. Cardio vascular: denied any chest pain, palpitations Gastrointestinal denied any nausea vomiting Pulmonary: Denied any shortness of breath cough Neurologic denied any new focal deficits All inpatient medications were reviewed and appropriate changes in these medications as dictated in the interval history and assessment and plan. Objective - Vital Signs Vital signs: Vital Signs Temp 97.8 F 11/12/19 11:26 Pulse 74 11/12/19 16:28 Resp 16 11/12/19 16:28 BP 92/53 11/12/19 11:26 Pulse Ox 97 11/12/19 11:26 Intake & Output 11/11/19 11/12/1911/11/20 18:59 06:59 18:59 Intake Total 650 Output Total 150 400 0 Balance -150 250 0 Weight 107.048 kg Intake: Oral 650 Output: Urine 150 400 0 Uretheral ([place]) 150 Other: Voiding Method Urinal Urinal # Voids 1 1 # Bowel Movements 0 - Exam PHYSICAL EXAMINATION: GENERAL: The patient is alert and oriented x3, not in any acute distress. Obese HEENT: Pupils are round and equally reacting to light. EOMI. No scleral icterus. No conjunctival pallor. Normocephalic, atraumatic. No pharyngeal erythema. No thyromegaly. CARDIOVASCULAR: S1 and S2 present. No murmurs, rubs, or gallops. PULMONARY: Chest is clear to auscultation, no wheezing or crackles. ABDOMEN: Soft, nontender, nondistended, normoactive bowel sounds. No palpable organomegaly. MUSCULOSKELETAL: No joint swelling or deformity. EXTREMITIES: No cyanosis, clubbing, or pedal edema. NEUROLOGICAL: Gross neurological examination did not reveal any focal deficits. Have significant generalized weakness SKIN: No rashes. - Labs CBC & Chem 7: 11/12/19 06:32 11/12/19 06:32 Labs: Abnormal Lab Results - Last 24 Hours (Table) 11/11/19 11/11/19 11/12/19 Range/Units 17:57 20:11 06:32 WBC 12.3 H (3.8-10.6) k/uL RBC 2.71 L (4.30-5.90) m/uL Hgb 7.5 L (13.0-17.5) gm/dL Hct 24.5 L (39.0-53.0) % MCHC 30.7 L (31.0-37.0) g/dL RDW 15.6 H (11.5-15.5) % Neutrophils # 10.4 H (1.3-7.7) k/uL Sodium (137-145) mmol/L BUN (9-20) mg/dL Creatinine (0.66-1.25) mg/dL Glucose (74-99) mg/dL POC Glucose (mg/dL) 222 H 258 H (75-99) mg/dL Calcium (8.4-10.2) mg/dL 11/12/19 11/12/1920 Range/Units 06:32 07:12 11:29 WBC (3.8-10.6) k/uL RBC (4.30-5.90) m/uL Hgb (13.0-17.5) gm/dL Hct (39.0-53.0) % MCHC (31.0-37.0) g/dL RDW (11.5-15.5) % Neutrophils # (1.3-7.7) k/uL Sodium 132 L (137-145) mmol/L BUN 37 H (9-20) mg/dL Creatinine 1.96 H (0.66-1.25) mg/dL Glucose 132 H (74-99) mg/dL POC Glucose (mg/dL) 131 H 198 H (75-99) mg/dL Calcium 7.7 L (8.4-10.2) mg/dL Assessment and Plan Plan: -Generalized weakness mostly scattered to deconditioning and there may be a competent of dehydration that contributed to his generalized weakness patient was started on IV fluids PT and OT will evaluate the patient patient the will definitely benefit from placement to subacute rehabitation. -Acute renal failure on chronic kidney disease stage III acute renal failure is believed to be secondary to diuretics but the kidney function did not improve with IV fluids patient had mild respiratory decompensation because of which actually I'm giving him Lasix and the nephrology will be consulted will repeat basic metabolic profile tomorrow -Congestive heart failure chronic systolic dysfunction with possible mild acute exacerbation given 1 dose of Lasix -Hyponatremia etiology is not clear nephrology consultation as mentioned -Coronary artery disease with the CABG in the past -atrial fibrillation: Not on anti-aggravation at this time -Hypertension patient is presently hypotensive hold Kenneth inhibitors -Depression -COPD without any acute exacerbation -Hyperlipidemia -Due to prophylaxis with subcu heparin
[2019-11-12 17:16] LABS: Glucose,Whole Blood 275 mg/dL (75-99)
[2019-11-12 20:11] LABS: Glucose,Whole Blood 350 mg/dL (75-99)
[2019-11-12] MEDS: INSULIN DETEMIR (LEVEMIR) 100 UNIT/ML SYR SQ SCH (21:32)
[2019-11-12] MEDS: DULoxetine HCL 60 MG CAPSULE.DR PO SCH (21:33)
[2019-11-12] MEDS: ATORVASTATIN 80 MG TAB PO SCH (21:33)
[2019-11-12] MEDS ORDERED: INSULIN ASPART (NovoLOG) 100 UNIT/ML VIAL SQ ONE (22:36)
[2019-11-12] MEDS ORDERED: INSULIN DETEMIR (LEVEMIR) 100 UNIT/ML SYR SQ STA (22:37)
[2019-11-13] MEDS: HYDROcodone/APAP 5-325MG 1 EACH TAB PO PRN ×2 (03:34→22:32)
[2019-11-13] MEDS: ASPIRIN 81 MG PO SCH (06:39)
[2019-11-13 07:05] LABS: Glucose,Whole Blood 185 mg/dL (75-99)
[2019-11-13] MEDS: ALBUTEROL NEBULIZED 2.5 MG/3 ML INHALATION SCH ×4 (07:24→19:19)
[2019-11-13] MEDS: SYMBICORT 160-4.5 MCG INHALER INHALATION SCH ×2 (07:24→19:20)
[2019-11-13 07:36] LABS: Calcium 7.4 mg/dL (8.4-10.2); Potassium 4.8 mmol/L (3.5-5.1)
[2019-11-13] MEDS: ISOSORBIDE MONONITRATE ER 30 MG TAB.ER.24H PO SCH (08:14)
[2019-11-13] MEDS: HEPARIN SODIUM,PORCINE 5,000 UNIT/ML 1 ML VIAL SQ SCH ×2 (08:14→20:32)
[2019-11-13] MEDS: TAMSULOSIN 0.4 MG CAP.ER.24H PO SCH (08:14)
[2019-11-13] MEDS: ACETAMINOPHEN TAB 325 MG TAB PO PRN ×3 (08:14→20:44)
[2019-11-13] MEDS: METOPROLOL TARTRATE 50 MG TAB PO SCH ×2 (08:14→20:31)
[2019-11-13] MEDS: INSULIN ASPART (NovoLOG) 100 UNIT/ML VIAL SQ SCH ×3 (08:15→17:17)
[2019-11-13 11:35] LABS: Glucose,Whole Blood 183 mg/dL (75-99)
--- NOTE | 2019-11-13 13:26 | P.PN ---
Subjective 84-year-old the male well-known to me from his previous auscultation came in with generalized weakness. During his last hospitalization patient was strongly advised to go to subacute rehabilitation although he declined came back again as family is not able to take care of him. All his daughter thought he may have some shortness of breath although patient denied any shortness of breath orthopnea proximal nocturnal dyspnea and he see any significant JVD doesn't have any CVA and pedal edema patient does have some chronic Mild pedal edema. Musa baker does have extensive history had a CABG recently patient is supposed to be on aspirin. Was recently hospitalized for hematuria Plavix was a is can you during that time and aspirin was continued. Patient also has heart failure with EF of around 45% patient is supposed to have this renal calculi removed. Patient is quite weak at that time was strongly advised to go to subacute rehabilitation but patient completed declined to go to subacute rehab patient was not on Lasix at that time patient was not in heart failure patient during this admission patient has some leukocytosis without any clearcut definite evidence of infection no fever appears to have worsening creatinine from 1.5 during his last admission to 1.7 now patient is hypotensive hyponatremic. BNP will be obtained patient had previous ejection fraction of 45-50%. 11/12/2019 Patient respiratory status is bit worse because of which I gave him Lasix empirically although patient doesn't have any clear to evidence of CHF no crackles on exam no significant JVD, chest x-ray did not show any significant pulmonary edema but they'll patient does have bilateral pleural effusions. Patient's creatinine has worsened from his baseline now consult nephrology. Patient's IV fluids will be discontinued will repeat basic metabolic profile tomorrow. 11/13/2019 Patient's creatinine went up a bit serum sodium improved awaiting evaluation by nephrology. Patient is off fluids received 1 dose of Lasix yesterday patient is complaining of nausea and abdominal discomfort after eating, patient will be started on GI prophylaxis with Pepcid Constitutional: Denied any fatigue denied any fever. Cardio vascular: denied any chest pain, palpitations Gastrointestinal as mentioned in HPI Pulmonary: Denied any shortness of breath cough Neurologic denied any new focal deficits All inpatient medications were reviewed and appropriate changes in these medications as dictated in the interval history and assessment and plan. Objective - Vital Signs Vital signs: Vital Signs Temp 98.0 F 11/13/19 11:06 Pulse 68 11/13/19 11:20 Resp 18 11/13/19 11:06 BP 94/51 11/13/19 11:06 Pulse Ox 99 11/13/19 11:06 Intake & Output 11/12/19 11/13/19 11/13/19 18:59 06:59 18:59 Intake Total 600 Output Total 0 800 Balance 0 -200 Intake: Oral 600 Output: Urine 0 800 Other: Voiding Method Urinal Urinal Urinal # Voids 1 0 - Exam PHYSICAL EXAMINATION: GENERAL: The patient is alert and oriented x3, not in any acute distress. Obese HEENT: Pupils are round and equally reacting to light. EOMI. No scleral icterus. No conjunctival pallor. Normocephalic, atraumatic. No pharyngeal erythema. No thyromegaly. CARDIOVASCULAR: S1 and S2 present. No murmurs, rubs, or gallops. PULMONARY: Chest is clear to auscultation, no wheezing or crackles. ABDOMEN: Soft, nontender, nondistended, normoactive bowel sounds. No palpable organomegaly. MUSCULOSKELETAL: No joint swelling or deformity. EXTREMITIES: No cyanosis, clubbing, or pedal edema. NEUROLOGICAL: Gross neurological examination did not reveal any focal deficits. Have significant generalized weakness SKIN: No rashes. - Labs CBC & Chem 7: 11/12/19 06:32 11/13/19 07:05 Labs: Abnormal Lab Results - Last 24 Hours (Table) 11/12/19 11/12/19 11/13/19 Range/Units 17:14 20:08 07:03 Sodium (137-145) mmol/L Chloride (98-107) mmol/L BUN (9-20) mg/dL Creatinine (0.66-1.25) mg/dL Glucose (74-99) mg/dL POC Glucose (mg/dL) 275 H 350 H 185 H (75-99) mg/dL Calcium (8.4-10.2) mg/dL 11/13/19 11/13/19 Range/Units 07:05 11:08 Sodium 133 L (137-145) mmol/L Chloride 97 L (98-107) mmol/L BUN 35 H (9-20) mg/dL Creatinine 2.02 H (0.66-1.25) mg/dL Glucose 142 H (74-99) mg/dL POC Glucose (mg/dL) 183 H (75-99) mg/dL Calcium 7.4 L (8.4-10.2) mg/dL Microbiology - Last 24 Hours (Table) 11/11/19 15:43 Blood Culture - Preliminary Blood No Growth after 24 hours Assessment and Plan Plan: -Generalized weakness mostly scattered to deconditioning and there may be a competent of dehydration that contributed to his generalized weakness and was given IV fluids. Patient probably will be discharged tomorrow to subacute rehabilitation. -Acute renal failure on chronic kidney disease stage III acute renal failure is believed to be secondary to diuretics but the kidney function did not improve with IV fluids because of which I'm consulting nephrology -Congestive heart failure chronic systolic dysfunction with possible mild acute exacerbation given 1 dose of Lasix -Hyponatremia etiology is not clear nephrology consultation as mentioned -Coronary artery disease with the CABG in the past -atrial fibrillation: Not on anticoagulation at this time -Hypertension patient is presently hypotensive hold Kenneth inhibitors -Depression -COPD without any acute exacerbation -Hyperlipidemia -Due to prophylaxis with subcu heparin
[2019-11-13] MEDS ORDERED: PANTOPRAZOLE 40 MG/10 ML VIAL IVP SCH (13:30)
[2019-11-13] MEDS: FAMOTIDINE 20 MG TAB PO SCH ×2 (13:33→20:30)
--- NOTE | 2019-11-13 13:51 | P.NPCON ---
History of Present Illness - Reason for Consult Consult date: 11/13/19 acute renal failure - Chief Complaint Generalized weakness - History of Present Illness 84-year-old gentleman with history of chronic kidney disease stage III with a baseline creatinine of 1.5-1.7 coming to the hospital with the above complaints. He came in with a creatinine of 1.8 MG per DL got worse to 2.02 MG per DL today. He is on multiple antihypertensive medications including lisinopril Lasix amlodipine and him to read home. His blood pressures are low normal. Urine analysis consistent with multiple hyaline cast. She denies any nausea vomiting diarrhea no NSAID use or recent contrast studies. Review of Systems Constitutional: Reports as per HPI Past Medical History Past Medical History: Atrial Fibrillation, Coronary Artery Disease (CAD), Cancer, Chest Pain / Angina, COPD, Diabetes Mellitus, Eye Disorder, GI Bleed, Hyperlipidemia, Hypertension, Myocardial Infarction ([place]) Additional Past Medical History / Comment(s): DIABETIC RETINOPATHY-VISON POOR. CA OF RIGHT KIDNEY, RIGHT NECK, FACE. OLD HX OF ETOH, BPH, pleural effusions x2 since cabg with thoracentesis, pulmonary edema, anemia Last Myocardial Infarction Date:: UNKNOWN History of Any Multi-Drug Resistant Organisms: None Reported Past Surgical History: Bladder Surgery, Cholecystectomy, Coronary Bypass/CABG, Heart Catheterization With Stent, Orthopedic Surgery, Prostate Surgery, Tonsillectomy Additional Past Surgical History / Comment(s): CATARACTS. PARTIAL RIGHT NEPHRECTOMY (2010). RIGHT SHOULDER. TURP. Open heart surgery 3 vessel 02/23/14 Past Anesthesia/Blood Transfusion Reactions: No Reported Reaction Date of Last Stent Placement:: 2007 Past Psychological History: Anxiety, Depression Additional Psychological History / Comment(s): pt lives alone currently and is not taking care of himself stated by daughter at bedside Smoking Status: Former smoker Past Alcohol Use History: None Reported Additional Past Alcohol Use History / Comment(s): Old hx of ETOH, started smoking at age 12 smoked 2 ppd quit in 2001 Past Drug Use History: None Reported - Past Family History Father Additional Family Medical History / Comment(s): at age 77- cancer(colon) Mother Family Medical History: Cancer, Myocardial Infarction ([place]) Additional Family Medical History / Comment(s): mom at age 85 from old age, hx colon ca and open heart Medications and Allergies Home Medications Medication Instructions Recorded Confirmed Type DULoxetine HCL [Cymbalta] 60 mg PO HS 11/08/13 11/11/19 History Tamsulosin [Flomax] 0.4 mg PO DAILY #30 cap.er.24h 03/04/14 11/11/19 Rx Ascorbic Acid [Vitamin C] 500 mg PO DAILY 05/07/18 11/11/19 History Isosorbide Mononitrate ER [Imdur] 30 mg PO DAILY #30 tab.er.24h 05/11/18 11/11/19 Rx Nitroglycerin Sl Tabs [Nitrostat] 0.4 mg SUBLINGUAL Q5M PRN #100 tab 05/11/18 11/11/19 Rx amLODIPine [Norvasc] 5 mg PO DAILY #30 tab 05/11/18 11/11/19 Rx INSULIN ASPART (NovoLOG) [NovoLOG 15 unit SQ AC-BID@1200,1800 06/03/19 11/11/19 History (formulary)] INSULIN ASPART (NovoLOG) [NovoLOG 30 unit SQ AC-BRKFST 06/03/19 11/11/19 History (formulary)] Lisinopril [Zestril] 2.5 mg PO DAILY 06/03/19 11/11/19 History Multivitamin with Iron 1 tab PO HS 06/03/19 11/11/19 History [Multivitamins with Iron] Atorvastatin [Lipitor] 80 mg PO HS tab 06/07/19 11/11/19 Rx Ferrous Sulfate [Iron (65 MG 325 mg PO DAILY 10/28/19 11/11/19 History Elemental)] Metoprolol Tartrate [Lopressor] 50 mg PO BID 10/28/19 11/11/19 History Albuterol Inhaler [Ventolin Hfa 2 puff INHALATION RT-QID 30 Days 11/04/19 11/11/19 Rx Inhaler] #1 puff Insulin Glargine [Lantus] 50 unit SQ HS #0 11/04/19 11/11/19 Rx Acetaminophen [Tylenol] 325 mg PO Q6H PRN 11/11/19 11/11/19 History Budesonide-Formot 160-4.5 Mcg 2 puff INHALATION RT-BID 11/11/19 11/11/19 History [Symbicort 160-4.5 Mcg Inhaler] Furosemide [Lasix] 40 mg PO DAILY 11/11/19 11/11/19 History HYDROcodone/APAP 5-325MG [[place] 1 - 2 tab PO Q4H PRN MDD 6 TABS 11/11/19 11/11/19 History 5-325] LORazepam [Ativan] 0.5 mg PO DAILY 11/11/19 11/11/19 History Allergies Allergy/AdvReac Type Severity Reaction Status Date / Time morphine AdvReac Hallucinati Verified 11/11/19 12:52 ons Physical Exam Vitals: Vital Signs Temp Pulse Pulse Resp BP Pulse Ox 11/13/19 11:20 68 11/13/19 11:09 67 11/13/19 11:06 98.0 F 61 18 94/51 99 11/13/19 07:37 76 11/13/19 07:25 73 99 11/13/19 05:00 97.7 F 67 20 105/52 99 11/12/19 20:22 98.6 F 83 20 104/49 95 11/12/19 20:21 78 11/12/19 20:12 78 93 L 11/12/19 16:28 74 16 11/12/19 16:20 78 16 Intake and Output 11/12/19 11/13/19 11/13/19 22:59 06:59 14:59 Intake Total 350 250 200 Output Total 300 500 Balance 50 -250 200 Intake: Oral 350 250 200 Output: Urine 300 500 Other: Voiding Method Urinal Urinal # Voids 0 0 1 No acute distress S1-S2 heard Decreased breath sounds Abdomen distended Lower extremity edema Results - Lab Results Most recent lab results Calcium 7.4 mg/dL (8.4-10.2) L 11/13/19 07:05 Phosphorus 4.4 mg/dL (2.5-4.5) 11/11/19 13:02 Magnesium 2.2 mg/dL (1.6-2.3) 11/12/19 06:32 11/12/19 06:32 11/13/19 07:05 Assessment and Plan Assessment: #1 nonoliguric acute kidney injury suspect ischemic ATN with low blood pressures. Can't rule out CRS type I. #2 chronic kidney disease stage III with a baseline creatinine of 1.5-1.7 MG per DL. #3 history of hypertension currently hypotensive with low normal site. #4 volume overload with edema #5 diastolic CHF #6 hyponatremia suspect hypovolemic Plan: #1 agree with Lasix dose yesterday, continue with Lasix 40 mg IV twice a day. #2 bladder scan to rule out urinary retention. #3 add midodrine for hemodynamic support, agree with holding all antihypertensive medications. #4 repeat echo to rule out underlying EF #5 if renal function does not improve by tomorrow check ultrasound to rule out obstructive process.
[2019-11-13] MEDS ORDERED: LACTULOSE 20 GM/30 ML CUP PO ONE (15:21)
[2019-11-13] MEDS: PANTOPRAZOLE 40 MG/10 ML VIAL IVP SCH ×2 (15:35→20:31)
[2019-11-13] MEDS: FUROSEMIDE 10 MG/ML 4 ML VIAL IV SCH ×2 (15:36→20:34)
[2019-11-13] MEDS: MIDODRINE 5 MG TAB PO SCH (16:27)
[2019-11-13 17:00] LABS: Glucose,Whole Blood 79 mg/dL (75-99)
[2019-11-13 20:08] LABS: Glucose,Whole Blood 163 mg/dL (75-99)
[2019-11-13] MEDS: ATORVASTATIN 80 MG TAB PO SCH (20:30)
[2019-11-13] MEDS: DULoxetine HCL 60 MG CAPSULE.DR PO SCH (20:30)
[2019-11-13] MEDS: INSULIN DETEMIR (LEVEMIR) 100 UNIT/ML SYR SQ SCH (20:31)
[2019-11-13] MEDS: ONDANSETRON 4 MG/2 ML VIAL IVP PRN (22:57)
[2019-11-14] MEDS: ACETAMINOPHEN TAB 325 MG TAB PO PRN ×2 (04:52→14:46)
[2019-11-14 07:04] LABS: Glucose,Whole Blood 173 mg/dL (75-99)
[2019-11-14] MEDS: SYMBICORT 160-4.5 MCG INHALER INHALATION SCH ×2 (07:06→19:04)
[2019-11-14] MEDS: ALBUTEROL NEBULIZED 2.5 MG/3 ML INHALATION SCH ×4 (07:06→19:03)
[2019-11-14 07:22] LABS: Basophils % (A) 0 %; Eosinophils # (A) 0.1 k/uL (0-0.7); Eosinophils % (A) 1 %; HCT 26.2 % (39.0-53.0); Hypochromasia Moderate; Lymphocytes # (A) 0.8 k/uL (1.0-4.8); Lymphocytes % (A) 9 %; MCH 27.5 pg (25.0-35.0); MCHC 30.6 g/dL (31.0-37.0); MCV 89.9 fL (80.0-100.0); Mean Platelet Volume 6.8; Monocytes # (A) 0.6 k/uL (0-1.0); Monocytes % (A) 7 %; Neutrophils # (A) 7.4 k/uL (1.3-7.7); Neutrophils % (A) 82 %; Platelet Count 215 k/uL (150-450); RBC 2.91 m/uL (4.30-5.90); RDW 15.4 % (11.5-15.5); WBC 9.1 k/uL (3.8-10.6)
[2019-11-14 07:34] LABS: Calcium 7.3 mg/dL (8.4-10.2); Potassium 4.7 mmol/L (3.5-5.1)
[2019-11-14] MEDS: TAMSULOSIN 0.4 MG CAP.ER.24H PO SCH (08:08)
[2019-11-14] MEDS: PANTOPRAZOLE 40 MG/10 ML VIAL IVP SCH ×2 (08:08→21:24)
[2019-11-14] MEDS: FAMOTIDINE 20 MG TAB PO SCH (08:08)
[2019-11-14] MEDS: MIDODRINE 5 MG TAB PO SCH ×3 (08:08→18:10)
[2019-11-14] MEDS: FUROSEMIDE 10 MG/ML 4 ML VIAL IV SCH ×2 (08:08→21:23)
[2019-11-14] MEDS: ONDANSETRON 4 MG/2 ML VIAL IVP PRN ×2 (08:08→18:16)
[2019-11-14] MEDS: ISOSORBIDE MONONITRATE ER 30 MG TAB.ER.24H PO SCH (08:09)
[2019-11-14] MEDS: METOPROLOL TARTRATE 50 MG TAB PO SCH ×2 (08:09→21:24)
[2019-11-14] MEDS: HEPARIN SODIUM,PORCINE 5,000 UNIT/ML 1 ML VIAL SQ SCH ×2 (08:09→20:28)
[2019-11-14] MEDS ORDERED: KETOROLAC 30 MG/ML 1 ML VIAL IVP PRN (08:50)
--- NOTE | 2019-11-14 09:56 | P.GSCN ---
History of Present Illness Consult date: 11/14/19 History of present illness: 84 yo male known to our office for kidney stones. He was recently seen in consultation for a 2 cm right renal pelvic stone He has intermittent pain due to the stone. Dr España is planning on a right ureteroscopy with laser lithotripsy tomorrow. THe patient ended back in the hospital for medical reasons, primairly weakness. WE were asked to see the patient.The patient does have some right back pain. The stone is seen on us There is minimal hydronephrosis Review of Systems - Constitutional Reports anorexia, Reports fatigue, Reports weakness - Genitourinary Reports as per HPI Past Medical History Past Medical History: Atrial Fibrillation, Coronary Artery Disease (CAD), Cancer, Chest Pain / Angina, COPD, Diabetes Mellitus, Eye Disorder, GI Bleed, Hyperlipidemia, Hypertension, Myocardial Infarction ([place]) Additional Past Medical History / Comment(s): DIABETIC RETINOPATHY-VISON POOR. CA OF RIGHT KIDNEY, RIGHT NECK, FACE. OLD HX OF ETOH, BPH, pleural effusions x2 since cabg with thoracentesis, pulmonary edema, anemia Last Myocardial Infarction Date:: UNKNOWN History of Any Multi-Drug Resistant Organisms: None Reported Past Surgical History: Bladder Surgery, Cholecystectomy, Coronary Bypass/CABG, Heart Catheterization With Stent, Orthopedic Surgery, Prostate Surgery, Tonsillectomy Additional Past Surgical History / Comment(s): CATARACTS. PARTIAL RIGHT NEPHRECTOMY (2010). RIGHT SHOULDER. TURP. Open heart surgery 3 vessel 02/23/14 Past Anesthesia/Blood Transfusion Reactions: No Reported Reaction Date of Last Stent Placement:: 2007 Past Psychological History: Anxiety, Depression Additional Psychological History / Comment(s): pt lives alone currently and is not taking care of himself stated by daughter at bedside Smoking Status: Former smoker Past Alcohol Use History: None Reported Additional Past Alcohol Use History / Comment(s): Old hx of ETOH, started smoking at age 12 smoked 2 ppd quit in 2001 Past Drug Use History: None Reported - Past Family History Father Additional Family Medical History / Comment(s): at age 77- cancer(colon) Mother Family Medical History: Cancer, Myocardial Infarction ([place]) Additional Family Medical History / Comment(s): mom at age 85 from old age, hx colon ca and open heart Medications and Allergies Home Medications Medication Instructions Recorded Confirmed Type DULoxetine HCL [Cymbalta] 60 mg PO HS 11/08/13 11/11/19 History Tamsulosin [Flomax] 0.4 mg PO DAILY #30 cap.er.24h 03/04/14 11/11/19 Rx Ascorbic Acid [Vitamin C] 500 mg PO DAILY 05/07/18 11/11/19 History Isosorbide Mononitrate ER [Imdur] 30 mg PO DAILY #30 tab.er.24h 05/11/18 11/11/19 Rx Nitroglycerin Sl Tabs [Nitrostat] 0.4 mg SUBLINGUAL Q5M PRN #100 tab 05/11/18 11/11/19 Rx amLODIPine [Norvasc] 5 mg PO DAILY #30 tab 05/11/18 11/11/19 Rx INSULIN ASPART (NovoLOG) [NovoLOG 15 unit SQ AC-BID@1200,1800 06/03/19 11/11/19 History (formulary)] INSULIN ASPART (NovoLOG) [NovoLOG 30 unit SQ AC-BRKFST 06/03/19 11/11/19 History (formulary)] Lisinopril [Zestril] 2.5 mg PO DAILY 06/03/19 11/11/19 History Multivitamin with Iron 1 tab PO HS 06/03/19 11/11/19 History [Multivitamins with Iron] Atorvastatin [Lipitor] 80 mg PO HS tab 06/07/19 11/11/19 Rx Ferrous Sulfate [Iron (65 MG 325 mg PO DAILY 10/28/19 11/11/19 History Elemental)] Metoprolol Tartrate [Lopressor] 50 mg PO BID 10/28/19 11/11/19 History Albuterol Inhaler [Ventolin Hfa 2 puff INHALATION RT-QID 30 Days 11/04/19 11/11/19 Rx Inhaler] #1 puff Insulin Glargine [Lantus] 50 unit SQ HS #0 11/04/19 11/11/19 Rx Acetaminophen [Tylenol] 325 mg PO Q6H PRN 11/11/19 11/11/19 History Budesonide-Formot 160-4.5 Mcg 2 puff INHALATION RT-BID 11/11/19 11/11/19 History [Symbicort 160-4.5 Mcg Inhaler] Furosemide [Lasix] 40 mg PO DAILY 11/11/19 11/11/19 History HYDROcodone/APAP 5-325MG [[place] 1 - 2 tab PO Q4H PRN MDD 6 TABS 11/11/19 11/11/19 History 5-325] LORazepam [Ativan] 0.5 mg PO DAILY 11/11/19 11/11/19 History Allergies Allergy/AdvReac Type Severity Reaction Status Date / Time morphine AdvReac Hallucinati Verified 11/11/19 12:52 ons Surgical - Exam Vital Signs Temp Pulse Resp BP Pulse Ox 99.3 F 78 18 82/41 99 11/11/19 12:16 11/11/19 12:16 11/11/19 12:16 11/11/19 12:16 11/11/19 12:16 - General well developed, well nourished, no distress - Eyes PERRL - ENT no hearing loss - Neck trachea midline - Respiratory normal expansion, normal respiratory effort - Cardiovascular Rhythm: irregularly irregular - Abdomen Abdomen: soft, non tender - Integumentary no rash - Neurologic normal coordination - Musculoskeletal normal posture - Psychiatric oriented to time, oriented to person, oriented to place, speech is normal Results - Labs 11/14/19 06:56 11/14/19 06:56 Abnormal Lab Results - Last 24 Hours (Table) 11/13/19 11/13/19 11/14/19 Range/Units 11:08 20:06 06:56 RBC (4.30-5.90) m/uL Hgb (13.0-17.5) gm/dL Hct (39.0-53.0) % MCHC (31.0-37.0) g/dL Lymphocytes # (1.0-4.8) k/uL Sodium 132 L (137-145) mmol/L Chloride 97 L (98-107) mmol/L BUN 32 H (9-20) mg/dL Creatinine 1.91 H (0.66-1.25) mg/dL Glucose 139 H (74-99) mg/dL POC Glucose (mg/dL) 183 H 163 H (75-99) mg/dL Calcium 7.3 L (8.4-10.2) mg/dL 11/14/19 11/14/19 Range/Units 06:56 07:02 RBC 2.91 L (4.30-5.90) m/uL Hgb 8.0 L (13.0-17.5) gm/dL Hct 26.2 L (39.0-53.0) % MCHC 30.6 L (31.0-37.0) g/dL Lymphocytes # 0.8 L (1.0-4.8) k/uL Sodium (137-145) mmol/L Chloride (98-107) mmol/L BUN (9-20) mg/dL Creatinine (0.66-1.25) mg/dL Glucose (74-99) mg/dL POC Glucose (mg/dL) 173 H (75-99) mg/dL Calcium (8.4-10.2) mg/dL Microbiology - Last 24 Hours (Table) 11/11/19 15:43 Blood Culture - Preliminary Blood No Growth after 48 hours Diabetes panel 11/14/19 Range/Units 06:56 Sodium 132 L (137-145) mmol/L Potassium 4.7 (3.5-5.1) mmol/L Chloride 97 L (98-107) mmol/L Carbon Dioxide 30 (22-30) mmol/L BUN 32 H (9-20) mg/dL Creatinine 1.91 H (0.66-1.25) mg/dL Glucose 139 H (74-99) mg/dL Calcium 7.3 L (8.4-10.2) mg/dL Calcium panel 11/14/19 Range/Units 06:56 Calcium 7.3 L (8.4-10.2) mg/dL Pituitary panel 11/14/19 Range/Units 06:56 Sodium 132 L (137-145) mmol/L Potassium 4.7 (3.5-5.1) mmol/L Chloride 97 L (98-107) mmol/L Carbon Dioxide 30 (22-30) mmol/L BUN 32 H (9-20) mg/dL Creatinine 1.91 H (0.66-1.25) mg/dL Glucose 139 H (74-99) mg/dL Calcium 7.3 L (8.4-10.2) mg/dL Adrenal panel 11/14/19 Range/Units 06:56 Sodium 132 L (137-145) mmol/L Potassium 4.7 (3.5-5.1) mmol/L Chloride 97 L (98-107) mmol/L Carbon Dioxide 30 (22-30) mmol/L BUN 32 H (9-20) mg/dL Creatinine 1.91 H (0.66-1.25) mg/dL Glucose 139 H (74-99) mg/dL Calcium 7.3 L (8.4-10.2) mg/dL Assessment and Plan Assessment: Impression: Right renal pelvic stone with colic, multiple medical illnesses. Plan: right ureteroscopy with laser lithotripsy I will notify Dr España of the patients admission He will need to be npo after midnight. Please stop his heparin.
[2019-11-14] MEDS: INSULIN ASPART (NovoLOG) 100 UNIT/ML VIAL SQ SCH ×3 (09:58→18:10)
[2019-11-14] MEDS: ASPIRIN 81 MG PO SCH (09:58)
--- NOTE | 2019-11-14 10:06 | US ---
EXAMINATION TYPE: US kidneys/renal and bladder DATE OF EXAM: 11/14/2019 COMPARISON: Previous 05/08/[address] dated 07/01/2019 CLINICAL HISTORY: kidney stone. known renal stones, rt flank pain, pending procedure tomorrow to mukesh ve right renal stone EXAM MEASUREMENTS: Right Kidney: 11.3 x 5.9 x 6.3 cm Left Kidney: 12.6 x 4.9 x 6.4 cm Right Kidney: 2.6 x 1.9cm shadowing stone noted midpole, no evident hydronephrosis. Left Kidney: No hydronephrosis or masses seen Bladder: irregular wall with possible left sided diverticulum Bilateral Jets seen: yes Bladder also trabeculated pattern. Cortical medullary differentiation maintained within the kidneys. IMPRESSION: Correlate for possible chronic lateral outlet obstruction, suspect right-sided nephrolithiasis.
[2019-11-14 12:13] LABS: Glucose,Whole Blood 229 mg/dL (75-99)
--- NOTE | 2019-11-14 12:13 | PN ---
PROGRESS NOTE The patient is seen for followup for chronic kidney disease and acute kidney injury. Currently patient denies any significant complaints. He is currently being diuresed. Patient is maintained on Lasix 40 mg IV q.12 hours. I do see Toradol as well on his med list. He is complaining of pain in his hip area. PHYSICAL EXAMINATION: On examination today, blood pressure was 119/74, heart rate 70 per minute, he is afebrile. Examination of the heart S1, S2. Examination of the lungs: Decreased breath sounds at bases. Abdomen is soft, nontender. Examination of lower extremities shows edema 2+ bilaterally. Chronic skin changes noted. 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 LABS: Show sodium 132, potassium 4.7, BUN 32, creatinine 1.9. ASSESSMENT: 1. Acute kidney injury, cardiorenal, nonoliguric, maintained on IV Lasix. The patient is voiding on his own. A 24 hour urine output charted at about 800 mL. I am not sure this is accurate. The patient is maintained on Toradol which I will discontinue given his acute kidney injury. 2. Chronic kidney disease secondary to nephrosclerosis. Baseline creatinine 1.5-1.7 mg/dL. 3. History of hypertension, currently blood pressure on the lower side this admission. 4. Diastolic heart failure. 5. Hyponatremia, mostly hypervolemic currently improved. 6. Right renal stone with colic. Being followed by Urology. PLAN: Continue with the IV Lasix. Hold off on Toradol given the acute kidney injury. May use Ultram for pain. To be scheduled for cystoscopy and laser lithotripsy as per Urology. MMODL / IJN: [id number] /
[2019-11-14] MEDS ORDERED: traMADol 50 MG TAB PO PRN (15:03)
--- NOTE | 2019-11-14 15:22 | P.PN ---
Subjective Progress Note Date: 11/14/19 Principal diagnosis: 84-year-old the male well-known to me from his previous auscultation came in with generalized weakness. During his last hospitalization patient was strongly advised to go to subacute rehabilitation although he declined came back again as family is not able to take care of him. All his daughter thought he may have some shortness of breath although patient denied any shortness of breath orthopnea proximal nocturnal dyspnea and he see any significant JVD doesn't have any CVA and pedal edema patient does have some chronic Mild pedal edema. Patient does have extensive history had a CABG recently patient is supposed to be on aspirin. Was recently hospitalized for hematuria Plavix was a is can you during that time and aspirin was continued. Patient also has heart failure with EF of around 45% patient is supposed to have this renal calculi removed. Patient is quite weak at that time was strongly advised to go to subacute rehabilitation but patient completed declined to go to subacute rehab patient was not on Lasix at that time patient was not in heart failure patient during this admission patient has some leukocytosis without any clearcut definite evidence of infection no fever appears to have worsening creatinine from 1.5 during his last admission to 1.7 now patient is hypotensive hyponatremic. BNP will be obtained patient had previous ejection fraction of 45-50%. 11/12/2019 Patient respiratory status is bit worse because of which I gave him Lasix empirically although patient doesn't have any clear to evidence of CHF no crackles on exam no significant JVD, chest x-ray did not show any significant pulmonary edema but they'll patient does have bilateral pleural effusions. Patient's creatinine has worsened from his baseline now consult nephrology. Patient's IV fluids will be discontinued will repeat basic metabolic profile aram . 11/13/2019 Patient's creatinine went up a bit serum sodium improved awaiting evaluation by nephrology. Patient is off fluids received 1 dose of Lasix yesterday patient is complaining of nausea and abdominal discomfort after eating, patient will be started on GI prophylaxis with Pepcid Constitutional: Denied any fatigue denied any fever. Cardio vascular: denied any chest pain, palpitations Gastrointestinal as mentioned in HPI Pulmonary: Denied any shortness of breath cough Neurologic denied any new focal deficits All inpatient medications were reviewed and appropriate changes in these medications as dictated in the interval history and assessment and plan. 11/14/2019 Patient is seen and evaluated and follow-up with no acute overnight issues. Urology and nephrology following and plan is to undergo Right ureteroscopy with laser lithotripsy in the morning for kidney stone. Patient continues to have some discomfort although does not want [place] as he doesn't like how it makes him feel. Will add Ultram as needed and continue with Tylenol for now. Kidney function slightly improved at 1.91. Sodium continues to be low at 132. Will repeat a.m. labs. Patient is maintained on IV Lasix and will continue at this time. Patient underwent ultrasound Of the abdomen bladder showing a 2.6 x 1.9 cm shadowing stone noted at the mid pole of the right kidney with no evident hydronephrosis, and no hydronephrosis or mass is noted of the left kidney with suspect right-sided nephrolithiasis. Currently patient denies any chest pain, shortness of breath, or palpitations. Patient is afebrile. No reports of nausea or vomiting and patient is tolerating diet. Objective - Vital Signs Vital signs: Vital Signs Temp 97.4 F L 11/14/19 04:00 Pulse 68 11/14/19 11:04 Resp 20 11/14/19 04:00 BP 119/74 11/14/19 08:03 Pulse Ox 93 L 11/14/19 04:00 Intake & Output 11/13/19 11/14/19 11/14/19 18:59 06:59 18:59 Intake Total 200 440 120 Output Total 669 Balance -469 440 120 Intake: Oral 200 440 120 Output: Urine 550 Post Void Residual 119 Other: Voiding Method Urinal Toilet Toilet Urinal Urinal # Voids 1 3 - Exam GENERAL: The patient is alert and oriented x3, not in any acute distress. Obese HEENT: Pupils are round and equally reacting to light. EOMI. No scleral icterus. No conjunctival pallor. Normocephalic, atraumatic. No pharyngeal erythema. No thyromegaly. CARDIOVASCULAR: S1 and S2 present. No murmurs, rubs, or gallops. PULMONARY: Chest is clear to auscultation, no wheezing or crackles. ABDOMEN: Soft, nontender, nondistended, normoactive bowel sounds. No palpable organomegaly. MUSCULOSKELETAL: No joint swelling or deformity. EXTREMITIES: No cyanosis, clubbing, or pedal edema. NEUROLOGICAL: Gross neurological examination did not reveal any focal deficits. Have significant generalized weakness SKIN: No rashes. - Labs CBC & Chem 7: 11/14/19 06:56 11/14/19 06:56 Labs: Abnormal Lab Results - Last 24 Hours (Table) 11/13/19 11/13/19 11/14/19 Range/Units 11:08 20:06 06:56 RBC (4.30-5.90) m/uL Hgb (13.0-17.5) gm/dL Hct (39.0-53.0) % MCHC (31.0-37.0) g/dL Lymphocytes # (1.0-4.8) k/uL Sodium 132 L (137-145) mmol/L Chloride 97 L (98-107) mmol/L BUN 32 H (9-20) mg/dL Creatinine 1.91 H (0.66-1.25) mg/dL Glucose 139 H (74-99) mg/dL POC Glucose (mg/dL) 183 H 163 H (75-99) mg/dL Calcium 7.3 L (8.4-10.2) mg/dL 11/14/19 11/14/19 Range/Units 06:56 07:02 RBC 2.91 L (4.30-5.90) m/uL Hgb 8.0 L (13.0-17.5) gm/dL Hct 26.2 L (39.0-53.0) % MCHC 30.6 L (31.0-37.0) g/dL Lymphocytes # 0.8 L (1.0-4.8) k/uL Sodium (137-145) mmol/L Chloride (98-107) mmol/L BUN (9-20) mg/dL Creatinine (0.66-1.25) mg/dL Glucose (74-99) mg/dL POC Glucose (mg/dL) 173 H (75-99) mg/dL Calcium (8.4-10.2) mg/dL Microbiology - Last 24 Hours (Table) 11/11/19 15:43 Blood Culture - Preliminary Blood No Growth after 48 hours Assessment and Plan Assessment: -Generalized weakness mostly scattered to deconditioning and there may be a Component of dehydration that contributed to his generalized weakness and was given IV fluids. IV fluids have been discontinued and patient is maintained on IV Lasix. PT/OT to evaluate the patient -Right-sided nephrolithiasis, urology following and patient will undergo Right ureteroscopy with lithotripsy In the morning. Ultrasound showed a 2.6 x 1.9 cm shadowing stone noted in the midpole of the right kidney -Acute renal failure on chronic kidney disease stage III acute renal failure is believed to be secondary to diuretics but the kidney function did not improve with IV fluids because of which I'm consulting nephrology. Nephrology following and patient is maintained on IV Lasix and IV fluids have been discontinued. -Congestive heart failure chronic systolic dysfunction with possible mild acute exacerbation, Maintained on IV Lasix twice daily -Hyponatremia etiology is not clear nephrology consultation as mentioned, Current sodium 132 -Coronary artery disease with the CABG in the past -atrial fibrillation: Not on anticoagulation at this time -Hypertension patient is presently hypotensive hold Kenneth inhibitors -Depression -COPD without any acute exacerbation -Hyperlipidemia -DVT prophylaxis with subcu heparin -GI prophylaxis; Protonix Plan: Continue current medications, management, and symptomatic treatment. Hold aspirin and heparin for procedure in the morning. Continue with Ultram and Tylenol as needed for pain management. Nephrology and urology following. Patient will undergo right-sided ureteroscopy with lithotripsy with Dr. España tomorrow morning. Patient will be nothing by mouth at midnight. PT/OT to evaluate the patient for possible rehab placement for continued PT/OT therapy for weakness. Case management and social work following. Further recommendations to follow.
[2019-11-14 17:30] LABS: Glucose,Whole Blood 282 mg/dL (75-99)
[2019-11-14 20:11] LABS: Glucose,Whole Blood 232 mg/dL (75-99)
[2019-11-14] MEDS: INSULIN DETEMIR (LEVEMIR) 100 UNIT/ML SYR SQ SCH (21:24)
[2019-11-14] MEDS: DULoxetine HCL 60 MG CAPSULE.DR PO SCH (21:24)
[2019-11-14] MEDS: ATORVASTATIN 80 MG TAB PO SCH (21:24)
[2019-11-14] MEDS: HYDROcodone/APAP 5-325MG 1 EACH TAB PO PRN (22:17)
[2019-11-15 07:02] LABS: Glucose,Whole Blood 47 mg/dL (75-99)
[2019-11-15 07:15] LABS: Calcium 7.3 mg/dL (8.4-10.2); Potassium 4.8 mmol/L (3.5-5.1)
[2019-11-15] MEDS: DEXTROSE 50% SYRINGE 50 ML IVP ONE ×2 (07:18→13:22)
[2019-11-15] MEDS: ALBUTEROL NEBULIZED 2.5 MG/3 ML INHALATION SCH ×4 (07:18→19:53)
[2019-11-15] MEDS: INSULIN ASPART (NovoLOG) 100 UNIT/ML VIAL SQ SCH ×3 (07:20→18:18)
[2019-11-15] MEDS: SYMBICORT 160-4.5 MCG INHALER INHALATION SCH ×2 (07:20→19:53)
[2019-11-15 07:40] LABS: Glucose,Whole Blood 89 mg/dL (75-99)
[2019-11-15] MEDS ORDERED: FAMOTIDINE 20 MG TAB PO SCH (09:00)
[2019-11-15] MEDS: FUROSEMIDE 10 MG/ML 4 ML VIAL IV SCH ×2 (09:03→22:45)
[2019-11-15] MEDS: METOPROLOL TARTRATE 50 MG TAB PO SCH ×2 (09:06→22:45)
[2019-11-15] MEDS: PANTOPRAZOLE 40 MG/10 ML VIAL IVP SCH ×2 (09:06→22:45)
[2019-11-15] MEDS: ISOSORBIDE MONONITRATE ER 30 MG TAB.ER.24H PO SCH (09:06)
[2019-11-15] MEDS: TAMSULOSIN 0.4 MG CAP.ER.24H PO SCH (09:06)
[2019-11-15] MEDS: ASPIRIN 81 MG PO SCH (09:06)
[2019-11-15] MEDS: MIDODRINE 5 MG TAB PO SCH ×3 (09:07→18:18)
[2019-11-15] MEDS: ONDANSETRON 4 MG/2 ML VIAL IVP PRN (09:10)
[2019-11-15] MEDS: HYDROcodone/APAP 5-325MG 1 EACH TAB PO PRN (10:59)
[2019-11-15 11:56] LABS: Glucose,Whole Blood 65 mg/dL (75-99)
[2019-11-15] MEDS ORDERED: DEXTROSE 50% SYRINGE 50 ML IVP ONE (13:22)
[2019-11-15 14:31] LABS: Glucose,Whole Blood 115 mg/dL (75-99)
--- NOTE | 2019-11-15 14:34 | PN ---
PROGRESS NOTE The patient is seen for followup for acute kidney injury. Serum creatinine is actually higher today at 2.29 from 1.9 yesterday. Patient has been voiding on his own. Post- void residual was not elevated. His blood pressure remains on the lower side and the patient is scheduled for laser lithotripsy and ureteroscopy sometime today. He denies any nausea, vomiting or abdominal pain. PHYSICAL EXAMINATION: On examination today, blood pressure 98/59, heart rate 60 per minute, he is afebrile. Examination of the heart S1, S2. Examination of the lungs, bilateral breath sounds are heard. Abdomen is soft, nontender. Examination of lower extremities shows edema 2+ bilaterally. 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 LAB: Show sodium 134, potassium 4.8, BUN 37, creatinine 2.29, glucose was low at 35. ASSESSMENT: 1. Acute kidney injury. Renal function slightly worse today, mostly associated with low blood pressure. Patient remains volume overloaded. I will continue with the Lasix but increase the midodrine as blood pressure remains low. There is no evidence of obstruction as postvoid residual was only 150. Most likely exacerbated with the use of Toradol. This is now discontinued. 2. Right ureteral stone scheduled for lithotripsy and ureteroscopy today. 3. Volume overload maintained on IV Lasix. 4. Diastolic heart failure. 5. Hyponatremia, mostly hypervolemic, now improved. 6. Chronic kidney disease secondary to nephrosclerosis. Baseline creatinine 1.5-1.7 mg/dL. PLAN: Continue off Toradol. Continue with IV Lasix. Repeat labs in a.m. MMODL / IJN: [id number] /
[2019-11-15 16:02] LABS: Glucose,Whole Blood 95 mg/dL (75-99)
[2019-11-15] MEDS ORDERED: IV FLUID CONTINUATION 1,000 ML IV ONE (16:24)
[2019-11-15] MEDS ORDERED: HYDROcodone/APAP 7.5-325MG 1 EACH TAB PO PRN (16:25)
[2019-11-15] MEDS ORDERED: ONDANSETRON 4 MG/2 ML VIAL IVP ONE (16:28)
[2019-11-15] MEDS ORDERED: DEXAMETHASONE SOD PHOSPHATE 10 MG/ML 1 ML VIAL IV ONE (16:28)
--- NOTE | 2019-11-15 16:29 | P.PN ---
Subjective Progress Note Date: 11/15/19 Principal diagnosis: 84-year-old the male well-known to me from his previous auscultation came in with generalized weakness. During his last hospitalization patient was strongly advised to go to subacute rehabilitation although he declined came back again as family is not able to take care of him. All his daughter thought he may have some shortness of breath although patient denied any shortness of breath orthopnea proximal nocturnal dyspnea and he see any significant JVD doesn't have any CVA and pedal edema patient does have some chronic Mild pedal edema. Patient does have extensive history had a CABG recently patient is supposed to be on aspirin. Was recently hospitalized for hematuria Plavix was a is can you during that time and aspirin was continued. Patient also has heart failure with EF of around 45% patient is supposed to have this renal calculi removed. Patient is quite weak at that time was strongly advised to go to subacute rehabilitation but patient completed declined to go to subacute rehab patient was not on Lasix at that time patient was not in heart failure patient during this admission patient has some leukocytosis without any clearcut definite evidence of infection no fever appears to have worsening creatinine from 1.5 during his last admission to 1.7 now patient is hypotensive hyponatremic. BNP will be obtained patient had previous ejection fraction of 45-50%. 11/12/2019 Patient respiratory status is bit worse because of which I gave him Lasix empirically although patient doesn't have any clear to evidence of CHF no crackles on exam no significant JVD, chest x-ray did not show any significant pulmonary edema but they'll patient does have bilateral pleural effusions. Patient's creatinine has worsened from his baseline now consult nephrology. Patient's IV fluids will be discontinued will repeat basic metabolic profile aram . 11/13/2019 Patient's creatinine went up a bit serum sodium improved awaiting evaluation by nephrology. Patient is off fluids received 1 dose of Lasix yesterday patient is complaining of nausea and abdominal discomfort after eating, patient will be started on GI prophylaxis with Pepcid Constitutional: Denied any fatigue denied any fever. Cardio vascular: denied any chest pain, palpitations Gastrointestinal as mentioned in HPI Pulmonary: Denied any shortness of breath cough Neurologic denied any new focal deficits All inpatient medications were reviewed and appropriate changes in these medications as dictated in the interval history and assessment and plan. 11/14/2019 Patient is seen and evaluated and follow-up with no acute overnight issues. Urology and nephrology following and plan is to undergo Right ureteroscopy with laser lithotripsy in the morning for kidney stone. Patient continues to have some discomfort although does not want [place] as he doesn't like how it makes him feel. Will add Ultram as needed and continue with Tylenol for now. Kidney function slightly improved at 1.91. Sodium continues to be low at 132. Will repeat a.m. labs. Patient is maintained on IV Lasix and will continue at this time. Patient underwent ultrasound Of the abdomen bladder showing a 2.6 x 1.9 cm shadowing stone noted at the mid pole of the right kidney with no evident hydronephrosis, and no hydronephrosis or mass is noted of the left kidney with suspect right-sided nephrolithiasis. Currently patient denies any chest pain, shortness of breath, or palpitations. Patient is afebrile. No reports of nausea or vomiting and patient is tolerating diet. 11/15/2019 Patient is seen and evaluated and follow-up awaiting to undergo right ureteroscopy with lithotripsy with urology this evening. Patient is currently nothing by mouth and having some low blood sugar readings. Continue with an amp of D50 and continue to monitor blood sugars closely. Patient was given long- acting last night and has been nothing by mouth since midnight. Patient continues to have right-sided discomfort. Will adjust pain medications. Patient's kidney functions continued to elevate and is currently 2.29 and will hold IV Lasix at this time. Urology and nephrology are following. Sodium slightly improved at 134. currently patient denies any chest pain, shortness of breath, or palpitations. Patient is afebrile. Patient is having intermittent nausea with no reports of vomiting noted. Will await urology report Objective - Vital Signs Vital signs: Vital Signs Temp 98.3 F 11/15/19 12:24 Pulse 71 11/15/19 15:36 Resp 18 11/15/19 12:24 BP 98/59 11/15/19 12:24 Pulse Ox 98 11/15/19 12:24 Intake & Output 11/14/19 11/15/19 11/15/19 18:59 06:59 18:59 Intake Total 720 0 500 Output Total 150 150 Balance 570 -150 500 Intake: Oral 720 0 500 Output: Urine 150 Post Void Residual 150 Other: Voiding Method Toilet Toilet Toilet Urinal Urinal Urinal # Voids 2 1 1 - Exam GENERAL: The patient is alert and oriented x3, not in any acute distress. Obese HEENT: Pupils are round and equally reacting to light. EOMI. No scleral icterus. No conjunctival pallor. Normocephalic, atraumatic. No pharyngeal erythema. No thyromegaly. CARDIOVASCULAR: S1 and S2 present. No murmurs, rubs, or gallops. PULMONARY: Chest is clear to auscultation, no wheezing or crackles. ABDOMEN: Soft, nontender, nondistended, normoactive bowel sounds. No palpable organomegaly. Right-sided CVA tenderness noted on exam MUSCULOSKELETAL: No joint swelling or deformity. EXTREMITIES: No cyanosis, clubbing, or pedal edema. NEUROLOGICAL: Gross neurological examination did not reveal any focal deficits. Have significant generalized weakness SKIN: No rashes. - Labs CBC & Chem 7: 11/14/19 06:56 11/15/19 06:39 Labs: Abnormal Lab Results - Last 24 Hours (Table) 11/14/19 11/14/19 11/15/19 Range/Units 17:27 20:09 06:39 Sodium 134 L (137-145) mmol/L Carbon Dioxide 32 H (22-30) mmol/L BUN 37 H (9-20) mg/dL Creatinine 2.29 H (0.66-1.25) mg/dL Glucose 35 L* (74-99) mg/dL POC Glucose (mg/dL) 282 H 232 H (75-99) mg/dL Calcium 7.3 L (8.4-10.2) mg/dL 11/15/19 11/15/19 11/15/19 Range/Units 07:00 11:51 14:29 Sodium (137-145) mmol/L Carbon Dioxide (22-30) mmol/L BUN (9-20) mg/dL Creatinine (0.66-1.25) mg/dL Glucose (74-99) mg/dL POC Glucose (mg/dL) 47 L 65 L 115 H (75-99) mg/dL Calcium (8.4-10.2) mg/dL Microbiology - Last 24 Hours (Table) 11/11/19 15:43 Blood Culture - Preliminary Blood No Growth after 72 hours Assessment and Plan Assessment: -Generalized weakness mostly scattered to deconditioning and there may be a Component of dehydration that contributed to his generalized weakness and was given IV fluids. IV fluids have been discontinued and patient is maintained on IV Lasix. PT/OT to evaluate the patient. IV Lasix being held as creatinine is worsened -Right-sided nephrolithiasis, urology following and patient will undergo Right ureteroscopy with lithotripsy In the morning. Ultrasound showed a 2.6 x 1.9 cm shadowing stone noted in the midpole of the right kidney -Acute renal failure on chronic kidney disease stage III acute renal failure is believed to be secondary to diuretics but the kidney function did not improve with IV fluids because of which I'm consulting nephrology. Nephrology following and patient is maintained on IV Lasix and IV fluids have been discontinued. IV Lasix being held today current creatinine is 2.29 -Congestive heart failure chronic systolic dysfunction with possible mild acute exacerbation -Hyponatremia etiology is not clear nephrology consultation as mentioned, Current sodium 134 -Coronary artery disease with the CABG in the past -atrial fibrillation: Not on anticoagulation at this time -Hypertension patient is presently hypotensive hold Kenneth inhibitors -Depression -COPD without any acute exacerbation -Hyperlipidemia -DVT prophylaxis with subcu heparin -GI prophylaxis; Protonix Plan: Continue current medications, management, and symptomatic treatment. Hold aspirin and heparin for procedure in the morning. Continue with Ultram and Tylenol, and [place] as needed for pain management. Nephrology and urology follow ing. Patient will undergo right-sided ureteroscopy with lithotripsy with Dr. España this evening. Patient will be nothing by mouth at midnight. Continue to monitor blood sugars closely as patient has been having some episodes of hypoglycemia although asymptomatic. PT/OT to evaluate the patient for possible rehab placement for continued PT/OT therapy for weakness. Case management and social work following. Further recommendations to follow.
[2019-11-15] MEDS ORDERED: SUCCINYLCHOLINE CHLORIDE 100 MG/5 ML SYR IV ONE (16:50)
[2019-11-15] MEDS ORDERED: LIDOCAINE 1% INJ 10MG/ML (20 ML MDV) ONE (16:50)
[2019-11-15] MEDS ORDERED: ePHEDrine SULFATE/0.9% NACL/PF 50 MG/5 ML SYRINGE IV ONE (16:50)
[2019-11-15] MEDS ORDERED: PHENYLEPHRINE-0.9% NACL SYG 1 MG/10 ML SYRINGE ONE (16:50)
[2019-11-15] MEDS ORDERED: fentaNYL (PF) 50 MCG/ML 2 ML AMP ONE (16:50)
[2019-11-15] MEDS ORDERED: PROPOFOL 10 MG/ML 20 ML VIAL IV ONE (16:50)
[2019-11-15] MEDS ORDERED: LACTATED RINGERS 1,000 ML IV ONE (18:33)
--- NOTE | 2019-11-15 18:42 | P.OP ---
Date of Procedure: 11/15/19 Preoperative Diagnosis: Right renal calculus Postoperative Diagnosis: Same Procedure(s) Performed: Cystoscopy, right ureteroscopy with Holmium laser lithotripsy, right ureteral stent insertion Anesthesia: CAITLINA Surgeon: Antonio España Estimated Blood Loss (ml): 0 IV fluids (ml): 900 Pathology: none sent Condition: stable Disposition: PACU Indications for Procedure: The patient is an 84-year-old white male who underwent a laparoscopic right partial nephrectomy for renal cell carcinoma in October 2010. He also has a left renal mass, which was biopsied and showed no evidence of malignancy. He underwent a TURP in 2010. He was found in 2016 to have a 14 mm right renal pelvic calculus. The calculus is increased in size, but he declined treatment as he was asymptomatic. However, he has recently become symptomatic, reporting right flank pain associated with nausea. A computed tomography scan now shows mild right hydronephrosis with a 2 cm right renal pelvic calculus, measuring approximately 250 Hounsfield units. I had a lengthy discussion with the patient and his granddaughter, reviewing alternative treatment options. He is felt to be a poor candidate for ESWL, given his large stone burden. Percutaneous nephrolithotomy is felt to be the optimal option for him, but he prefers not to undergo a procedure of this magnitude. He was advised that the calculus appears not to be very dense, and as such could be successfully treated with uretero scopy and laser lithotripsy. He has elected to proceed in this manner. However, he understands the possible need for multiple treatments. Operative Findings: Large right renal pelvic calculus, not particularly dense and possibly of uric acid composition. Description of Procedure: The patient was taken to the operating room and placed in the dorsolithotomy position, with legs supported in Lior stirrups. The external genitalia was prepped and draped sterilely. The 30 lens was used to introduce the 21-Turkmen Boucher cystoscopic sheath through the urethra and into the bladder under direct vision. The prostatic urethra showed evidence of mild lateral lobe enlargement. The bladder was examined in its entirety. Both ureteral orifices were normal anatomic location and configuration, and clear urine effluxed from both. No tumors were seen. Multiple tiny calculi were seen within the bladder suggestive of uric acid calculi. A 0.038 inch Glidewire was passed through the cystoscope. The right ureteral orifice was cannulated, and the Glidewire was advanced up to the right renal pelvis. The cystoscope was removed, and an 11/13-Turkmen ureteral access catheter was passed over the wire, up to the proximal ureter. The mini flexible ureteroscope was passed through the ureteral access catheter sheath and advanced under direct vision into the right renal pelvis. A large calculus was identified. The 270 micron Holmium laser probe was passed through the ureteroscope, and lithotripsy was performed. The calculus was not particularly dense and fragmented well. The entire calculus was fragmented, though there were some residual calculus fragments exceeding several millimeter in diameter. Visualization was suboptimal and it was decided to terminate the procedure. The ureteroscope was removed. The Glidewire was passed through the ureteral access catheter sheath, which was removed. The Glidewire was backloaded into the cystoscope, which was passed into the bladder. A 26 cm, 6-Turkmen double-J ureteral stent was placed over the wire. Proper stent positioning was verified fluoroscopically and endoscopically. The bladder was emptied and the cystoscope removed. The patient tolerated the procedure well and was taken to the recovery room in stable condition.
[2019-11-15 19:08] LABS: Glucose,Whole Blood 90 mg/dL (75-99)
[2019-11-15 20:06] LABS: Glucose,Whole Blood 105 mg/dL (75-99)
[2019-11-15] MEDS: DULoxetine HCL 60 MG CAPSULE.DR PO SCH (22:45)
[2019-11-15] MEDS: ATORVASTATIN 80 MG TAB PO SCH (22:45)
[2019-11-16 00:43] LABS: Glucose,Whole Blood 298 mg/dL (75-99)
[2019-11-16] MEDS: INSULIN DETEMIR (LEVEMIR) 100 UNIT/ML SYR SQ SCH (01:16)
[2019-11-16 07:06] LABS: Glucose,Whole Blood 367 mg/dL (75-99)
[2019-11-16] MEDS: MIDODRINE 5 MG TAB PO SCH ×2 (08:44→12:37)
[2019-11-16] MEDS: TAMSULOSIN 0.4 MG CAP.ER.24H PO SCH (08:44)
[2019-11-16] MEDS: INSULIN ASPART (NovoLOG) 100 UNIT/ML VIAL SQ SCH ×2 (08:45→12:37)
[2019-11-16] MEDS: METOPROLOL TARTRATE 50 MG TAB PO SCH (08:45)
[2019-11-16] MEDS: PANTOPRAZOLE 40 MG/10 ML VIAL IVP SCH (08:45)
[2019-11-16] MEDS: ISOSORBIDE MONONITRATE ER 30 MG TAB.ER.24H PO SCH (08:45)
[2019-11-16] MEDS: ASPIRIN 81 MG PO SCH (08:45)
[2019-11-16] MEDS: FUROSEMIDE 10 MG/ML 4 ML VIAL IV SCH (08:45)
--- NOTE | 2019-11-16 09:11 | P.PN ---
Subjective Progress Note Date: 11/16/19 The patient underwent a right ureteroscopy and laser lithotripsy by yesterday. He has some mild discomfort in the flank and bladder from the stent. He is feeling better. From a urologic standpoint he can go home any time. I explained to him that he may have blood in his urine periodically. He should be seen in the office in one week by Dr España. Management of the stent and remaining stone fragments will be discussed. Objective - Vital Signs Vital signs: Vital Signs Temp 98.4 F 11/16/19 04:16 Pulse 84 11/16/19 04:16 Resp 16 11/16/19 04:16 BP 105/53 11/16/19 04:16 Pulse Ox 91 L 11/16/19 04:16 Intake & Output 11/15/19 11/16/19 11/16/19 18:59 06:59 18:59 Intake Total 1450 100 Output Total 0 195 Balance 1450 -95 Intake: IV 950 100 Oral 500 Output: Urine 195 Estimated Blood Loss 0 Other: Voiding Method Toilet Toilet Toilet Urinal Urinal Urinal # Voids 1 2 - Labs CBC & Chem 7: 11/14/19 06:56 11/15/19 06:39 Labs: Abnormal Lab Results - Last 24 Hours (Table) 11/15/19 11/15/19 11/15/19 Range/Units 11:51 14:29 20:04 POC Glucose (mg/dL) 65 L 115 H 105 H (75-99) mg/dL 11/16/19 11/16/19 Range/Units 00:42 07:04 POC Glucose (mg/dL) 298 H 367 H (75-99) mg/dL Microbiology - Last 24 Hours (Table) 11/11/19 15:43 Blood Culture - Preliminary Blood No Growth after 96 hours
[2019-11-16] MEDS: ALBUTEROL NEBULIZED 2.5 MG/3 ML INHALATION SCH ×2 (09:53→13:22)
[2019-11-16] MEDS: SYMBICORT 160-4.5 MCG INHALER INHALATION SCH (09:53)
[2019-11-16 10:53] LABS: Glucose,Whole Blood 327 mg/dL (75-99)
[2019-11-16] MEDS ORDERED: LACTULOSE 20 GM/30 ML CUP PO SCH (11:00)
[2019-11-16 11:04] LABS: Calcium 7.1 mg/dL (8.4-10.2); Potassium 5.3 mmol/L (3.5-5.1)
[2019-11-16 11:06] LABS: Basophils % (A) 0 %; Eosinophils % (A) 0 %; HCT 24.6 % (39.0-53.0); HGB 7.5 gm/dL (13.0-17.5); Hypochromasia Marked; Lymphocytes # (A) 0.5 k/uL (1.0-4.8); Lymphocytes % (A) 5 %; MCH 28.2 pg (25.0-35.0); MCHC 30.6 g/dL (31.0-37.0); MCV 92.3 fL (80.0-100.0); Mean Platelet Volume 6.6; Monocytes # (A) 0.5 k/uL (0-1.0); Monocytes % (A) 6 %; Neutrophils # (A) 7.8 k/uL (1.3-7.7); Neutrophils % (A) 88 %; Platelet Count 237 k/uL (150-450); RBC 2.66 m/uL (4.30-5.90); RDW 15.3 % (11.5-15.5); WBC 8.8 k/uL (3.8-10.6)
--- NOTE | 2019-11-16 11:24 | US ---
EXAMINATION TYPE: US abdomen limited DATE OF EXAM: 11/16/2019 COMPARISON: NONE CT July 01, 2019 CLINICAL HISTORY: poss ascites. Swelling and bloating. No evidence of ascites at this time, all 4 abdominal quadrants scanned. Incidental finding: spleen = 14.6cm IMPRESSION: As above. No ascites is present. Splenomegaly redemonstrated.
--- NOTE | 2019-11-16 13:10 | P.DS ---
Providers Date of admission: 11/11/19 15:35 Expected date of discharge: 11/16/19 Attending physician: Chuck Us Consults: 11/12/19 16:59 Consult Physician Routine Consulting Provider: Marilee Gill Consult Reason/Comments: cheryl Do you want consulting provider notified?: Yes 11/14/19 09:06 Consult Physician Urgent Consulting Provider: Iban Javed Consult Reason/Comments: kidney stones Do you want consulting provider notified?: Yes Primary care physician: Yanet Lee Hospital Course: Final diagnosis -Generalized weakness mostly Related to deconditioning and there may be a Component of dehydration that contributed to his generalized weakness -Status post right ureteroscopy with stent placement and lithotripsy -Right-sided nephrolithiasis -Acute renal failure on chronic kidney disease stage III acute renal failure is believed to be secondary to diuretics -Congestive heart failure chronic systolic dysfunction with possible mild acute exacerbation -Hyponatremia etiology is not clear -Coronary artery disease with the CABG in the past -atrial fibrillation: Not on anticoagulation at this time -Hypertension patient is presently hypotensive -Depression -COPD without any acute exacerbation -Hyperlipidemia -DVT prophylaxis -GI prophylaxis Discharge disposition Patient is being discharged in a stable condition with guarded prognosis to [facility] for continued PT/OT therapy. Patient will follow- up with Dr. Yanet Lee upon discharge. Patient also instructed to follow-up with urology Dr. España in the outpatient setting. Total time taken is greater than 35 minutes. History of present illness This is an 84-year-old male who was recently admitted with Generalized weakness and was being closely monitored. had been following with urology in the outpatient setting for kidney stones although continued to have increasing discomfort in the right flank and was evaluated by urology. During hospitalization patient underwent right ureteroscopy with lithotripsy and stent placement. Patient also continued to have worsening kidney functions and was being closely monitored by nephrology. Patient was maintained on IV Lasix twice daily and will continue on 40 mg of Lasix daily by mouth in the outpatient setting. Current creatinine trending down slowly and a prescription was provided for repeat labs in 2-3 days. Patient was seen and evaluated by physical therapy and is now agreeable to subacute rehab for continued PT/OT therapy. Patient will be going to [facility] today. Patient was evaluated by urology this morning and patient will continue to follow-up in the outpatient setting as instructed. Patient also instructed he may see some hematuria due to recent stent placement and lithotripsy. Patient verbalized understanding. Patient states he hasn't had a bowel movement in 3 daysAnd was given some lactulose. Patient may use lactulose as needed to assist with constipation. Ultrasound of the abdomen done today showing no ascites. Patient is to continue to monitor blood sugars before meals and at bedtime and continue with insulin as scheduled. Currently no reports of chest pain, worsening shortness of breath, or palpitations. Patient is afebrile. No reports of nausea or vomiting and patient is tolerating diet. Patient will be going to [facility] today. On exam vital signs are stable. Temp is 98.4F, pulse is 84, respirations are 16, blood pressure is 105/53, oxygen saturation is 91% on Room air. Cardio S1, S2 are muffled. Respiratory shows diminished breath sounds at the bases with a few scattered rhonchi noted. Abdomen is soft, Obese, and nontender. Nervous system shows mild diffuse weakness. Please refer to medication reconciliation sheet for a list of medications. Patient Condition at Discharge: Stable Plan - Discharge Summary Discharge Rx Participant: No New Discharge Prescriptions: New Aspirin 81 mg PO DAILY chew Lactulose [Cephulac] 30 gm PO TID PRN ml PRN Reason: Constipation Midodrine [ProAmatine] 5 mg PO AC-TID tab traMADol HCl [Ultram] 50 mg PO TID PRN #6 tab PRN Reason: Pain Continue DULoxetine HCL [Cymbalta] 60 mg PO HS Tamsulosin [Flomax] 0.4 mg PO DAILY #30 cap.er.24h Ascorbic Acid [Vitamin C] 500 mg PO DAILY Isosorbide Mononitrate ER [Imdur] 30 mg PO DAILY #30 tab.er.24h Nitroglycerin Sl Tabs [Nitrostat] 0.4 mg SUBLINGUAL Q5M PRN #100 tab PRN Reason: Chest Pain Multivitamin with Iron [Multivitamins with Iron] 1 tab PO HS INSULIN ASPART (NovoLOG) [NovoLOG (formulary)] 15 unit SQ AC-BID@1200,1800 INSULIN ASPART (NovoLOG) [NovoLOG (formulary)] 30 unit SQ AC-BRKFST Atorvastatin [Lipitor] 80 mg PO HS tab Ferrous Sulfate [Iron (65 MG Elemental)] 325 mg PO DAILY Metoprolol Tartrate [Lopressor] 50 mg PO BID Insulin Glargine [Lantus] 50 unit SQ HS #0 Albuterol Inhaler [Ventolin Hfa Inhaler] 2 puff INHALATION RT-QID 30 Days #1 puff Furosemide [Lasix] 40 mg PO DAILY Budesonide-Formot 160-4.5 Mcg [Symbicort 160-4.5 Mcg Inhaler] 2 puff INHA LATION RT-BID Acetaminophen [Tylenol] 325 mg PO Q6H PRN PRN Reason: Pain Or Fever > 100.5 LORazepam [Ativan] 0.5 mg PO DAILY #4 tab HYDROcodone/APAP 5-325MG [[facility] 5-325] 1 - 2 tab PO Q4H PRN #12 tab MDD 6 TABS PRN Reason: Pain Discontinued amLODIPine [Norvasc] 5 mg PO DAILY #30 tab lisinopriL [Zestril] 2.5 mg PO DAILY Discharge Medication List DULoxetine HCL [Cymbalta] 60 mg PO HS 11/08/13 [History] Tamsulosin [Flomax] 0.4 mg PO DAILY #30 cap.er.24h 03/04/14 [Rx] Ascorbic Acid [Vitamin C] 500 mg PO DAILY 05/07/18 [History] Isosorbide Mononitrate ER [Imdur] 30 mg PO DAILY #30 tab.er.24h 05/11/18 [Rx] Nitroglycerin Sl Tabs [Nitrostat] 0.4 mg SUBLINGUAL Q5M PRN #100 tab 05/11/18 [Rx] INSULIN ASPART (NovoLOG) [NovoLOG (formulary)] 15 unit SQ AC-BID@1200,1800 06/03/19 [History] INSULIN ASPART (NovoLOG) [NovoLOG (formulary)] 30 unit SQ AC-BRKFST 06/03/19 [History] Multivitamin with Iron [Multivitamins with Iron] 1 tab PO HS 06/03/19 [History] Atorvastatin [Lipitor] 80 mg PO HS tab 06/07/19 [Rx] Ferrous Sulfate [Iron (65 MG Elemental)] 325 mg PO DAILY 10/28/19 [History] Metoprolol Tartrate [Lopressor] 50 mg PO BID 10/28/19 [History] Albuterol Inhaler [Ventolin Hfa Inhaler] 2 puff INHALATION RT-QID 30 Days #1 puff 11/04/19 [Rx] Insulin Glargine [Lantus] 50 unit SQ HS #0 11/04/19 [Rx] Acetaminophen [Tylenol] 325 mg PO Q6H PRN 11/11/19 [History] Budesonide-Formot 160-4.5 Mcg [Symbicort 160-4.5 Mcg Inhaler] 2 puff INHALATION RT-BID 11/11/19 [History] Furosemide [Lasix] 40 mg PO DAILY 11/11/19 [History] Aspirin 81 mg PO DAILY chew 11/16/19 [Rx] HYDROcodone/APAP 5-325MG [[facility] 5-325] 1 - 2 tab PO Q4H PRN #12 tab MDD 6 TABS 11/16/19 [Rx] LORazepam [Ativan] 0.5 mg PO DAILY #4 tab 11/16/19 [Rx] Lactulose [Cephulac] 30 gm PO TID PRN ml 11/16/19 [Rx] Midodrine [ProAmatine] 5 mg PO AC-TID tab 11/16/19 [Rx] traMADol HCl [Ultram] 50 mg PO TID PRN #6 tab 11/16/19 [Rx] Follow up Appointment(s)/Referral(s): Yanet Lee MD [Primary Care Provider] - 1-2 days Antonio España MD [STAFF PHYSICIAN] - 1 Week [facility], [NON-STAFF] - 1 Week Ambulatory/Diagnostic Orders: Basic Metabolic Panel [LAB.AMB] Time Frame: 2 Days, Location: None Selected Complete Blood Count w/diff [LAB.AMB] Time Frame: 2 Days, Location: None Selected Activity/Diet/Wound Care/Special Instructions: Patient is going to [facility] Activity as tolerated Continue current consistent carb diet Continue monitoring blood sugars before meals at bedtime and treat accordingly Follow-up with primary care provider upon discharge Follow-up with urology in the outpatient setting once discharged Repeat labs in 2-3 days Discharge Disposition: TRANSFER TO [facility]/F
[2019-11-16 13:54] VITALS: BP 98/50; PULSE 71; RESP 17; TEMP 98.7
--- NOTE | 2019-11-16 23:25 | PN ---
PROGRESS NOTE Patient is seen for followup for acute kidney injury. He did have cystoscopy and right ureteral stent placement this morning. Currently patient states that his right-sided pain has improved. He has good urine output. No complaints with urination. PHYSICAL EXAMINATION: On examination today, blood pressure was 98/50, heart rate 76 per minute, patient is afebrile. EXAMINATION OF THE HEART: S1, S2. EXAMINATION OF THE LUNGS: Bilateral breath sounds are heard. ABDOMEN: Soft, obese. Examination of lower extremities shows edema 1+ bilaterally with chronic skin changes. [employer] EXAM: Grossly intact. LABS: Labs show sodium 131, potassium 5.3, chloride 97, CO2 is 28, BUN 38, creatinine 2.21, hemoglobin 7.5 g/dL. ASSESSMENT: 1. Acute kidney injury expect improvement post stent placement. There was a component of hypoperfusion associated with low blood pressure. The midodrine was increased and patient can have repeat labs done as outpatient in 2 to 3 days time. He also needs to avoid the use of Toradol and other nonsteroidal anti-inflammatory agents. 2. Right hydronephrosis, right ureteral stent, status post lithotripsy and ureteroscopy. 3. Chronic kidney disease secondary to nephrosclerosis. Baseline creatinine 1.5 to 1.7, stage 3. 4. Volume overload, maintained on Lasix. PLAN: Continue to diurese patient. Repeat labs as outpatient in 2 to 3 days time. Follow up as outpatient for CKD. Maintain patient on loop diuretics. MMODL / IJN: [id number] /
--- NOTE | 2019-11-17 08:39 | CDI ---
Documentation Clarification Form Date: 11/17/2019 08:14:54 AM From: Sabrina Gerber Phone: If you have a question about this query, please contact Manasa Nelson [employer] at [phone] between 8am and 5pm. Admit Date: 11/11/2019 03:35:00 PM Patient Name: Marcus Grove Visit Number: [id number] Discharge Date: 11/16/2019 04:26:00 PM ATTENTION: The Clinical Documentation Specialists (CDI) and [facility] Coding Staff appreciate your assistance in clarifying documentation. Please respond to the clarification below the line at the bottom and electronically sign. The CDI & [facility] Coding staff will review the response and follow-up if needed. Please note: Queries are made part of the Legal Health Record. If you have any questions, please contact the author of this message via ITS. Dr. Chuck Us Conflicting documentation has been found in the medical record: DCS documents CHF chronic systolic dysfuntion with possible mild acute exacerbation. PN notes 11/13 and 11/14 along with Nephrology consult doucment diastolic CHF. Please clarify if patient had CHF chronic systolic dysfuntion with possible mild acute exacerbation or did patient have diastolic CHF. History/Risk Factors: HTN with hypotension edema Acute chronic renal failure Treatment: Lasix In your opinion, what is the most clinically appropriate diagnosis for this patient? CHF chronic systolic dysfuntion with possible mild acute exacerbation Diastolic CHF Both diastolic and systolic CHF Other explanation of clinical findings Unable to determine (no explanation for clinical findings) My assessment is as per my dictation MTDD
== END 2019-11-16 16:26 | DRG 659 ==
LOC: EC 12:09 → 5NMEDONC 15:35
PROVIDERS: ADMIT Internal Medicine; ATTEND Internal Medicine
PROC: 0T768DZ Dilation of Right Ureter with Intraluminal Device, Via Natural or Artificial Opening Endoscopic (ICD-10-PCS; principal; 2019-11-15 17:15)
PROC: 0TC68ZZ Extirpation of Matter from Right Ureter, Via Natural or Artificial Opening Endoscopic (ICD-10-PCS; principal; 2019-11-15 17:15)
DX: N17.0 Acute kidney failure with tubular necrosis (principal); I50.23 Acute on chronic systolic (congestive) heart failure; E87.1 Hypo-osmolality and hyponatremia; I13.0 Hypertensive heart and chronic kidney disease with heart failure and stage 1 through stage 4 chronic kidney disease, or unspecified chronic kidney disease; E11.22 Type 2 diabetes mellitus with diabetic chronic kidney disease; E11.319 Type 2 diabetes mellitus with unspecified diabetic retinopathy without macular edema; E66.9 Obesity, unspecified; Z68.32 Body mass index [BMI] 32.0-32.9, adult; E78.5 Hyperlipidemia, unspecified; E86.0 Dehydration; F32.9 Major depressive disorder, single episode, unspecified; F41.9 Anxiety disorder, unspecified; I25.10 Atherosclerotic heart disease of native coronary artery without angina pectoris; I25.2 Old myocardial infarction; I48.91 Unspecified atrial fibrillation; J44.9 Chronic obstructive pulmonary disease, unspecified; N13.2 Hydronephrosis with renal and ureteral calculous obstruction; N18.3 Chronic kidney disease, stage 3 (moderate); N28.89 Other specified disorders of kidney and ureter; N40.0 Benign prostatic hyperplasia without lower urinary tract symptoms; Z11.59 Encounter for screening for other viral diseases; T50.2X5A Adverse effect of carbonic-anhydrase inhibitors, benzothiadiazides and other diuretics, initial encounter; Z79.4 Long term (current) use of insulin; Z79.51 Long term (current) use of inhaled steroids; Z79.899 Other long term (current) drug therapy; Z80.0 Family history of malignant neoplasm of digestive organs; Z82.49 Family history of ischemic heart disease and other diseases of the circulatory system; Z85.528 Personal history of other malignant neoplasm of kidney; Z87.01 Personal history of pneumonia (recurrent); Z87.891 Personal history of nicotine dependence; E86.1 Hypovolemia; Z90.5 Acquired absence of kidney; Z95.1 Presence of aortocoronary bypass graft; I95.9 Hypotension, unspecified; Z66 Do not resuscitate; Z60.2 Problems related to living alone; Z98.49 Cataract extraction status, unspecified eye; Z88.5 Allergy status to narcotic agent
CPT/HCPCS: 36415; 71045; 71046; 76705; 76770; 80048; 80053; 81001; 83605; 83735; 83880; 84100; 84443; 84484; 85025; 85610; 85730; 87040; 87635; 93005; 94640; 94760; 96360; 99285